=== PATIENT | female | born 1980 | race Caucasian/White ===

== ENCOUNTER 2017-12-30 13:22 | Inpatient (IN) ==
--- NOTE | 2017-12-30 13:44 | Emergency Department Note ---
Wound/Laceration HPI - General Source: patient Mode of arrival: ambulatory Limitations: no limitations <Reece De Anda - Last Filed: 12/30/17 13:41> <Pineda Lamas - Last Filed: 12/30/17 14:27> - General Chief Complaint: Wound/Laceration Stated Complaint: left foot wound, needs debridement, Time Seen by Provider: 12/30/17 13:33 - History of Present Illness HPI Narrative: this is a 37 year old recently diagnosed diabetic female coming into the ER today for surgical consult of possible debridement for the cellulitis on left foot and non-healing ulcer on the plantar aspect of left 1st metatarsal. She came into the ER yesterday and was treated with IV Antibiotics as well as 11 units of insulin when her A1C was measured at 13.4 and her blood glucose was measured at 500. She was discharged with prescription of Levaquin 1 tablet po Qd and metformin 500 mg po BID with a recommended follow up to see wound care. She came in and saw wound care today at 12:45pm who recommended her to go get a surgical consult for wound debridement. (Reece De Anda) - Related Data Previous Rx's Medication Instructions Recorded Levofloxacin [Levaquin] 500 mg PO DAILY #10 tab 12/29/17 metFORMIN [Glucophage] 500 mg PO BIDCC #30 tab 12/29/17 Allergies Allergy/AdvReac Type Severity Reaction Status Date / Time Amoxicillin Allergy Mild Hives Verified 12/29/17 16:54 Review of Systems All systems ED: reviewed and negative except as stated. Integumentary: Reports: lesions (cellulitis of left foot, non healing ulcer 1st metatarsal left side. ) <Reece De Anda - Last Filed: 12/30/17 13:41> Integumentary: Reports: as per HPI <Pineda Lamas - Last Filed: 12/30/17 14:27> Past Medical History - Past Medical History Medical history: Reports: no medical history Surgical history ED: Reports: no surgical history - Social History smoking status: Never smoker Alcohol use: Reports: None Drug use: Reports: none <Reece De Anda - Last Filed: 12/30/17 13:41> - Past Medical History Medical history: Reports: DM <Pineda Lamas - Last Filed: 12/30/17 14:27> Physical Exam Limitations: no limitations General appearance: alert Head: atraumatic, normocephalic Eye: Present: PERRL, EOMI Chest: Present: normal inspection, symmetric chest wall rise Respiratory: Present: normal lung sounds bilaterally Cardiovascular: Present: tachycardia Abdominal: Present: soft. Absent: tenderness, guarding, rebound, rigidity Foot/toe: Present: tenderness, swelling, erythema (erythematous left foot. nonhealing ulcer 1 cm b 1 cm plantar aspect on left metatarsal) Neurological: Present: alert, oriented X3, CN II-XII intact Psychiatric: Present: normal affect <Reece De Anda - Last Filed: 12/30/17 13:41> ENT: normal exam Neck: Present: normal inspection Hip/Pelvis: Present: normal inspection, full ROM Upper leg: Present: normal inspection, full ROM Knee: Present: normal inspection, full ROM Foot/toe: Present: erythema <Pineda Lamas - Last Filed: 12/30/17 14:27> Vital Signs Temperature 98.6 F 12/30/17 13:23 Pulse Rate 106 H 12/30/17 13:23 Respiratory Rate 18 12/30/17 13:23 Blood Pressure 128/86 12/30/17 13:23 Pulse Oximetry (%) 97 12/30/17 13:23 Temperature 98.6 F 12/30/17 13:23 Pulse Rate 106 H 12/30/17 13:23 Respiratory Rate 18 12/30/17 13:23 Blood Pressure 128/86 12/30/17 13:23 Pulse Oximetry (%) 97 12/30/17 13:23 Wound/Laceration <Reece De Anda - Last Filed: 12/30/17 13:41> - Lab Data Result diagrams: 12/30/17 13:50 12/30/17 13:50 <Pineda Lamas - Last Filed: 12/30/17 14:27> - MDM Narrative Medical decision making narrative: patiebnt seen by Dr Moy and recommended debridement. Dr Badillo consulted and felt podiATRY CONSULT BY DR Coelho . HE IS HERE TO EVALUATE AND WILL TAKE TO SURGERY TODAY. MEDICAL CONSULT TO DR SIMS. (Pineda Lamas) - Lab Data Lab Results 12/30/17 Range/Units 13:50 Band Neutrophils % Not Reportable Disposition <Reece De Anda - Last Filed: 12/30/17 13:41> Pt seen by [facility] only: No Time of Disposition: 14:24 <Pineda Lamas - Last Filed: 12/30/17 14:27> Clinical Impression: Cellulitis and abscess of foot Summary: 1.) cellulitis of left 1st metatarsal A.) Surgical consult B.) continue antibiotics as prescribed 2.) Diabetes A.) Continue taking metformin 500 mg po BID B.) schedule f/u with PCP for [facility] (Reece De Anda) Disposition: Xfer As Inpt ([facility]) Condition: Fair Referrals: Naida Baker ARNP [Primary Care Provider] -
[2017-12-30 14:27] LABS: Mean Cell Volume 86.4 fL (80.0-100.0); Mean Corpuscular HGB Conc 33.6 g/dL (31.0-36.0); Platelet Count 256 K/mcL (140-440); RBC 4.52 M/mcL (4.00-5.20); Red Cell Distribution Width 12.6 % (11.5-14.5)
[2017-12-30 14:44] LABS: ALT/SGPT 14 U/l (0-40); Albumin 3.3 gm/dL (3.2-5.2); Albumin/Globulin Ratio 0.9 (1.0-2.3); Alkaline Phosphatase 145 U/L (39-117); Blood Urea Nitrogen 7 mg/dl (6-20)
[2017-12-30 15:30] LABS: Band Neutrophils % 4 % (0-10); Eosinophils % (Manual) 2 % (0-7); Lymphocytes % 19 % (15-49); Monocytes % (Manual) 11 % (1-12); Platelet Estimate NORMAL (NORMAL); RBC Morphology NORMAL (NORMAL); Segmented Neutrophils % 64 % (38-78)
--- NOTE | 2017-12-30 15:42 | Orthopedic Consult Note ---
History of Present Illness - HPI Patient information: Note initiated : 12/30/17 at 3:40 pm Service Date, if different from initiated Date: [] Patient: Angela Sultana 37 y/o F admitted on for left foot wound, needs debridement,. Chief Complaint: [foot pain] Consult date: 12/30/17 Requesting physician: Garry Sultana Consult reason: other (Foot infection) History of present illness: For the past several weeks she has been experiencing some redness and pain to the left foot and it has not been getting any better. She has not recorded a high temperature but says that she has had some chills and perhaps fever. She is a newly diagnosed diabetic. Past History Past medical history: diabetes mellitus, uncontrolled Medications and Allergies Home Medications Medication Instructions Recorded Confirmed Type Levofloxacin [Levaquin] 500 mg PO DAILY #10 tab 12/29/17 12/30/17 Rx metFORMIN [Glucophage] 500 mg PO BIDCC #30 tab 12/29/17 12/30/17 Rx Allergies Allergy/AdvReac Type Severity Reaction Status Date / Time Amoxicillin Allergy Mild Hives Verified 12/29/17 16:54 Physical Examination - Ankle & Foot left Ankle appearance: swelling, erythema Foot appearance: swelling, erythema, laceration, effusion Foot swelling: dorsal, plantar, medial, heel, toes Tenderness with palpation: none Ankle alignment: normal Foot alignment: normal Hammer toe location: none Claw toe location: none Full ROM: yes ROM: dorsiflexion: [id number]_46_OR0_45_40 6 ROM: plantarflexion: [id number]_46_[id number]_40 6 ROM: eversion: [id number]_40 6 ROM: first MTP joint flexion: [id number]_OR45_[id number]_0 1 ROM: first MTP joint extension: [id number]_OR45_[id number] 1 Strength: dorsiflexion: 5/5 Strength: plantarflexion: 5/5 Strength: inversion: 5/5 Strength: eversion: 5/5 Strength: toe extension: 5/5 Strength: toe flexion: 5/5 - Cervical Spine Neck pain: none Tenderness with palpation: none Full ROM: yes ROM: flexion: [id number]_46_[id number]_90 11 ROM: extension: [id number]_[id number]_90 11 ROM: rotation right: [id number]_[id number]_90 11 ROM: rotation left: [id number]_[id number]_90 11 ROM: lateral flexion right: [id number]_[id number]_60 8 ROM: lateral flexion left: [id number]_46_OR0_45_60 8 - Lumbar Spine Back pain: none Tenderness with palpation: none Appearance: normal Full ROM: yes ROM: flexion: [id number]_140 12 ROM: extension: [id number]_46_OR45_45_0 1 ROM: rotation right: [id number]_46_OR45_45_0 1 ROM: rotation left: [id number]_46_OR45_45_0 1 ROM: lateral flexion right: [id number]_46_OR45_45_0 1 ROM: lateral flexion left: [id number]_46_OR45_45_0 1 Assessment and Plan (1) Cellulitis and abscess of foot Status: Acute Priority: High Comment: Patient needs incision and drainage of her foot. She will also need IV antibiotics. The incision and drainage is planned for 12/30/17. Assessment and Plan (1) Cellulitis and abscess of foot Status: Acute Priority: High Comment: Patient needs incision and drainage of her foot. She will also need IV antibiotics. The incision and drainage is planned for 12/30/17. Medical - H&P: Exam - Constitutional Vitals: Temp Pulse Resp BP Pulse Ox 98.6 F 109 H 18 125/89 98 12/30/17 13:23 12/30/17 15:05 12/30/17 15:05 12/30/17 15:05 12/30/17 15:05 - Respiratory Respiratory exam: Present: normal respiratory exam - Cardiovascular Cardiovascular exam: Present: normal rate and rhythm
[2017-12-30] MEDS ORDERED: GLYCOPYRROLATE 0.2 MG/ML VIAL IV ONE (16:05)
[2017-12-30] MEDS ORDERED: KETAMINE 100 MG/ML ML IV ONE (16:05)
[2017-12-30] MEDS ORDERED: LIDOCAINE HCL/PF 100 MG/5 ML SYRINGE IV ONE (16:05)
[2017-12-30] MEDS ORDERED: MIDAZOLAM 5 MG/5 ML VIAL IV ONE (16:05)
[2017-12-30] MEDS ORDERED: ONDANSETRON 4 MG/2 ML VIAL IV ONE (16:05)
[2017-12-30] MEDS ORDERED: PROPOFOL 200 MG/20 ML VIAL IV ONE (16:05)
[2017-12-30] MEDS ORDERED: fentaNYL 250 MCG/5 ML VIAL IV ONE (16:05)
[2017-12-30] MEDS ORDERED: SUCCINYLCHOLINE 20 MG/ML ML IV ONE (16:05)
[2017-12-30] MEDS ORDERED: ONDANSETRON 4 MG/2 ML VIAL IV PRN ×3 (16:54→18:02)
[2017-12-30] MEDS ORDERED: IPRATROPIUM/ALBUTEROL 3 ML AMPUL.NEB NEB PRN ×2 (16:54→16:56)
[2017-12-30] MEDS ORDERED: MEPERIDINE 25 MG/ML SYRINGE IV PRN (16:54)
[2017-12-30] MEDS ORDERED: fentaNYL 100 MCG/2 ML VIAL IV PRN (16:54)
[2017-12-30] MEDS ORDERED: LACTATED RINGERS 1,000 ML IV SCH (17:00)
[2017-12-30] MEDS ORDERED: 0.9 % SODIUM CHLORIDE 1,000 ML IV SCH (17:41)
[2017-12-30] MEDS ORDERED: DEXTROSE 31 GM ORAL.SUSP PO PRN ×2 (17:41→18:02)
[2017-12-30] MEDS ORDERED: INSULIN LISPRO 1 UNIT/0.01 ML UNIT SQ SCH (17:41)
[2017-12-30] MEDS ORDERED: DEXTROSE 50% 50 ML VIAL IV PRN ×2 (17:41→18:02)
--- NOTE | 2017-12-30 17:55 | Internal Med History&Physical ---
Medical - H&P: [facility] Patient information: Note initiated : 12/30/17 at 5:55 pm Service Date, if different from initiated Date: [] Patient: Angela Sultana 37 y/o F admitted on 12/30/17 for left foot wound, needs debridement,. Chief complaint: Foot infection History of present illness: Patient is 37-year-old female who was diagnosed with type 2 diabetes yesterday, who re-presents to the ED with worsening of a left toe wound. The onset of the wound was under a callus of the lateral aspect of the left great toe. She developed a blister, subsequently drained. This is about 2 weeks ago. She removed the callus to clean the area. Since that time, she's had increasing swelling of the left toe, some purulent drainage. Over the last 24-48 hours she 's noted receding edema and purulent material tracking across the top of her left great toe to the lateral aspect between the first and second toe. She's also developed associated erythema across the top of her distal left foot extending to about the fourth toe. Patient experiences occasional pain, especially with standing. She tries to offload forefoot by standing on the heel. Sensation appears to be intact or lower extremities. She's had no fevers or chills. Has no history of peripheral arterial disease. She has no claudication symptoms. Patient's been evaluated by Dr. Donaldson, do is taking the patient to the operating room for debridement directly from the emergency department. Patient's glucoses were in the 400 range when she was in the ED yesterday. She had been started on metformin for new diagnosis of type 2 diabetes, took her first dose today. She took her first dose of oral levofloxacin today as well. All systems: reviewed and no additional remarkable complaints except as stated Medical - H&P: PMH Medical history: Type 2 diabetes mellitus, new diagnosis Surgical history: No prior surgeries Pertinent family history: Significant for several members with diabetes Social history: Works at a care facility. Does not smoke. Does not drink alcohol. Medical - H&P: Meds Home Medications Medication Instructions Recorded Confirmed Type Levofloxacin [Levaquin] 500 mg PO DAILY #10 tab 12/29/17 12/30/17 Rx metFORMIN [Glucophage] 500 mg PO BIDCC #30 tab 12/29/17 12/30/17 Rx Allergies Allergy/AdvReac Type Severity Reaction Status Date / Time Amoxicillin Allergy Mild Hives Verified 12/29/17 16:54 Medical - H&P: Exam - Constitutional Vitals: Temp Pulse Resp BP Pulse Ox 98.8 F 99 H 15 121/70 97 12/30/17 17:20 12/30/17 17:20 12/30/17 17:20 12/30/17 17:20 12/30/17 17:20 GENERAL: Alert, oriented, in no acute distress. Cooperative, appears stated age. HEENT: Atraumatic. PERRL, conjunctiva clear, no scleral icterus. Hearing grossly intact. Oropharynx with moist mucous membranes, tongue midline. NECK: Supple without meningismus, no thyromegaly RESPIRATORY: Breath sounds clear bilaterally without wheezes or rhonchi. Respiratory effort is unlabored. CARDIOVASCULAR: Regular rate and rhythm, no murmur gallop or rub. No peripheral edema. Carotid pulses 2+ without bruit. Pedal pulses 2+ at DP. GI: Abdomen soft, nontender, no guarding or rebound. Bowel sounds are present. No hepatosplenomegaly. LYMPHATIC: No cervical or supraclavicular lymphadenopathy MUSCULOSKELETAL: Left foot with swollen great toe, about 2mm ulcer overlying approximately the DIP joint with purulent drainage. Purulence tracking over the dorsum of the left great toe to the renal aspect. Erythema extending from the great toe to the midfoot medially, over the dorsum of the foot to about the fourth great toe. Otherwise, no joint erythema or swelling, normal range of motion in extremities. Muscle mass normal. Strength 5/5 in the upper and lower extremities. SKIN: Except as noted above, otherwise intact, warm, dry. Skin turgor normal. NEUROLOGIC: Cranial nerves II through XII grossly intact. Sensation intact to light touch bilaterally. PSYCHIATRIC: Alert, oriented x3, normal affect, normal insight. Medical - H&P: Reslt - Labs CBC & Chem 7: 12/30/17 13:50 12/30/17 13:50 Labs: Short CBC 12/30/17 Range/Units 13:50 WBC 8.9 (4.5-11.0) K/mcL Hgb 13.1 (12.0-15.0) g/dL Hct 39.1 (36.0-48.0) % Plt Count 256 (140-440) K/mcL BMP 12/30/17 13:50 Sodium 134 Potassium 4.3 Chloride 96 Carbon Dioxide 21 L BUN 7 Creatinine 0.5 L Glucose 276 H Calcium 8.9 Liver Function 12/30/17 Range/Units 13:50 Total Bilirubin 0.4 (0.0-1.0) mg/dL AST 16 (0-37) U/l ALT 14 (0-40) U/l Alkaline Phosphatase 145 H (39-117) U/L Albumin 3.3 (3.2-5.2) gm/dL - Impressions Left foot films, reviewed. IMPRESSION: Moderate diffuse forefoot soft tissue swelling compatible the clinical diagnosis of cellulitis. Medical - H&P: A/P (1) Type 2 diabetes mellitus with foot ulcer Current visit: Yes Status: Acute (2) Cellulitis of toe of left foot Current visit: Yes Status: Acute (3) Diabetes type 2, uncontrolled Current visit: Yes Status: Acute - Narrative A/P Narrative: 37-year-old female, recently diagnosed with diabetes as of yesterday, presents with worsening of erythema and purulent drainage from left great toe wound, now involving the forefoot. Diabetic left toe wound with cellulitis. Patient has purulent material, will need incision and drainage. Dr. Donaldson has been consulted, plans to take to the OR from the emergency department. Plan: Inpatient admission, surgical drainage, IV antibiotics with clindamycin and levofloxacin for good streptococcal and staphylococcal as well as gram- negative coverage. Follow-up operative cultures. Type 2 diabetes mellitus. New diagnosis. Was started on metformin, took her first dose earlier today. Several family members with diabetes. Plan: Controlled carbohydrate diet, sliding scale insulin for now, check hemoglobin A1c if has not been done already, diabetic education. CODE STATUS: Full code. Prophylaxis: Lovenox.
[2017-12-30] MEDS: LEVOFLOXACIN 750 MG/150 ML BAG IV SCH (18:42)
[2017-12-30] MEDS: HYDROcodone/APAP 5/325MG TABLET PO PRN (19:26)
[2017-12-30] MEDS ORDERED: CLINDAMYCIN 600 MG/4 ML VIAL ONE (20:45)
[2017-12-30] MEDS: CLINDAMYCIN 600 MG in DEXTROSE 5% IN WATER 50 ML IV SCH (20:52)
[2017-12-30] MEDS ORDERED: FAMOTIDINE/PF 20 MG/2 ML VIAL IV SCH ×2 (21:00)
[2017-12-30] MEDS: INSULIN LISPRO 1 UNIT/0.01 ML UNIT SQ SCH (21:59)
[2017-12-30] MEDS: 0.9 % SODIUM CHLORIDE 10 ML SYRINGE IV SCH (22:00)
[2017-12-30] MEDS ORDERED: 0.9 % SODIUM CHLORIDE 10 ML SYRINGE IV SCH (22:00)
[2017-12-31] MEDS ORDERED: CLINDAMYCIN 600 MG/4 ML VIAL ONE ×2 (01:05→05:13)
[2017-12-31] MEDS: CLINDAMYCIN 600 MG in DEXTROSE 5% IN WATER 50 ML IV SCH ×4 (01:12→21:46)
[2017-12-31] MEDS: HYDROcodone/APAP 5/325MG TABLET PO PRN (05:15)
[2017-12-31 06:33] LABS: Mean Cell Volume 86.8 fL (80.0-100.0); Mean Corpuscular HGB Conc 33.4 g/dL (31.0-36.0); Platelet Count 241 K/mcL (140-440); RBC 3.89 M/mcL (4.00-5.20); Red Cell Distribution Width 12.9 % (11.5-14.5)
[2017-12-31 06:39] LABS: Blood Urea Nitrogen 6 mg/dl (6-20)
[2017-12-31] MEDS: 0.9 % SODIUM CHLORIDE 10 ML SYRINGE IV SCH ×3 (07:40→21:47)
[2017-12-31] MEDS: INSULIN LISPRO 1 UNIT/0.01 ML UNIT SQ SCH ×4 (07:46→20:24)
[2017-12-31 08:25] LABS: Band Neutrophils % 2 % (0-10); Lymphocytes % 16 % (15-49); Monocytes % (Manual) 16 % (1-12); Platelet Estimate NORMAL (NORMAL); RBC Morphology NORMAL (NORMAL); Segmented Neutrophils % 66 % (38-78)
[2017-12-31] MEDS: ENOXAPARIN 40 MG/0.4 ML SYRINGE SQ SCH (08:57)
--- NOTE | 2017-12-31 10:43 | Orthopedic Progress Note ---
Subjective Patient information: Note initiated : 12/31/17 at 10:41 am Service Date, if different from initiated Date: [] Patient: Angela Sultana 37 y/o F admitted on 12/30/17 for left foot wound, needs debridement,. Chief Complaint: [great toe infection] Principal diagnosis: cellulitus left great toe Interval history: pain has improved slightly since surgery Pertinent ROS: no few chills nausea vomiting Objective Vital signs: Vital Signs Temp Pulse Pulse Resp BP BP BP 12/31/17 07:27 99.9 F H 108 H 18 113/71 12/31/17 04:00 99.5 F H 111 H 18 128/78 12/30/17 23:50 99.2 F H 116 H 18 106/65 12/30/17 20:17 98.5 F 95 H 18 117/79 12/30/17 19:17 111 H 118/81 12/30/17 18:47 110 H 119/82 12/30/17 18:17 101 H 111/77 12/30/17 18:02 99 H 114/79 12/30/17 17:47 99 H 113/77 12/30/17 17:32 97 H 109/77 12/30/17 17:23 98.7 F 99 H 18 113/77 12/30/17 17:20 98.8 F 99 H 15 121/70 12/30/17 17:05 101 H 14 115/72 12/30/17 17:00 95 H 16 101/60 12/30/17 16:55 95 H 17 95/54 12/30/17 16:48 98.1 F 95 H 19 97/55 12/30/17 15:05 109 H 18 128/86 125/89 12/30/17 14:34 102 H 20 129/82 12/30/17 13:23 98.6 F 106 H 18 128/86 Pulse Ox 12/31/17 07:27 96 12/31/17 04:00 96 12/30/17 23:50 96 12/30/17 20:17 95 12/30/17 19:17 98 12/30/17 18:47 99 12/30/17 18:17 100 12/30/17 18:02 100 12/30/17 17:47 100 12/30/17 17:32 100 12/30/17 17:23 99 12/30/17 17:20 97 12/30/17 17:05 94 12/30/17 17:00 94 12/30/17 16:55 94 12/30/17 16:48 94 12/30/17 15:05 98 12/30/17 14:34 99 12/30/17 13:23 97 Intake and Output 12/30/17 12/31/17 12/31/17 21:59 05:59 13:59 Intake Total 1949 650 / 650 Output Total 1200 / 1200 Balance 1939 -550 / -550 Intake: IV 150 / 150 Oral 650 / 650 IV - Manual Only 1800 / 1800 Output: Void Amount 1200 / 1200 Estimated Blood Loss Other: # Voids 1 Weight 240 lb 3.2 oz Intake & Output: Intake & Output 12/30/17 12/31/17 12/31/17 21:59 05:59 13:59 Intake Total 1949 650 / 650 Output Total 1200 / 1200 Balance 1939 -550 / -550 Weight 240 lb 3.2 oz Intake: IV 150 / 150 Oral 650 / 650 IV - Manual Only 1800 / 1800 Output: Void Amount 1200 / 1200 Estimated Blood Loss Other: # Voids 1 Incision: Yes draining, Yes swollen, Yes inflamed Incision clean and dry: No (serosanguineous drainage) Dressing: Yes intact Weight bearing status: partial (heel touch only) - [place] Pulses Peripheral pulses: 1+: posterior tibialis (L), 2+: dorsalis pedis (L), dorsalis pedis (R), posterior tibialis (R) - Labs CBC & BMP: 12/31/17 05:00 12/31/17 05:00 Labs: 12/31/17 12/30/17 05:00 13:50 Hgb 11.3 L 13.1 Hct 33.8 L 39.1 Assessment and Plan (1) Cellulitis and abscess of foot Status: Acute Priority: High Comment: IV antibiotics, estimated 50% chance of healing to toe given status during surgery. Daily dressing changes and as needed given drainage
[2017-12-31] MEDS: LEVOFLOXACIN 750 MG/150 ML BAG IV SCH (12:05)
[2017-12-31] MEDS: ACETAMINOPHEN 325 MG TABLET PO PRN (15:46)
--- NOTE | 2017-12-31 21:42 | Internal Med Progress Note ---
Medical - PN: Subj Patient information: Note initiated : 12/31/17 at 9:39 pm Service Date, if different from initiated Date: [] Patient: Angela Sultana 37 y/o F admitted on 12/30/17 for Cellulitis and Abscess of Foot. Chief Complaint: follow up foot cellulitis in diabetic patient Interval history: 12/30 Patient is 37-year-old female who was diagnosed with type 2 diabetes yesterday, who re-presents to the ED with worsening of a left toe wound. The onset of the wound was under a callus of the lateral aspect of the left great toe. She developed a blister, subsequently drained. This is about 2 weeks ago. She removed the callus to clean the area. Since that time, she's had increasing swelling of the left toe, some purulent drainage. Over the last 24-48 hours she 's noted receding edema and purulent material tracking across the top of her left great toe to the lateral aspect between the first and second toe. She's also developed associated erythema across the top of her distal left foot extending to about the fourth toe. Patient experiences occasional pain, especially with standing. She tries to offload forefoot by standing on the heel. Sensation appears to be intact or lower extremities. She's had no fevers or chills. Has no history of peripheral arterial disease. She has no claudication symptoms. 12/31 No new complaints today. Tolerating antibiotics. Not much pain, is controlled. - Constitutional Vitals: Vital Signs Temp Pulse Resp BP Pulse Ox 98.9 F 97 H 18 117/79 96 12/31/17 19:28 12/31/17 19:28 12/31/17 19:28 12/31/17 19:28 12/31/17 19:28 Period Temp Pulse Resp BP Sys/Escalante Pulse Ox Last 24 Hr 98.9 F-102.6 F 97-116 18-20 106-128/65-79 90-96 Intake and Output 12/31/17 12/31/17 12/31/17 05:59 13:59 21:59 Intake Total 650 / 650 570 / 570 324 / 324 Output Total 1200 / 1200 800 / 800 Balance -550 / -550 -230 / -230 324 / 324 Weight 240 lb 3.2 oz 235 lb Patient Weight 01/01/18 05:59 Weight 235 lb General: No acute distress Chest: Clear, unlabored Cardiac: Regular, no murmur Abdomen: Soft, nontender Neuro: Alert, oriented 3 Extremity: Left great toe with surgical I&D wound, packing in place. Improved bright erythema across the dorsum of the foot. No further purulent drainage from the toe medially. Decreased edema throughout the foot. Intake & Output: Intake & Output 12/31/17 12/31/17 12/31/17 05:59 13:59 21:59 Intake Total 650 / 650 570 / 570 324 / 324 Output Total 1200 / 1200 800 / 800 Balance -550 / -550 -230 / -230 324 / 324 Weight 240 lb 3.2 oz 235 lb Intake: IV 150 / 150 54 / 54 Cleocin 600 mg In Dextrose 5% 54 / 54 in Water 50 ml @ 100 mls/hr IV Q8H [facility] Rx#:[id number] Oral 650 / 650 420 / 420 270 / 270 Output: Void Amount 1200 / 1200 800 / 800 Other: Meal Lunch Dinner Percent of Meal Consumed 100% 100% Feeding Ability Independent Independent Stool Size Moderate Stool Color Brown Stool Consistency Soft # Voids 1 1 Medical - PN: Obj Da - Labs CBC & Chem 7: 12/31/17 05:00 12/31/17 05:00 Labs: Abnormal Lab Results 12/31/17 12/31/17 12/30/17 05:00 05:00 13:51 RBC 3.89 L Hgb 11.3 L Hct 33.8 L Monocytes % (Manual) 16 H Carbon Dioxide 21 L Anion Gap Creatinine 0.5 L Glucose 228 H Alkaline Phosphatase Globulin Albumin/Globulin Ratio Beta-Hydroxybutyrate 3.19 H 12/30/17 13:50 RBC Hgb Hct Monocytes % (Manual) Carbon Dioxide 21 L Anion Gap 17.0 H Creatinine 0.5 L Glucose 276 H Alkaline Phosphatase 145 H Globulin 3.8 H Albumin/Globulin Ratio 0.9 L Beta-Hydroxybutyrate HB A1c 13.4% Meds: Medications Acetaminophen (Tylenol) 650 mg PO Q4HP PRN PRN Reason: PAIN/FEVER > 101 Last Admin: 12/31/17 15:46 Dose: 650 mg Hydrocodone Bitart/Acetaminophen ([place] 5/325mg) 1 tab PO Q4HP PRN PRN Reason: PAIN LEVEL 3-6 Last Admin: 12/31/17 05:15 Dose: 1 tab Dextrose (Dextrose 50%) 0 ml IV UD PRN PRN Reason: Hypoglycemia Diagnostic Test (Pha) (Accu-Chek) 1 each FS ACHS [facility] Last Admin: 12/31/17 20:23 Dose: 1 each Enoxaparin Sodium (Lovenox) 40 mg SQ DAILY [facility] Last Admin: 12/31/17 08:57 Dose: 40 mg Glucose (Insta-Glucose) 15 gm PO PRN PRN PRN Reason: Hypoglycemia Clindamycin Phosphate 600 mg/ (Dextrose) 54 mls @ 100 mls/hr IV Q8H [facility] Last Infusion: 12/31/17 14:30 Dose: Infused Levofloxacin (Levaquin) 750 mg in 150 mls @ 100 mls/hr IV Q24H [facility] Last Infusion: 12/31/17 13:50 Dose: Infused Insulin Human Lispro (Humalog) 0 unit SQ ACHS [facility] PRN Reason: Protocol Last Admin: 12/31/17 20:24 Dose: 8 unit Morphine Sulfate (Morphine) 4 mg IV Q4HP PRN PRN Reason: PAIN LEVEL > 6 Last Admin: 12/30/17 18:41 Dose: 4 mg Ondansetron HCl (Zofran) 4 mg IV Q6HP PRN PRN Reason: Nausea And Vomiting Sodium Chloride (Saline Flush) 10 ml IV Q8 [facility] Last Admin: 12/31/17 14:00 Dose: 10 ml Medical - PN: A/P - Time Spent With Patient Total time spent is greater than 50% in coordination of care (as documented) at patient's floor/unit and/or counseling patient: (1) Type 2 diabetes mellitus with foot ulcer Status: Acute Current Visit: Yes (2) Cellulitis of toe of left foot Status: Acute Current Visit: Yes (3) Diabetes type 2, uncontrolled Status: Acute Current Visit: Yes - Narrative A/P Narrative: 37-year-old female, recently diagnosed with diabetes as of day prior to admission, presented with worsening of erythema and purulent drainage from left great toe wound, now involving the forefoot. Diabetic left toe wound with cellulitis. POD#1, s/p I and D. Wound management per surgery. Plan: Continue IV clindamycin and levofloxacin. Follow-up cultures. Type 2 diabetes mellitus. New diagnosis. Hemoglobin A1c is 13.4%. Was started on metformin on day prior to admission, took her first dose earlier on day of admission. Plan: Controlled carbohydrate diet, sliding scale insulin for now, hold metformin, as may need contrast studies; DM education CODE STATUS: Full code. Prophylaxis: Lovenox. Medical - PN: Qual - VTE Deep Vein Thrombosis/Pulmonary Embolism Present on Admission: No
[2018-01-01] MEDS: ACETAMINOPHEN 325 MG TABLET PO PRN (00:53)
[2018-01-01] MEDS: CLINDAMYCIN 600 MG in DEXTROSE 5% IN WATER 50 ML IV SCH ×3 (06:00→22:00)
[2018-01-01] MEDS: 0.9 % SODIUM CHLORIDE 10 ML SYRINGE IV SCH ×3 (06:01→22:01)
[2018-01-01 06:12] LABS: Mean Cell Volume 86.7 fL (80.0-100.0); Mean Corpuscular HGB Conc 33.6 g/dL (31.0-36.0); Mean Corpuscular Hemoglobin 29.1 pg (26.0-34.0); Platelet Count 261 K/mcL (140-440); RBC 3.83 M/mcL (4.00-5.20); Red Cell Distribution Width 12.4 % (11.5-14.5)
[2018-01-01 07:03] LABS: Blood Urea Nitrogen 10 mg/dl (6-20)
[2018-01-01] MEDS: INSULIN LISPRO 1 UNIT/0.01 ML UNIT SQ SCH ×4 (07:36→20:50)
[2018-01-01 08:07] LABS: Band Neutrophils % 4 % (0-10); Basophils % (Manual) 1 % (0-2); Eosinophils % (Manual) 1 % (0-7); Lymphocytes % 30 % (15-49); Monocytes % (Manual) 4 % (1-12); Platelet Estimate NORMAL (NORMAL); RBC Morphology NORMAL (NORMAL); Segmented Neutrophils % 60 % (38-78)
[2018-01-01] MEDS: ENOXAPARIN 40 MG/0.4 ML SYRINGE SQ SCH (09:08)
[2018-01-01] MEDS: LEVOFLOXACIN 750 MG/150 ML BAG IV SCH (09:09)
--- NOTE | 2018-01-01 23:25 | Internal Med Progress Note ---
Medical - PN: Subj Patient information: Note initiated : 01/01/18 at 11:23 pm Service Date, if different from initiated Date: [] Patient: Angela Sultana 37 y/o F admitted on 12/30/17 for Cellulitis and Abscess of Foot. Chief Complaint: f/u cellulitis, DM foot wound Interval history: 12/30 Patient is 37-year-old female who was diagnosed with type 2 diabetes yesterday, who re-presents to the ED with worsening of a left toe wound. The onset of the wound was under a callus of the lateral aspect of the left great toe. She developed a blister, subsequently drained. This is about 2 weeks ago. She removed the callus to clean the area. Since that time, she's had increasing swelling of the left toe, some purulent drainage. Over the last 24-48 hours she 's noted receding edema and purulent material tracking across the top of her left great toe to the lateral aspect between the first and second toe. She's also developed associated erythema across the top of her distal left foot extending to about the fourth toe. Patient experiences occasional pain, especially with standing. She tries to offload forefoot by standing on the heel. Sensation appears to be intact or lower extremities. She's had no fevers or chills. Has no history of peripheral arterial disease. She has no claudication symptoms. 12/31 No new complaints today. Tolerating antibiotics. Not much pain, is controlled. 01/01 Fever yesterday afternoon and last night. Otherwise no complaints. D/W Dr. Donaldson, she will likely need 2 weeks of IV abx for her infection. At risk of amputation. - Constitutional Vitals: Vital Signs Temp Pulse Resp BP Pulse Ox 98.8 F 100 H 18 120/77 96 01/01/18 19:48 01/01/18 19:48 01/01/18 19:48 01/01/18 19:48 01/01/18 19:48 Period Temp Pulse Resp BP Sys/Escalante Pulse Ox Last 24 Hr 97.9 F-101.2 F 100-110 16-20 119-132/70-86 93-96 Intake and Output 01/01/18 01/01/18 01/02/18 13:59 21:59 05:59 Intake Total 1134 / 1134 564 / 564 54 / 54 Output Total 900 / 900 Balance 1134 / 1134 -336 / -336 Weight 234 lb Patient Weight 01/02/18 05:59 Weight 234 lb General: Laying in bed in no distress Chest: Clear, unlabored Cardiovascular: Regular, no edema Abdomen: Soft Extremities: Foot is wrapped, dressings dry, neurovascularly intact Neuro: Alert, oriented 3. Intake & Output: Intake & Output 01/01/18 01/01/18 01/02/18 13:59 21:59 05:59 Intake Total 1134 / 1134 564 / 564 Output Total 900 / 900 Balance 1134 / 1134 -336 / -336 Weight 234 lb Intake: IV 204 / 204 Cleocin 600 mg In Dextrose 5% in Water 50 ml @ 100 mls/hr IV Q8H [facility] Rx#:[id number] Oral 1080 / 1080 360 / 360 Output: Void Amount 900 / 900 Other: Meal Lunch Dinner Percent of Meal Consumed 100% 100% Feeding Ability Independent Independent Stool Size Large Stool Color Brown Stool Consistency Formed # Voids 1 # Bowel Movements 1 Medical - PN: Obj Da - Labs CBC & Chem 7: 01/01/18 04:46 01/01/18 04:46 Labs: Abnormal Lab Results 01/01/18 01/01/18 12/31/17 04:46 04:46 05:00 RBC 3.83 L Hgb 11.1 L Hct 33.2 L Monocytes % (Manual) Carbon Dioxide 21 L Anion Gap Creatinine 0.5 L Glucose 226 H 228 H Alkaline Phosphatase Globulin Albumin/Globulin Ratio Beta-Hydroxybutyrate 12/31/17 12/30/17 12/30/17 05:00 13:51 13:50 RBC 3.89 L Hgb 11.3 L Hct 33.8 L Monocytes % (Manual) 16 H Carbon Dioxide 21 L Anion Gap 17.0 H Creatinine 0.5 L Glucose 276 H Alkaline Phosphatase 145 H Globulin 3.8 H Albumin/Globulin Ratio 0.9 L Beta-Hydroxybutyrate 3.19 H Microbiology 12/31/17 15:53 Blood Culture - Preliminary Blood 12/31/17 15:57 Blood Culture - Preliminary Blood 12/30/17 16:53 Gram Stain - Final Toe - First Gram Stain - Final Anaerobic Culture - Preliminary Gram Stain - Final Tissue Culture - Preliminary Strep agalactiae - (group b) Corynebacterium species 12/30/17 14:17 Blood Culture - Preliminary Blood 12/30/17 14:20 Blood Culture - Preliminary Blood 12/30/17 16:52 Gram Stain - Final Toe - First Gram Stain - Final Anaerobic Culture - Preliminary Gram Stain - Final Tissue Culture - Preliminary Strep agalactiae - (group b) Meds: Medications Acetaminophen (Tylenol) 650 mg PO Q4HP PRN PRN Reason: PAIN/FEVER > 101 Last Admin: 01/01/18 00:53 Dose: 650 mg Hydrocodone Bitart/Acetaminophen ([place] 5/325mg) 1 tab PO Q4HP PRN PRN Reason: PAIN LEVEL 3-6 Last Admin: 12/31/17 05:15 Dose: 1 tab Dextrose (Dextrose 50%) 0 ml IV UD PRN PRN Reason: Hypoglycemia Diagnostic Test (Pha) (Accu-Chek) [address] [facility] Last Admin: 01/01/18 20:47 Dose: 1 each Enoxaparin Sodium (Lovenox) 40 mg SQ DAILY [facility] Last Admin: 01/01/18 09:08 Dose: 40 mg Glucose (Insta-Glucose) 15 gm PO PRN PRN PRN Reason: Hypoglycemia Clindamycin Phosphate 600 mg/ (Dextrose) 54 mls @ 100 mls/hr IV Q8H [facility] Last Infusion: 01/01/18 22:32 Dose: Infused Levofloxacin (Levaquin) 750 mg in 150 mls @ 100 mls/hr IV Q24H [facility] Last Infusion: 01/01/18 18:42 Dose: Infused Insulin Human Lispro (Humalog) [address] [facility] PRN Reason: Protocol Last Admin: 01/01/18 20:50 Dose: 10 unit Morphine Sulfate (Morphine) 4 mg IV Q4HP PRN PRN Reason: PAIN LEVEL > 6 Last Admin: 12/30/17 18:41 Dose: 4 mg Ondansetron HCl (Zofran) 4 mg IV Q6HP PRN PRN Reason: Nausea And Vomiting Sodium Chloride (Saline Flush) 10 ml IV Q8 [facility] Last Admin: 01/01/18 22:01 Dose: 10 ml Medical - PN: A/P (1) Type 2 diabetes mellitus with foot ulcer Status: Acute Current Visit: Yes (2) Cellulitis of toe of left foot Status: Acute Current Visit: Yes (3) Diabetes type 2, uncontrolled Status: Acute Current Visit: Yes - Narrative A/P Narrative: 37-year-old female, recently diagnosed with diabetes as of day prior to admission, presented with worsening of erythema and purulent drainage from left great toe wound, now involving the forefoot. Diabetic left toe wound with cellulitis. POD#2, s/p I and D. Wound management per surgery. Concerned she did have fever yesterday, though that appears to be dissipating. Cultures show Streptococcus, now with corynebacterium. Corynebacterium appears to be multiple colonies, unclear effect is contaminant or pathogen. For now will continue with clindamycin and levofloxacin. Plan: Continue IV clindamycin and levofloxacin. Follow-up cultures as they approach finalization. If worsens, consider adding vancomycin. Type 2 diabetes mellitus. New diagnosis. Hemoglobin A1c is 13.4%. Was started on metformin on day prior to admission, took her first dose earlier on day of admission. Plan: Controlled carbohydrate diet, sliding scale insulin for now, hold metformin, as may need contrast studies; DM education CODE STATUS: Full code. Prophylaxis: Lovenox. Medical - PN: Qual - VTE Deep Vein Thrombosis/Pulmonary Embolism Present on Admission: No
[2018-01-02 04:59] LABS: Mean Cell Volume 86.2 fL (80.0-100.0); Mean Corpuscular HGB Conc 33.8 g/dL (31.0-36.0); Mean Corpuscular Hemoglobin 29.1 pg (26.0-34.0); Platelet Count 243 K/mcL (140-440); RBC 3.95 M/mcL (4.00-5.20); Red Cell Distribution Width 12.7 % (11.5-14.5)
[2018-01-02 05:34] LABS: Blood Urea Nitrogen 9 mg/dl (6-20)
[2018-01-02] MEDS: CLINDAMYCIN 600 MG in DEXTROSE 5% IN WATER 50 ML IV SCH ×3 (05:57→21:17)
[2018-01-02] MEDS: 0.9 % SODIUM CHLORIDE 10 ML SYRINGE IV SCH ×3 (05:57→21:18)
[2018-01-02 06:12] LABS: Band Neutrophils % 5 % (0-10); Basophils % (Manual) 1 % (0-2); Eosinophils % (Manual) 1 % (0-7); Lymphocytes % 33 % (15-49); Monocytes % (Manual) 3 % (1-12); Platelet Estimate NORMAL (NORMAL); RBC Morphology NORMAL (NORMAL); Segmented Neutrophils % 55 % (38-78)
[2018-01-02] MEDS: HYDROcodone/APAP 5/325MG TABLET PO PRN (08:07)
[2018-01-02] MEDS: INSULIN LISPRO 1 UNIT/0.01 ML UNIT SQ SCH ×4 (08:10→21:17)
[2018-01-02] MEDS: LEVOFLOXACIN 750 MG/150 ML BAG IV SCH (09:39)
[2018-01-02] MEDS: ENOXAPARIN 40 MG/0.4 ML SYRINGE SQ SCH (09:45)
--- NOTE | 2018-01-02 16:36 | Internal Med Progress Note ---
Medical - PN: Subj Patient information: Note initiated : 01/02/18 at 4:29 pm Service Date, if different from initiated Date: [] Patient: Angela Sultana 37 y/o F admitted on 12/30/17 for Cellulitis and Abscess of Foot. Chief Complaint: f/u diabetic foot infection Interval history: 12/30 Patient is 37-year-old female who was diagnosed with type 2 diabetes yesterday, who re-presents to the ED with worsening of a left toe wound. The onset of the wound was under a callus of the lateral aspect of the left great toe. She developed a blister, subsequently drained. This is about 2 weeks ago. She removed the callus to clean the area. Since that time, she's had increasing swelling of the left toe, some purulent drainage. Over the last 24-48 hours she 's noted receding edema and purulent material tracking across the top of her left great toe to the lateral aspect between the first and second toe. She's also developed associated erythema across the top of her distal left foot extending to about the fourth toe. Patient experiences occasional pain, especially with standing. She tries to offload forefoot by standing on the heel. Sensation appears to be intact or lower extremities. She's had no fevers or chills. Has no history of peripheral arterial disease. She has no claudication symptoms. 12/31 No new complaints today. Tolerating antibiotics. Not much pain, is controlled. 01/01 Fever yesterday afternoon and last night. Otherwise no complaints. D/W Dr. Donaldson, she will likely need 2 weeks of IV abx for her infection. At risk of amputation. 01/02 Seen on rounds, during dressing change. No particular complaints. No further fevers. Tolerating antibiotics. - Constitutional Vitals: Vital Signs Temp Pulse Resp BP Pulse Ox 97.4 F 92 H 16 115/76 94 01/02/18 11:44 01/02/18 04:00 01/02/18 11:44 01/02/18 11:44 01/02/18 11:44 Period Temp Pulse Resp BP Sys/Escalante Pulse Ox Last 24 Hr 97.3 F-98.8 F 92-100 16-18 115-133/76-81 93-96 Intake and Output 01/02/18 01/02/18 01/02/18 05:59 13:59 21:59 Intake Total 854 / 854 204 / 204 Output Total 900 / 900 400 / 400 Balance -46 / -46 -196 / -196 Intake & Output: Intake & Output 01/02/18 01/02/18 01/02/18 05:59 13:59 21:59 Intake Total 854 / 854 204 / 204 Output Total 900 / 900 400 / 400 Balance -46 / -46 -196 / -196 Intake: IV Cleocin 600 mg In Dextrose 5% in Water 50 ml @ 100 mls/hr IV Q8H [facility] Rx#:[id number] Oral 800 / 800 Output: Void Amount 900 / 900 400 / 400 Other: Stool Size Large Stool Color Brown Stool Consistency Formed # Voids 1 # Bowel Movements 1 General appearance: no acute distress - Respiratory Respiratory exam: Present: normal respiratory exam. Absent: accessory muscle use - Cardiovascular Cardiovascular exam: Present: normal rate and rhythm. Absent: diastolic murmur , rubs, systolic murmur - GI/Abdominal GI/Abdominal exam: Present: normal bowel sounds, soft. Absent: tenderness - Extremities Exam Additional comments: Foot w/dark erythema on the dorsum of forefoot. Great toe with decreased edema , fading erythema. Surgical wound medially w/o drainage, decreased erythema tracking accross top of great toe to the lateral aspect/space between great and 2nd toes. Still some puffiness on dorsum of forefoot, improved. - Neurological Exam Neurological exam: Present: alert, oriented X3 Medical - PN: Obj Da - Labs CBC & Chem 7: 01/02/18 04:17 01/02/18 04:17 Labs: Abnormal Lab Results 01/02/18 01/02/18 01/01/18 04:17 04:17 04:46 RBC 3.95 L Hgb 11.5 L Hct 34.1 L Monocytes % (Manual) Carbon Dioxide Creatinine 0.4 L Glucose 260 H 226 H 01/01/18 12/31/17 12/31/17 04:46 05:00 05:00 RBC 3.83 L 3.89 L Hgb 11.1 L 11.3 L Hct 33.2 L 33.8 L Monocytes % (Manual) 16 H Carbon Dioxide 21 L Creatinine 0.5 L Glucose 228 H Microbiology 12/31/17 15:53 Blood Culture - Preliminary Blood 12/31/17 15:57 Blood Culture - Preliminary Blood 12/30/17 14:17 Blood Culture - Preliminary Blood 12/30/17 14:20 Blood Culture - Preliminary Blood 12/30/17 16:53 Gram Stain - Final Toe - First Gram Stain - Final Anaerobic Culture - Preliminary Gram Stain - Final Tissue Culture - Preliminary Strep agalactiae - (group b) Corynebacterium species 12/30/17 16:52 Gram Stain - Final Toe - First Gram Stain - Final Anaerobic Culture - Preliminary Gram Stain - Final Tissue Culture - Preliminary Strep agalactiae - (group b) Meds: Medications Acetaminophen (Tylenol) 650 mg PO Q4HP PRN PRN Reason: PAIN/FEVER > 101 Last Admin: 01/01/18 00:53 Dose: 650 mg Hydrocodone Bitart/Acetaminophen ([place] 5/325mg) 1 tab PO Q4HP PRN PRN Reason: PAIN LEVEL 3-6 Last Admin: 01/02/18 08:07 Dose: 1 tab Dextrose (Dextrose 50%) 0 ml IV UD PRN PRN Reason: Hypoglycemia Diagnostic Test (Pha) (Accu-Chek) 1 each FS [facility] Last Admin: 01/02/18 11:53 Dose: 1 each Enoxaparin Sodium (Lovenox) 40 mg SQ DAILY [facility] Last Admin: 01/02/18 09:45 Dose: 40 mg Glucose (Insta-Glucose) 15 gm PO PRN PRN PRN Reason: Hypoglycemia Clindamycin Phosphate 600 mg/ (Dextrose) 54 mls @ 100 mls/hr IV Q8H [facility] Last Admin: 01/02/18 14:08 Dose: 100 mls/hr Levofloxacin (Levaquin) 750 mg in 150 mls @ 100 mls/hr IV Q24H [facility] Last Infusion: 01/02/18 11:13 Dose: Infused Insulin Glargine (Lantus) 10 unit SQ HS DEX Insulin Human Lispro (Humalog) 0 unit SQ [facility] PRN Reason: Protocol Last Admin: 01/02/18 11:37 Dose: 10 unit Morphine Sulfate (Morphine) 4 mg IV Q4HP PRN PRN Reason: PAIN LEVEL > 6 Last Admin: 12/30/17 18:41 Dose: 4 mg Ondansetron HCl (Zofran) 4 mg IV Q6HP PRN PRN Reason: Nausea And Vomiting Sodium Chloride (Saline Flush) 10 ml IV Q8 [facility] Last Admin: 01/02/18 14:49 Dose: 10 ml Medical - PN: A/P - Time Spent With Patient Total time spent is greater than 50% in coordination of care (as documented) at patient's floor/unit and/or counseling patient: (1) Type 2 diabetes mellitus with foot ulcer Status: Acute Current Visit: Yes (2) Cellulitis of toe of left foot Status: Acute Current Visit: Yes (3) Diabetes type 2, uncontrolled Status: Acute Current Visit: Yes - Narrative A/P Narrative: 37-year-old female, recently diagnosed with diabetes (as of day prior to admission), presented with worsening of erythema and purulent drainage from left great toe wound, now involving the forefoot. Diabetic left toe wound with cellulitis. POD#3, s/p I and D. Wound management per surgery. Fever on POD #1, but none further. Cultures show Streptococcus, now with corynebacterium. Corynebacterium appears to be multiple colonies, unclear effect is contaminant or pathogen. However, foot is slowly improving on current antibiotic regimen, as compared to POD #1. For now will continue with clindamycin and levofloxacin. Plan: Continue IV clindamycin and levofloxacin. Follow-up cultures for final ID. If worsens, consider adding vancomycin. Type 2 diabetes mellitus. New diagnosis. Hemoglobin A1c is 13.4%. Was started on metformin on day prior to admission, took her first dose earlier on day of admission. Variable glucoses, but needing SSI most checks. Plan: Add lantus 10 units at HS, continue controlled carbohydrate diet, sliding scale insulin. Holding metformin, as may need contrast studies; DM education CODE STATUS: Full code. Prophylaxis: Lovenox. Medical - PN: Qual - VTE Deep Vein Thrombosis/Pulmonary Embolism Present on Admission: No
[2018-01-02] MEDS ORDERED: INSULIN GLARGINE, HUMAN 1 UNIT/0.01 ML SQ SCH (21:00)
[2018-01-03] MEDS: 0.9 % SODIUM CHLORIDE 10 ML SYRINGE IV SCH ×3 (05:32→21:28)
[2018-01-03] MEDS: CLINDAMYCIN 600 MG in DEXTROSE 5% IN WATER 50 ML IV SCH ×3 (05:32→21:28)
[2018-01-03] MEDS: INSULIN LISPRO 1 UNIT/0.01 ML UNIT SQ SCH ×4 (08:06→21:26)
[2018-01-03] MEDS: LEVOFLOXACIN 750 MG/150 ML BAG IV SCH (09:41)
[2018-01-03] MEDS: ENOXAPARIN 40 MG/0.4 ML SYRINGE SQ SCH (09:42)
[2018-01-03] MEDS ORDERED: INSULIN GLARGINE, HUMAN 1 UNIT/0.01 ML SQ SCH (17:39)
--- NOTE | 2018-01-03 17:39 | Internal Med Progress Note ---
Medical - PN: Subj Patient information: Note initiated : 01/03/18 at 5:36 pm Service Date, if different from initiated Date: [] Patient: Angela Sultana 37 y/o F admitted on 12/30/17 for Cellulitis and Abscess of Foot. Chief Complaint: f/u foot wound Interval history: 12/30 Patient is 37-year-old female who was diagnosed with type 2 diabetes yesterday, who re-presents to the ED with worsening of a left toe wound. The onset of the wound was under a callus of the lateral aspect of the left great toe. She developed a blister, subsequently drained. This is about 2 weeks ago. She removed the callus to clean the area. Since that time, she's had increasing swelling of the left toe, some purulent drainage. Over the last 24-48 hours she 's noted receding edema and purulent material tracking across the top of her left great toe to the lateral aspect between the first and second toe. She's also developed associated erythema across the top of her distal left foot extending to about the fourth toe. Patient experiences occasional pain, especially with standing. She tries to offload forefoot by standing on the heel. Sensation appears to be intact or lower extremities. She's had no fevers or chills. Has no history of peripheral arterial disease. She has no claudication symptoms. 12/31 No new complaints today. Tolerating antibiotics. Not much pain, is controlled. 01/01 Fever yesterday afternoon and last night. Otherwise no complaints. D/W Dr. Donaldson, she will likely need 2 weeks of IV abx for her infection. At risk of amputation. 01/02 Seen on rounds, during dressing change. No particular complaints. No further fevers. Tolerating antibiotics. 01/03 Remain stable. Dressings were changed today. Distal great toe without any erythema or discoloration. No nausea or vomiting, tolerating antibiotics. Cultures are now finalized, strep agalactiae. Also corynebacterium and one of 2 , multiple colonies of corynebacterium suggest getting charly and not pathogen. - Constitutional Vitals: Vital Signs Temp Pulse Resp BP Pulse Ox 97.8 F 88 16 124/84 96 01/03/18 16:00 01/03/18 04:00 01/03/18 16:00 01/03/18 16:00 01/03/18 16:00 Period Temp Pulse Resp BP Sys/Escalante Pulse Ox Last 24 Hr 96.4 F-98.1 F 88-92 12-16 113-134/71-89 93-97 Intake and Output 01/03/18 01/03/18 01/03/18 05:59 13:59 21:59 Intake Total 404 / 404 324 / 324 1280 / 1280 Output Total 1200 / 1200 Balance 404 / 404 324 / 324 80 / 80 General: In no acute distress Chest: Clear to microvascular: Regular, no murmur Abdomen: Soft, nontender Skin skilled: Foot remains neurovascularly intact. Neuro: Alert, oriented Intake & Output: Intake & Output 01/03/18 01/03/18 01/03/18 05:59 13:59 21:59 Intake Total 404 / 404 324 / 324 1280 / 1280 Output Total 1200 / 1200 Balance 404 / 404 324 / 324 80 / 80 Intake: IV 54 / 54 204 / 204 Cleocin 600 mg In Dextrose 5% 54 / 54 54 / 54 in Water 50 ml @ 100 mls/hr IV Q8H [facility] Rx#:[id number] Oral 350 / 350 120 / 120 480 / 480 GI Tube Flush 800 / 800 Output: Void Amount 1200 / 1200 Other: Meal Breakfast Dinner Percent of Meal Consumed 100% 25% Feeding Ability Independent Independent Stool Size Large Small Stool Color Brown Brown Stool Consistency Formed Formed # Voids 2 Medical - PN: Obj Da - Labs CBC & Chem 7: 01/02/18 04:17 01/02/18 04:17 Labs: Abnormal Lab Results 01/02/18 01/02/18 01/01/18 04:17 04:17 04:46 RBC 3.95 L Hgb 11.5 L Hct 34.1 L Creatinine 0.4 L Glucose 260 H 226 H 01/01/18 04:46 RBC 3.83 L Hgb 11.1 L Hct 33.2 L Creatinine Glucose Microbiology 12/31/17 15:53 Blood Culture - Preliminary Blood 12/31/17 15:57 Blood Culture - Preliminary Blood 12/30/17 14:17 Blood Culture - Preliminary Blood 12/30/17 14:20 Blood Culture - Preliminary Blood 12/30/17 16:53 Gram Stain - Final Toe - First Gram Stain - Final Anaerobic Culture - Preliminary Gram Stain - Final Tissue Culture - Preliminary Strep agalactiae - (group b) Corynebacterium species 12/30/17 16:52 Gram Stain - Final Toe - First Gram Stain - Final Anaerobic Culture - Preliminary Gram Stain - Final Tissue Culture - Preliminary Strep agalactiae - (group b) Meds: Medications Acetaminophen (Tylenol) 650 mg PO Q4HP PRN PRN Reason: PAIN/FEVER > 101 Last Admin: 01/01/18 00:53 Dose: 650 mg Hydrocodone Bitart/Acetaminophen ([place] 5/325mg) 1 tab PO Q4HP PRN PRN Reason: PAIN LEVEL 3-6 Last Admin: 01/02/18 08:07 Dose: 1 tab Dextrose (Dextrose 50%) 0 ml IV UD PRN PRN Reason: Hypoglycemia Diagnostic Test (Pha) (Accu-Chek) 1 each FS [facility] Last Admin: 01/03/18 16:59 Dose: 1 each Enoxaparin Sodium (Lovenox) 40 mg SQ DAILY [facility] Last Admin: 01/03/18 09:42 Dose: 40 mg Glucose (Insta-Glucose) 15 gm PO PRN PRN PRN Reason: Hypoglycemia Clindamycin Phosphate 600 mg/ (Dextrose) 54 mls @ 100 mls/hr IV Q8H [facility] Last Admin: 01/03/18 14:43 Dose: 50 mls/hr Levofloxacin (Levaquin) 750 mg in 150 mls @ 100 mls/hr IV Q24H [facility] Last Infusion: 01/03/18 11:15 Dose: Infused Insulin Glargine (Lantus) 10 unit SQ HS [facility] Last Admin: 01/02/18 21:17 Dose: 10 unit Insulin Human Lispro (Humalog) 0 unit SQ [facility] PRN Reason: Protocol Last Admin: 01/03/18 17:00 Dose: 8 unit Morphine Sulfate (Morphine) 4 mg IV Q4HP PRN PRN Reason: PAIN LEVEL > 6 Last Admin: 12/30/17 18:41 Dose: 4 mg Ondansetron HCl (Zofran) 4 mg IV Q6HP PRN PRN Reason: Nausea And Vomiting Sodium Chloride (Saline Flush) 10 ml IV Q8 [facility] Last Admin: 01/03/18 14:44 Dose: 10 ml Medical - PN: A/P - Time Spent With Patient Total time spent is greater than 50% in coordination of care (as documented) at patient's floor/unit and/or counseling patient: 25 - 35 minutes (1) Type 2 diabetes mellitus with foot ulcer Status: Acute Current Visit: Yes (2) Cellulitis of toe of left foot Status: Acute Current Visit: Yes (3) Diabetes type 2, uncontrolled Status: Acute Current Visit: Yes - Narrative A/P Narrative: 37-year-old female, recently diagnosed with diabetes (as of day prior to admission), presented with worsening of erythema and purulent drainage from left great toe wound, now involving the forefoot. Diabetic left toe wound with cellulitis. POD#4, s/p I and D. Wound management per surgery. Fever on POD #1, but none further. Cultures show Streptococcus agalactiae, one of 2 wound cultures with multiple corynebacterium colonies, suggesting this may be charly from the skin and not pathogenic (would expect a single species if it was pathogenic). Foot is slowly improving on current antibiotic regimen, as compared to POD #1. For now will continue with clindamycin and levofloxacin. Plan: Continue IV clindamycin and levofloxacin. Place PICC line. Likely can change to ceftriaxone for single daily dosing for total of 2 weeks of IV antibiotics for diabetic foot infection. Type 2 diabetes mellitus. New diagnosis. Hemoglobin A1c is 13.4%. Was started on metformin on day prior to admission, took her first dose earlier on day of admission. Variable glucoses, but needing SSI most checks. Plan: Increase lantus to 15 units at HS, continue controlled carbohydrate diet, sliding scale insulin. Holding metformin, as may need contrast studies; DM education CODE STATUS: Full code. Prophylaxis: Lovenox. Medical - PN: Qual - VTE Deep Vein Thrombosis/Pulmonary Embolism Present on Admission: No
[2018-01-03] MEDS ORDERED: 0.9 % SODIUM CHLORIDE 10 ML SYRINGE IV PRN (20:33)
--- NOTE | 2018-01-04 06:41 | XRay Report ---
CLINICAL INFORMATION: PICC PLACEMENT COMPARISON: None. FINDINGS: Heart size is accentuated by portable technique, slight rightward rotation and lordotic positioning. It is within normal limits. Mediastinum and pulmonary vessels are unremarkable. Left PICC line tip overlies the SVC/right atrial junction. Lungs are clear. No effusions. Bones soft tissues normal IMPRESSION: Normal Interpreted and Authenticated by: Martin Lopez 01/04/18
[2018-01-04] MEDS: CLINDAMYCIN 600 MG in DEXTROSE 5% IN WATER 50 ML IV SCH ×2 (06:42→13:34)
[2018-01-04] MEDS: 0.9 % SODIUM CHLORIDE 10 ML SYRINGE IV SCH ×4 (06:42→14:18)
[2018-01-04] MEDS: ENOXAPARIN 40 MG/0.4 ML SYRINGE SQ SCH (08:27)
[2018-01-04] MEDS: LEVOFLOXACIN 750 MG/150 ML BAG IV SCH (08:27)
[2018-01-04] MEDS: INSULIN LISPRO 1 UNIT/0.01 ML UNIT SQ SCH ×3 (08:27→17:10)
--- NOTE | 2018-01-04 13:36 | Internal Med Progress Note ---
Medical - PN: Subj Patient information: Note initiated : 01/04/18 at 1:35 pm Service Date, if different from initiated Date: [] Patient: Angela Sultana 37 y/o F admitted on 12/30/17 for Cellulitis and Abscess of Foot. Chief Complaint: [] Interval history: 12/30 Patient is 37-year-old female who was diagnosed with type 2 diabetes yesterday, who re-presents to the ED with worsening of a left toe wound. The onset of the wound was under a callus of the lateral aspect of the left great toe. She developed a blister, subsequently drained. This is about 2 weeks ago. She removed the callus to clean the area. Since that time, she's had increasing swelling of the left toe, some purulent drainage. Over the last 24-48 hours she 's noted receding edema and purulent material tracking across the top of her left great toe to the lateral aspect between the first and second toe. She's also developed associated erythema across the top of her distal left foot extending to about the fourth toe. Patient experiences occasional pain, especially with standing. She tries to offload forefoot by standing on the heel. Sensation appears to be intact or lower extremities. She's had no fevers or chills. Has no history of peripheral arterial disease. She has no claudication symptoms. 12/31 No new complaints today. Tolerating antibiotics. Not much pain, is controlled. 01/01 Fever yesterday afternoon and last night. Otherwise no complaints. D/W Dr. Donaldson, she will likely need 2 weeks of IV abx for her infection. At risk of amputation. 01/02 Seen on rounds, during dressing change. No particular complaints. No further fevers. Tolerating antibiotics. 01/03 Remain stable. Dressings were changed today. Distal great toe without any erythema or discoloration. No nausea or vomiting, tolerating antibiotics. Cultures are now finalized, strep agalactiae. Also corynebacterium and one of 2 , multiple colonies of corynebacterium suggest getting charly and not pathogen. - Constitutional Vitals: Vital Signs Temp Pulse Resp BP Pulse Ox 97.9 F 96 H 12 121/78 96 01/04/18 12:00 01/04/18 12:00 01/04/18 12:00 01/04/18 12:00 01/04/18 12:00 Period Temp Pulse Resp BP Sys/Escalante Pulse Ox Last 24 Hr 97.3 F-98.3 F 84-96 12-24 114-124/78-84 95-97 Intake and Output 01/03/18 01/04/18 01/04/18 21:59 05:59 13:59 Intake Total 1334 / 1334 704 / 704 534 / 534 Output Total 1200 / 1200 100 / 100 600 / 600 Balance 134 / 134 604 / 604 -66 / -66 Weight 234 lb 4.8 oz Intake & Output: Intake & Output 01/03/18 01/04/18 01/04/18 21:59 05:59 13:59 Intake Total 1334 / 1334 704 / 704 534 / 534 Output Total 1200 / 1200 100 / 100 600 / 600 Balance 134 / 134 604 / 604 -66 / -66 Weight 234 lb 4.8 oz Intake: IV 54 / 54 54 / 54 54 / 54 Cleocin 600 mg In Dextrose 5% 54 / 54 54 / 54 54 / 54 in Water 50 ml @ 100 mls/hr IV Q8H [facility] Rx#:[id number] Oral 480 / 480 650 / 650 480 / 480 GI Tube Flush 800 / 800 Output: Void Amount 1200 / 1200 100 / 100 600 / 600 Other: Meal Dinner Lunch Percent of Meal Consumed 25% 100% Feeding Ability Independent Independent Stool Size Small Large Stool Color Brown Brown Stool Consistency Formed Formed # Voids 2 1 1 # Bowel Movements 1 Medical - PN: Obj Da - Labs CBC & Chem 7: 01/02/18 04:17 01/02/18 04:17 Labs: Abnormal Lab Results 01/02/18 01/02/18 04:17 04:17 RBC 3.95 L Hgb 11.5 L Hct 34.1 L Creatinine 0.4 L Glucose 260 H Meds: Medications Acetaminophen (Tylenol) 650 mg PO Q4HP PRN PRN Reason: PAIN/FEVER > 101 Last Admin: 01/01/18 00:53 Dose: 650 mg Hydrocodone Bitart/Acetaminophen (Only 5/325mg) 1 tab PO Q4HP PRN PRN Reason: PAIN LEVEL 3-6 Last Admin: 01/02/18 08:07 Dose: 1 tab Dextrose (Dextrose 50%) 0 ml IV UD PRN PRN Reason: Hypoglycemia Diagnostic Test (Pha) (Accu-Chek) 1 each FS ACHS [facility] Last Admin: 01/04/18 11:32 Dose: 1 each Enoxaparin Sodium (Lovenox) 40 mg SQ DAILY [facility] Last Admin: 01/04/18 08:27 Dose: 40 mg Glucose (Insta-Glucose) 15 gm PO PRN PRN PRN Reason: Hypoglycemia Heparin Sodium (Porcine) (Heparin Flush) 2 ml IV Q12 [facility] Last Admin: 01/04/18 07:28 Dose: 2 ml Clindamycin Phosphate 600 mg/ (Dextrose) 54 mls @ 100 mls/hr IV Q8H [facility] Last Admin: 01/04/18 13:34 Dose: 100 mls/hr Levofloxacin (Levaquin) 750 mg in 150 mls @ 100 mls/hr IV Q24H [facility] Last Admin: 01/04/18 08:27 Dose: 100 mls/hr Insulin Glargine (Lantus) 15 unit SQ HS [facility] Last Admin: 01/03/18 21:28 Dose: 15 unit Insulin Human Lispro (Humalog) 0 unit SQ [facility] PRN Reason: Protocol Last Admin: 01/04/18 12:22 Dose: 6 unit Morphine Sulfate (Morphine) 4 mg IV Q4HP PRN PRN Reason: PAIN LEVEL > 6 Last Admin: 12/30/17 18:41 Dose: 4 mg Ondansetron HCl (Zofran) 4 mg IV Q6HP PRN PRN Reason: Nausea And Vomiting Sodium Chloride (Saline Flush) 10 ml IV Q8 [facility] Last Admin: 01/04/18 13:34 Dose: 10 ml Sodium Chloride (Saline Flush) 10 ml IV UD PRN PRN Reason: FLUSH Medical - PN: A/P - Time Spent With Patient Total time spent is greater than 50% in coordination of care (as documented) at patient's floor/unit and/or counseling patient: 15 - 24 minutes - Narrative A/P Narrative: 37-year-old female, recently diagnosed with diabetes (as of day prior to admission), presented with worsening of erythema and purulent drainage from left great toe wound, now involving the forefoot. Diabetic left toe wound with cellulitis. POD#4, s/p I and D. Wound management per surgery. Fever on POD #1, but none further. Cultures show Streptococcus agalactiae, one of 2 wound cultures with multiple corynebacterium colonies, suggesting this may be charly from the skin and not pathogenic (would expect a single species if it was pathogenic). Foot is slowly improving on current antibiotic regimen, as compared to POD #1. For now will continue with clindamycin and levofloxacin. Plan: Continue IV clindamycin and levofloxacin. Place PICC line. Likely can change to ceftriaxone for single daily dosing for total of 2 weeks of IV antibiotics for diabetic foot infection. Type 2 diabetes mellitus. New diagnosis. Hemoglobin A1c is 13.4%. Was started on metformin on day prior to admission, took her first dose earlier on day of admission. Variable glucoses, but needing SSI most checks. Plan: Increase lantus to 15 units at HS, continue controlled carbohydrate diet, sliding scale insulin. Holding metformin, as may need contrast studies; DM education CODE STATUS: Full code. Prophylaxis: Lovenox. Medical - PN: Qual - VTE Deep Vein Thrombosis/Pulmonary Embolism Present on Admission: No
--- NOTE | 2018-01-04 13:56 | Discharge Summary ---
Medical - DS: Prov Patient information: Note initiated : 01/04/18 at 1:52 pm Service Date, if different from initiated Date: [] Patient: Angela Sultana 37 y/o F admitted on 12/30/17 for Cellulitis and Abscess of Foot. Chief Complaint: [] Date of admission: 12/30/17 17:23 Discharge date: 01/04/18 Primary care physician: Naida Baker Consults: 12/30/17 14:11 Consult to Physician [CONS] Stat Comment: Consulting Provider: Ramses Donaldson Reason For Exam: Physician to Consult 12/30/17 15:18 Consult to Physician [CONS] Routine Comment: Consulting Provider: Kailee Pike Reason For Exam: Physician to Consult Medical - DS: Meds - Discharge Medications Prescriptions: cefTRIAXone [Rocephin] 2 gm IM Q24H #10 vial Insulin Glargine, Human [Lantus] 15 unit SQ HS #30 unit Active and Home Medications: Home Medications metFORMIN [Glucophage] 500 mg PO BIDCC #30 tab 12/29/17 [Rx Confirmed 12/30/17 Last Taken Unknown] Insulin Glargine, Human [Lantus] 15 unit SQ HS #30 unit 01/04/18 [Rx Last Taken Unknown] cefTRIAXone [Rocephin] 2 gm IM Q24H #10 vial 01/04/18 [Rx Last Taken Unknown] Medical - DS: Hosp Hospital course: DISCHARGE DIAGNOSES 37-year-old female, recently diagnosed with diabetes (as of day prior to admission), presented with worsening of erythema and purulent drainage from left great toe wound, now involving the forefoot. * Diabetic left toe wound with cellulitis. POD#5, s/p I and D. Wound management per podiatry. Cultures show Streptococcus agalactiae/viridans. continue additional 10 days IV Rocephin. * new-onset Type 2 diabetes mellitus. New diagnosis. Hemoglobin A1c is 13.4%. continue metformin/basal insulin. PCP to optimize DM management as outpatient. BRIEF HOSPITAL COURSE Patient is 37-year-old female who was diagnosed with type 2 diabetes yesterday, who re-presents to the ED with worsening of a left toe wound. The onset of the wound was under a callus of the lateral aspect of the left great toe. She developed a blister, subsequently drained. This is about 2 weeks ago. She removed the callus to clean the area. Since that time, she's had increasing swelling of the left toe, some purulent drainage. Over the last 24-48 hours she 's noted receding edema and purulent material tracking across the top of her left great toe to the lateral aspect between the first and second toe. She's also developed associated erythema across the top of her distal left foot extending to about the fourth toe. Patient experiences occasional pain, especially with standing. She tries to offload forefoot by standing on the heel. Sensation appears to be intact or lower extremities. She's had no fevers or chills. Has no history of peripheral arterial disease. She has no claudication symptoms. 12/31 No new complaints today. Tolerating antibiotics. Not much pain, is controlled. 01/01 Fever yesterday afternoon and last night. Otherwise no complaints. D/W Dr. Donaldson, she will likely need 2 weeks of IV abx for her infection. At risk of amputation. 01/02 Seen on rounds, during dressing change. No particular complaints. No further fevers. Tolerating antibiotics. 01/03 Remain stable. Dressings were changed today. Distal great toe without any erythema or discoloration. No nausea or vomiting, tolerating antibiotics. Cultures are now finalized, strep agalactiae. Also corynebacterium and one of 2 , multiple colonies of corynebacterium suggest getting charly and not pathogen. January 04-patient doing well. No overnight events. Case discussed with podiatry. Recommend discharging on IV antibiotics. Continue PICC line care. Continue additional 10 days IV Rocephin. Continue daily dressings as advised by podiatry. Follow-up recommendations as below. Discharge diagnosis: . - Time Spent with Patient Total time spent providing and/or coordinating discharge services: Greater than 30 minutes Medical - DS: Exam - Constitutional Vitals: Vital Signs Temp Pulse Resp BP Pulse Ox 01/04/18 12:00 97.9 F 96 H 12 121/78 96 01/04/18 06:59 97.3 F 16 114/78 96 01/04/18 04:00 98.2 F 84 22 123/83 95 01/03/18 23:17 98.1 F 93 H 24 H 120/81 97 01/03/18 19:56 98.3 F 96 H 24 H 120/78 96 01/03/18 16:00 97.8 F 16 124/84 96 Intake and Output 01/03/18 01/04/18 01/04/18 21:59 05:59 13:59 Intake Total 1334 / 1334 704 / 704 534 / 534 Output Total 1200 / 1200 100 / 100 600 / 600 Balance 134 / 134 604 / 604 -66 / -66 Intake: IV 54 / 54 54 / 54 54 / 54 Cleocin 600 mg In Dextrose 5% 54 / 54 54 / 54 54 / 54 in Water 50 ml @ 100 mls/hr IV Q8H [facility] Rx#:[id number] Oral 480 / 480 650 / 650 480 / 480 GI Tube Flush 800 / 800 Output: Void Amount 1200 / 1200 100 / 100 600 / 600 Other: Meal Dinner Lunch Percent of Meal Consumed 25% 100% Feeding Ability Independent Independent Stool Size Small Large Stool Color Brown Brown Stool Consistency Formed Formed # Voids 2 1 1 # Bowel Movements 1 Weight 234 lb 4.8 oz Medical - DS: Data Labs on day of discharge: Preliminary micro results at discharge 12/30/17 16:53 Anaerobic Culture - Preliminary Toe - First 12/30/17 16:52 Anaerobic Culture - Preliminary Toe - First Tissue Culture - Preliminary Strep agalactiae - (group b) Corynebacterium species Streptococcus viridans 12/31/17 15:53 Blood Culture - Preliminary Blood 12/31/17 15:57 Blood Culture - Preliminary Blood 12/30/17 14:17 Blood Culture - Preliminary Blood 12/30/17 14:20 Blood Culture - Preliminary Blood Medical - DS: A/P - Patient/Caregiver Discharge Instructions Activity: increase activity as tolerated Diet: Consistent Carbohydrate Additional Instructions: Follow-up PCP in 5 days follow-up with podiatry as scheduled Continue antibiotics for 10 days IV Rocephin Continue daily wound dressings per podiatry continue consistent carbohydrate diet Continue metformin/basal insulin is advised. Primary care physician to titrate insulin dose based on response patient was counseled on titration of basal insulin with a.m. sugars. She was also advised to watch for signs of hypoglycemia. Continue fall precautions Return to ER if worsening fever chills lower extremity pain and swelling Review risk and side effect profile of medications including antibiotics. Side effect may include mild to severe reaction including rash, diarrhea, cdiff and even which can be prevented by close follow-up with PCP and monitoring for side effects Refrain from smoking and alcohol Continue consistent carbohydrate diet and activity as advised Discussed importance of medication adherence Please review medication list with patient prior to discharge Please schedule follow-up with PCP/Providers prior to discharge and provide printouts Portions of this chart may have been created with [employer] voice recognition software. Occasional wrong-word or ?sound-like? substitutions may have occurred due to the inherent limitations of voice recognition software. Please read the chart carefully and recognize, using context, where the substitutions have occurred. CC- PCP Prescriptions: cefTRIAXone [Rocephin] 2 gm IM Q24H #10 vial Insulin Glargine, Human [Lantus] 15 unit SQ HS #30 unit - Follow up Plan Follow up with: Naida Baker ARNP [Primary Care Provider] - Disposition: Home, Self-Care Prognosis: Fair Rehab Potential: Fair I certify that the patient requires SNF services: No Overall status at discharge: patient is progressing back to baseline Medical - DS: Qual - VTE Deep Vein Thrombosis/Pulmonary Embolism Present on Admission: No
--- NOTE | 2018-01-07 15:05 | Operative Note ---
DATE OF OPERATION: 12/31/2017 PREOPERATIVE DIAGNOSIS: Cellulitis, right foot. POSTOPERATIVE DIAGNOSIS: Cellulitis, right foot. PROCEDURE: Incision and drainage, right foot. SURGEON: Ramses Donaldson DPM. IMPLANTS: None. ANESTHESIA: General. COMPLICATIONS: None. SPECIMENS: Culture, right foot great toe. ESTIMATED BLOOD LOSS: 80 mL. CONDITION: Stable. DISPOSITION: Floor. DESCRIPTION OF PROCEDURE: The patient was brought to the operating room and placed on the operating table in supine position. The right lower extremity was scrubbed, prepped and draped in the usual aseptic manner. After general anesthesia was initiated, an incision was made at the medial and lateral aspect of the right great toe. There was seen to be abundant purulent drainage after incision. This purulence was cultured and sent for culture and sensitivity. Additional debridement was performed. There was a 3000 mL bag of normal saline with bacitracin added which was irrigated to the area and under pulse lavage on both surgical sites. Any remaining necrotic tissue was removed. Significant probing was done to this area. Dressing was applied consisting of Xeroform, 4 x 4 gauze, Kerlix, and Ted wrap with Betadine-soaked packing into the wounds. The patient tolerated the procedure and anesthesia well and was transferred from the operative suite to the postoperative care unit to continue IV antibiotic therapy on the floor. [email or web address] Job ID: [id number] Doc ID: [id number] Ramses Donaldson DPM
== END 2018-01-04 18:30 | disposition home or self-care (01) | DRG 638 ==
LOC: ED 13:22 → SUR 15:11 → MEDSUR 17:23
PROVIDERS: ADMIT Internal Medicine; ATTEND Internal Medicine

== ENCOUNTER 2022-11-29 15:36 | Inpatient (IN) ==
[2022-11-29 16:00] LABS: POC Calcium, Ionized 1.01 (1.16-1.32); POC Creatinine 1.5 (0.6-1.2); POC Potassium 3.1 (3.3-5.1)
[2022-11-29] MEDS ORDERED: POTASSIUM CHLORIDE 20 MEQ in DEXTROSE 5% IN WATER 250 ML IV ONE (16:04)
[2022-11-29] MEDS ORDERED: INSULIN REGULAR, HUMAN 1 UNIT/0.01 ML UNIT IV ONE ×3 (16:06→21:10)
--- NOTE | 2022-11-29 16:12 | Emergency Department Note ---
HPI General Chief complaint: Blood Sugar Problem Stated complaint: HI BG Time Seen by Provider: 11/29/22 15:40 Source: EMS Mode of arrival: EMS Limitations: altered mental status History of Present Illness HPI Narrative: 42-year-old female with history of type 2 diabetes and DKA presents to the ER via EMS obtunded with blood sugars over 464. She was seen and treated for cellulitis of the groin on 11/26/2022 and has been on cephalexin per chart review. The patient is obtunded not able to give me history. Related Data Previous Rx's Medication Instructions Recorded insulin lispro 100 unit/mL 8 unit (0.08 mL) subcut TID #15 mL 01/06/22 subcutaneous pen (Humalog KwikPen (U-100) Insulin) insulin glargine 100 unit/mL 30 unit (0.3 mL) subcut HS #100 04/07/22 subcutaneous solution units levothyroxine 25 mcg tablet 25 mcg PO QDAY #90 tabs 08/18/22 hydrochlorothiazide 12.5 mg tablet 12.5 mg PO QAM #90 tabs 08/25/22 fenofibrate 54 mg tablet 108 mg PO QDAY #180 tabs 09/16/22 norgestimate-ethinyl estradiol 1 tab PO QDAY #84 tabs 10/20/22 0.18 mg/0.215mg/0.25mg-35 mcg(28)tablet (Tri-Sprintec (28)) metformin 1,000 mg tablet See Rx Instructions .Route 11/03/22 .COMPLEX #180 tabs cephalexin 500 mg capsule 500 mg PO TID 10 days #30 caps 11/26/22 nystatin 100,000 unit/gram topical 1 applic topical TID #60 grams 11/26/22 powder Allergies Allergy/AdvReac Type Severity Reaction Status Date / Time Amoxicillin Allergy Mild Hives Verified 10/20/22 07:30 Review of Systems ROS ROS Narrative: Narrative: Limitations: ROS unobtainable due to patients medical condition [facility] Narrative Patient History Narrative: Narrative: Medical/Surgical/Family History All Active Problems (Updated 11/29/22 @ 21:52 by Violet Jacques PA-C) DKA, type 2 (Acute) Cellulitis (Acute) Skin yeast infection (Acute) DKA (diabetic ketoacidosis) (Acute) Hypothyroidism (Acute) Cellulitis of left foot (Acute) Immunization, tetanus-diphtheria (Acute) Cellulitis of left leg (Acute) Abscess of skin or subcutaneous tissue (Acute) Diabetic peripheral neuropathy (Acute) Morbid obesity (Acute) HTN (hypertension), benign (Acute) High triglycerides (Chronic) Elevated BP without diagnosis of hypertension (Acute) DM2 (diabetes mellitus, type 2) (Chronic) Cellulitis of external ear (Acute) Medical History Amputated great toe of left foot 12/2017 Cellulitis and abscess of foot IV antibiotics, estimated 50% chance of healing to toe given status during surgery. Daily dressing changes and as needed given drainage Cellulitis of external ear Cellulitis of right foot Cellulitis of toe of left foot Cellulitis of toe of right foot Diabetes mellitus (~12/29/17) Diabetes type 2, uncontrolled Diabetic peripheral neuropathy mostly left toes 07/10/2020. DM2 (diabetes mellitus, type 2) metformin + insulin using onset before 07/10/2020 Elevated BP without diagnosis of hypertension High triglycerides HTN (hypertension), benign Hypothyroidism Morbid obesity Type 2 diabetes mellitus with foot ulcer Surgical History History of amputation of great toe Family History Brother Diabetes Hypertension, essential Thyroid disorder Mother Diabetes Arthritis Seizure Thyroid disorder Father , of IHD, complications of diabetes Diabetes Hypertension, essential Heart attack Stroke Sister Migraine Social History Smoking Status: Never smoker Alcohol Intake Frequency: does not drink Substance Use: does not use Exam Narrative Narrative: General: Obtunded, arousable to voice and painful stimuli, but not interactive. HEENT: PERRL, EOMI, normocephalic. Dry mucous membranes. Normal facies and multiple missing teeth Respiratory: Lungs clear to auscultation bilaterally. No respiratory distress. Unlabored breathing. Heart: Regular rate and rhythm, no murmurs/clicks/rubs. Abdomen: Obese : There is an indurated, firm area to the external right labia with a small, open lesion that is not draining. There is no erythema and no cellulitic changes. Findings are c/w resolving sebaceous cyst. The right pannus has findings c/w yeast and no cellulitic findings. Extremities: Cold to the touch. No edema. DP 2+ bilaterally. No venous stasis. Neuro: No focal deficits. Cranial nerves II-XII grossly normal. Moving all fours Skin: Warm dry, no rashes or lesions, no cyanosis. Psych: Obtunded Heme/Lymph: No abnormal bruising General Limitations: altered mental status Course Course Course Narrative: 42-year-old poorly controlled type II diabetic presents obtunded with concern for DKA Reevaluation(s) Reevaluation #1: Obtain basic labs, beta hydroxybutyrate, urinalysis EKG Establish additional IV access, patient has a IO in the left proximal humerus Give IV fluids Reevaluation #2: VBG with pH of 7.18, bicarb 10.1, CO2 11, base excess 18, lactic acid 2 Chemistry panel with potassium of 3.1 corrected sodium 134, creatinine 1.5, BUN 37 Urinalysis with ketones and greater than 500 glucose. No other concerning findings for infection. Beta hydroxybutyrate 5.75 We will treat for hyperkalemia and DKA. Give peripheral potassium replacement 20 mEq and then initiate insulin bolus and drip. Continue with IV fluid hydration. Start [place] for close monitoring of urine output. Time: 17:22 Reevaluation #3: Patient is hypotensive with systolics now in the 70s. Patient was then placed in Trendelenburg and we are giving her a pressure bag of another liter of IV's normal saline. Blood pressures have improved slightly with systolics in the 90s. Plan will be to start Levophed if she is still hypotensive after IV fluid bolus. Vital Signs Vital signs: Vital Signs Pulse Rate 101 H 11/29/22 15:37 Respiratory Rate 25 H 11/29/22 15:37 Blood Pressure 159/147 11/29/22 15:37 Pulse Oximetry (%) 100 11/29/22 15:37 Oxygen Delivery Method Room Air 11/29/22 15:37 Temperature 97.7 F 11/29/22 19:30 Pulse Rate 103 H 11/29/22 19:30 Respiratory Rate 31 H 11/29/22 20:01 Blood Pressure 65/43 11/29/22 20:01 Pulse Oximetry (%) 100 11/29/22 19:46 Oxygen Delivery Method Room Air 11/29/22 19:46 MDM MDM Narrative Medical decision making narrative: DKA Patient will need admission for stabilization. She has been accepted by the hospitalist, Dr. Stover. Lab Data 11/29/22 15:59 11/29/22 15:59 Labs: Lab Results 11/29/22 11/29/22 11/29/22 Range/Units 15:52 15:53 15:59 WBC (4.5-11.0) K/mcL RBC (3.59-5.38) M/mcL Hgb (11.2-15.7) g/dL Hct (34.1-44.9) % POC Hct 46.0 (36-48) MCV (80.0-100.0) fL MCH (26.0-34.0) pg MCHC (31.0-36.0) g/dL RDW (11.5-14.5) % Plt Count (140-440) K/mcL MPV (8.8-12.5) fL Immature Gran % (Auto) (0.0-0.5) % Neut % (Auto) (38.0-78.0) % Lymph % (Auto) (15.5-49.0) % [place] % (Auto) (1.0-12.0) % Eos % (Auto) (0.0-7.0) % Baso % (Auto) (0.0-2.0) % Lymph # (Auto) (1.50-4.80) K/mcL [place] # (Auto) (0.10-0.90) K/mcL Eos # (Auto) (0.00-0.70) K/mcL Baso # (Auto) (0.00-0.30) K/mcL Seg Neutrophils % (38-78) % Band Neutrophils % (0-10) % Lymphocytes % (15-49) % Monocytes % (Manual) (1-12) % Immature Gran # (0.00-0.05) K/mcl Absolute Neutrophils (1.80-8.00) K/mcL Platelet Estimate (Normal) RBC Morphology (Normal) POC VBG pH 7.18 L* (7.32-7.42) POC VBG pCO2 at Temp 27.0 L (41-51) POC VBG pO2 30 (25-40) POC VBG HCO3 10.1 L* (24-28) POC VBG Total CO2 11.0 L (25-29) POC Venous O2 Sat 43.0 (40-70) POC VBG Base Excess -18.0 L (-2-2) VBG Lactic Acid 2.0 (0.5-2) POC Sodium 128 L (133-145) Sodium TNP POC Potassium 3.1 L (3.3-5.1) Potassium TNP POC Chloride 105 (96-108) Chloride TNP Carbon Dioxide TNP POC Total CO2 12.0 L (22-30) Anion Gap TNP POC BUN 37 H (6-20) BUN TNP Creatinine TNP POC Creatinine 1.5 H (0.6-1.2) GFR Calculation TNP Glucose TNP POC Glucose 464 H* (70-105) Osmolality (280-300) mOSM/kg Calcium TNP POC WB Ioniz Calcium 1.01 L (1.16-1.32) Phosphorus (2.5-4.5) mg/dL Magnesium (1.6-2.5) mg/dL Total Bilirubin TNP AST TNP ALT TNP Alkaline Phosphatase TNP Total Protein TNP Albumin TNP Globulin TNP Albumin/Globulin Ratio TNP Beta-Hydroxybutyrate (<0.27) mmol/L Procalcitonin (<0.10) ng/mL Urine Color Urine Appearance (Clear) Urine pH (5.0-9.0) Ur Specific [place] (1.000-1.035) Urine Protein (Negative) mg/dL Urine Glucose (UA) (Negative) mg/dL Urine Ketones (Negative) mg/dL Urine Occult Blood (Negative) mg/dL Urine Nitrate (Negative) Urine Bilirubin (Negative) mg/dL Urine Urobilinogen mg/dL Ur Leukocyte Esterase (Negative) /uL Urine RBC (0-3) /hpf Urine WBC (0-4) /hpf Ur Squamous Epith Cells (0-4) /hpf Urine Bacteria (0) /hpf Hyaline Casts (0-2) /lph Granular Casts (0-0) /lph Urine Mucus (None) /hpf Ur Culture Indicated? Urine Opiates Screen Ur Opiates Confirm Ur Oxycodone Screen U Oxycod/Oxymor Confirm Urine Methadone Screen Ur Methadone Confirm Ur Barbiturates Screen Ur Barbiturate Confirm Ur Phencyclidine Scrn Urine PCP Confirm Ur Amphetamines Screen U Amphetamines Confirm U Benzodiazepines Scrn Ur Benzodiazepine, Qnt Urine Cocaine Screen Urine Cocaine Confirm U Cannabinoids Confirm U Marijuana (THC) Screen 11/29/22 11/29/22 11/29/22 Range/Units 15:59 15:59 16:35 WBC 7.6 (4.5-11.0) K/mcL RBC 5.08 (3.59-5.38) M/mcL Hgb 14.4 (11.2-15.7) g/dL Hct 43.1 (34.1-44.9) % POC Hct (36-48) MCV 84.8 (80.0-100.0) fL MCH 28.3 (26.0-34.0) pg MCHC 33.4 (31.0-36.0) g/dL RDW 14.9 H (11.5-14.5) % Plt Count 262 (140-440) K/mcL MPV 9.6 (8.8-12.5) fL Immature Gran % (Auto) 0.8 H (0.0-0.5) % Neut % (Auto) 72.6 (38.0-78.0) % Lymph % (Auto) 20.9 (15.5-49.0) % [place] % (Auto) 5.6 (1.0-12.0) % Eos % (Auto) 0 (0.0-7.0) % Baso % (Auto) 0.1 (0.0-2.0) % Lymph # (Auto) 1.60 (1.50-4.80) K/mcL [place] # (Auto) 0.43 (0.10-0.90) K/mcL Eos # (Auto) 0 (0.00-0.70) K/mcL Baso # (Auto) 0.01 (0.00-0.30) K/mcL Seg Neutrophils % (38-78) % Band Neutrophils % (0-10) % Lymphocytes % (15-49) % Monocytes % (Manual) (1-12) % Immature Gran # 0.06 H (0.00-0.05) K/mcl Absolute Neutrophils 5.54 (1.80-8.00) K/mcL Platelet Estimate (Normal) RBC Morphology (Normal) POC VBG pH (7.32-7.42) POC VBG pCO2 at Temp (41-51) POC VBG pO2 (25-40) POC VBG HCO3 (24-28) POC VBG Total CO2 (25-29) POC Venous O2 Sat (40-70) POC VBG Base Excess (-2-2) VBG Lactic Acid (0.5-2) POC Sodium (133-145) Sodium POC Potassium (3.3-5.1) Potassium POC Chloride (96-108) Chloride Carbon Dioxide POC Total CO2 (22-30) Anion Gap POC BUN (6-20) BUN Creatinine POC Creatinine (0.6-1.2) GFR Calculation Glucose POC Glucose (70-105) Osmolality (280-300) mOSM/kg Calcium POC WB Ioniz Calcium (1.16-1.32) Phosphorus 0.9 L (2.5-4.5) mg/dL Magnesium 1.9 (1.6-2.5) mg/dL Total Bilirubin AST ALT Alkaline Phosphatase Total Protein Albumin Globulin Albumin/Globulin Ratio Beta-Hydroxybutyrate (<0.27) mmol/L Procalcitonin (<0.10) ng/mL Urine Color Yellow Urine Appearance Hazy A (Clear) Urine pH 6.0 (5.0-9.0) Ur Specific [place] 1.024 (1.000-1.035) Urine Protein 100 A (Negative) mg/dL Urine Glucose (UA) >=500 A (Negative) mg/dL Urine Ketones 80 A (Negative) mg/dL Urine Occult Blood 0.20 (Negative) mg/dL Urine Nitrate Negative (Negative) Urine Bilirubin Negative (Negative) mg/dL Urine Urobilinogen Negative mg/dL Ur Leukocyte Esterase Negative (Negative) /uL Urine RBC 1 (0-3) /hpf Urine WBC 1 (0-4) /hpf Ur Squamous Epith Cells < 1 (0-4) /hpf Urine Bacteria None (0) /hpf Hyaline Casts 4 H (0-2) /lph Granular Casts 11 H (0-0) /lph Urine Mucus Few A (None) /hpf Ur Culture Indicated? No Urine Opiates Screen Ur Opiates Confirm Ur Oxycodone Screen U Oxycod/Oxymor Confirm Urine Methadone Screen Ur Methadone Confirm Ur Barbiturates Screen Ur Barbiturate Confirm Ur Phencyclidine Scrn Urine PCP Confirm Ur Amphetamines Screen U Amphetamines Confirm U Benzodiazepines Scrn Ur Benzodiazepine, Qnt Urine Cocaine Screen Urine Cocaine Confirm U Cannabinoids Confirm U Marijuana (THC) Screen 11/29/22 11/29/22 11/29/22 Range/Units 16:35 16:35 17:03 WBC (4.5-11.0) K/mcL RBC (3.59-5.38) M/mcL Hgb (11.2-15.7) g/dL Hct (34.1-44.9) % POC Hct (36-48) MCV (80.0-100.0) fL MCH (26.0-34.0) pg MCHC (31.0-36.0) g/dL RDW (11.5-14.5) % Plt Count (140-440) K/mcL MPV (8.8-12.5) fL Immature Gran % (Auto) (0.0-0.5) % Neut % (Auto) (38.0-78.0) % Lymph % (Auto) (15.5-49.0) % [place] % (Auto) (1.0-12.0) % Eos % (Auto) (0.0-7.0) % Baso % (Auto) (0.0-2.0) % Lymph # (Auto) (1.50-4.80) K/mcL [place] # (Auto) (0.10-0.90) K/mcL Eos # (Auto) (0.00-0.70) K/mcL Baso # (Auto) (0.00-0.30) K/mcL Seg Neutrophils % (38-78) % Band Neutrophils % (0-10) % Lymphocytes % (15-49) % Monocytes % (Manual) (1-12) % Immature Gran # (0.00-0.05) K/mcl Absolute Neutrophils (1.80-8.00) K/mcL Platelet Estimate (Normal) RBC Morphology (Normal) POC VBG pH (7.32-7.42) POC VBG pCO2 at Temp (41-51) POC VBG pO2 (25-40) POC VBG HCO3 (24-28) POC VBG Total CO2 (25-29) POC Venous O2 Sat (40-70) POC VBG Base Excess (-2-2) VBG Lactic Acid (0.5-2) POC Sodium (133-145) Sodium 125 L POC Potassium (3.3-5.1) Potassium 2.6 L* POC Chloride (96-108) Chloride 93 L Carbon Dioxide 10 L* POC Total CO2 (22-30) Anion Gap 22.0 H POC BUN (6-20) BUN 26 H Creatinine 1.7 H POC Creatinine (0.6-1.2) GFR Calculation 37 Glucose 428 H POC Glucose (70-105) Osmolality 327 H (280-300) mOSM/kg Calcium 6.2 L POC WB Ioniz Calcium (1.16-1.32) Phosphorus (2.5-4.5) mg/dL Magnesium (1.6-2.5) mg/dL Total Bilirubin 0.2 AST < 5 ALT < 5 Alkaline Phosphatase 79 Total Protein 4.8 L Albumin 2.4 L Globulin 2.4 Albumin/Globulin Ratio 1.0 Beta-Hydroxybutyrate 5.75 H (<0.27) mmol/L Procalcitonin (<0.10) ng/mL Urine Color Urine Appearance (Clear) Urine pH (5.0-9.0) Ur Specific [place] (1.000-1.035) Urine Protein (Negative) mg/dL Urine Glucose (UA) (Negative) mg/dL Urine Ketones (Negative) mg/dL Urine Occult Blood (Negative) mg/dL Urine Nitrate (Negative) Urine Bilirubin (Negative) mg/dL Urine Urobilinogen mg/dL Ur Leukocyte Esterase (Negative) /uL Urine RBC (0-3) /hpf Urine WBC (0-4) /hpf Ur Squamous Epith Cells (0-4) /hpf Urine Bacteria (0) /hpf Hyaline Casts (0-2) /lph Granular Casts (0-0) /lph Urine Mucus (None) /hpf Ur Culture Indicated? Urine Opiates Screen None detected Ur Opiates Confirm TNP Ur Oxycodone Screen None detected U Oxycod/Oxymor Confirm TNP Urine Methadone Screen None detected Ur Methadone Confirm TNP Ur Barbiturates Screen None detected Ur Barbiturate Confirm TNP Ur Phencyclidine Scrn None detected Urine PCP Confirm TNP Ur Amphetamines Screen None detected U Amphetamines Confirm TNP U Benzodiazepines Scrn None detected Ur Benzodiazepine, Qnt TNP Urine Cocaine Screen None detected Urine Cocaine Confirm TNP U Cannabinoids Confirm TNP U Marijuana (THC) Screen None detected 11/29/22 11/29/22 Range/Units 17:03 17:03 WBC (4.5-11.0) K/mcL RBC (3.59-5.38) M/mcL Hgb (11.2-15.7) g/dL Hct (34.1-44.9) % POC Hct (36-48) MCV (80.0-100.0) fL MCH (26.0-34.0) pg MCHC (31.0-36.0) g/dL RDW (11.5-14.5) % Plt Count (140-440) K/mcL MPV (8.8-12.5) fL Immature Gran % (Auto) (0.0-0.5) % Neut % (Auto) (38.0-78.0) % Lymph % (Auto) (15.5-49.0) % [place] % (Auto) (1.0-12.0) % Eos % (Auto) (0.0-7.0) % Baso % (Auto) (0.0-2.0) % Lymph # (Auto) (1.50-4.80) K/mcL [place] # (Auto) (0.10-0.90) K/mcL Eos # (Auto) (0.00-0.70) K/mcL Baso # (Auto) (0.00-0.30) K/mcL Seg Neutrophils % 45 (38-78) % Band Neutrophils % 19 H (0-10) % Lymphocytes % 28 (15-49) % Monocytes % (Manual) 8 (1-12) % Immature Gran # (0.00-0.05) K/mcl Absolute Neutrophils (1.80-8.00) K/mcL Platelet Estimate Normal (Normal) RBC Morphology Normal (Normal) POC VBG pH (7.32-7.42) POC VBG pCO2 at Temp (41-51) POC VBG pO2 (25-40) POC VBG HCO3 (24-28) POC VBG Total CO2 (25-29) POC Venous O2 Sat (40-70) POC VBG Base Excess (-2-2) VBG Lactic Acid (0.5-2) POC Sodium (133-145) Sodium POC Potassium (3.3-5.1) Potassium POC Chloride (96-108) Chloride Carbon Dioxide POC Total CO2 (22-30) Anion Gap POC BUN (6-20) BUN Creatinine POC Creatinine (0.6-1.2) GFR Calculation Glucose POC Glucose (70-105) Osmolality (280-300) mOSM/kg Calcium POC WB Ioniz Calcium (1.16-1.32) Phosphorus (2.5-4.5) mg/dL Magnesium (1.6-2.5) mg/dL Total Bilirubin AST ALT Alkaline Phosphatase Total Protein Albumin Globulin Albumin/Globulin Ratio Beta-Hydroxybutyrate (<0.27) mmol/L Procalcitonin 8.98 H (<0.10) ng/mL Urine Color Urine Appearance (Clear) Urine pH (5.0-9.0) Ur Specific [place] (1.000-1.035) Urine Protein (Negative) mg/dL Urine Glucose (UA) (Negative) mg/dL Urine Ketones (Negative) mg/dL Urine Occult Blood (Negative) mg/dL Urine Nitrate (Negative) Urine Bilirubin (Negative) mg/dL Urine Urobilinogen mg/dL Ur Leukocyte Esterase (Negative) /uL Urine RBC (0-3) /hpf Urine WBC (0-4) /hpf Ur Squamous Epith Cells (0-4) /hpf Urine Bacteria (0) /hpf Hyaline Casts (0-2) /lph Granular Casts (0-0) /lph Urine Mucus (None) /hpf Ur Culture Indicated? Urine Opiates Screen Ur Opiates Confirm Ur Oxycodone Screen U Oxycod/Oxymor Confirm Urine Methadone Screen Ur Methadone Confirm Ur Barbiturates Screen Ur Barbiturate Confirm Ur Phencyclidine Scrn Urine PCP Confirm Ur Amphetamines Screen U Amphetamines Confirm U Benzodiazepines Scrn Ur Benzodiazepine, Qnt Urine Cocaine Screen Urine Cocaine Confirm U Cannabinoids Confirm U Marijuana (THC) Screen Discharge Plan Patient/Caregiver Discharge Instructions Pt seen by FREEZER PERSON/PA only: Yes Clinical Impression: DKA (diabetic ketoacidosis) Patient Disposition: Xfer As Inpt ([facility]) Discharge Date/Time: 11/29/22 19:02
[2022-11-29] MEDS ORDERED: INSULIN REGULAR, HUMAN 50 UNIT in 0.9 % SODIUM CHLORIDE 99.5 ML IV SCH (16:15)
[2022-11-29 16:38] LABS: Basophils # (Auto) 0.01 K/mcL (0.00-0.30); Basophils % (Auto) 0.1 % (0.0-2.0); Eosinophils # (Auto) 0 K/mcL (0.00-0.70); Eosinophils % (Auto) 0 % (0.0-7.0); Hematocrit 43.1 % (34.1-44.9); Hemoglobin 14.4 g/dL (11.2-15.7); Lymphocytes % (Auto) 20.9 % (15.5-49.0); Mean Cell Volume 84.8 fL (80.0-100.0); Mean Corpuscular HGB Conc 33.4 g/dL (31.0-36.0); Mean Platelet Volume 9.6 fL (8.8-12.5); Monocytes # (Auto) 0.43 K/mcL (0.10-0.90); Monocytes % (Auto) 5.6 % (1.0-12.0); Neutrophils % (Auto) 72.6 % (38.0-78.0); Platelet Count 262 K/mcL (140-440); RBC 5.08 M/mcL (3.59-5.38); Red Cell Distribution Width 14.9 % (11.5-14.5); WBC 7.6 K/mcL (4.5-11.0)
[2022-11-29] MEDS ORDERED: 0.9 % SODIUM CHLORIDE 1,000 ML IV ONE ×3 (16:40→18:45)
[2022-11-29] MEDS ORDERED: POTASSIUM CHLORIDE 20 MEQ/10 ML VIAL IV ONE ×2 (16:47→18:55)
[2022-11-29] MEDS ORDERED: INSULIN REGULAR, HUMAN 1 UNIT/0.01 ML UNIT ONE ×3 (17:20→21:12)
--- NOTE | 2022-11-29 17:23 | Internal Med History&Physical ---
HPI History of Present Illness Patient information: Note initiated : 11/29/22 at 5:14 pm Service Date, if different from initiated Date: [] Patient: Angela Sultana a 42 y/o F admitted on for HI BG. Chief Complaint: [] History of present illness: Ms. Sultana is a 42 year old F History is obtained from the chart as patient came in obtunded and is more responsive but still not able to give much of a history. Sound like she has been ill for the past couple days. She is given antibiotics for possible cellulitis in the right groin region which area does look pretty good today. No respiratory issues. Urinalysis pending. Per the nurse who discussed with family members that she has not been feeling very well past couple days. In the ED she was found to be in severe DKA with a pH of 7.18. And acute kidney injury with creatinine 1.5. Bicarb at 12. Lactate 2.0. she has been hypotensive in the ED. third liter bolus started right now and may need to start Levophed. Patient started on insulin drip in Ed. Mildly hypokalemic at 3.1. Pseudohyponatremia. unknown if she has been taking her insulin lately. Review of system: Unable to obtain given patient's poor mentation PHYSICAL EXAM General: Poorly responsive, No acute Distress, obese Eyes/N/T: EOMI, no scleral icterus, PERRL, dry MM Head/Neck: neck supple, full ROM, normocephalic atraumatic CV: Mildly tachycardic and regular , No murmurs, normal s1/s2 Pulm: Clear b/l, no wheezing/rhonchi/rales, no respiratory distress Abd: soft, nontender, +BS x4 Ext: no clubbing/cyanosis, trace b/l LE edema, nontender Neuro:, Quite lethargic, answers some simple questions but Poorly responsive. Does awaken to voice and makes eye contact does not answer most quesitons. moves all extremities, CN 2-12 grossly intact, sensations intact b/l upper/lower Psychiatric: Skin: warm/dry, normal color PFSH PFSH All Active Problems DKA, type 2 (Acute) Cellulitis (Acute) Skin yeast infection (Acute) Hypothyroidism (Acute) Cellulitis of left foot (Acute) Immunization, tetanus-diphtheria (Acute) Cellulitis of left leg (Acute) Abscess of skin or subcutaneous tissue (Acute) Diabetic peripheral neuropathy (Acute) Morbid obesity (Acute) HTN (hypertension), benign (Acute) High triglycerides (Chronic) Elevated BP without diagnosis of hypertension (Acute) DM2 (diabetes mellitus, type 2) (Chronic) Cellulitis of external ear (Acute) Medical History Amputated great toe of left foot 12/2017 Cellulitis and abscess of foot IV antibiotics, estimated 50% chance of healing to toe given status during surgery. Daily dressing changes and as needed given drainage Cellulitis of external ear Cellulitis of right foot Cellulitis of toe of left foot Cellulitis of toe of right foot Diabetes mellitus (~12/29/17) Diabetes type 2, uncontrolled Diabetic peripheral neuropathy mostly left toes 07/10/2020. DM2 (diabetes mellitus, type 2) metformin + insulin using onset before 07/10/2020 Elevated BP without diagnosis of hypertension High triglycerides HTN (hypertension), benign Hypothyroidism Morbid obesity Type 2 diabetes mellitus with foot ulcer Surgical History History of amputation of great toe Family History Brother Diabetes Hypertension, essential Thyroid disorder Mother Diabetes Arthritis Seizure Thyroid disorder Father , of IHD, complications of diabetes Diabetes Hypertension, essential Heart attack Stroke Sister Migraine Social History marital status: single smoking status: Never smoker alcohol intake frequency: does not drink substance use type: does not use MEDS/ALLERGIES Home Medications and Allergies Home Medications Medication Instructions Recorded Confirmed Type insulin lispro 100 unit/mL 8 unit (0.08 mL) subcut TID #15 mL 01/06/22 11/26/22 Rx subcutaneous pen (Humalog KwikPen (U-100) Insulin) insulin glargine 100 unit/mL 30 unit (0.3 mL) subcut HS #100 04/07/22 11/26/22 Rx subcutaneous solution units levothyroxine 25 mcg tablet 25 mcg PO QDAY #90 tabs 08/18/22 11/26/22 Rx hydrochlorothiazide 12.5 mg tablet 12.5 mg PO QAM #90 tabs 08/25/22 11/26/22 Rx fenofibrate 54 mg tablet 108 mg PO QDAY #180 tabs 09/16/22 11/26/22 Rx norgestimate-ethinyl estradiol 1 tab PO QDAY #84 tabs 10/20/22 11/26/22 Rx 0.18 mg/0.215mg/0.25mg-35 mcg(28)tablet (Tri-Sprintec (28)) metformin 1,000 mg tablet See Rx Instructions .Route 11/03/22 11/26/22 Rx .COMPLEX #180 tabs cephalexin 500 mg capsule 500 mg PO TID 10 days #30 caps 11/26/22 Rx nystatin 100,000 unit/gram topical 1 applic topical TID #60 grams 11/26/22 Rx powder Allergies Allergy/AdvReac Type Severity Reaction Status Date / Time Amoxicillin Allergy Mild Hives Verified 10/20/22 07:30 EXAM Constitutional Vitals: Pulse Resp BP Pulse Ox O2 Del Method 90 26 H 82/56 100 Room Air 11/29/22 17:04 11/29/22 17:04 11/29/22 17:01 11/29/22 17:04 11/29/22 15:37 DATA Data Completed and Pending Labs: Labs from last 24 hours 11/29/22 11/29/22 11/29/22 17:03 17:03 17:03 WBC RBC Hgb Hct POC Hct MCV MCH MCHC RDW Plt Count MPV Immature Gran % (Auto) Neut % (Auto) Lymph % (Auto) [place] % (Auto) Eos % (Auto) Baso % (Auto) Lymph # (Auto) [place] # (Auto) Eos # (Auto) Baso # (Auto) Immature Gran # Absolute Neutrophils Platelet Estimate Pending RBC Morphology Pending POC VBG pH POC VBG pCO2 at Temp POC VBG pO2 POC VBG HCO3 POC VBG Total CO2 POC Venous O2 Sat POC VBG Base Excess VBG Lactic Acid POC Sodium Sodium Pending POC Potassium Potassium Pending POC Chloride Chloride Pending Carbon Dioxide Pending POC Total CO2 Anion Gap Pending POC BUN BUN Pending Creatinine Pending POC Creatinine GFR Calculation Pending Glucose Pending POC Glucose Calcium Pending POC WB Ioniz Calcium Total Bilirubin Pending AST Pending ALT Pending Alkaline Phosphatase Pending Total Protein Pending Albumin Pending Globulin Pending Albumin/Globulin Ratio Pending Beta-Hydroxybutyrate Pending Procalcitonin Pending Urine Color Urine Appearance Urine pH Ur Specific [place] Urine Protein Urine Glucose (UA) Urine Ketones Urine Occult Blood Urine Nitrate Urine Bilirubin Urine Urobilinogen Ur Leukocyte Esterase 11/29/22 11/29/22 11/29/22 16:35 16:00 15:59 WBC 7.6 RBC 5.08 Hgb 14.4 Hct 43.1 POC Hct MCV 84.8 MCH 28.3 MCHC 33.4 RDW 14.9 H Plt Count 262 MPV 9.6 Immature Gran % (Auto) 0.8 H Neut % (Auto) 72.6 Lymph % (Auto) 20.9 [place] % (Auto) 5.6 Eos % (Auto) 0 Baso % (Auto) 0.1 Lymph # (Auto) 1.60 [place] # (Auto) 0.43 Eos # (Auto) 0 Baso # (Auto) 0.01 Immature Gran # 0.06 H Absolute Neutrophils 5.54 Platelet Estimate RBC Morphology POC VBG pH POC VBG pCO2 at Temp POC VBG pO2 POC VBG HCO3 POC VBG Total CO2 POC Venous O2 Sat POC VBG Base Excess VBG Lactic Acid POC Sodium Sodium POC Potassium Potassium POC Chloride Chloride Carbon Dioxide POC Total CO2 Anion Gap POC BUN BUN Creatinine POC Creatinine GFR Calculation Glucose POC Glucose Calcium POC WB Ioniz Calcium Total Bilirubin AST ALT Alkaline Phosphatase Total Protein Albumin Globulin Albumin/Globulin Ratio Beta-Hydroxybutyrate Pending Procalcitonin Urine Color Pending Urine Appearance Pending Urine pH Pending Ur Specific [place] Pending Urine Protein Pending Urine Glucose (UA) Pending Urine Ketones Pending Urine Occult Blood Pending Urine Nitrate Pending Urine Bilirubin Pending Urine Urobilinogen Pending Ur Leukocyte Esterase Pending 11/29/22 11/29/22 11/29/22 15:59 15:53 15:52 WBC RBC Hgb Hct POC Hct 46.0 MCV MCH MCHC RDW Plt Count MPV Immature Gran % (Auto) Neut % (Auto) Lymph % (Auto) [place] % (Auto) Eos % (Auto) Baso % (Auto) Lymph # (Auto) [place] # (Auto) Eos # (Auto) Baso # (Auto) Immature Gran # Absolute Neutrophils Platelet Estimate RBC Morphology POC VBG pH 7.18 L* POC VBG pCO2 at Temp 27.0 L POC VBG pO2 30 POC VBG HCO3 10.1 L* POC VBG Total CO2 11.0 L POC Venous O2 Sat 43.0 POC VBG Base Excess -18.0 L VBG Lactic Acid 2.0 POC Sodium 128 L Sodium TNP POC Potassium 3.1 L Potassium TNP POC Chloride 105 Chloride TNP Carbon Dioxide TNP POC Total CO2 12.0 L Anion Gap TNP POC BUN 37 H BUN TNP Creatinine TNP POC Creatinine 1.5 H GFR Calculation TNP Glucose TNP POC Glucose 464 H* Calcium TNP POC WB Ioniz Calcium 1.01 L Total Bilirubin TNP AST TNP ALT TNP Alkaline Phosphatase TNP Total Protein TNP Albumin TNP Globulin TNP Albumin/Globulin Ratio TNP Beta-Hydroxybutyrate Procalcitonin Urine Color Urine Appearance Urine pH Ur Specific [place] Urine Protein Urine Glucose (UA) Urine Ketones Urine Occult Blood Urine Nitrate Urine Bilirubin Urine Urobilinogen Ur Leukocyte Esterase A/P Narrative A/P Narrative: A: *DKA (DM2): -A1c *Encephalopathy: 2/2 above *Hypovolemic shock: *KERI possible ATN: 2/2 above *Morbid obesity: BMI 43, lifestyle modification *HLD: *Hypothyroidism: * P: -Insulin gtt -levophed -Monitor UOP/renal function/i&o -Monitor replace electrolytes -Eval for any sources of infection, man diff, BC -uds -Check TSH -Check A1c - -Hold home HCTZ -Home medication reconciliation -PT/OT -ppx: Lovenox bid for obesity Time Spent With Patient Time: Total time spent is greater than 50% in coordination of care (as documented) at patient's floor/unit and/or counseling patient: Critical Care Time: Yes Total Critical Care Time: 70
[2022-11-29 17:28] LABS: Appearance,Urine HAZY (Clear); Bilirubin,Urine Negative (Negative); Color,Urine YELLOW; Culture Indicated,Urine No; Glucose,Urine (UA) >=500 mg/dL (Negative); Ketones,Urine 80 mg/dL (Negative); Leukocyte Esterase,Urine Negative /uL (Negative); Mucus,Urine FEW /hpf; Nitrate,Urine Negative (Negative); Protein,Urine 100 mg/dL (Negative); Specific Gravity,Urine 1.024 (1.000-1.035); Urine Granular Cast 11 /lph (0-0); Urine Hyaline Cast 4 /lph (0-2); Urine RBC 1 /hpf (0-3); Urine Squamous Epithelial Cell < 1 /hpf (0-4); Urine WBC 1 /hpf (0-4); Urobilinogen,Urine Negative
[2022-11-29] MEDS: INSULIN REGULAR, HUMAN 50 UNIT in 0.9 % SODIUM CHLORIDE 99.5 ML IV SCH ×2 (17:40→21:50)
[2022-11-29] MEDS: NOREPINEPHRINE BITARTRATE 8 MG in 0.9 % SODIUM CHLORIDE 242 ML IV SCH (17:57)
[2022-11-29] MEDS: 0.9 % SODIUM CHLORIDE 250 ML IV SCH (17:57)
[2022-11-29 18:00] LABS: Band Neutrophils % 19 % (0-10); Lymphocytes % 28 % (15-49); Monocytes % (Manual) 8 % (1-12); Platelet Estimate NORMAL (Normal); RBC Morphology NORMAL (Normal); Segmented Neutrophils % 45 % (38-78)
[2022-11-29 18:02] LABS: Amphetamine Screen,Urine None detected; Barbiturate Screen,Urine None detected; Benzodiazepines Screen,Urine None detected; Cannabinoid Screen,Urine None detected; Cocaine Screen,Urine None detected; Opiate Screen,Urine None detected; Oxycodone, Urine Screen None detected; Phencyclidine Screen,Urine None detected
[2022-11-29 18:08] LABS: Phosphorous 0.9 mg/dL (2.5-4.5)
[2022-11-29 18:25] LABS: Beta Hydroxybutyrate 5.75 mmol/L (<0.27)
[2022-11-29 18:27] LABS: ALT/SGPT < 5 U/L (<40); AST/SGOT < 5 U/L (<32); Albumin 2.4 gm/dL (3.2-5.2); Alkaline Phosphatase 79 U/L (39-117); Bilirubin,Total 0.2 mg/dL (0.1-1.0); Blood Urea Nitrogen 26 mg/dL (6-20); Calcium 6.2 mg/dL (8.6-10.4); Carbon Dioxide 10 mmol/L (22-30); Chloride 93 mmol/L (96-108); Globulin 2.4 gm/dL (2.2-3.7); Glomerular Filtration Rate 37; Glucose 428 mg/dL (70-105)
[2022-11-29] MEDS ORDERED: POTASSIUM CHLORIDE 40 MEQ in DEXTROSE 5% IN WATER 500 ML IV ONE (18:28)
[2022-11-29] MEDS ORDERED: MAGNESIUM SULFATE 2 GM/50 ML BAG IV PRN (19:05)
[2022-11-29] MEDS ORDERED: IPRATROPIUM/ALBUTEROL 3 ML AMPUL.NEB NEB PRN (19:05)
[2022-11-29] MEDS ORDERED: SENNOSIDES 1 TABLET PO PRN (19:05)
[2022-11-29] MEDS ORDERED: POTASSIUM CHLORIDE 20 MEQ TABLET PO PRN (19:05)
[2022-11-29] MEDS ORDERED: POLYETHYLENE GLYCOL 3350 17 GM PACKET PO PRN (19:05)
[2022-11-29] MEDS ORDERED: POTASSIUM PHOSPHATE 40 MEQ in DEXTROSE 5% IN WATER 500 ML IV ONE (19:08)
[2022-11-29] MEDS ORDERED: VANCOMYCIN 1,500 MG in 0.9 % SODIUM CHLORIDE 500 ML IV ONE (19:10)
[2022-11-29] MEDS: ONDANSETRON 4 MG/2 ML VIAL IV PRN (20:20)
[2022-11-29] MEDS: 0.9 % SODIUM CHLORIDE 10 ML SYRINGE IV SCH (20:20)
[2022-11-29] MEDS ORDERED: ENOXAPARIN 40 MG/0.4 ML SYRINGE SQ SCH (21:00)
[2022-11-29] MEDS ORDERED: NEUTRA PHOS 1 PACKET PO SCH (21:00)
[2022-11-29] MEDS ORDERED: PHOSPHORUS 250 MG TABLET PO SCH (21:00)
[2022-11-29] MEDS ORDERED: PANTOPRAZOLE 40 MG VIAL IV ONE ×2 (21:09→23:25)
[2022-11-29] MEDS ORDERED: LACTATED RINGERS 1,000 ML IV ONE (21:13)
[2022-11-29] MEDS ORDERED: CALCIUM GLUCONATE 4.65 MEQ/10 ML VIAL IV ONE (21:14)
[2022-11-29] MEDS ORDERED: 0.9 % SODIUM CHLORIDE 10 ML SYRINGE IV PRN (21:31)
[2022-11-29] MEDS ORDERED: HALOPERIDOL LACTATE 5 MG/ML VIAL IV ONE (21:36)
[2022-11-29] MEDS ORDERED: HALOPERIDOL LACTATE 5 MG/ML VIAL ONE (21:37)
[2022-11-29] MEDS ORDERED: CALCIUM GLUCONATE 9.3 MEQ in DEXTROSE 5% IN WATER 50 ML IV ONE (22:00)
--- NOTE | 2022-11-29 22:08 | Procedure Note ---
PROC Central Line Placement Right IJ: Consent obtained: verbal consent Date of Procedure: 11/29/22 Time out performed: Yes Patient placed on monitor/pulse ox: Yes MD prep: mask, sterile gown and sterile gloves Central line prep: 2% Chlorhexidine scrub, large sterile drapes applied and proper hand hygiene Local anesthesia used: lidocaine 1% Amount of anesthesia used (mls): 3 Ultrasound used for placement: Yes Central line lumen inserted: quad and 16 cm Post procedure: sutured in place, good blood return, all ports aspirated, flushed, capped and sterile dressing applied Additional comments: chest xray ordered to confirm placement,
[2022-11-29 22:56] LABS: Hematocrit 36.8 % (34.1-44.9); Hemoglobin 12.4 g/dL (11.2-15.7)
[2022-11-29] MEDS ORDERED: CALCIUM GLUCONATE 4.65 MEQ/10 ML VIAL ONE (23:25)
[2022-11-29 23:26] LABS: Hemoglobin A1C 12.9 % Hgb (4.0-6.0); Thyroid Stimulating Hormone 0.64 uIU/mL (0.27-5.01)
[2022-11-29 23:35] LABS: Phosphorous < 0.3 mg/dL (2.5-4.5)
[2022-11-29 23:38] LABS: Blood Urea Nitrogen 29 mg/dL (6-20); Carbon Dioxide 11 mmol/L (22-30); Chloride 98 mmol/L (96-108); Glomerular Filtration Rate 40; Glucose 359 mg/dL (70-105)
[2022-11-29 23:39] LABS: Calcium 5.8 mg/dL (8.6-10.4)
[2022-11-29] MEDS ORDERED: POTASSIUM PHOSPHATE 66 MEQ/15 ML VIAL IV ONE (23:42)
[2022-11-30] MEDS: CEFEPIME 1 GM VIAL IV SCH ×2 (00:06→09:46)
[2022-11-30] MEDS: PANTOPRAZOLE 80 MG in 0.9 % SODIUM CHLORIDE 100 ML IV SCH ×3 (00:17→18:19)
[2022-11-30] MEDS: 0.9 % SODIUM CHLORIDE 1,000 ML IV SCH ×3 (00:21→14:54)
[2022-11-30] MEDS: DOCUSATE SODIUM 100 MG CAPSULE PO SCH ×3 (00:49→20:14)
[2022-11-30] MEDS: INSULIN REGULAR, HUMAN 50 UNIT in 0.9 % SODIUM CHLORIDE 99.5 ML IV SCH ×4 (01:10→10:33)
[2022-11-30] MEDS ORDERED: INSULIN REGULAR, HUMAN 1 UNIT/0.01 ML UNIT IV ONE ×2 (01:13→02:34)
[2022-11-30] MEDS ORDERED: INSULIN REGULAR, HUMAN 1 UNIT/0.01 ML UNIT ONE ×5 (01:15→07:12)
[2022-11-30] MEDS ORDERED: VASOPRESSIN 20 UNIT/ML VIAL ONE (02:02)
[2022-11-30] MEDS ORDERED: NOREPINEPHRINE BITARTRATE 4 MG/4 ML VIAL IV ONE (02:06)
[2022-11-30] MEDS: VASOPRESSIN 20 UNIT in DEXTROSE 5% IN WATER 99 ML IV SCH ×3 (02:09→16:41)
[2022-11-30] MEDS: 0.9 % SODIUM CHLORIDE 250 ML IV SCH ×4 (02:12→20:39)
[2022-11-30] MEDS: ONDANSETRON 4 MG/2 ML VIAL IV PRN ×4 (02:50→22:53)
[2022-11-30] MEDS: 0.9 % SODIUM CHLORIDE 10 ML SYRINGE IV SCH ×6 (02:50→20:50)
[2022-11-30] MEDS: NOREPINEPHRINE BITARTRATE 8 MG in 0.9 % SODIUM CHLORIDE 242 ML IV SCH ×3 (04:00→18:33)
[2022-11-30] MEDS ORDERED: PROMETHAZINE 25 MG/ML VIAL ONE (05:02)
[2022-11-30] MEDS: METOCLOPRAMIDE 10 MG/2 ML VIAL IV PRN ×2 (05:07→10:35)
[2022-11-30 06:49] LABS: Beta Hydroxybutyrate 0.14 mmol/L (<0.27)
[2022-11-30] MEDS: DEXTROSE 5%-NS 1,000 ML IV SCH ×2 (07:05→17:01)
[2022-11-30 07:14] LABS: ABG Methemoglobin 0.3 % (0.4-1.5); VBG Base Excess -16 (-2-3); VBG Oxygen Saturation 85.9 % (40.0-70.0); VBG PH 7.18 U (7.32-7.42); VBG PO2 58.7 mmHg (25.0-40.0)
[2022-11-30 07:14] LABS: ALT/SGPT 10 U/L (<40); AST/SGOT 16 U/L (<32); Albumin 2.1 gm/dL (3.2-5.2); Albumin/Globulin Ratio 0.8 (1.0-2.3); Alkaline Phosphatase 66 U/L (39-117); Bilirubin,Direct < 0.2 mg/dL (0-0.3); Bilirubin,Total < 0.2 mg/dL (0.1-1.0); Blood Urea Nitrogen 35 mg/dL (6-20); Calcium 5.9 mg/dL (8.6-10.4); Carbon Dioxide 11 mmol/L (22-30); Chloride 102 mmol/L (96-108); Globulin 2.5 gm/dL (2.2-3.7); Glomerular Filtration Rate 47; Glucose 248 mg/dL (70-105); Lactate Dehydrogenase 373 U/L (135-225); Phosphorous 0.6 mg/dL (2.5-4.5); Triglycerides 2817 mg/dL (<150); Uric Acid 7.8 mg/dL (2.5-8.0)
[2022-11-30] MEDS ORDERED: PANTOPRAZOLE 40 MG VIAL IV SCH (07:30)
[2022-11-30 07:56] LABS: Basophils # (Auto) 0.05 K/mcL (0.00-0.30); Basophils % (Auto) 0.4 % (0.0-2.0); Eosinophils # (Auto) 0.04 K/mcL (0.00-0.70); Eosinophils % (Auto) 0.3 % (0.0-7.0); Hematocrit 37.3 % (34.1-44.9); Hemoglobin 12.8 g/dL (11.2-15.7); Lymphocytes # (Auto) 2.23 K/mcL (1.50-4.80); Lymphocytes % (Auto) 17.7 % (15.5-49.0); Mean Cell Volume 82.7 fL (80.0-100.0); Mean Corpuscular HGB Conc 34.3 g/dL (31.0-36.0); Mean Platelet Volume 9.8 fL (8.8-12.5); Monocytes # (Auto) 0.53 K/mcL (0.10-0.90); Monocytes % (Auto) 4.2 % (1.0-12.0); Neutrophils % (Auto) 76.4 % (38.0-78.0); Platelet Count 215 K/mcL (140-440); RBC 4.51 M/mcL (3.59-5.38); Red Cell Distribution Width 14.7 % (11.5-14.5); WBC 12.6 K/mcL (4.5-11.0)
[2022-11-30] MEDS ORDERED: SODIUM BICARBONATE 50 MEQ/50 ML VIAL IV ONE ×5 (08:12→22:27)
[2022-11-30] MEDS ORDERED: CALCIUM GLUCONATE 4.65 MEQ/10 ML VIAL IV ONE ×3 (08:14→21:01)
[2022-11-30] MEDS ORDERED: MAGNESIUM SULFATE 2 GM/50 ML BAG IV ONE (08:15)
[2022-11-30] MEDS ORDERED: POTASSIUM PHOSPHATE 40 MEQ in DEXTROSE 5% IN WATER 500 ML IV ONE ×2 (08:16→13:49)
[2022-11-30] MEDS ORDERED: PHOSPHORUS 250 MG TABLET PO ONE (08:17)
[2022-11-30] MEDS ORDERED: NEUTRA PHOS 1 PACKET PO ONE (08:17)
--- NOTE | 2022-11-30 08:18 | Internal Med Progress Note ---
SUBJECTIVE Subjective Patient information: Note initiated : 11/30/22 at 8:03 am Service Date, if different from initiated Date: [] Patient: Angela Sultana a 42 y/o F admitted on 11/29/22 for HI BG. Chief Complaint: [] Interval history: History of present illness: Ms. Sultana is a 42 year old F History is obtained from the chart as patient came in obtunded and is more responsive but still not able to give much of a history. Sound like she has been ill for the past couple days. She is given antibiotics for possible cellulitis in the right groin region which area does look pretty good today. No respiratory issues. Urinalysis pending. Per the nurse who discussed with family members that she has not been feeling very well past couple days. In the ED she was found to be in severe DKA with a pH of 7.18. And acute kidney injury with creatinine 1.5. Bicarb at 12. Lactate 2.0. she has been hypotensive in the ED. third liter bolus started right now and may need to start Levophed. Patient started on insulin drip in Ed. Mildly hypokalemic at 3.1. Pseudohyponatremia. unknown if she has been taking her insulin lately. Patient had episode of emesis with coffee-ground. will check serial H&H, protonix bolus and gtt. consult gen surgery, t&s. 11/30 Patient required 2 vasopressors last night. Still acidotic > Several amps of bicarb and albumin given with improvement in her blood pressure and decreasing need for Levophed. Melanotic stools. Severe electrolyte disturbance. A wound on her right groin / lower quadrant opened up and is draining purulent fluid. Concern for septic process. Will check CT pelvis to rule out deeper abscess. Leukocytosis and bandemia noted. Empiric antibiotics started last night. Lactic acidosis. Review of system: Unable to obtain given patient's poor mentation, she answers some questions but does not respond to most. acidosis still this morning and bicarb x2 given to improved effectiveness of vasopressors. LR bolus also given for low CVP of 2 with good result in bp/uop/vasopressor decrease. By early in the afternoon she was off vasopressin and levophed was down to 6. bicarb up to 16 and vbg pH at 7.35. Insulin gtt transitioned to SQ long-acting insulin. Electrolytes were still low (k/mag/phos) and replacement was ordered. mentation was starting to improved. renal fxn improved. ct a/p w/o contrast d/t keri done to eval for groin wound or other infection > showed possible colitis and suspected pancreatitis > lipase 572. did get dose of vanco last night and was started cefepime last night. bandemia worsened today and now febrile this afternoon. cefepime to merrem and restrted vanco while awaiting BC on continued w/u. In the afternoon the pt started to gradually and progressively worsening again. requiring increased vasopressor support again and mentation reverted to level she was at this morning, tachypnea and tachycardia increased. stat ABG showing pH 7.07, co2 <15, lactate 0.5. bicarb gtt started. repeat chemistry pending. >>>bicarb lower as expected, k /phos better, mag good, ca still low, cr mildly worse but good uop, respirations decreasing from 40's to about 30. f/u VBG with pH 7.15 up from ABG of 7.07, cont bicarb gtt, PHYSICAL EXAM General: Responsive but need to redirect, No acute Distress, obese Eyes/N/T: EOMI, no scleral icterus, Head/Neck: neck supple, full ROM, CV: Mildly tachycardic and regular , No murmurs, Pulm: Clear b/l, no wheezing/rhonchi/rales, no respiratory distress Abd: soft, nontender, +BS x4 Ext: no clubbing/cyanosis, trace b/l LE edema, nontender Neuro: Lethargic but does follow commands although slowly. She does answer some simple questions but does not answer most my questions, moves all extremities, sensations intact b/l upper/lower Psychiatric: Skin: warm/dry, normal color Constitutional Vitals: Vital Signs Temp Pulse Resp BP Pulse Ox O2 Del Method 99.8 F H 115 H 12 95/65 93 Room Air 11/30/22 07:01 11/30/22 07:30 11/30/22 07:30 11/30/22 07:30 11/30/22 07:30 11/30/22 06:01 Period Temp Pulse Resp BP Sys/Escalante Pulse Ox O2 Del Method O2 Flow Rate Last 24 Hr 97.7 F-99.8 F 87-119 12-43 65-159/34-147 92-100 Room Air-Room Air Intake and Output 11/29/22 11/30/22 11/30/22 19:59 03:59 11:59 Intake Total 3296 1943 1927.0909 Output Total 950 150 130 Balance 2346 1793 1797.0909 Weight 107.91 kg Intake & Output: Intake & Output 11/29/22 11/30/22 11/30/22 19:59 03:59 11:59 Intake Total 3296 1943 1927.0909 Output Total 950 150 130 Balance 2346 1793 1797.0909 Weight 107.91 kg Intake: IV 3296 3 1927.0909 Sodium Chloride 0.9% 1,000 ml @ 3000 1000 150 mls/hr IV .[id number] [facility] Rx#: [id number] Calcium Gluconate 9.3 Meq In 70 Dextrose 5% in Water 50 ml @ 70 mls/hr IV ONCE ONE Rx#: [id number] HumuLIN R 50 UNIT In Sodium 36 229 128 Chloride 0.9% 99.5 ml @ 0.1 UNIT/KG/HR 22.045 mls/hr IV DUR [facility] Rx#:[id number] Lactated Ringers 1,000 ml @ 1000 Wide Open IV BOLUS ONE Rx#: [id number] Levophed 8 mg In Sodium 142 290 Chloride 0.9% 242 ml @ 10 MCG/ MIN 18.75 mls/hr IV Q14H [facility] Rx #:[id number] Potassium Chloride 20 Meq In 260 Dextrose 5% in Water 250 ml @ 130 mls/hr IV ONCE ONE Rx#: [id number] Potassium Phosphate 40 Meq In 509.0909 Dextrose 5% in Water 500 ml @ 127.273 mls/hr IV ONCE ONE Rx#: [id number] Vancomycin 1,500 mg In Sodium 500 Chloride 0.9% 500 ml @ 333.3 mls/hr IV ONCE ONE Rx#: [id number] Vasostrict 20 Unit In Dextrose 2 5% in Water 99 ml @ 0.04 UNIT/ MIN 12 mls/hr IV Q8H [facility] Rx#: [id number] Output: Urine Catheter Amount 950 150 130 Other: Urine Appearance Cloudy Clear Clear Uretheral (Leavitt) Clear Urine Color Yellow Bright Yellow Yellow Uretheral (Leavitt) Yellow OBJ DATA Labs 11/30/22 05:21 11/30/22 05:20 Labs: Abnormal Lab Results 11/30/22 11/30/22 11/30/22 05:21 05:21 05:21 WBC 12.6 H RDW 14.7 H Immature Gran % (Auto) 1.0 H Band Neutrophils % Immature Gran # 0.12 H Absolute Neutrophils 9.60 H ABG Methemoglobin 0.3 L VBG pH 7.18 L* POC VBG pH VBG pCO2 30.0 L POC VBG pCO2 at Temp VBG pO2 58.7 H VBG HCO3 11.0 L POC VBG HCO3 VBG Total CO2 12.0 L POC VBG Total CO2 VBG O2 Saturation 85.9 H VBG Base Excess -16 L POC VBG Base Excess VBG Lactic Acid Carboxyhemoglobin 6.0 H POC Sodium Sodium POC Potassium Potassium Chloride Carbon Dioxide POC Total CO2 Anion Gap POC BUN BUN Creatinine POC Creatinine Glucose POC Glucose Hemoglobin A1c Osmolality Calcium POC WB Ioniz Calcium Phosphorus Magnesium Lactate Dehydrogenase Total Protein Albumin Albumin/Globulin Ratio Triglycerides Beta-Hydroxybutyrate Procalcitonin 11.39 H Urine Appearance Urine Protein Urine Glucose (UA) Urine Ketones Hyaline Casts Granular Casts Urine Mucus 11/30/22 11/29/22 11/29/22 05:20 22:25 22:25 WBC RDW Immature Gran % (Auto) Band Neutrophils % Immature Gran # Absolute Neutrophils ABG Methemoglobin VBG pH POC VBG pH VBG pCO2 POC VBG pCO2 at Temp VBG pO2 VBG HCO3 POC VBG HCO3 VBG Total CO2 POC VBG Total CO2 VBG O2 Saturation VBG Base Excess POC VBG Base Excess VBG Lactic Acid Carboxyhemoglobin POC Sodium Sodium 126 L 124 L POC Potassium Potassium 3.1 L 2.3 L* Chloride Carbon Dioxide 11 L 11 L POC Total CO2 Anion Gap POC BUN BUN 35 H 29 H Creatinine 1.4 H 1.6 H POC Creatinine Glucose 248 H 359 H POC Glucose Hemoglobin A1c 12.9 H Osmolality Calcium 5.9 L* 5.8 L* POC WB Ioniz Calcium Phosphorus 0.6 L < 0.3 L Magnesium 1.5 L Lactate Dehydrogenase 373 H Total Protein 4.6 L Albumin 2.1 L Albumin/Globulin Ratio 0.8 L Triglycerides 2817 H Beta-Hydroxybutyrate Procalcitonin Urine Appearance Urine Protein Urine Glucose (UA) Urine Ketones Hyaline Casts Granular Casts Urine Mucus 11/29/22 11/29/22 11/29/22 22:25 17:03 17:03 WBC RDW Immature Gran % (Auto) Band Neutrophils % 19 H Immature Gran # Absolute Neutrophils ABG Methemoglobin VBG pH POC VBG pH VBG pCO2 POC VBG pCO2 at Temp VBG pO2 VBG HCO3 POC VBG HCO3 VBG Total CO2 POC VBG Total CO2 VBG O2 Saturation VBG Base Excess POC VBG Base Excess VBG Lactic Acid 2.7 H Carboxyhemoglobin POC Sodium Sodium POC Potassium Potassium Chloride Carbon Dioxide POC Total CO2 Anion Gap POC BUN BUN Creatinine POC Creatinine Glucose POC Glucose Hemoglobin A1c Osmolality Calcium POC WB Ioniz Calcium Phosphorus Magnesium Lactate Dehydrogenase Total Protein Albumin Albumin/Globulin Ratio Triglycerides Beta-Hydroxybutyrate Procalcitonin 8.98 H Urine Appearance Urine Protein Urine Glucose (UA) Urine Ketones Hyaline Casts Granular Casts Urine Mucus 11/29/22 11/29/22 11/29/22 17:03 16:35 16:35 WBC RDW Immature Gran % (Auto) Band Neutrophils % Immature Gran # Absolute Neutrophils ABG Methemoglobin VBG pH POC VBG pH VBG pCO2 POC VBG pCO2 at Temp VBG pO2 VBG HCO3 POC VBG HCO3 VBG Total CO2 POC VBG Total CO2 VBG O2 Saturation VBG Base Excess POC VBG Base Excess VBG Lactic Acid Carboxyhemoglobin POC Sodium Sodium 125 L POC Potassium Potassium 2.6 L* Chloride 93 L Carbon Dioxide 10 L* POC Total CO2 Anion Gap 22.0 H POC BUN BUN 26 H Creatinine 1.7 H POC Creatinine Glucose 428 H POC Glucose Hemoglobin A1c Osmolality 327 H Calcium 6.2 L POC WB Ioniz Calcium Phosphorus Magnesium Lactate Dehydrogenase Total Protein 4.8 L Albumin 2.4 L Albumin/Globulin Ratio Triglycerides Beta-Hydroxybutyrate 5.75 H Procalcitonin Urine Appearance Hazy A Urine Protein 100 A Urine Glucose (UA) >=500 A Urine Ketones 80 A Hyaline Casts 4 H Granular Casts 11 H Urine Mucus Few A 11/29/22 11/29/22 11/29/22 15:59 15:59 15:53 WBC RDW 14.9 H Immature Gran % (Auto) 0.8 H Band Neutrophils % Immature Gran # 0.06 H Absolute Neutrophils ABG Methemoglobin VBG pH POC VBG pH VBG pCO2 POC VBG pCO2 at Temp VBG pO2 VBG HCO3 POC VBG HCO3 VBG Total CO2 POC VBG Total CO2 VBG O2 Saturation VBG Base Excess POC VBG Base Excess VBG Lactic Acid Carboxyhemoglobin POC Sodium 128 L Sodium POC Potassium 3.1 L Potassium Chloride Carbon Dioxide POC Total CO2 12.0 L Anion Gap POC BUN 37 H BUN Creatinine POC Creatinine 1.5 H Glucose POC Glucose 464 H* Hemoglobin A1c Osmolality Calcium POC WB Ioniz Calcium 1.01 L Phosphorus 0.9 L Magnesium Lactate Dehydrogenase Total Protein Albumin Albumin/Globulin Ratio Triglycerides Beta-Hydroxybutyrate Procalcitonin Urine Appearance Urine Protein Urine Glucose (UA) Urine Ketones Hyaline Casts Granular Casts Urine Mucus 11/29/22 15:52 WBC RDW Immature Gran % (Auto) Band Neutrophils % Immature Gran # Absolute Neutrophils ABG Methemoglobin VBG pH POC VBG pH 7.18 L* VBG pCO2 POC VBG pCO2 at Temp 27.0 L VBG pO2 VBG HCO3 POC VBG HCO3 10.1 L* VBG Total CO2 POC VBG Total CO2 11.0 L VBG O2 Saturation VBG Base Excess POC VBG Base Excess -18.0 L VBG Lactic Acid Carboxyhemoglobin POC Sodium Sodium POC Potassium Potassium Chloride Carbon Dioxide POC Total CO2 Anion Gap POC BUN BUN Creatinine POC Creatinine Glucose POC Glucose Hemoglobin A1c Osmolality Calcium POC WB Ioniz Calcium Phosphorus Magnesium Lactate Dehydrogenase Total Protein Albumin Albumin/Globulin Ratio Triglycerides Beta-Hydroxybutyrate Procalcitonin Urine Appearance Urine Protein Urine Glucose (UA) Urine Ketones Hyaline Casts Granular Casts Urine Mucus Meds: Medications Acetaminophen (Acetaminophen 325 Mg Tablet) 650 mg PO Q6HP PRN; Protocol PRN Reason: Per Pain Protocol/Fever > 101 Albuterol/Ipratropium (Ipratropium/Albuterol 3 Ml Ampul.Neb) 3 ml NEB Q4HP PRN PRN Reason: Shortness Of Breath Cefepime HCl (Cefepime 1 Gm Vial) 1 gm IV Q12H DEX; Protocol Last Admin: 11/30/22 00:06 Dose: 1 gm Diagnostic Test (Pha) (Accu-Chek 1 Each Strip) 1 each FS Q1 DEX Last Admin: 11/30/22 07:00 Dose: 1 each Docusate Sodium (Docusate Sodium 100 Mg Capsule) 100 mg PO BID [facility] Last Admin: 11/30/22 00:49 Dose: Not Given Norepinephrine Bitartrate 8 mg (/ Sodium Chloride) 250 mls @ 18.75 mls/hr IV Q14H [facility]; Protocol Last Admin: 11/30/22 07:47 Dose: 25 mcg/min, 46.875 mls/hr Sodium Chloride (Sodium Chloride 0.9%) 250 mls @ 20 mls/hr IV .[id number] [facility] Last Admin: 11/30/22 07:59 Dose: Not Given Insulin Human Regular 50 unit/ (Sodium Chloride) 100 mls @ 22.045 mls/hr IV DUR [facility]; Protocol Last Admin: 11/30/22 07:41 Dose: 0.16 unit/kg/hr, 36 mls/hr Potassium Chloride 40 meq/ (Dextrose) 520 mls @ 130 mls/hr IV UD PRN PRN Reason: Potassium < 3 Magnesium Sulfate (Magnesium Sulfate) 2 gm in 50 mls @ 50 mls/hr IV UD PRN PRN Reason: Magnesium </= 1.6 Sodium Chloride (Sodium Chloride 0.9%) 1,000 mls @ 150 mls/hr IV .Q6H40M [facility] Last Admin: 11/30/22 07:58 Dose: Not Given Pantoprazole Sodium 80 mg/ (Sodium Chloride) 100 mls @ 10 mls/hr IV Q10H [facility] Last Admin: 11/30/22 00:17 Dose: 8 mg/hr, 10 mls/hr Vasopressin 20 unit/ Dextrose 100 mls @ 12 mls/hr IV Q8H [facility]; Protocol Last Titration: 11/30/22 02:30 Dose: 0.04 unit/min, 12 mls/hr Sodium Chloride (Sodium Chloride 0.9%) 250 mls @ 20 mls/hr IV .[id number] [facility] Last Admin: 11/30/22 02:12 Dose: Not Given Dextrose/Sodium Chloride (Dextrose 5%-Ns Iv Solution) 1,000 mls @ 150 mls/hr IV .Q6H40M [facility] Last Admin: 11/30/22 07:05 Dose: 150 mls/hr Metoclopramide HCl (Metoclopramide 10 Mg/2 Ml Vial) 10 mg IV Q6HP PRN PRN Reason: Nausea And Vomiting Last Admin: 11/30/22 05:07 Dose: 10 mg Ondansetron HCl (Ondansetron 4 Mg/2 Ml Vial) 4 mg IV Q4HP PRN PRN Reason: Nausea And Vomiting Last Admin: 11/30/22 06:57 Dose: 4 mg Polyethylene Glycol (Polyethylene Glycol 3350 17 Gm Packet) 17 gm PO DAILYP PRN PRN Reason: Constipation Potassium Chloride (Potassium Chloride 20 Meq Tablet) 40 meq PO UD PRN PRN Reason: Potssium is 3-3.5 Potassium Chloride (Potassium Chloride 20 Meq Tablet) 40 meq PO UD PRN PRN Reason: Potassium < 3 Senna (Sennosides 1 Tablet) 2 tab PO DAILYP PRN PRN Reason: Constipation Sodium Chloride (0.9 % Sodium Chloride 10 Ml Syringe) 10 ml IV Q8 DEX Last Admin: 11/30/22 06:17 Dose: Not Given Sodium Chloride (0.9 % Sodium Chloride 10 Ml Syringe) 10 ml IV UD PRN PRN Reason: between meds Last Admin: 11/30/22 00:07 Dose: 10 ml Sodium Chloride (0.9 % Sodium Chloride 10 Ml Syringe) 10 ml IV Q12 DEX ABG Interpretation ABG results: 11/30/22 05:21 ABG Methemoglobin 0.3 L VBG pH 7.18 L* VBG pCO2 30.0 L VBG pO2 58.7 H VBG HCO3 11.0 L VBG Total CO2 12.0 L VBG O2 Saturation 85.9 H VBG Base Excess -16 L A/P Narrative A/P Narrative: A: *severe DKA (DM2, poorly controlled): -A1c 12.9 *Encephalopathy: 2/2 above -uds neg *Hypovolemic/Septic shock: on pressors *R groin cellulitis/draining abscess: seen by surgeon, no need for I&D *Pancreatitis: *Metabolic/Lactic acidosis: *KERI possible ATN: 2/2 above *UGIB: *Severe electrolyte d/o (hypocalcemia/hypokalemia/Hypomagnesemia/Hypophos): *Morbid obesity: BMI 43, lifestyle modification *HLD: *Hypothyroidism: tsh wnl *HLD/Hypertriglyceridemia: P: -Insulin gtt to sq basal (titrate up)and ssi -levophed/vasopressin wean as able -s/p bicarb, able to wean down vasopressors -cvp monitoring -Monitor UOP/renal function/i&o -Monitor replace electrolytes, recheck today -f/u vbg/lactate/bhb -cefepime/vanco x1, WC/BC pending, mrsa screen neg -Dr. Han consulted for eventual EGD -ct pelvis for abscess, -monitor H&H -protonix gtt -lipid panel start statin -Hold home HCTZ -PT/OT -ppx: SCD(no chemical for UGIB) / ppi Time Spent With Patient Time: Total time spent is greater than 50% in coordination of care (as documented) at patient's floor/unit and/or counseling patient: Critical Care Time: Yes Total Critical Care Time: 120 QUALITY Stroke Symptom Onset Unknown: No VTE Deep Vein Thrombosis/Pulmonary Embolism Present on Admission: No
[2022-11-30] MEDS ORDERED: ALBUMIN HUMAN 12.5 GM/50 ML VIAL IV ONE ×2 (08:23→16:08)
[2022-11-30] MEDS ORDERED: CALCIUM GLUCONATE 9.3 MEQ in DEXTROSE 5% IN WATER 50 ML IV ONE ×3 (08:30→21:45)
[2022-11-30 08:48] LABS: Creatine Kinase 129 U/L (24-170)
[2022-11-30 08:57] LABS: HDL Cholesterol 9 mg/dL (>40); Non-HDL Cholesterol 491 mg/dL (<130); Triglycerides 931 mg/dL (<150)
[2022-11-30] MEDS ORDERED: INSULIN GLARGINE, HUMAN 1 UNIT/0.01 ML SQ SCH (09:00)
--- NOTE | 2022-11-30 09:11 | XRay Report ---
HISTORY: Right internal jugular catheter insertion FINDINGS: The right internal jugular catheter has been inserted. The tip is in the region of the superior vena cava. There is no pneumothorax, widening of the mediastinum or pleural effusion. The lung volumes are small. There are patchy infiltrates throughout both lungs with the greatest involvement around the stefani and lower lobes. No pleural effusion is present. The heart is magnified by poor inspiration and portable technique and may be borderline enlarged. IMPRESSION: No complication following central line placement. Poor inspiration with bilateral pulmonary infiltrates. This could be due to pneumonia or edema Interpreted and Authenticated by: Best Newell 11/30/22
[2022-11-30] MEDS ORDERED: LACTATED RINGERS 500 ML IV ONE (10:15)
[2022-11-30] MEDS ORDERED: DEXTROSE 31 GM ORAL.SUSP PO PRN (10:43)
[2022-11-30] MEDS ORDERED: DEXTROSE 50% 50 ML VIAL IV PRN (10:43)
--- NOTE | 2022-11-30 10:50 | EKG ---
[facility] Test Date: 2022-11-29 Pat Name: Angela Sultana Department: ED Room: Gender: Female Joint Filler: LR : 1980 Requested By: Brannon Saravia Order Number: [id number] Reading MD: Juan Manuel Persaud Measurements Intervals Emmett Rate: 97 P: 7 DE: 158 QRS: -8 QRSD: 110 T: 40 QT: 409 QTc: 520 Interpretive Statements Sinus rhythm Prolonged QT interval Electronically Signed On 11-30-2022 10:49:50 PDT by Juan Manuel Persaud /store/M0/[id number]/[id number]
[2022-11-30 10:54] LABS: Band Neutrophils % 42 % (0-10); Lymphocytes % 18 % (15-49); Monocytes % (Manual) 7 % (1-12); Platelet Estimate NORMAL (Normal); RBC Morphology NORMAL (Normal); Reactive Lymphocytes 3 % (0-2); Segmented Neutrophils % 30 % (38-78)
[2022-11-30] MEDS ORDERED: CEFEPIME 1 GM VIAL IV ONE (11:02)
[2022-11-30] MEDS ORDERED: LACTATED RINGERS 500 ML IV SCH (11:20)
[2022-11-30] MEDS: INSULIN LISPRO 1 UNIT/0.01 ML UNIT SQ SCH ×6 (12:28→23:53)
[2022-11-30 13:20] LABS: Blood Urea Nitrogen 35 mg/dL (6-20); Calcium 5.9 mg/dL (8.6-10.4); Carbon Dioxide 16 mmol/L (22-30); Chloride 108 mmol/L (96-108); Glomerular Filtration Rate 63; Glucose 138 mg/dL (70-105)
[2022-11-30] MEDS ORDERED: POTASSIUM CHLORIDE 40 MEQ in DEXTROSE 5% IN WATER 250 ML IV ONE (13:49)
[2022-11-30] MEDS ORDERED: LACTATED RINGERS 1,000 ML IV SCH (14:00)
[2022-11-30] MEDS: ACETAMINOPHEN 325 MG TABLET PO PRN ×2 (14:22→17:48)
[2022-11-30] MEDS ORDERED: LORazepam 2 MG/ML VIAL IV ONE (15:05)
[2022-11-30] MEDS ORDERED: LORazepam 2 MG/ML VIAL ONE (15:08)
--- NOTE | 2022-11-30 15:51 | Cat Scan Report ---
History: Altered mental status TECHNIQUE: The brain was imaged without contrast in axial plane at 2.5 mm intervals. Sagittal and coronal reformats were created. The radiation exposure was limited using dose reduction technology. FINDINGS: The pituitary sella is relatively large and largely filled with CSF. The pituitary gland is relatively small and flattened along the floor of the sella. There is no inferior displacement of the optic chiasm. No suprasellar mass is present. The remainder of the brain is normally developed. There is no evidence of infarct, hemorrhage, edema, mass effect or inflammatory change. The ventricles and cisterns are normal. Bone windows show no skull lesion. There is mild mucosal thickening along the chung of many of the ethmoid air cells. IMPRESSION: "empty pituitary sella" Normal brain Mild ethmoid sinusitis Interpreted and Authenticated by: Best Newell 11/30/22
--- NOTE | 2022-11-30 16:03 | Cat Scan Report ---
History: Right lower quadrant pain, possible groin abscess TECHNIQUE: Patient was imaged without contrast in axial plane at 2.5 mm intervals. Sagittal and coronal reformats were created. The radiation exposure was limited using dose reduction technology. FINDINGS: There are mild streaky opacities in the left lung base and inferior segment lingula which may be atelectasis or low level inflammation. Evaluation of the abdominal organs without contrast is somewhat limited. The liver is normal in size and there is mild generalized fatty infiltration. The gallbladder is somewhat distended and no calcified stones within the lumen and the wall does not appear to be abnormally thickened. The bile ducts are nondilated. Spleen is normal in size and homogeneous. There is moderate stranding of the fat surrounding the pancreas. The pancreas does not appear to be enlarged. There is no dilatation of the pancreatic duct and no pseudocyst calcification in the pancreas. The wall of the second portion the duodenum is mildly thickened and there is low-level inflammation adjacent to it. No ulceration or mass are seen. The adrenals and kidneys are normal. There is no kidney stone or hydronephrosis. There is a collapsed and thickened mucosal folds in the transverse colon and to a lesser extent the ascending colon. There is a great deal of inflammation of the mesenteric fat extending up to the wall of these segments. Less severe inflammation of fat is seen around the descending colon. There are no diverticula. Appendix is not clearly identified. There are several fluid-filled loops of nondilated small intestine which contain a couple small air-fluid levels. The wall of the jejunum and ileum do not appear to be inflamed. Small amount of ascites is present in the upper pelvis. There is significant inflammation in the mesenteric fat anterior to the Gerota's fascia surrounding both kidneys. No intra-abdominal abscess is present. Urinary bladder is decompressed by Leavitt catheter. Small reactive lymph nodes are seen in both left and right groin. There is no evidence of hernia or abscess in the groin. No abnormality is detected in the uterus or ovaries. IMPRESSION: Nonspecific inflammatory changes in the large intestine which may be due to colitis. Inflammation around the pancreas which may be secondary to pancreatitis. Dr. Stover was called with the report Interpreted and Authenticated by: Best Newell 11/30/22
[2022-11-30] MEDS ORDERED: ALBUMIN HUMAN 50 ML IV ONE (16:49)
[2022-11-30] MEDS ORDERED: VANCOMYCIN PER PHARMACY IV SCH (18:30)
[2022-11-30] MEDS: ACETAMINOPHEN 650 MG/65 ML BAG IV PRN (18:33)
--- NOTE | 2022-11-30 18:54 | General Surgery Consult Note ---
HPI Date of Consult Consult Date: 11/30/22 Requesting physician: Keanu Stover Primary Care Provider: Farhana Lamar DO Consult Narrative Chief complaint: Diabetic ketoacidosis; cellulitis of the groin; GI bleed Reason for consult: Upper GI bleed and cellulitis of the groin History of present illness: Patient was admitted earlier by medicine for obtunded mental state with stable vital signs with associated severe ketosis and hyperglycemia. She was seen in the emergency room on 26 November 2022 with complaint of cellulitis of her groin and her pannus. She was noted to have hyperglycemia with a blood sugar of 606 ketoacidosis. White count was normal. She was treated with Rocephin and was given insulin and hydration with improvement in her ketosis. She was minimally stable at that. She was discharged on cephalexin. Patient presents in an unstable condition with hypotension, severe ketoacidosis and severe electrolyte imbalance. She has required institution of pressors to maintain her blood pressures and she has required insulin drip. During her work-up she developed nausea and had hematemesis consisting of large volume coffee-ground material. She has been started on PPI therapy and I seen her with consideration for upper endoscopy after her clinical state is stable. The patient is very obtunded and history is primarily taken from the record. cc:: CC: Keanu Stover Review of Systems ROS unobtainable: due to mental status PFSH PFSH All Active Problems (Updated 11/30/22 @ 18:51 by Martha Han MD) Candidiasis, intertrigo (Acute) GI bleeding (Acute) DKA, type 2 (Acute) Cellulitis (Acute) Skin yeast infection (Acute) DKA (diabetic ketoacidosis) (Acute) Hypothyroidism (Acute) Cellulitis of left foot (Acute) Immunization, tetanus-diphtheria (Acute) Cellulitis of left leg (Acute) Abscess of skin or subcutaneous tissue (Acute) Diabetic peripheral neuropathy (Acute) Morbid obesity (Acute) HTN (hypertension), benign (Acute) High triglycerides (Chronic) Elevated BP without diagnosis of hypertension (Acute) DM2 (diabetes mellitus, type 2) (Chronic) Cellulitis of external ear (Acute) Medical History Amputated great toe of left foot 12/2017 Cellulitis and abscess of foot IV antibiotics, estimated 50% chance of healing to toe given status during surgery. Daily dressing changes and as needed given drainage Cellulitis of external ear Cellulitis of right foot Cellulitis of toe of left foot Cellulitis of toe of right foot Diabetes mellitus (~12/29/17) Diabetes type 2, uncontrolled Diabetic peripheral neuropathy mostly left toes 07/10/2020. DM2 (diabetes mellitus, type 2) metformin + insulin using onset before 07/10/2020 Elevated BP without diagnosis of hypertension High triglycerides HTN (hypertension), benign Hypothyroidism Morbid obesity Type 2 diabetes mellitus with foot ulcer Surgical History History of amputation of great toe Family History Brother Diabetes Hypertension, essential Thyroid disorder Mother Diabetes Arthritis Seizure Thyroid disorder Father , of IHD, complications of diabetes Diabetes Hypertension, essential Heart attack Stroke Sister Migraine Social History marital status: single smoking status: Never smoker alcohol intake frequency: does not drink substance use type: does not use MEDS/ALLERGIES Home Medications and Allergies Home Medications Medication Instructions Recorded Confirmed Type insulin lispro 100 unit/mL 8 unit (0.08 mL) subcut TID #15 mL 01/06/22 12/01/22 Rx subcutaneous pen (Humalog KwikPen (U-100) Insulin) insulin glargine 100 unit/mL 30 unit (0.3 mL) subcut HS #100 04/07/22 11/30/22 Rx subcutaneous solution units levothyroxine 25 mcg tablet 25 mcg PO QDAY #90 tabs 08/18/22 11/30/22 Rx hydrochlorothiazide 12.5 mg tablet 12.5 mg PO QAM #90 tabs 08/25/22 11/30/22 Rx fenofibrate 54 mg tablet 108 mg PO QDAY #180 tabs 09/16/22 11/30/22 Rx norgestimate-ethinyl estradiol 1 tab PO QDAY #84 tabs 10/20/22 12/01/22 Rx 0.18 mg/0.215mg/0.25mg-35 mcg(28)tablet (Tri-Sprintec (28)) metformin 1,000 mg tablet See Rx Instructions .Route 11/03/22 11/30/22 Rx .COMPLEX #180 tabs cephalexin 500 mg capsule 500 mg PO TID 10 days #30 caps 11/26/22 11/30/22 Rx nystatin 100,000 unit/gram topical 1 applic topical TID #60 grams 11/26/22 11/30/22 Rx powder Allergies Allergy/AdvReac Type Severity Reaction Status Date / Time Amoxicillin Allergy Mild Hives Verified 10/20/22 07:30 Physical Examination Vital Signs Vital signs: Temp Pulse Resp BP Pulse Ox O2 Del Method 101.1 F H 127 H 45 H 84/60 96 Room Air 11/30/22 18:33 11/30/22 17:47 11/30/22 17:47 11/30/22 17:45 11/30/22 17:47 11/30/22 06:01 General physical appearance General physical exam: severe distress, no pain (Level of pain is determine due to obtunded state) and obese (Morbid obesity) Eyes Eye exam: PERRL ENT ENT exam: other (Not examined) Head Head exam IM: Present atraumatic, normal inspection and normocephalic Neck Neck exam: no masses, no bruits, trachea midline, no lymphadenopathy and no venous distension Cardiovascular Cardiovascular exam IM: Present tachycardia (Sinus tachycardia heart rate 130); Absent JVD Respiratory Respiratory exam: other (Labored respirations with coarse rhonchi in right lung field) Abdomen Abdomen: Present distended; Absent organomegaly Integumentary Integumentary: Present no growths (Superficial ulceration right lateral vulva) and other (Severe lower abdominal intertrigo extending into right groin) Neurologic Neurologic: Present disoriented, combative and confused Musculoskeletal Musculoskeletal: Present other (Gait and stance not able to be tested) Psychiatric Psychiatric: Absent oriented to time, oriented to person, oriented to place or memory intact Results Labs 11/30/22 05:21 11/30/22 12:11 Labs: Abnormal lab results 11/29/22 11/29/22 11/29/22 Range/Units 22:25 22:25 22:25 WBC (4.5-11.0) K/mcL RDW (11.5-14.5) % Immature Gran % (Auto) (0.0-0.5) % Seg Neutrophils % (38-78) % Band Neutrophils % (0-10) % Immature Gran # (0.00-0.05) K/mcl Absolute Neutrophils (1.80-8.00) K/mcL Reactive Lymphocytes (0-2) % ABG Methemoglobin (0.4-1.5) % VBG pH (7.32-7.42) U VBG pCO2 (41.0-51.0) mmHg POC VBG pCO2 at Temp (41-51) VBG pO2 (25.0-40.0) mmHg POC VBG pO2 (25-40) VBG HCO3 (24.0-28.0) mmol/L POC VBG HCO3 (24-28) VBG Total CO2 (25.0-29.0) mmol/L POC VBG Total CO2 (25-29) VBG O2 Saturation (40.0-70.0) % POC Venous O2 Sat (40-70) VBG Base Excess (-2-3) POC VBG Base Excess (-2-2) VBG Lactic Acid 2.7 H (0.5-2.0) mmol/L Carboxyhemoglobin (0.0-1.5) % THgb Sodium 124 L (133-145) mmol/L Potassium 2.3 L* (3.3-5.1) mmol/L Carbon Dioxide 11 L (22-30) mmol/L BUN 29 H (6-20) mg/dL Creatinine 1.6 H (0.6-1.1) mg/dL Glucose 359 H (70-105) mg/dL Hemoglobin A1c 12.9 H (4.0-6.0) % Hgb Osmolality (280-300) mOSM/kg Calcium 5.8 L* (8.6-10.4) mg/dL Ionized Calcium Silver (1.16-1.32) mmol/L Phosphorus < 0.3 L (2.5-4.5) mg/dL Magnesium (1.6-2.5) mg/dL Lactate Dehydrogenase (135-225) U/L Total Protein (5.9-8.4) gm/dL Albumin (3.2-5.2) gm/dL Albumin/Globulin Ratio (1.0-2.3) Triglycerides (<150) mg/dL Cholesterol (<200) mg/dL LDL Cholesterol, Calc (<100) mg/dL Non-HDL Cholesterol (<130) mg/dL HDL Cholesterol (>40) mg/dL Amylase (28-100) U/L Lipase (7-60) U/L Procalcitonin (<0.10) ng/mL 11/30/22 11/30/22 11/30/22 Range/Units 05:20 05:20 05:20 WBC (4.5-11.0) K/mcL RDW (11.5-14.5) % Immature Gran % (Auto) (0.0-0.5) % Seg Neutrophils % 30 L (38-78) % Band Neutrophils % 42 H (0-10) % Immature Gran # (0.00-0.05) K/mcl Absolute Neutrophils (1.80-8.00) K/mcL Reactive Lymphocytes 3 H (0-2) % ABG Methemoglobin (0.4-1.5) % VBG pH (7.32-7.42) U VBG pCO2 (41.0-51.0) mmHg POC VBG pCO2 at Temp (41-51) VBG pO2 (25.0-40.0) mmHg POC VBG pO2 (25-40) VBG HCO3 (24.0-28.0) mmol/L POC VBG HCO3 (24-28) VBG Total CO2 (25.0-29.0) mmol/L POC VBG Total CO2 (25-29) VBG O2 Saturation (40.0-70.0) % POC Venous O2 Sat (40-70) VBG Base Excess (-2-3) POC VBG Base Excess (-2-2) VBG Lactic Acid (0.5-2.0) mmol/L Carboxyhemoglobin (0.0-1.5) % THgb Sodium 126 L (133-145) mmol/L Potassium 3.1 L (3.3-5.1) mmol/L Carbon Dioxide 11 L (22-30) mmol/L BUN 35 H (6-20) mg/dL Creatinine 1.4 H (0.6-1.1) mg/dL Glucose 248 H (70-105) mg/dL Hemoglobin A1c (4.0-6.0) % Hgb Osmolality (280-300) mOSM/kg Calcium 5.9 L* (8.6-10.4) mg/dL Ionized Calcium Silver (1.16-1.32) mmol/L Phosphorus 0.6 L (2.5-4.5) mg/dL Magnesium 1.5 L (1.6-2.5) mg/dL Lactate Dehydrogenase 373 H (135-225) U/L Total Protein 4.6 L (5.9-8.4) gm/dL Albumin 2.1 L (3.2-5.2) gm/dL Albumin/Globulin Ratio 0.8 L (1.0-2.3) Triglycerides 2817 H 931 H (<150) mg/dL Cholesterol 500 H (<200) mg/dL LDL Cholesterol, Calc H (<100) mg/dL Non-HDL Cholesterol 491 H (<130) mg/dL HDL Cholesterol 9 L (>40) mg/dL Amylase (28-100) U/L Lipase (7-60) U/L Procalcitonin (<0.10) ng/mL 11/30/22 11/30/22 11/30/22 Range/Units 05:20 05:21 05:21 WBC 12.6 H (4.5-11.0) K/mcL RDW 14.7 H (11.5-14.5) % Immature Gran % (Auto) 1.0 H (0.0-0.5) % Seg Neutrophils % (38-78) % Band Neutrophils % (0-10) % Immature Gran # 0.12 H (0.00-0.05) K/mcl Absolute Neutrophils 9.60 H (1.80-8.00) K/mcL Reactive Lymphocytes (0-2) % ABG Methemoglobin 0.3 L (0.4-1.5) % VBG pH 7.18 L* (7.32-7.42) U VBG pCO2 30.0 L (41.0-51.0) mmHg POC VBG pCO2 at Temp (41-51) VBG pO2 58.7 H (25.0-40.0) mmHg POC VBG pO2 (25-40) VBG HCO3 11.0 L (24.0-28.0) mmol/L POC VBG HCO3 (24-28) VBG Total CO2 12.0 L (25.0-29.0) mmol/L POC VBG Total CO2 (25-29) VBG O2 Saturation 85.9 H (40.0-70.0) % POC Venous O2 Sat (40-70) VBG Base Excess -16 L (-2-3) POC VBG Base Excess (-2-2) VBG Lactic Acid (0.5-2.0) mmol/L Carboxyhemoglobin 6.0 H (0.0-1.5) % THgb Sodium (133-145) mmol/L Potassium (3.3-5.1) mmol/L Carbon Dioxide (22-30) mmol/L BUN (6-20) mg/dL Creatinine (0.6-1.1) mg/dL Glucose (70-105) mg/dL Hemoglobin A1c (4.0-6.0) % Hgb Osmolality 303 H (280-300) mOSM/kg Calcium (8.6-10.4) mg/dL Ionized Calcium Silver (1.16-1.32) mmol/L Phosphorus (2.5-4.5) mg/dL Magnesium (1.6-2.5) mg/dL Lactate Dehydrogenase (135-225) U/L Total Protein (5.9-8.4) gm/dL Albumin (3.2-5.2) gm/dL Albumin/Globulin Ratio (1.0-2.3) Triglycerides (<150) mg/dL Cholesterol (<200) mg/dL LDL Cholesterol, Calc (<100) mg/dL Non-HDL Cholesterol (<130) mg/dL HDL Cholesterol (>40) mg/dL Amylase (28-100) U/L Lipase (7-60) U/L Procalcitonin (<0.10) ng/mL 11/30/22 11/30/22 11/30/22 Range/Units 05:21 10:54 12:11 WBC (4.5-11.0) K/mcL RDW (11.5-14.5) % Immature Gran % (Auto) (0.0-0.5) % Seg Neutrophils % (38-78) % Band Neutrophils % (0-10) % Immature Gran # (0.00-0.05) K/mcl Absolute Neutrophils (1.80-8.00) K/mcL Reactive Lymphocytes (0-2) % ABG Methemoglobin (0.4-1.5) % VBG pH (7.32-7.42) U VBG pCO2 (41.0-51.0) mmHg POC VBG pCO2 at Temp (41-51) VBG pO2 (25.0-40.0) mmHg POC VBG pO2 (25-40) VBG HCO3 (24.0-28.0) mmol/L POC VBG HCO3 (24-28) VBG Total CO2 (25.0-29.0) mmol/L POC VBG Total CO2 (25-29) VBG O2 Saturation (40.0-70.0) % POC Venous O2 Sat (40-70) VBG Base Excess (-2-3) POC VBG Base Excess (-2-2) VBG Lactic Acid (0.5-2.0) mmol/L Carboxyhemoglobin (0.0-1.5) % THgb Sodium (133-145) mmol/L Potassium 2.7 L* (3.3-5.1) mmol/L Carbon Dioxide 16 L (22-30) mmol/L BUN 35 H (6-20) mg/dL Creatinine (0.6-1.1) mg/dL Glucose 138 H (70-105) mg/dL Hemoglobin A1c (4.0-6.0) % Hgb Osmolality (280-300) mOSM/kg Calcium 5.9 L* (8.6-10.4) mg/dL Ionized Calcium Silver 0.84 L (1.16-1.32) mmol/L Phosphorus 1.0 L (2.5-4.5) mg/dL Magnesium (1.6-2.5) mg/dL Lactate Dehydrogenase (135-225) U/L Total Protein (5.9-8.4) gm/dL Albumin (3.2-5.2) gm/dL Albumin/Globulin Ratio (1.0-2.3) Triglycerides (<150) mg/dL Cholesterol (<200) mg/dL LDL Cholesterol, Calc (<100) mg/dL Non-HDL Cholesterol (<130) mg/dL HDL Cholesterol (>40) mg/dL Amylase (28-100) U/L Lipase (7-60) U/L Procalcitonin 11.39 H (<0.10) ng/mL 11/30/22 11/30/22 11/30/22 Range/Units 12:14 12:14 12:14 WBC (4.5-11.0) K/mcL RDW (11.5-14.5) % Immature Gran % (Auto) (0.0-0.5) % Seg Neutrophils % (38-78) % Band Neutrophils % (0-10) % Immature Gran # (0.00-0.05) K/mcl Absolute Neutrophils (1.80-8.00) K/mcL Reactive Lymphocytes (0-2) % ABG Methemoglobin (0.4-1.5) % VBG pH (7.32-7.42) U VBG pCO2 (41.0-51.0) mmHg POC VBG pCO2 at Temp 23.9 L (41-51) VBG pO2 (25.0-40.0) mmHg POC VBG pO2 48 H (25-40) VBG HCO3 (24.0-28.0) mmol/L POC VBG HCO3 13.2 L (24-28) VBG Total CO2 (25.0-29.0) mmol/L POC VBG Total CO2 14.0 L (25-29) VBG O2 Saturation (40.0-70.0) % POC Venous O2 Sat 83.0 H (40-70) VBG Base Excess (-2-3) POC VBG Base Excess -12.0 L (-2-2) VBG Lactic Acid (0.5-2.0) mmol/L Carboxyhemoglobin (0.0-1.5) % THgb Sodium (133-145) mmol/L Potassium (3.3-5.1) mmol/L Carbon Dioxide (22-30) mmol/L BUN (6-20) mg/dL Creatinine (0.6-1.1) mg/dL Glucose (70-105) mg/dL Hemoglobin A1c (4.0-6.0) % Hgb Osmolality (280-300) mOSM/kg Calcium (8.6-10.4) mg/dL Ionized Calcium Silver (1.16-1.32) mmol/L Phosphorus (2.5-4.5) mg/dL Magnesium (1.6-2.5) mg/dL Lactate Dehydrogenase (135-225) U/L Total Protein (5.9-8.4) gm/dL Albumin (3.2-5.2) gm/dL Albumin/Globulin Ratio (1.0-2.3) Triglycerides (<150) mg/dL Cholesterol (<200) mg/dL LDL Cholesterol, Calc (<100) mg/dL Non-HDL Cholesterol (<130) mg/dL HDL Cholesterol (>40) mg/dL Amylase 449 H (28-100) U/L Lipase 572 H (7-60) U/L Procalcitonin (<0.10) ng/mL Diabetes panel 11/29/22 11/29/22 11/30/22 Range/Units 22:25 22:25 05:20 Sodium 124 L 126 L (133-145) mmol/L Potassium 2.3 L* 3.1 L (3.3-5.1) mmol/L Chloride 98 102 (96-108) mmol/L Carbon Dioxide 11 L 11 L (22-30) mmol/L BUN 29 H 35 H (6-20) mg/dL Creatinine 1.6 H 1.4 H (0.6-1.1) mg/dL Glucose 359 H 248 H (70-105) mg/dL Hemoglobin A1c 12.9 H (4.0-6.0) % Hgb Calcium 5.8 L* 5.9 L* (8.6-10.4) mg/dL AST 16 (<32) U/L ALT 10 (<40) U/L Alkaline Phosphatase 66 (39-117) U/L Total Protein 4.6 L (5.9-8.4) gm/dL Albumin 2.1 L (3.2-5.2) gm/dL Triglycerides 2817 H (<150) mg/dL HDL Cholesterol (>40) mg/dL 11/30/22 11/30/22 Range/Units 05:20 12:11 Sodium 135 (133-145) mmol/L Potassium 2.7 L* (3.3-5.1) mmol/L Chloride 108 (96-108) mmol/L Carbon Dioxide 16 L (22-30) mmol/L BUN 35 H (6-20) mg/dL Creatinine 1.1 (0.6-1.1) mg/dL Glucose 138 H (70-105) mg/dL Hemoglobin A1c (4.0-6.0) % Hgb Calcium 5.9 L* (8.6-10.4) mg/dL AST (<32) U/L ALT (<40) U/L Alkaline Phosphatase (39-117) U/L Total Protein (5.9-8.4) gm/dL Albumin (3.2-5.2) gm/dL Triglycerides 931 H (<150) mg/dL HDL Cholesterol 9 L (>40) mg/dL Thyroid panel 11/29/22 Range/Units 22:25 TSH 0.64 (0.27-5.01) uIU/mL Calcium panel 11/29/22 11/30/22 11/30/22 Range/Units 22:25 05:20 10:54 Calcium 5.8 L* 5.9 L* (8.6-10.4) mg/dL Ionized Calcium Silver 0.84 L (1.16-1.32) mmol/L Phosphorus < 0.3 L 0.6 L (2.5-4.5) mg/dL Albumin 2.1 L (3.2-5.2) gm/dL 11/30/22 Range/Units 12:11 Calcium 5.9 L* (8.6-10.4) mg/dL Ionized Calcium Silver (1.16-1.32) mmol/L Phosphorus 1.0 L (2.5-4.5) mg/dL Albumin (3.2-5.2) gm/dL Pituitary panel 11/29/22 11/29/22 11/30/22 Range/Units 22:25 22:25 05:20 Sodium 124 L 126 L (133-145) mmol/L Potassium 2.3 L* 3.1 L (3.3-5.1) mmol/L Chloride 98 102 (96-108) mmol/L Carbon Dioxide 11 L 11 L (22-30) mmol/L BUN 29 H 35 H (6-20) mg/dL Creatinine 1.6 H 1.4 H (0.6-1.1) mg/dL Glucose 359 H 248 H (70-105) mg/dL Calcium 5.8 L* 5.9 L* (8.6-10.4) mg/dL TSH 0.64 (0.27-5.01) uIU/mL 11/30/22 Range/Units 12:11 Sodium 135 (133-145) mmol/L Potassium 2.7 L* (3.3-5.1) mmol/L Chloride 108 (96-108) mmol/L Carbon Dioxide 16 L (22-30) mmol/L BUN 35 H (6-20) mg/dL Creatinine 1.1 (0.6-1.1) mg/dL Glucose 138 H (70-105) mg/dL Calcium 5.9 L* (8.6-10.4) mg/dL TSH (0.27-5.01) uIU/mL Adrenal panel 11/29/22 11/30/22 11/30/22 Range/Units 22:25 05:20 12:11 Sodium 124 L 126 L 135 (133-145) mmol/L Potassium 2.3 L* 3.1 L 2.7 L* (3.3-5.1) mmol/L Chloride 98 102 108 (96-108) mmol/L Carbon Dioxide 11 L 11 L 16 L (22-30) mmol/L BUN 29 H 35 H 35 H (6-20) mg/dL Creatinine 1.6 H 1.4 H 1.1 (0.6-1.1) mg/dL Glucose 359 H 248 H 138 H (70-105) mg/dL Calcium 5.8 L* 5.9 L* 5.9 L* (8.6-10.4) mg/dL Total Bilirubin < 0.2 (0.1-1.0) mg/dL AST 16 (<32) U/L ALT 10 (<40) U/L Alkaline Phosphatase 66 (39-117) U/L Total Protein 4.6 L (5.9-8.4) gm/dL Albumin 2.1 L (3.2-5.2) gm/dL All other labs normal. A/P Assessment and plan (1) GI bleeding: Status: Acute (2) DKA (diabetic ketoacidosis): Status: Acute (3) Cellulitis: Status: Acute Qualifiers: Site of cellulitis: trunk Site of cellulitis of trunk: abdominal wall Qualified Code(s): L03.311 - Cellulitis of abdominal wall (4) Skin yeast infection: Status: Acute (5) Morbid obesity: Status: Acute (6) Abscess of skin or subcutaneous tissue: Status: Acute (7) Candidiasis, intertrigo: Status: Acute Plan Continue meropenem & vancomycin Fluconazole IV patient does not need to have incision and drainage of the labial wound. The wound is superficial and is adequately drained Her hemoglobin seems to be stable but will monitor closely and transfuse as needed for hemoglobin less than 9 Patient should have EGD during this admission but not emergently Sepsis Sepsis Identified: Yes Time Zero: X0 not known Time Spent With Patient Time: Total time spent is greater than 50% in coordination of care (as documented) at patient's floor/unit and/or counseling patient:
[2022-11-30] MEDS ORDERED: DEXMEDETOMIDINE 400 MCG in PREMIX 1 BAG IV SCH (19:00)
[2022-11-30] MEDS ORDERED: SODIUM BICARBONATE 50 MEQ/50 ML VIAL ONE ×3 (19:43→22:54)
[2022-11-30] MEDS ORDERED: DEXMEDETOMIDINE 100 ML IV ONE (19:51)
[2022-11-30] MEDS: SODIUM BICARBONATE VIAL 150 MEQ in WATER FOR INJECTION,STERILE 850 ML IV SCH (20:13)
[2022-11-30] MEDS: ATORVASTATIN 40 MG TABLET PO SCH (20:14)
[2022-11-30 20:43] LABS: Phosphorous 4.6 mg/dL (2.5-4.5)
[2022-11-30 20:47] LABS: Blood Urea Nitrogen 36 mg/dL (6-20); Carbon Dioxide 8 mmol/L (22-30); Chloride 100 mmol/L (96-108); Glomerular Filtration Rate 47; Glucose 365 mg/dL (70-105)
[2022-11-30] MEDS: VANCOMYCIN 1,500 MG in 0.9 % SODIUM CHLORIDE 500 ML IV SCH (20:49)
[2022-11-30] MEDS: MEROPENEM 1 GM in 0.9 % SODIUM CHLORIDE 50 ML IV SCH (20:49)
[2022-11-30] MEDS ORDERED: CALCIUM GLUCONATE 4.65 MEQ/10 ML VIAL ONE (21:26)
[2022-11-30] MEDS: NYSTATIN POWDER BOTTLE 15GM TOPICAL SCH (22:09)
[2022-11-30 22:39] LABS: Beta Hydroxybutyrate 6.75 mmol/L (<0.27)
[2022-12-01] MEDS: VASOPRESSIN 20 UNIT in DEXTROSE 5% IN WATER 99 ML IV SCH (00:03)
[2022-12-01] MEDS: INSULIN LISPRO 1 UNIT/0.01 ML UNIT SQ SCH ×14 (00:10→21:51)
[2022-12-01] MEDS: NOREPINEPHRINE BITARTRATE 8 MG in 0.9 % SODIUM CHLORIDE 242 ML IV SCH (01:37)
[2022-12-01] MEDS: SODIUM BICARBONATE VIAL 150 MEQ in WATER FOR INJECTION,STERILE 850 ML IV SCH ×2 (05:01→12:54)
[2022-12-01] MEDS: 0.9 % SODIUM CHLORIDE 250 ML IV SCH ×2 (05:01→14:57)
[2022-12-01] MEDS: 0.9 % SODIUM CHLORIDE 10 ML SYRINGE IV SCH ×6 (05:54→20:03)
[2022-12-01] MEDS: MEROPENEM 1 GM in 0.9 % SODIUM CHLORIDE 50 ML IV SCH ×3 (05:55→20:55)
[2022-12-01] MEDS: PANTOPRAZOLE 40 MG VIAL IV SCH ×2 (07:08→17:12)
[2022-12-01] MEDS ORDERED: VASOPRESSIN 20 UNIT in DEXTROSE 5% IN WATER 99 ML IV PRN (07:15)
[2022-12-01] MEDS: ACETAMINOPHEN 650 MG/65 ML BAG IV PRN ×2 (07:26→23:15)
--- NOTE | 2022-12-01 07:28 | Internal Med Progress Note ---
SUBJECTIVE Subjective Patient information: Note initiated : 12/01/22 at 7:23 am Service Date, if different from initiated Date: [] Patient: Angela Sultana a 42 y/o F admitted on 11/29/22 for HI BG. Chief Complaint: [] Interval history: History of present illness: Ms. Sultana is a 42 year old F History is obtained from the chart as patient came in obtunded and is more responsive but still not able to give much of a history. Sound like she has been ill for the past couple days. She is given antibiotics for possible cellulitis in the right groin region which area does look pretty good today. No respiratory issues. Urinalysis pending. Per the nurse who discussed with family members that she has not been feeling very well past couple days. In the ED she was found to be in severe DKA with a pH of 7.18. And acute kidney injury with creatinine 1.5. Bicarb at 12. Lactate 2.0. she has been hypotensive in the ED. third liter bolus started right now and may need to start Levophed. Patient started on insulin drip in Ed. Mildly hypokalemic at 3.1. Pseudohyponatremia. unknown if she has been taking her insulin lately. Patient had episode of emesis with coffee-ground. will check serial H&H, protonix bolus and gtt. consult gen surgery, t&s. 11/30 Patient required 2 vasopressors last night. Still acidotic > Several amps of bicarb and albumin given with improvement in her blood pressure and decreasing need for Levophed. Melanotic stools. Severe electrolyte disturbance. A wound on her right groin / lower quadrant opened up and is draining purulent fluid. Concern for septic process. Will check CT pelvis to rule out deeper abscess. Leukocytosis and bandemia noted. Empiric antibiotics started last night. Lactic acidosis. Review of system: Unable to obtain given patient's poor mentation, she answers some questions but does not respond to most. acidosis still this morning and bicarb x2 given to improved effectiveness of vasopressors. LR bolus also given for low CVP of 2 with good result in bp/uop/vasopressor decrease. By early in the afternoon she was off vasopressin and levophed was down to 6. bicarb up to 16 and vbg pH at 7.35. Insulin gtt transitioned to SQ long-acting insulin. Electrolytes were still low (k/mag/phos) and replacement was ordered. mentation was starting to improved. renal fxn improved. ct a/p w/o contrast d/t keri done to eval for groin wound or other infection > showed possible colitis and suspected pancreatitis > lipase 572. did get dose of vanco last night and was started cefepime last night. bandemia worsened today and now febrile this afternoon. cefepime to merrem and restrted vanco while awaiting BC on continued w/u. In the afternoon the pt started to gradually and progressively worsening again. requiring increased vasopressor support again and mentation reverted to level she was at this morning, tachypnea and tachycardia increased. stat ABG showing pH 7.07, co2 <15, lactate 0.5. bicarb gtt started. repeat chemistry pending. >>>bicarb lower as expected, k /phos better, mag good, ca still low, cr mildly worse but good uop, respirations decreasing from 40's to about 30. f/u VBG with pH 7.15 up from ABG of 7.07, cont bicarb gtt, /20 Metabolic acidosis improving again. Mentation started to improve again, mildly. Patient now off vasopressors, although blood pressure still soft but adequate. Continuing bicarb drip. VBG pH 7.34. Pending CBC. Hypokalemia. Bicarb 14. Creatinine of 1.4 similar to yesterday. Hypocalcemia again noted. Procalcitonin improving. Electrolyte replacement follow-up. Monitor mentation. Follow-up acid-base status. Leukocytosis resolved and bandemia present but significantly improved. Hemoglobin now 8.8. Platelets 68. PHYSICAL EXAM General: Responsive mildly, No acute Distress, obese Eyes/N/T: EOMI, no scleral icterus, PEERL Head/Neck: neck supple, full ROM, CV: Mildly tachycardic and regular , No murmurs, Pulm: Clear b/l, no wheezing/rhonchi/rales, no respiratory distress Abd: soft, nontender, +BS x4 Ext: no clubbing/cyanosis, trace b/l LE edema, nontender Neuro: Lethargic but does follow commands. She does open eyes to voice partially. Spontaneously moves all extremities, sensations intact b/l upper/lower Psychiatric: Skin: warm/dry, normal color Constitutional Vitals: Vital Signs Temp Pulse Resp BP Pulse Ox O2 Del Method 98.8 F 115 H 29 H 108/64 96 Room Air 12/01/22 04:00 12/01/22 07:00 12/01/22 07:00 12/01/22 07:00 12/01/22 07:00 12/01/22 07:00 Period Temp Pulse Resp BP Sys/Escalante Pulse Ox O2 Del Method O2 Flow Rate Last 24 Hr 98.3 F-101.1 F 43-132 12-54 77-135/48-87 55-100 Room Air-Room Air Intake and Output 11/30/22 12/01/22 12/01/22 19:59 03:59 11:59 Intake Total 2760.0909 2893.0909 1050 Output Total 1100 2190 675 Balance 1660.0909 703.0909 375 Weight 116.483 kg Intake & Output: Intake & Output 11/30/22 12/01/22 12/01/22 19:59 03:59 11:59 Intake Total 2760.0909 2893.0909 1050 Output Total 1100 2190 675 Balance 1660.0909 703.0909 375 Weight 116.483 kg Intake: IV 2280.0909 2893.0909 1050 Sodium Chloride 0.9% 250 ml @ 259 20 mls/hr IV .[id number] [facility] Rx#: [id number] Calcium Gluconate 9.3 Meq In 140 Dextrose 5% in Water 50 ml @ 70 mls/hr IV ONCE ONE Rx#: [id number] Precedex 400 Mcg/100 ml 1 Dextrose 400 Mcg In Premix 1 Bag @ 0.2 MCG/KG/HR 5.396 mls/ hr IV .[id number] [facility] Rx#: [id number] Dextrose 5%-Ns IV Solution 1, 965 000 ml @ 150 mls/hr IV .[id number] [facility] Rx#:[id number] HumuLIN R 50 UNIT In Sodium 94 0 Chloride 0.9% 99.5 ml @ 0.1 UNIT/KG/HR 22.045 mls/hr IV DUR DEX Rx#:[id number] Lactated Ringers 1,000 ml @ 125 500 779 mls/hr IV .Q8H [facility] Rx#: [id number] Merrem 1 gm In Sodium Chloride 50 50 0.9% 50 ml @ 100 mls/hr IV Q8H [facility] Rx#:[id number] Levophed 8 mg In Sodium 147 228 Chloride 0.9% 242 ml @ 10 MCG/ MIN 18.75 mls/hr IV Q14H [facility] Rx #:[id number] Protonix 80 mg In Sodium 100 Chloride 0.9% 100 ml @ 8 MG/HR 10 mls/hr IV Q10H [facility] Rx#: [id number] Potassium Chloride 40 Meq In 8 262 Dextrose 5% in Water 250 ml @ 67.5 mls/hr IV ONCE ONE Rx#: [id number] Potassium Phosphate 40 Meq In 509.0909 509.0909 Dextrose 5% in Water 500 ml @ 127.273 mls/hr IV ONCE ONE Rx#: [id number] Sodium Bicarbonate Vial 150 Meq 1000 In Water 850 ml @ 125 mls/hr IV Q8H [facility] Rx#:[id number] Vancomycin 1,500 mg In Sodium 500 Chloride 0.9% 500 ml @ 333.3 mls/hr IV Q12H [facility] Rx#: [id number] Vasostrict 20 Unit In Dextrose 7 5% in Water 99 ml @ 0.04 UNIT/ MIN 12 mls/hr IV Q8H [facility] Rx#: [id number] Oral 480 0 0 Output: Urine Catheter Amount 1050 2190 675 Stool 50 0 Other: Urine Appearance Clear Clear Clear Uretheral ([place]) Clear Sediment Urine Color Bright Yellow Pale Bright Yellow Uretheral ([place]) Yellow Pale Stool Size Small Stool Color Black Black Stool Consistency Liquid Liquid Watery Loose OBJ DATA Labs 11/30/22 05:21 11/30/22 19:55 Labs: Abnormal Lab Results 11/30/22 11/30/22 11/30/22 22:12 19:55 19:55 WBC RDW Immature Gran % (Auto) Seg Neutrophils % Band Neutrophils % Immature Gran # Absolute Neutrophils Reactive Lymphocytes ABG Methemoglobin VBG pH POC VBG pH 7.15 L* VBG pCO2 POC VBG pCO2 at Temp 16.0 L* VBG pO2 POC VBG pO2 56 H VBG HCO3 POC VBG HCO3 5.6 L* VBG Total CO2 POC VBG Total CO2 6.0 L VBG O2 Saturation POC Venous O2 Sat 81.0 H VBG Base Excess POC VBG Base Excess -23.0 L VBG Lactic Acid Carboxyhemoglobin POC Sodium Sodium 130 L POC Potassium Potassium Chloride Carbon Dioxide 8 L* POC Total CO2 Anion Gap 22.0 H POC BUN BUN 36 H Creatinine 1.4 H POC Creatinine Glucose 365 H POC Glucose Hemoglobin A1c Osmolality Calcium 6.0 L POC WB Ioniz Calcium Ionized Calcium Silver Phosphorus 4.6 H Magnesium Lactate Dehydrogenase Total Protein Albumin Albumin/Globulin Ratio Triglycerides Cholesterol LDL Cholesterol, Calc Non-HDL Cholesterol HDL Cholesterol Amylase Lipase Beta-Hydroxybutyrate 6.75 H Procalcitonin Free T4 Urine Appearance Urine Protein Urine Glucose (UA) Urine Ketones Hyaline Casts Granular Casts Urine Mucus 11/30/22 11/30/22 11/30/22 19:55 12:14 12:14 WBC RDW Immature Gran % (Auto) Seg Neutrophils % Band Neutrophils % Immature Gran # Absolute Neutrophils Reactive Lymphocytes ABG Methemoglobin VBG pH POC VBG pH VBG pCO2 POC VBG pCO2 at Temp VBG pO2 POC VBG pO2 VBG HCO3 POC VBG HCO3 VBG Total CO2 POC VBG Total CO2 VBG O2 Saturation POC Venous O2 Sat VBG Base Excess POC VBG Base Excess VBG Lactic Acid Carboxyhemoglobin POC Sodium Sodium POC Potassium Potassium Chloride Carbon Dioxide POC Total CO2 Anion Gap POC BUN BUN Creatinine POC Creatinine Glucose POC Glucose Hemoglobin A1c Osmolality Calcium POC WB Ioniz Calcium Ionized Calcium Silver Phosphorus Magnesium Lactate Dehydrogenase Total Protein Albumin Albumin/Globulin Ratio Triglycerides Cholesterol LDL Cholesterol, Calc Non-HDL Cholesterol HDL Cholesterol Amylase 449 H Lipase 572 H Beta-Hydroxybutyrate Procalcitonin Free T4 0.52 L Urine Appearance Urine Protein Urine Glucose (UA) Urine Ketones Hyaline Casts Granular Casts Urine Mucus 11/30/22 11/30/22 11/30/22 12:14 12:11 10:54 WBC RDW Immature Gran % (Auto) Seg Neutrophils % Band Neutrophils % Immature Gran # Absolute Neutrophils Reactive Lymphocytes ABG Methemoglobin VBG pH POC VBG pH VBG pCO2 POC VBG pCO2 at Temp 23.9 L VBG pO2 POC VBG pO2 48 H VBG HCO3 POC VBG HCO3 13.2 L VBG Total CO2 POC VBG Total CO2 14.0 L VBG O2 Saturation POC Venous O2 Sat 83.0 H VBG Base Excess POC VBG Base Excess -12.0 L VBG Lactic Acid Carboxyhemoglobin POC Sodium Sodium POC Potassium Potassium 2.7 L* Chloride Carbon Dioxide 16 L POC Total CO2 Anion Gap POC BUN BUN 35 H Creatinine POC Creatinine Glucose 138 H POC Glucose Hemoglobin A1c Osmolality Calcium 5.9 L* POC WB Ioniz Calcium Ionized Calcium Silver 0.84 L Phosphorus 1.0 L Magnesium Lactate Dehydrogenase Total Protein Albumin Albumin/Globulin Ratio Triglycerides Cholesterol LDL Cholesterol, Calc Non-HDL Cholesterol HDL Cholesterol Amylase Lipase Beta-Hydroxybutyrate Procalcitonin Free T4 Urine Appearance Urine Protein Urine Glucose (UA) Urine Ketones Hyaline Casts Granular Casts Urine Mucus 11/30/22 11/30/22 11/30/22 05:21 05:21 05:21 WBC 12.6 H RDW 14.7 H Immature Gran % (Auto) 1.0 H Seg Neutrophils % Band Neutrophils % Immature Gran # 0.12 H Absolute Neutrophils 9.60 H Reactive Lymphocytes ABG Methemoglobin 0.3 L VBG pH 7.18 L* POC VBG pH VBG pCO2 30.0 L POC VBG pCO2 at Temp VBG pO2 58.7 H POC VBG pO2 VBG HCO3 11.0 L POC VBG HCO3 VBG Total CO2 12.0 L POC VBG Total CO2 VBG O2 Saturation 85.9 H POC Venous O2 Sat VBG Base Excess -16 L POC VBG Base Excess VBG Lactic Acid Carboxyhemoglobin 6.0 H POC Sodium Sodium POC Potassium Potassium Chloride Carbon Dioxide POC Total CO2 Anion Gap POC BUN BUN Creatinine POC Creatinine Glucose POC Glucose Hemoglobin A1c Osmolality Calcium POC WB Ioniz Calcium Ionized Calcium Silver Phosphorus Magnesium Lactate Dehydrogenase Total Protein Albumin Albumin/Globulin Ratio Triglycerides Cholesterol LDL Cholesterol, Calc Non-HDL Cholesterol HDL Cholesterol Amylase Lipase Beta-Hydroxybutyrate Procalcitonin 11.39 H Free T4 Urine Appearance Urine Protein Urine Glucose (UA) Urine Ketones Hyaline Casts Granular Casts Urine Mucus 11/30/22 11/30/22 11/30/22 05:20 05:20 05:20 WBC RDW Immature Gran % (Auto) Seg Neutrophils % 30 L Band Neutrophils % 42 H Immature Gran # Absolute Neutrophils Reactive Lymphocytes 3 H ABG Methemoglobin VBG pH POC VBG pH VBG pCO2 POC VBG pCO2 at Temp VBG pO2 POC VBG pO2 VBG HCO3 POC VBG HCO3 VBG Total CO2 POC VBG Total CO2 VBG O2 Saturation POC Venous O2 Sat VBG Base Excess POC VBG Base Excess VBG Lactic Acid Carboxyhemoglobin POC Sodium Sodium POC Potassium Potassium Chloride Carbon Dioxide POC Total CO2 Anion Gap POC BUN BUN Creatinine POC Creatinine Glucose POC Glucose Hemoglobin A1c Osmolality 303 H Calcium POC WB Ioniz Calcium Ionized Calcium Silver Phosphorus Magnesium Lactate Dehydrogenase Total Protein Albumin Albumin/Globulin Ratio Triglycerides 931 H Cholesterol 500 H LDL Cholesterol, Calc H Non-HDL Cholesterol 491 H HDL Cholesterol 9 L Amylase Lipase Beta-Hydroxybutyrate Procalcitonin Free T4 Urine Appearance Urine Protein Urine Glucose (UA) Urine Ketones Hyaline Casts Granular Casts Urine Mucus 11/30/22 11/29/22 11/29/22 05:20 22:25 22:25 WBC RDW Immature Gran % (Auto) Seg Neutrophils % Band Neutrophils % Immature Gran # Absolute Neutrophils Reactive Lymphocytes ABG Methemoglobin VBG pH POC VBG pH VBG pCO2 POC VBG pCO2 at Temp VBG pO2 POC VBG pO2 VBG HCO3 POC VBG HCO3 VBG Total CO2 POC VBG Total CO2 VBG O2 Saturation POC Venous O2 Sat VBG Base Excess POC VBG Base Excess VBG Lactic Acid Carboxyhemoglobin POC Sodium Sodium 126 L 124 L POC Potassium Potassium 3.1 L 2.3 L* Chloride Carbon Dioxide 11 L 11 L POC Total CO2 Anion Gap POC BUN BUN 35 H 29 H Creatinine 1.4 H 1.6 H POC Creatinine Glucose 248 H 359 H POC Glucose Hemoglobin A1c 12.9 H Osmolality Calcium 5.9 L* 5.8 L* POC WB Ioniz Calcium Ionized Calcium Silver Phosphorus 0.6 L < 0.3 L Magnesium 1.5 L Lactate Dehydrogenase 373 H Total Protein 4.6 L Albumin 2.1 L Albumin/Globulin Ratio 0.8 L Triglycerides 2817 H Cholesterol LDL Cholesterol, Calc Non-HDL Cholesterol HDL Cholesterol Amylase Lipase Beta-Hydroxybutyrate Procalcitonin Free T4 Urine Appearance Urine Protein Urine Glucose (UA) Urine Ketones Hyaline Casts Granular Casts Urine Mucus 11/29/22 11/29/22 11/29/22 22:25 17:03 17:03 WBC RDW Immature Gran % (Auto) Seg Neutrophils % Band Neutrophils % 19 H Immature Gran # Absolute Neutrophils Reactive Lymphocytes ABG Methemoglobin VBG pH POC VBG pH VBG pCO2 POC VBG pCO2 at Temp VBG pO2 POC VBG pO2 VBG HCO3 POC VBG HCO3 VBG Total CO2 POC VBG Total CO2 VBG O2 Saturation POC Venous O2 Sat VBG Base Excess POC VBG Base Excess VBG Lactic Acid 2.7 H Carboxyhemoglobin POC Sodium Sodium POC Potassium Potassium Chloride Carbon Dioxide POC Total CO2 Anion Gap POC BUN BUN Creatinine POC Creatinine Glucose POC Glucose Hemoglobin A1c Osmolality Calcium POC WB Ioniz Calcium Ionized Calcium Silver Phosphorus Magnesium Lactate Dehydrogenase Total Protein Albumin Albumin/Globulin Ratio Triglycerides Cholesterol LDL Cholesterol, Calc Non-HDL Cholesterol HDL Cholesterol Amylase Lipase Beta-Hydroxybutyrate Procalcitonin 8.98 H Free T4 Urine Appearance Urine Protein Urine Glucose (UA) Urine Ketones Hyaline Casts Granular Casts Urine Mucus 11/29/22 11/29/22 11/29/22 17:03 16:35 16:35 WBC RDW Immature Gran % (Auto) Seg Neutrophils % Band Neutrophils % Immature Gran # Absolute Neutrophils Reactive Lymphocytes ABG Methemoglobin VBG pH POC VBG pH VBG pCO2 POC VBG pCO2 at Temp VBG pO2 POC VBG pO2 VBG HCO3 POC VBG HCO3 VBG Total CO2 POC VBG Total CO2 VBG O2 Saturation POC Venous O2 Sat VBG Base Excess POC VBG Base Excess VBG Lactic Acid Carboxyhemoglobin POC Sodium Sodium 125 L POC Potassium Potassium 2.6 L* Chloride 93 L Carbon Dioxide 10 L* POC Total CO2 Anion Gap 22.0 H POC BUN BUN 26 H Creatinine 1.7 H POC Creatinine Glucose 428 H POC Glucose Hemoglobin A1c Osmolality 327 H Calcium 6.2 L POC WB Ioniz Calcium Ionized Calcium Silver Phosphorus Magnesium Lactate Dehydrogenase Total Protein 4.8 L Albumin 2.4 L Albumin/Globulin Ratio Triglycerides Cholesterol LDL Cholesterol, Calc Non-HDL Cholesterol HDL Cholesterol Amylase Lipase Beta-Hydroxybutyrate 5.75 H Procalcitonin Free T4 Urine Appearance Hazy A Urine Protein 100 A Urine Glucose (UA) >=500 A Urine Ketones 80 A Hyaline Casts 4 H Granular Casts 11 H Urine Mucus Few A 11/29/22 11/29/22 11/29/22 15:59 15:59 15:53 WBC RDW 14.9 H Immature Gran % (Auto) 0.8 H Seg Neutrophils % Band Neutrophils % Immature Gran # 0.06 H Absolute Neutrophils Reactive Lymphocytes ABG Methemoglobin VBG pH POC VBG pH VBG pCO2 POC VBG pCO2 at Temp VBG pO2 POC VBG pO2 VBG HCO3 POC VBG HCO3 VBG Total CO2 POC VBG Total CO2 VBG O2 Saturation POC Venous O2 Sat VBG Base Excess POC VBG Base Excess VBG Lactic Acid Carboxyhemoglobin POC Sodium 128 L Sodium POC Potassium 3.1 L Potassium Chloride Carbon Dioxide POC Total CO2 12.0 L Anion Gap POC BUN 37 H BUN Creatinine POC Creatinine 1.5 H Glucose POC Glucose 464 H* Hemoglobin A1c Osmolality Calcium POC WB Ioniz Calcium 1.01 L Ionized Calcium Silver Phosphorus 0.9 L Magnesium Lactate Dehydrogenase Total Protein Albumin Albumin/Globulin Ratio Triglycerides Cholesterol LDL Cholesterol, Calc Non-HDL Cholesterol HDL Cholesterol Amylase Lipase Beta-Hydroxybutyrate Procalcitonin Free T4 Urine Appearance Urine Protein Urine Glucose (UA) Urine Ketones Hyaline Casts Granular Casts Urine Mucus 11/29/22 15:52 WBC RDW Immature Gran % (Auto) Seg Neutrophils % Band Neutrophils % Immature Gran # Absolute Neutrophils Reactive Lymphocytes ABG Methemoglobin VBG pH POC VBG pH 7.18 L* VBG pCO2 POC VBG pCO2 at Temp 27.0 L VBG pO2 POC VBG pO2 VBG HCO3 POC VBG HCO3 10.1 L* VBG Total CO2 POC VBG Total CO2 11.0 L VBG O2 Saturation POC Venous O2 Sat VBG Base Excess POC VBG Base Excess -18.0 L VBG Lactic Acid Carboxyhemoglobin POC Sodium Sodium POC Potassium Potassium Chloride Carbon Dioxide POC Total CO2 Anion Gap POC BUN BUN Creatinine POC Creatinine Glucose POC Glucose Hemoglobin A1c Osmolality Calcium POC WB Ioniz Calcium Ionized Calcium Silver Phosphorus Magnesium Lactate Dehydrogenase Total Protein Albumin Albumin/Globulin Ratio Triglycerides Cholesterol LDL Cholesterol, Calc Non-HDL Cholesterol HDL Cholesterol Amylase Lipase Beta-Hydroxybutyrate Procalcitonin Free T4 Urine Appearance Urine Protein Urine Glucose (UA) Urine Ketones Hyaline Casts Granular Casts Urine Mucus Meds: Medications Acetaminophen (Acetaminophen 325 Mg Tablet) 650 mg PO Q6HP PRN; Protocol PRN Reason: Per Pain Protocol/Fever > 101 Last Admin: 11/30/22 14:22 Dose: 650 mg Albuterol/Ipratropium (Ipratropium/Albuterol 3 Ml Ampul.Neb) 3 ml NEB Q4HP PRN PRN Reason: Shortness Of Breath Atorvastatin Calcium (Atorvastatin 40 Mg Tablet) 40 mg PO HS DEX Last Admin: 11/30/22 20:14 Dose: Not Given Dextrose (Dextrose 50% 50 Ml Vial) 0 ml IV UD PRN PRN Reason: Per Sliding Scale Diagnostic Test (Pha) (Accu-Chek 1 Each Strip) 1 each FS Q2 DEX Docusate Sodium (Docusate Sodium 100 Mg Capsule) 100 mg PO BID DEX Last Admin: 11/30/22 20:14 Dose: Not Given Glucose (Dextrose 31 Gm Oral.Susp) 15 gm PO PRN PRN PRN Reason: Hypoglycemia Norepinephrine Bitartrate 8 mg (/ Sodium Chloride) 250 mls @ 18.75 mls/hr IV Q14H [facility]; Protocol Last Titration: 12/01/22 02:09 Dose: 0 mcg/min, 0 mls/hr Potassium Chloride 40 meq/ (Dextrose) 520 mls @ 130 mls/hr IV UD PRN PRN Reason: Potassium < 3 Magnesium Sulfate (Magnesium Sulfate) 2 gm in 50 mls @ 50 mls/hr IV UD PRN PRN Reason: Magnesium </= 1.6 Sodium Chloride (Sodium Chloride 0.9%) 250 mls @ 20 mls/hr IV .[id number] [facility] Last Admin: 12/01/22 05:01 Dose: Not Given Acetaminophen (Ofirmev) 650 mg in 65 mls @ 130 mls/hr IV Q6HP PRN; Protocol PRN Reason: PAIN/FEVER > 101 Last Infusion: 11/30/22 20:34 Dose: Infused Vancomycin HCl 1,500 mg/ (Sodium Chloride) 500 mls @ 333.3 mls/hr IV Q12H [facility] Last Infusion: 11/30/22 22:48 Dose: Infused Meropenem 1 gm/ Sodium (Chloride) 50 mls @ 100 mls/hr IV Q8H [facility] Last Infusion: 12/01/22 06:39 Dose: Infused Dexmedetomidine HCl 400 mcg/ (Premix) 100 mls @ 5.396 mls/hr IV .[id number] [facility]; Protocol Last Titration: 11/30/22 20:00 Dose: 0 mcg/kg/hr, 0 mls/hr Sodium Bicarbonate 150 meq/ (Sterile Water) 1,000 mls @ 125 mls/hr IV Q8H [facility] Last Admin: 12/01/22 05:01 Dose: 125 mls/hr Vasopressin 20 unit/ Dextrose 100 mls @ 12 mls/hr IV Q8HP PRN; Protocol PRN Reason: Hypotension Insulin Glargine (Insulin Glargine, Human 1 Unit/0.01 Ml) 30 unit SQ DAILY [facility] Last Admin: 11/30/22 12:23 Dose: 30 units Insulin Human Lispro (Insulin Lispro 1 Unit/0.01 Ml Unit) 0 unit SQ Q2H [facility]; Protocol Last Admin: 12/01/22 06:04 Dose: Not Given Levothyroxine Sodium (Levothyroxine 25 Mcg Tablet) 25 mcg PO QAMAC [facility] Metoclopramide HCl (Metoclopramide 10 Mg/2 Ml Vial) 10 mg IV Q6HP PRN PRN Reason: Nausea And Vomiting Last Admin: 11/30/22 10:35 Dose: 10 mg Nystatin (Nystatin Powder Bottle 15gm) 1 dose TOPICAL TID [facility] Last Admin: 11/30/22 22:09 Dose: Not Given Ondansetron HCl (Ondansetron 4 Mg/2 Ml Vial) 4 mg IV Q4HP PRN PRN Reason: Nausea And Vomiting Last Admin: 11/30/22 22:53 Dose: 4 mg Pantoprazole Sodium (Pantoprazole 40 Mg Vial) 40 mg IV BIDAC [facility] Last Admin: 12/01/22 07:08 Dose: 40 mg Polyethylene Glycol (Polyethylene Glycol 3350 17 Gm Packet) 17 gm PO DAILYP PRN PRN Reason: Constipation Potassium Chloride (Potassium Chloride 20 Meq Tablet) 40 meq PO UD PRN PRN Reason: Potssium is 3-3.5 Potassium Chloride (Potassium Chloride 20 Meq Tablet) 40 meq PO UD PRN PRN Reason: Potassium < 3 Senna (Sennosides 1 Tablet) 2 tab PO DAILYP PRN PRN Reason: Constipation Sodium Chloride (0.9 % Sodium Chloride 10 Ml Syringe) 10 ml IV Q8 [facility] Last Admin: 12/01/22 05:54 Dose: 10 ml Sodium Chloride (0.9 % Sodium Chloride 10 Ml Syringe) 10 ml IV UD PRN PRN Reason: between meds Last Admin: 11/30/22 00:07 Dose: 10 ml Sodium Chloride (0.9 % Sodium Chloride 10 Ml Syringe) 10 ml IV Q12 [facility] Last Admin: 12/01/22 05:54 Dose: 10 ml Vancomycin HCl (Vancomycin Per Pharmacy) 1 order IV UD [facility] ABG Interpretation ABG results: 11/30/22 05:21 ABG Methemoglobin 0.3 L VBG pH 7.18 L* VBG pCO2 30.0 L VBG pO2 58.7 H VBG HCO3 11.0 L VBG Total CO2 12.0 L VBG O2 Saturation 85.9 H VBG Base Excess -16 L A/P Narrative A/P Narrative: A: *severe DKA (DM2, poorly controlled): -A1c 12.9 *severe Metabolic/Lactic acidosis: lactic acidosis resolved, metabolic acidosis improving *Encephalopathy: 2/2 above -uds neg *Hypovolemic/Septic shock: off pressors this morning -febrile o/n, leukocytosis w/bandemia *R groin cellulitis/draining abscess: seen by surgeon, no need for I&D *acute Pancreatitis: *KERI possible ATN: 2/2 above initially improved then worsened, cr same as yesterday *UGIB: *Acute blood loss anemia: 2/2 above, + dilutional *Severe electrolyte d/o (hypocalcemia/hypokalemia/Hypomagnesemia/Hypophos): *Thrombocytopenia: Multifactorial *Morbid obesity: BMI 43, lifestyle modification *HLD: *Hypothyroidism: tsh wnl *HLD/Hypertriglyceridemia: P: -cont SQ basal (titrate up) and ssi -levophed/vasopressin on standby -bicarb gtt monitoring k/ca and acid-base status -cvp monitoring -Monitor UOP/renal function/i&o -Monitor replace electrolytes, recheck today -f/u vbg/bhb -merrem/vanco, WC/BC pending, -Dr. Han consulted for eventual EGD -monitor H&H -protonix gtt to bid as need line access -start statin -Hold home HCTZ -PT/OT -ppx: SCD(no chemical for UGIB) / ppi Time Spent With Patient Time: Total time spent is greater than 50% in coordination of care (as documented) at patient's floor/unit and/or counseling patient: Critical Care Time: Yes Total Critical Care Time: 70 QUALITY Stroke Symptom Onset Unknown: No VTE Deep Vein Thrombosis/Pulmonary Embolism Present on Admission: No Restraints Restraint In Place: Yes Reason for restraints: to prevent lines from being accidentally pulled out.
[2022-12-01 08:11] LABS: ALT/SGPT 8 U/L (<40); AST/SGOT 12 U/L (<32); Albumin 1.9 gm/dL (3.2-5.2); Albumin/Globulin Ratio 0.7 (1.0-2.3); Alkaline Phosphatase 61 U/L (39-117); Bilirubin,Direct < 0.2 mg/dL (0-0.3); Bilirubin,Total 0.2 mg/dL (0.1-1.0); Blood Urea Nitrogen 33 mg/dL (6-20); Calcium 5.6 mg/dL (8.6-10.4); Carbon Dioxide 14 mmol/L (22-30); Chloride 109 mmol/L (96-108); Globulin 2.6 gm/dL (2.2-3.7); Glomerular Filtration Rate 47; Glucose 259 mg/dL (70-105); Lactate Dehydrogenase 337 U/L (135-225); Phosphorous 3.2 mg/dL (2.5-4.5); Triglycerides 1788 mg/dL (<150); Uric Acid 6.8 mg/dL (2.5-8.0)
[2022-12-01] MEDS: ONDANSETRON 4 MG/2 ML VIAL IV PRN ×2 (08:15→13:40)
[2022-12-01] MEDS ORDERED: CALCIUM GLUCONATE 4.65 MEQ/10 ML VIAL IV ONE ×4 (08:27→20:08)
[2022-12-01] MEDS ORDERED: NOREPINEPHRINE BITARTRATE 8 MG in 0.9 % SODIUM CHLORIDE 242 ML IV PRN (08:45)
[2022-12-01] MEDS: VANCOMYCIN 1,500 MG in 0.9 % SODIUM CHLORIDE 500 ML IV SCH ×2 (08:46→20:03)
[2022-12-01] MEDS: DOCUSATE SODIUM 100 MG CAPSULE PO SCH ×2 (08:52→20:12)
[2022-12-01] MEDS: INSULIN GLARGINE, HUMAN 1 UNIT/0.01 ML SQ SCH ×2 (08:54→20:03)
[2022-12-01 08:59] LABS: Beta Hydroxybutyrate 3.01 mmol/L (<0.27)
[2022-12-01] MEDS ORDERED: CALCIUM GLUCONATE 9.3 MEQ in DEXTROSE 5% IN WATER 50 ML IV ONE ×4 (09:00→21:00)
[2022-12-01] MEDS: NYSTATIN POWDER BOTTLE 15GM TOPICAL SCH ×3 (09:03→20:03)
[2022-12-01] MEDS: POTASSIUM CHLORIDE 40 MEQ in DEXTROSE 5% IN WATER 500 ML IV PRN ×2 (09:18→11:26)
[2022-12-01 09:39] LABS: Band Neutrophils % 12 % (0-10); Hematocrit 25.6 % (34.1-44.9); Hemoglobin 8.8 g/dL (11.2-15.7); Lymphocytes % 12 % (15-49); Mean Cell Volume 81.5 fL (80.0-100.0); Mean Corpuscular HGB Conc 34.4 g/dL (31.0-36.0); Mean Platelet Volume 10.2 fL (8.8-12.5); Monocytes % (Manual) 5 % (1-12); Platelet Count 68 K/mcL (140-440); Platelet Estimate DECREASED (Normal); RBC 3.14 M/mcL (3.59-5.38); RBC Morphology NORMAL (Normal); Red Cell Distribution Width 15.3 % (11.5-14.5); Segmented Neutrophils % 71 % (38-78); WBC 6.8 K/mcL (4.5-11.0)
[2022-12-01] MEDS: LEVOTHYROXINE 25 MCG TABLET PO SCH (09:47)
[2022-12-01] MEDS ORDERED: DEXMEDETOMIDINE 400 MCG in PREMIX 1 BAG IV PRN (10:30)
[2022-12-01] MEDS ORDERED: INSULIN REGULAR, HUMAN 50 UNIT in 0.9 % SODIUM CHLORIDE 99.5 ML IV SCH ×2 (14:30)
[2022-12-01 15:21] LABS: Blood Urea Nitrogen 29 mg/dL (6-20); Calcium 5.4 mg/dL (8.6-10.4); Carbon Dioxide 20 mmol/L (22-30); Chloride 107 mmol/L (96-108); Glomerular Filtration Rate 47; Glucose 299 mg/dL (70-105)
[2022-12-01] MEDS ORDERED: POTASSIUM CHLORIDE 80 MEQ in DEXTROSE 5% IN WATER 500 ML IV ONE (15:27)
--- NOTE | 2022-12-01 17:19 | General Surgery Progress Note ---
SUBJECTIVE Subjective Patient information: Note initiated : 12/01/22 at 5:17 pm Service Date, if different from initiated Date: [] Patient: Angela Sultana 42 y/o F admitted on 11/29/22 for HI BG. Chief Complaint: [] Principal diagnosis: Diabetic ketoacidosis; acute septicemia; upper GI bleeding Interval history: Patient is clinically improved since yesterday. The ketoacidosis is improved and her septicemia pattern with hypotension is stabilizing. Her hemoglobin has dropped from 12-8.8. This is a combination of blood loss and hemodilution. I will need her transfused prior to subjection to anesthesia. Present plan is to perform EGD on Thursday if she remains improved. Her mental status has improved and I will wait until tomorrow to get informed consent. Constitutional Vitals: Vital Signs Temp Pulse Resp BP Pulse Ox O2 Del Method 97.7 F 115 H 25 H 114/73 96 Room Air 12/01/22 16:00 12/01/22 16:00 12/01/22 16:00 12/01/22 16:00 12/01/22 16:00 12/01/22 16:00 Period Temp Pulse Resp BP Sys/Escal[place] Pulse Ox O2 Del Method O2 Flow Rate Last 24 Hr 97.4 F-101.1 F 43-132 13-54 77-135/48-87 91-100 Room Air-Room Air Intake and Output 12/01/22 12/01/22 12/01/22 03:59 11:59 19:59 Intake Total 2893.0909 1961 1743 Output Total 2190 1355 1485 Balance 703.0909 607 258 Weight 256 lb 12.8 oz 256 lb 12.8 oz Patient Weight 12/02/22 03:59 Weight 256 lb 12.8 oz Intake & Output: Intake & Output 12/01/22 12/01/22 12/01/22 03:59 11:59 19:59 Intake Total 2893.0909 1961 1743 Output Total 2190 1355 1485 Balance 703.0909 607 258 Weight 256 lb 12.8 oz 256 lb 12.8 oz Intake: IV 2893.0909 1961 174 Sodium Chloride 0.9% 250 ml @ 259 89 20 mls/hr IV .[id number] [facility] Rx#: [id number] Calcium Gluconate 9.3 Meq In 140 70 70 Dextrose 5% in Water 50 ml @ 70 mls/hr IV ONCE ONE Rx#: [id number] Precedex 400 Mcg/100 ml 1 0 Dextrose 400 Mcg In Premix 1 Bag @ 0.2 MCG/KG/HR 5.396 mls/ hr IV .[id number] [facility] Rx#: [id number] HumuLIN R 50 UNIT In Sodium 0 29 Chloride 0.9% 99.5 ml @ 10 UNIT /HR 20 mls/hr IV DUR [facility] Rx#: [id number] Lactated Ringers 1,000 ml @ 125 779 mls/hr IV .Q8H [facility] Rx#: [id number] Merrem 1 gm In Sodium Chloride 50 50 50 0.9% 50 ml @ 100 mls/hr IV Q8H [facility] Rx#:[id number] Levophed 8 mg In Sodium 228 0 Chloride 0.9% 242 ml @ 10 MCG/ MIN 18.75 mls/hr IV Q14H [facility] Rx #:[id number] Protonix 80 mg In Sodium 100 Chloride 0.9% 100 ml @ 8 MG/HR 10 mls/hr IV Q10H [facility] Rx#: [id number] Potassium Chloride 40 Meq In 262 Dextrose 5% in Water 250 ml @ 67.5 mls/hr IV ONCE ONE Rx#: [id number] Potassium Chloride 40 Meq In 277 520 Dextrose 5% in Water 500 ml @ 130 mls/hr IV UD PRN Rx#: [id number] Potassium Phosphate 40 Meq In 509.0909 Dextrose 5% in Water 500 ml @ 127.273 mls/hr IV ONCE ONE Rx#: [id number] Sodium Bicarbonate Vial 150 Meq 1000 985 In Water 850 ml @ 125 mls/hr IV Q8H [facility] Rx#:[id number] Vancomycin 1,500 mg In Sodium 500 500 Chloride 0.9% 500 ml @ 333.3 mls/hr IV Q12H [facility] Rx#: [id number] Vasostrict 20 Unit In Dextrose 0 5% in Water 99 ml @ 0.04 UNIT/ MIN 12 mls/hr IV Q8H [facility] Rx#: [id number] Oral 0 0 Output: Urine Catheter Amount 2190 1355 1485 Stool 0 Other: Urine Appearance Clear Clear Cloudy Uretheral ([place]) Sediment Urine Color Pale Bright Yellow Bright Yellow Uretheral ([place]) Pale Urine Odor Ammonia Stool Size Small Stool Color Black Stool Consistency Liquid Loose Head Head exam: Present atraumatic, normal inspection and normocephalic Eye Eye exam: Present EOMI and PERRL ENT ENT exam: Present mucous membranes moist and normal oropharynx Neck Neck exam: Present full ROM and normal inspection; Absent tenderness Respiratory Additional comments: Labored respirations persist but improved from last evening. She has coarse tubular breath sounds in the right lung and Dependently right lateral and posteriorly. Cardiovascular Cardiovascular exam: Present normal rate and rhythm, RRR, +S1, +S2 and tachycardia ( heart rate 110 to 120/min) GI/Abdominal GI/Abdominal exam: Present normal bowel sounds, distended and tenderness (No localized tenderness noted) Extremities Exam Extremities exam: Present full ROM, normal inspection and neurovascular intact; Absent calf tenderness Neurological Exam Additional comments: More alert than yesterday but still not fully coherent Skin Additional comments: Cellulitis of the labia and inflammatory lesion right vulva is stable A/P Assessment and plan (1) DKA, type 2: Status: Acute Qualifiers: Diabetes mellitus complication detail: without coma Qualified Code(s): E11.10 - Type 2 diabetes mellitus with ketoacidosis without coma (2) GI bleeding: Status: Acute (3) Cellulitis: Status: Acute Qualifiers: Site of cellulitis: trunk Site of cellulitis of trunk: abdominal wall Qualified Code(s): L03.311 - Cellulitis of abdominal wall (4) Morbid obesity: Status: Acute Plan Continue to monitor We will plan for EGD on Thursday. Will probably transfuse later tonight or in the morning Time Spent With Patient Time: Total time spent is greater than 50% in coordination of care (as documented) at patient's floor/unit and/or counseling patient:
[2022-12-01 17:25] LABS: POC Calcium, Ionized 0.85 (1.16-1.32); POC Creatinine 1.3 (0.6-1.2); POC Potassium 2.9 (3.3-5.1)
--- NOTE | 2022-12-01 18:26 | XRay Report ---
CLINICAL INFORMATION: Dyspnea COMPARISON: 11/29/2022 TECHNIQUE: Portable FINDINGS: The heart size, mediastinum and pulmonary vessels are unremarkable. Right IJ central line is stable satisfactory position. Mild airspace disease in both medial bases likely represents atelectasis.. There are no effusions. The bones and soft tissues are within normal limits. IMPRESSION: Mild airspace disease in both medial bases that most likely atelectasis. Interpreted and Authenticated by: Martin Lopez 12/01/22
[2022-12-01] MEDS ORDERED: INSULIN LISPRO 1 UNIT/0.01 ML UNIT SQ ONE (20:03)
[2022-12-01 20:06] LABS: POC Calcium, Ionized 0.87 (1.16-1.32); POC Creatinine 1.3 (0.6-1.2); POC Potassium 3.2 (3.3-5.1)
[2022-12-01] MEDS: ATORVASTATIN 40 MG TABLET PO SCH (20:12)
[2022-12-01] MEDS ORDERED: POTASSIUM CHLORIDE 20 MEQ in 0.45 % SODIUM CHLORIDE 1,000 ML IV SCH (20:15)
[2022-12-01 20:37] LABS: Hematocrit 24.9 % (34.1-44.9); Hemoglobin 8.6 g/dL (11.2-15.7)
[2022-12-01] MEDS ORDERED: CALCIUM GLUCONATE 4.65 MEQ/10 ML VIAL ONE (20:50)
[2022-12-01] MEDS ORDERED: POTASSIUM CHLORIDE 20 MEQ/10 ML VIAL IV ONE (20:51)
[2022-12-02] MEDS: INSULIN LISPRO 1 UNIT/0.01 ML UNIT SQ SCH ×10 (00:09→23:57)
[2022-12-02] MEDS: MEROPENEM 1 GM in 0.9 % SODIUM CHLORIDE 50 ML IV SCH ×3 (05:52→21:49)
[2022-12-02] MEDS: 0.9 % SODIUM CHLORIDE 10 ML SYRINGE IV SCH ×6 (05:53→20:08)
[2022-12-02 07:16] LABS: Hematocrit 25.2 % (34.1-44.9); Hemoglobin 8.6 g/dL (11.2-15.7); Mean Cell Volume 82.6 fL (80.0-100.0); Mean Corpuscular HGB Conc 34.1 g/dL (31.0-36.0); Mean Platelet Volume 11.3 fL (8.8-12.5); Platelet Count 76 K/mcL (140-440); RBC 3.05 M/mcL (3.59-5.38); Red Cell Distribution Width 15.8 % (11.5-14.5); WBC 8.8 K/mcL (4.5-11.0)
[2022-12-02] MEDS: PANTOPRAZOLE 40 MG VIAL IV SCH ×2 (07:41→17:41)
[2022-12-02] MEDS: LEVOTHYROXINE 25 MCG TABLET PO SCH ×2 (07:41→08:32)
--- NOTE | 2022-12-02 07:59 | Internal Med Progress Note ---
SUBJECTIVE Subjective Patient information: Note initiated : 12/02/22 at 7:52 am Service Date, if different from initiated Date: [] Patient: Angela Sultana 42 y/o F admitted on 11/29/22 for HI BG. Chief Complaint: [] Principal diagnosis: Diabetic ketoacidosis; acute septicemia; upper GI bleeding Interval history: History of present illness: Ms. Sultana is a 42 year old F History is obtained from the chart as patient came in obtunded and is more responsive but still not able to give much of a history. Sound like she has been ill for the past couple days. She is given antibiotics for possible cellulitis in the right groin region which area does look pretty good today. No respiratory issues. Urinalysis pending. Per the nurse who discussed with family members that she has not been feeling very well past couple days. In the ED she was found to be in severe DKA with a pH of 7.18. And acute kidney injury with creatinine 1.5. Bicarb at 12. Lactate 2.0. she has been hypotensive in the ED. third liter bolus started right now and may need to start Levophed. Patient started on insulin drip in Ed. Mildly hypokalemic at 3.1. Pseudohyponatremia. unknown if she has been taking her insulin lately. Patient had episode of emesis with coffee-ground. will check serial H&H, protonix bolus and gtt. consult gen surgery, t&s. 11/30 Patient required 2 vasopressors last night. Still acidotic > Several amps of bi carb and albumin given with improvement in her blood pressure and decreasing need for Levophed. Melanotic stools. Severe electrolyte disturbance. A wound on her right groin / lower quadrant opened up and is draining purulent fluid. Concern for septic process. Will check CT pelvis to rule out deeper abscess. Leukocytosis and bandemia noted. Empiric antibiotics started last night. Lactic acidosis. Review of system: Unable to obtain given patient's poor mentation, she answers some questions but does not respond to most. acidosis still this morning and bicarb x2 given to improved effectiveness of vasopressors. LR bolus also given for low CVP of 2 with good result in bp/uop/vasopressor decrease. By early in the afternoon she was off vasopressin and levophed was down to 6. bicarb up to 16 and vbg pH at 7.35. Insulin gtt transitioned to SQ long-acting insulin. Electrolytes were still low (k/mag/phos) and replacement was ordered. mentation was starting to improved. renal fxn improved. ct a/p w/o contrast d/t keri done to eval for groin wound or other infection > showed possible colitis and suspected pancreatitis > lipase 572. did get dose of vanco last night and was started cefepime last night. bandemia worsened today and now febrile this afternoon. cefepime to merrem and restrted vanco while awaiting BC on continued w/u. In the afternoon the pt started to gradually and progressively worsening again. requiring increased vasopressor support again and mentation reverted to level she was at this morning, tachypnea and tachycardia increased. stat ABG showing pH 7.07, co2 <15, lactate 0.5. bicarb gtt started. repeat chemistry pending. >>>bicarb lower as expected, k/phos better, mag good, ca still low, cr mildly worse but good uop, respirations decreasing from 40's to about 30. f/u VBG with pH 7.15 up from ABG of 7.07, cont bicarb gtt, 12/01 Metabolic acidosis improving again. Mentation started to improve again, mildly. Patient now off vasopressors, although blood pressure still soft but adequate. Continuing bicarb drip. VBG pH 7.34. Pending CBC. Hypokalemia. Bicarb 14. Creatinine of 1.4 similar to yesterday. Hypocalcemia again noted. Procalcitonin improving. Electrolyte replacement follow-up. Monitor mentation. Follow-up acid-base status. Leukocytosis resolved and bandemia present but significantly improved. Hemoglobin now 8.8. Platelets 68. 3/21 Patient mentation significantly improved today. Some of her electrolytes are still deficient but gradually improving. Hemoglobin stable from yesterday and GI bleed seems to have stopped. Bedside swallow eval poor and speech therapy eval ordered. Bandemia resolved. [place] Gatherer ry significant for hypernatremia. Hypokalemia hyperchloremia. Creatinine 1.2. Calcium low at 6. Phos mildly low. PHYSICAL EXAM General: Awake, No acute Distress, obese Eyes/N/T: EOMI, no scleral icterus, PEERL Head/Neck: neck supple, full ROM, CV: Mildly tachycardic and regular , No murmurs, Pulm: Clear b/l, no wheezing/rhonchi/rales, no respiratory distress Abd: soft, nontender, +BS x4 Ext: no clubbing/cyanosis, trace b/l LE edema, nontender Neuro: Answers questions appropriately , Mentation much improved patient alert and awake. Follows commands. The moves all extremities, sensations intact b/l upper/lower Psychiatric: Skin: warm/dry, normal color Constitutional Vitals: Vital Signs Temp Pulse Resp BP Pulse Ox O2 Del Method O2 Flow Rate 97.8 F 110 H 26 H 121/68 96 Room Air 2 12/02/22 06:55 12/02/22 07:00 12/02/22 07:00 12/02/22 07:00 12/02/22 07:00 12/02/22 07:00 12/02/22 06:00 Period Temp Pulse Resp BP Sys/Escalante Pulse Ox O2 Del Method O2 Flow Rate Last 24 Hr 97.4 F-100.8 F 110-120 13-36 83-128/58-77 91-99 Nasal Cannula- Room Air 2-2 Intake and Output 12/01/22 12/02/22 12/02/22 19:59 03:59 11:59 Intake Total 2428 1282 50 Output Total 1855 1470 735 Balance 573 -188 -685 Weight 117.072 kg Intake & Output: Intake & Output 12/01/22 12/02/22 12/02/22 19:59 03:59 11:59 Intake Total 2428 1282 50 Output Total 1855 1470 735 Balance 573 -188 -685 Weight 117.072 kg Intake: IV 2428 1282 50 Sodium Chloride 0.9% 250 ml @ 89 33 20 mls/hr IV .[id number] [facility] Rx#: [id number] Calcium Gluconate 9.3 Meq In 140 70 Dextrose 5% in Water 50 ml @ 70 mls/hr IV ONCE ONE Rx#: [id number] Precedex 400 Mcg/100 ml 0 Dextrose 400 Mcg In Premix 1 Bag @ 0.2 MCG/KG/HR 5.396 mls/ hr IV .[id number] [facility] Rx#: [id number] HumuLIN R 50 UNIT In Sodium 69 31 Chloride 0.9% 99.5 ml @ 10 UNIT /HR 20 mls/hr IV DUR [facility] Rx#: [id number] Merrem 1 gm In Sodium Chloride 50 50 50 0.9% 50 ml @ 100 mls/hr IV Q8H [facility] Rx#:[id number] Levophed 8 mg In Sodium 0 Chloride 0.9% 242 ml @ 10 MCG/ MIN 18.75 mls/hr IV Q14H [facility] Rx #:[id number] Potassium Chloride 80 Meq In 520 533 Dextrose 5% in Water 500 ml @ 67.5 mls/hr IV ONCE ONE Rx#: [id number] Sodium Bicarbonate Vial 150 Meq 1560 In Water 850 ml @ 125 mls/hr IV Q8H [facility] Rx#:[id number] Vancomycin 1,500 mg In Sodium 500 Chloride 0.9% 500 ml @ 333.3 mls/hr IV Q12H [facility] Rx#: [id number] Vasostrict 20 Unit In Dextrose 0 5% in Water 99 ml @ 0.04 UNIT/ MIN 12 mls/hr IV Q8H [facility] Rx#: [id number] Oral 0 0 Output: Urine Catheter Amount 2630 [id number] Other: Urine Appearance Clear Clear Clear Uretheral ([place]) Clear Clear Urine Color Bright Yellow Bright Yellow Bright Yellow Uretheral ([place]) Bright Yellow Bright Yellow Urine Odor Ammonia Stool Size Smear Smear Small Stool Color Brown Brown Brown Black Black Stool Consistency Loose Loose Liquid # of times incontinent of 1 Bowels OBJ DATA Labs 12/02/22 05:23 12/01/22 14:24 Labs: Abnormal Lab Results 12/02/22 12/01/22 12/01/22 05:23 20:03 19:57 WBC RBC 3.05 L Hgb 8.6 L 8.6 L Hct 25.2 L 24.9 L POC Hct 23.0 L RDW 15.8 H Plt Count 76 L Immature Gran % (Auto) Seg Neutrophils % Band Neutrophils % Lymphocytes % Immature Gran # Absolute Neutrophils Reactive Lymphocytes Platelet Estimate ABG Methemoglobin VBG pH POC VBG pH VBG pCO2 POC VBG pCO2 at Temp VBG pO2 POC VBG pO2 VBG HCO3 POC VBG HCO3 VBG Total CO2 POC VBG Total CO2 VBG O2 Saturation POC Venous O2 Sat VBG Base Excess POC VBG Base Excess VBG Lactic Acid Carboxyhemoglobin POC Sodium Sodium POC Potassium 3.2 L Potassium POC Chloride 115 H Chloride Carbon Dioxide POC Total CO2 Anion Gap POC BUN 23 H BUN Creatinine POC Creatinine 1.3 H Glucose POC Glucose 163 H Hemoglobin A1c Osmolality Calcium POC WB Ioniz Calcium 0.87 L Ionized Calcium Silver Phosphorus Magnesium Lactate Dehydrogenase Total Protein Albumin Albumin/Globulin Ratio Triglycerides Cholesterol LDL Cholesterol, Calc Non-HDL Cholesterol HDL Cholesterol Amylase Lipase Beta-Hydroxybutyrate Procalcitonin Free T4 Urine Appearance Urine Protein Urine Glucose (UA) Urine Ketones Hyaline Casts Granular Casts Urine Mucus 12/01/22 12/01/22 12/01/22 17:23 14:24 07:49 WBC RBC Hgb Hct POC Hct 25.0 L RDW Plt Count Immature Gran % (Auto) Seg Neutrophils % Band Neutrophils % Lymphocytes % Immature Gran # Absolute Neutrophils Reactive Lymphocytes Platelet Estimate ABG Methemoglobin VBG pH POC VBG pH VBG pCO2 POC VBG pCO2 at Temp 28.6 L VBG pO2 POC VBG pO2 46 H VBG HCO3 POC VBG HCO3 15.5 L VBG Total CO2 POC VBG Total CO2 16.0 L VBG O2 Saturation POC Venous O2 Sat 81.0 H VBG Base Excess POC VBG Base Excess -10.0 L VBG Lactic Acid Carboxyhemoglobin POC Sodium Sodium POC Potassium 2.9 L* Potassium 2.8 L* POC Chloride 113 H Chloride Carbon Dioxide 20 L POC Total CO2 Anion Gap POC BUN 24 H BUN 29 H Creatinine 1.4 H POC Creatinine 1.3 H Glucose 299 H POC Glucose 196 H Hemoglobin A1c Osmolality Calcium 5.4 L* POC WB Ioniz Calcium 0.85 L Ionized Calcium Silver Phosphorus Magnesium Lactate Dehydrogenase Total Protein Albumin Albumin/Globulin Ratio Triglycerides Cholesterol LDL Cholesterol, Calc Non-HDL Cholesterol HDL Cholesterol Amylase Lipase Beta-Hydroxybutyrate Procalcitonin Free T4 Urine Appearance Urine Protein Urine Glucose (UA) Urine Ketones Hyaline Casts Granular Casts Urine Mucus 12/01/22 12/01/22 12/01/22 07:47 07:37 05:31 WBC RBC 3.14 L Hgb 8.8 L Hct 25.6 L POC Hct RDW 15.3 H Plt Count 68 L Immature Gran % (Auto) Seg Neutrophils % Band Neutrophils % 12 H Lymphocytes % 12 L Immature Gran # Absolute Neutrophils Reactive Lymphocytes Platelet Estimate Decreased A ABG Methemoglobin VBG pH POC VBG pH VBG pCO2 POC VBG pCO2 at Temp VBG pO2 POC VBG pO2 VBG HCO3 POC VBG HCO3 VBG Total CO2 POC VBG Total CO2 VBG O2 Saturation POC Venous O2 Sat VBG Base Excess POC VBG Base Excess VBG Lactic Acid Carboxyhemoglobin POC Sodium Sodium POC Potassium Potassium POC Chloride Chloride Carbon Dioxide POC Total CO2 Anion Gap POC BUN BUN Creatinine POC Creatinine Glucose POC Glucose Hemoglobin A1c Osmolality Calcium POC WB Ioniz Calcium Ionized Calcium Silver Phosphorus Magnesium Lactate Dehydrogenase Total Protein Albumin Albumin/Globulin Ratio Triglycerides Cholesterol LDL Cholesterol, Calc Non-HDL Cholesterol HDL Cholesterol Amylase Lipase Beta-Hydroxybutyrate 3.01 H Procalcitonin 2.65 H Free T4 Urine Appearance Urine Protein Urine Glucose (UA) Urine Ketones Hyaline Casts Granular Casts Urine Mucus 12/01/22 11/30/22 11/30/22 05:30 22:12 19:55 WBC RBC Hgb Hct POC Hct RDW Plt Count Immature Gran % (Auto) Seg Neutrophils % Band Neutrophils % Lymphocytes % Immature Gran # Absolute Neutrophils Reactive Lymphocytes Platelet Estimate ABG Methemoglobin VBG pH POC VBG pH 7.15 L* VBG pCO2 POC VBG pCO2 at Temp 16.0 L* VBG pO2 POC VBG pO2 56 H VBG HCO3 POC VBG HCO3 5.6 L* VBG Total CO2 POC VBG Total CO2 6.0 L VBG O2 Saturation POC Venous O2 Sat 81.0 H VBG Base Excess POC VBG Base Excess -23.0 L VBG Lactic Acid Carboxyhemoglobin POC Sodium Sodium POC Potassium Potassium 2.7 L* POC Chloride Chloride 109 H Carbon Dioxide 14 L POC Total CO2 Anion Gap 19.0 H POC BUN BUN 33 H Creatinine 1.4 H POC Creatinine Glucose 259 H POC Glucose Hemoglobin A1c Osmolality Calcium 5.6 L* POC WB Ioniz Calcium Ionized Calcium Silvre Phosphorus Magnesium Lactate Dehydrogenase 337 H Total Protein 4.5 L Albumin 1.9 L Albumin/Globulin Ratio 0.7 L Triglycerides 1788 H Cholesterol LDL Cholesterol, Calc Non-HDL Cholesterol HDL Cholesterol Amylase Lipase 342 H Beta-Hydroxybutyrate 6.75 H Procalcitonin Free T4 Urine Appearance Urine Protein Urine Glucose (UA) Urine Ketones Hyaline Casts Granular Casts Urine Mucus 11/30/22 11/30/22 11/30/22 19:55 19:55 12:14 WBC RBC Hgb Hct POC Hct RDW Plt Count Immature Gran % (Auto) Seg Neutrophils % Band Neutrophils % Lymphocytes % Immature Gran # Absolute Neutrophils Reactive Lymphocytes Platelet Estimate ABG Methemoglobin VBG pH POC VBG pH VBG pCO2 POC VBG pCO2 at Temp VBG pO2 POC VBG pO2 VBG HCO3 POC VBG HCO3 VBG Total CO2 POC VBG Total CO2 VBG O2 Saturation POC Venous O2 Sat VBG Base Excess POC VBG Base Excess VBG Lactic Acid Carboxyhemoglobin POC Sodium Sodium 130 L POC Potassium Potassium POC Chloride Chloride Carbon Dioxide 8 L* POC Total CO2 Anion Gap 22.0 H POC BUN BUN 36 H Creatinine 1.4 H POC Creatinine Glucose 365 H POC Glucose Hemoglobin A1c Osmolality Calcium 6.0 L POC WB Ioniz Calcium Ionized Calcium Silver Phosphorus 4.6 H Magnesium Lactate Dehydrogenase Total Protein Albumin Albumin/Globulin Ratio Triglycerides Cholesterol LDL Cholesterol, Calc Non-HDL Cholesterol HDL Cholesterol Amylase 449 H Lipase Beta-Hydroxybutyrate Procalcitonin Free T4 0.52 L Urine Appearance Urine Protein Urine Glucose (UA) Urine Ketones Hyaline Casts Granular Casts Urine Mucus 11/30/22 11/30/22 11/30/22 12:14 12:14 12:11 WBC RBC Hgb Hct POC Hct RDW Plt Count Immature Gran % (Auto) Seg Neutrophils % Band Neutrophils % Lymphocytes % Immature Gran # Absolute Neutrophils Reactive Lymphocytes Platelet Estimate ABG Methemoglobin VBG pH POC VBG pH VBG pCO2 POC VBG pCO2 at Temp 23.9 L VBG pO2 POC VBG pO2 48 H VBG HCO3 POC VBG HCO3 13.2 L VBG Total CO2 POC VBG Total CO2 14.0 L VBG O2 Saturation POC Venous O2 Sat 83.0 H VBG Base Excess POC VBG Base Excess -12.0 L VBG Lactic Acid Carboxyhemoglobin POC Sodium Sodium POC Potassium Potassium 2.7 L* POC Chloride Chloride Carbon Dioxide 16 L POC Total CO2 Anion Gap POC BUN BUN 35 H Creatinine POC Creatinine Glucose 138 H POC Glucose Hemoglobin A1c Osmolality Calcium 5.9 L* POC WB Ioniz Calcium Ionized Calcium Silver Phosphorus 1.0 L Magnesium Lactate Dehydrogenase Total Protein Albumin Albumin/Globulin Ratio Triglycerides Cholesterol LDL Cholesterol, Calc Non-HDL Cholesterol HDL Cholesterol Amylase Lipase 572 H Beta-Hydroxybutyrate Procalcitonin Free T4 Urine Appearance Urine Protein Urine Glucose (UA) Urine Ketones Hyaline Casts Granular Casts Urine Mucus 11/30/22 11/30/22 11/30/22 10:54 05:21 05:21 WBC 12.6 H RBC Hgb Hct POC Hct RDW 14.7 H Plt Count Immature Gran % (Auto) 1.0 H Seg Neutrophils % Band Neutrophils % Lymphocytes % Immature Gran # 0.12 H Absolute Neutrophils 9.60 H Reactive Lymphocytes Platelet Estimate ABG Methemoglobin VBG pH POC VBG pH VBG pCO2 POC VBG pCO2 at Temp VBG pO2 POC VBG pO2 VBG HCO3 POC VBG HCO3 VBG Total CO2 POC VBG Total CO2 VBG O2 Saturation POC Venous O2 Sat VBG Base Excess POC VBG Base Excess VBG Lactic Acid Carboxyhemoglobin POC Sodium Sodium POC Potassium Potassium POC Chloride Chloride Carbon Dioxide POC Total CO2 Anion Gap POC BUN BUN Creatinine POC Creatinine Glucose POC Glucose Hemoglobin A1c Osmolality Calcium POC WB Ioniz Calcium Ionized Calcium Silver 0.84 L Phosphorus Magnesium Lactate Dehydrogenase Total Protein Albumin Albumin/Globulin Ratio Triglycerides Cholesterol LDL Cholesterol, Calc Non-HDL Cholesterol HDL Cholesterol Amylase Lipase Beta-Hydroxybutyrate Procalcitonin 11.39 H Free T4 Urine Appearance Urine Protein Urine Glucose (UA) Urine Ketones Hyaline Casts Granular Casts Urine Mucus 11/30/22 11/30/22 11/30/22 05:21 05:20 05:20 WBC RBC Hgb Hct POC Hct RDW Plt Count Immature Gran % (Auto) Seg Neutrophils % Band Neutrophils % Lymphocytes % Immature Gran # Absolute Neutrophils Reactive Lymphocytes Platelet Estimate ABG Methemoglobin 0.3 L VBG pH 7.18 L* POC VBG pH VBG pCO2 30.0 L POC VBG pCO2 at Temp VBG pO2 58.7 H POC VBG pO2 VBG HCO3 11.0 L POC VBG HCO3 VBG Total CO2 12.0 L POC VBG Total CO2 VBG O2 Saturation 85.9 H POC Venous O2 Sat VBG Base Excess -16 L POC VBG Base Excess VBG Lactic Acid Carboxyhemoglobin 6.0 H POC Sodium Sodium POC Potassium Potassium POC Chloride Chloride Carbon Dioxide POC Total CO2 Anion Gap POC BUN BUN Creatinine POC Creatinine Glucose POC Glucose Hemoglobin A1c Osmolality 303 H Calcium POC WB Ioniz Calcium Ionized Calcium Silver Phosphorus Magnesium Lactate Dehydrogenase Total Protein Albumin Albumin/Globulin Ratio Triglycerides 931 H Cholesterol 500 H LDL Cholesterol, Calc H Non-HDL Cholesterol 491 H HDL Cholesterol 9 L Amylase Lipase Beta-Hydroxybutyrate Procalcitonin Free T4 Urine Appearance Urine Protein Urine Glucose (UA) Urine Ketones Hyaline Casts Granular Casts Urine Mucus 11/30/22 11/30/22 11/29/22 05:20 05:20 22:25 WBC RBC Hgb Hct POC Hct RDW Plt Count Immature Gran % (Auto) Seg Neutrophils % 30 L Band Neutrophils % 42 H Lymphocytes % Immature Gran # Absolute Neutrophils Reactive Lymphocytes 3 H Platelet Estimate ABG Methemoglobin VBG pH POC VBG pH VBG pCO2 POC VBG pCO2 at Temp VBG pO2 POC VBG pO2 VBG HCO3 POC VBG HCO3 VBG Total CO2 POC VBG Total CO2 VBG O2 Saturation POC Venous O2 Sat VBG Base Excess POC VBG Base Excess VBG Lactic Acid Carboxyhemoglobin POC Sodium Sodium 126 L 124 L POC Potassium Potassium 3.1 L 2.3 L* POC Chloride Chloride Carbon Dioxide 11 L 11 L POC Total CO2 Anion Gap POC BUN BUN 35 H 29 H Creatinine 1.4 H 1.6 H POC Creatinine Glucose 248 H 359 H POC Glucose Hemoglobin A1c Osmolality Calcium 5.9 L* 5.8 L* POC WB Ioniz Calcium Ionized Calcium Silver Phosphorus 0.6 L < 0.3 L Magnesium 1.5 L Lactate Dehydrogenase 373 H Total Protein 4.6 L Albumin 2.1 L Albumin/Globulin Ratio 0.8 L Triglycerides 2817 H Cholesterol LDL Cholesterol, Calc Non-HDL Cholesterol HDL Cholesterol Amylase Lipase Beta-Hydroxybutyrate Procalcitonin Free T4 Urine Appearance Urine Protein Urine Glucose (UA) Urine Ketones Hyaline Casts Granular Casts Urine Mucus 11/29/22 11/29/22 11/29/22 22:25 22:25 17:03 WBC RBC Hgb Hct POC Hct RDW Plt Count Immature Gran % (Auto) Seg Neutrophils % Band Neutrophils % Lymphocytes % Immature Gran # Absolute Neutrophils Reactive Lymphocytes Platelet Estimate ABG Methemoglobin VBG pH POC VBG pH VBG pCO2 POC VBG pCO2 at Temp VBG pO2 POC VBG pO2 VBG HCO3 POC VBG HCO3 VBG Total CO2 POC VBG Total CO2 VBG O2 Saturation POC Venous O2 Sat VBG Base Excess POC VBG Base Excess VBG Lactic Acid 2.7 H Carboxyhemoglobin POC Sodium Sodium POC Potassium Potassium POC Chloride Chloride Carbon Dioxide POC Total CO2 Anion Gap POC BUN BUN Creatinine POC Creatinine Glucose POC Glucose Hemoglobin A1c 12.9 H Osmolality Calcium POC WB Ioniz Calcium Ionized Calcium Silver Phosphorus Magnesium Lactate Dehydrogenase Total Protein Albumin Albumin/Globulin Ratio Triglycerides Cholesterol LDL Cholesterol, Calc Non-HDL Cholesterol HDL Cholesterol Amylase Lipase Beta-Hydroxybutyrate Procalcitonin 8.98 H Free T4 Urine Appearance Urine Protein Urine Glucose (UA) Urine Ketones Hyaline Casts Granular Casts Urine Mucus 11/29/22 11/29/22 11/29/22 17:03 17:03 16:35 WBC RBC Hgb Hct POC Hct RDW Plt Count Immature Gran % (Auto) Seg Neutrophils % Band Neutrophils % 19 H Lymphocytes % Immature Gran # Absolute Neutrophils Reactive Lymphocytes Platelet Estimate ABG Methemoglobin VBG pH POC VBG pH VBG pCO2 POC VBG pCO2 at Temp VBG pO2 POC VBG pO2 VBG HCO3 POC VBG HCO3 VBG Total CO2 POC VBG Total CO2 VBG O2 Saturation POC Venous O2 Sat VBG Base Excess POC VBG Base Excess VBG Lactic Acid Carboxyhemoglobin POC Sodium Sodium 125 L POC Potassium Potassium 2.6 L* POC Chloride Chloride 93 L Carbon Dioxide 10 L* POC Total CO2 Anion Gap 22.0 H POC BUN BUN 26 H Creatinine 1.7 H POC Creatinine Glucose 428 H POC Glucose Hemoglobin A1c Osmolality 327 H Calcium 6.2 L POC WB Ioniz Calcium Ionized Calcium Silver Phosphorus Magnesium Lactate Dehydrogenase Total Protein 4.8 L Albumin 2.4 L Albumin/Globulin Ratio Triglycerides Cholesterol LDL Cholesterol, Calc Non-HDL Cholesterol HDL Cholesterol Amylase Lipase Beta-Hydroxybutyrate 5.75 H Procalcitonin Free T4 Urine Appearance Urine Protein Urine Glucose (UA) Urine Ketones Hyaline Casts Granular Casts Urine Mucus 11/29/22 11/29/22 11/29/22 16:35 15:59 15:59 WBC RBC Hgb Hct POC Hct RDW 14.9 H Plt Count Immature Gran % (Auto) 0.8 H Seg Neutrophils % Band Neutrophils % Lymphocytes % Immature Gran # 0.06 H Absolute Neutrophils Reactive Lymphocytes Platelet Estimate ABG Methemoglobin VBG pH POC VBG pH VBG pCO2 POC VBG pCO2 at Temp VBG pO2 POC VBG pO2 VBG HCO3 POC VBG HCO3 VBG Total CO2 POC VBG Total CO2 VBG O2 Saturation POC Venous O2 Sat VBG Base Excess POC VBG Base Excess VBG Lactic Acid Carboxyhemoglobin POC Sodium Sodium POC Potassium Potassium POC Chloride Chloride Carbon Dioxide POC Total CO2 Anion Gap POC BUN BUN Creatinine POC Creatinine Glucose POC Glucose Hemoglobin A1c Osmolality Calcium POC WB Ioniz Calcium Ionized Calcium Silver Phosphorus 0.9 L Magnesium Lactate Dehydrogenase Total Protein Albumin Albumin/Globulin Ratio Triglycerides Cholesterol LDL Cholesterol, Calc Non-HDL Cholesterol HDL Cholesterol Amylase Lipase Beta-Hydroxybutyrate Procalcitonin Free T4 Urine Appearance Hazy A Urine Protein 100 A Urine Glucose (UA) >=500 A Urine Ketones 80 A Hyaline Casts 4 H Granular Casts 11 H Urine Mucus Few A 11/29/22 11/29/22 15:53 15:52 WBC RBC Hgb Hct POC Hct RDW Plt Count Immature Gran % (Auto) Seg Neutrophils % Band Neutrophils % Lymphocytes % Immature Gran # Absolute Neutrophils Reactive Lymphocytes Platelet Estimate ABG Methemoglobin VBG pH POC VBG pH 7.18 L* VBG pCO2 POC VBG pCO2 at Temp 27.0 L VBG pO2 POC VBG pO2 VBG HCO3 POC VBG HCO3 10.1 L* VBG Total CO2 POC VBG Total CO2 11.0 L VBG O2 Saturation POC Venous O2 Sat VBG Base Excess POC VBG Base Excess -18.0 L VBG Lactic Acid Carboxyhemoglobin POC Sodium 128 L Sodium POC Potassium 3.1 L Potassium POC Chloride Chloride Carbon Dioxide POC Total CO2 12.0 L Anion Gap POC BUN 37 H BUN Creatinine POC Creatinine 1.5 H Glucose POC Glucose 464 H* Hemoglobin A1c Osmolality Calcium POC WB Ioniz Calcium 1.01 L Ionized Calcium Silver Phosphorus Magnesium Lactate Dehydrogenase Total Protein Albumin Albumin/Globulin Ratio Triglycerides Cholesterol LDL Cholesterol, Calc Non-HDL Cholesterol HDL Cholesterol Amylase Lipase Beta-Hydroxybutyrate Procalcitonin Free T4 Urine Appearance Urine Protein Urine Glucose (UA) Urine Ketones Hyaline Casts Granular Casts Urine Mucus Meds: Medications Acetaminophen (Acetaminophen 325 Mg Tablet) 650 mg PO Q6HP PRN; Protocol PRN Reason: Per Pain Protocol/Fever > 101 Last Admin: 11/30/22 14:22 Dose: 650 mg Albuterol/Ipratropium (Ipratropium/Albuterol 3 Ml Ampul.Neb) 3 ml NEB Q4HP PRN PRN Reason: Shortness Of Breath Atorvastatin Calcium (Atorvastatin 40 Mg Tablet) 40 mg PO HS DEX Last Admin: 12/01/22 20:12 Dose: Not Given Dextrose (Dextrose 50% 50 Ml Vial) 0 ml IV UD PRN PRN Reason: Per Sliding Scale Diagnostic Test (Pha) (Accu-Chek 1 Each Strip) 1 each FS Q2 DEX Last Admin: 12/02/22 05:52 Dose: 1 each Docusate Sodium (Docusate Sodium 100 Mg Capsule) 100 mg PO BID DEX Last Admin: 12/01/22 20:12 Dose: Not Given Glucose (Dextrose 31 Gm Oral.Susp) 15 gm PO PRN PRN PRN Reason: Hypoglycemia Potassium Chloride 40 meq/ (Dextrose) 520 mls @ 130 mls/hr IV UD PRN PRN Reason: Potassium < 3 Last Infusion: 12/01/22 15:39 Dose: Infused Magnesium Sulfate (Magnesium Sulfate) 2 gm in 50 mls @ 50 mls/hr IV UD PRN PRN Reason: Magnesium </= 1.6 Acetaminophen (Ofirmev) 650 mg in 65 mls @ 130 mls/hr IV Q6HP PRN; Protocol PRN Reason: PAIN/FEVER > 101 Last Infusion: 12/02/22 00:10 Dose: Infused Vancomycin HCl 1,500 mg/ (Sodium Chloride) 500 mls @ 333.3 mls/hr IV Q12H [facility] Last Infusion: 12/01/22 22:08 Dose: Infused Meropenem 1 gm/ Sodium (Chloride) 50 mls @ 100 mls/hr IV Q8H DEX Last Infusion: 12/02/22 06:49 Dose: Infused Vasopressin 20 unit/ Dextrose 100 mls @ 12 mls/hr IV Q8HP PRN; Protocol PRN Reason: Hypotension Norepinephrine Bitartrate 8 mg (/ Sodium Chloride) 250 mls @ 18.75 mls/hr IV Q12HP PRN; Protocol PRN Reason: Hypotension Dexmedetomidine HCl 400 mcg/ (Premix) 100 mls @ 5.396 mls/hr IV .[id number] PRN; Protocol PRN Reason: Sedation Insulin Human Regular 50 unit/ (Sodium Chloride) 100 mls @ 20 mls/hr IV DUR [facility]; Protocol Last Titration: 12/01/22 21:34 Dose: Infused Potassium Chloride 20 meq/ (Sodium Chloride) 1,010 mls @ 75 mls/hr IV .[id number] [facility] Last Admin: 12/01/22 20:56 Dose: 75 mls/hr Insulin Glargine (Insulin Glargine, Human 1 Unit/0.01 Ml) 50 unit SQ BID [facility] Last Admin: 12/01/22 20:03 Dose: 50 units Insulin Human Lispro (Insulin Lispro 1 Unit/0.01 Ml Unit) 0 unit SQ Q2H [facility]; Protocol Last Admin: 12/02/22 05:52 Dose: 3 unit Levothyroxine Sodium (Levothyroxine 25 Mcg Tablet) 25 mcg PO QAMAC [facility] Last Admin: 12/02/22 07:41 Dose: Not Given Metoclopramide HCl (Metoclopramide 10 Mg/2 Ml Vial) 10 mg IV Q6HP PRN PRN Reason: Nausea And Vomiting Last Admin: 11/30/22 10:35 Dose: 10 mg Nystatin (Nystatin Powder Bottle 15gm) 1 dose TOPICAL TID [facility] Last Admin: 12/01/22 20:03 Dose: 1 dose Ondansetron HCl (Ondansetron 4 Mg/2 Ml Vial) 4 mg IV Q4HP PRN PRN Reason: Nausea And Vomiting Last Admin: 12/01/22 13:40 Dose: 4 mg Pantoprazole Sodium (Pantoprazole 40 Mg Vial) 40 mg IV BIDAC [facility] Last Admin: 12/02/22 07:41 Dose: 40 mg Polyethylene Glycol (Polyethylene Glycol 3350 17 Gm Packet) 17 gm PO DAILYP PRN PRN Reason: Constipation Potassium Chloride (Potassium Chloride 20 Meq Tablet) 40 meq PO UD PRN PRN Reason: Potssium is 3-3.5 Potassium Chloride (Potassium Chloride 20 Meq Tablet) 40 meq PO UD PRN PRN Reason: Potassium < 3 Senna (Sennosides 1 Tablet) 2 tab PO DAILYP PRN PRN Reason: Constipation Sodium Chloride (0.9 % Sodium Chloride 10 Ml Syringe) 10 ml IV Q8 [facility] Last Admin: 12/02/22 05:53 Dose: 10 ml Sodium Chloride (0.9 % Sodium Chloride 10 Ml Syringe) 10 ml IV UD PRN PRN Reason: between meds Last Admin: 11/30/22 00:07 Dose: 10 ml Sodium Chloride (0.9 % Sodium Chloride 10 Ml Syringe) 10 ml IV Q12 [facility] Last Admin: 12/02/22 05:53 Dose: 10 ml Vancomycin HCl (Vancomycin Per Pharmacy) 1 order IV UD [facility] ABG Interpretation ABG results: 11/30/22 05:21 ABG Methemoglobin 0.3 L VBG pH 7.18 L* VBG pCO2 30.0 L VBG pO2 58.7 H VBG HCO3 11.0 L VBG Total CO2 12.0 L VBG O2 Saturation 85.9 H VBG Base Excess -16 L A/P Narrative A/P Narrative: A: *severe DKA (DM2, poorly controlled): -A1c 12.9 *severe Metabolic/Lactic acidosis: lactic acidosis resolved, metabolic acidosis improving *Hypovolemic/Septic shock: resolved -febrile again o/n, leukocytosis w/bandemia improving *Encephalopathy: multifactorial 2/2 above,much improvement today -uds neg *R groin cellulitis/draining abscess: seen by surgeon, no need for I&D *acute Pancreatitis: improving *KERI possible ATN: 2/2 above initially improved then worsened, cr same as yesterday *UGIB: slow bleed and seems to have stopped *Acute blood loss anemia: 2/2 above, + dilutional *Severe electrolyte d/o (hypocalcemia/hypokalemia/Hypomagnesemia/Hypophos): *Thrombocytopenia: Multifactorial *Atelectasis *Morbid obesity: BMI 43, lifestyle modification *HLD: *Hypothyroidism: tsh wnl *HLD/Hypertriglyceridemia: P: -cont SQ basal (titrate up) and ssi -hypotonic IVF, f/u sodium -cvp -Monitor UOP/renal function/i&o -Monitor replace electrolytes, recheck today -f/u bhb/vbg -merrem/vanco, WC/BC pending, -Dr. Han consulted for eventual EGD -monitor H&H, transfuse for 8 or less -protonix bid -ST eval -IS -statin -Hold home HCTZ and hyperlipidema -PT/OT -ppx: SCD(no chemical for UGIB) / ppi Time Spent With Patient Time: Total time spent is greater than 50% in coordination of care (as documented) at patient's floor/unit and/or counseling patient: Subsequent: Total time with patient: 50 - 65 Minutes QUALITY Stroke Symptom Onset Unknown: No VTE Deep Vein Thrombosis/Pulmonary Embolism Present on Admission: No Restraints Restraint In Place: No
[2022-12-02 08:15] LABS: ALT/SGPT 9 U/L (<40); AST/SGOT 15 U/L (<32); Albumin 1.9 gm/dL (3.2-5.2); Albumin/Globulin Ratio 0.7 (1.0-2.3); Alkaline Phosphatase 72 U/L (39-117); Bilirubin,Direct < 0.2 mg/dL (0-0.3); Bilirubin,Total 0.2 mg/dL (0.1-1.0); Blood Urea Nitrogen 21 mg/dL (6-20); Carbon Dioxide 21 mmol/L (22-30); Chloride 115 mmol/L (96-108); Globulin 2.8 gm/dL (2.2-3.7); Glomerular Filtration Rate 56; Glucose 176 mg/dL (70-105); Lactate Dehydrogenase 390 U/L (135-225); Phosphorous 2.2 mg/dL (2.5-4.5); Triglycerides 756 mg/dL (<150); Uric Acid 5.9 mg/dL (2.5-8.0)
[2022-12-02] MEDS ORDERED: CALCIUM GLUCONATE 4.65 MEQ/10 ML VIAL IV ONE ×2 (08:26→12:34)
[2022-12-02] MEDS: DEXTROSE 5% IN WATER 1,000 ML IV SCH ×2 (08:29→16:16)
[2022-12-02] MEDS: INSULIN GLARGINE, HUMAN 1 UNIT/0.01 ML SQ SCH ×2 (08:38→20:07)
[2022-12-02 08:44] LABS: Anisocytosis 1+ (None Seen); Band Neutrophils % 5 % (0-10); Basophils % (Manual) 1 % (0-2); Hypochromasia 1+ (None Seen); Lymphocytes % 10 % (15-49); Monocytes % (Manual) 1 % (1-12); Platelet Estimate DECREASED (Normal); RBC Morphology ABNORMAL (Normal); Segmented Neutrophils % 83 % (38-78)
[2022-12-02] MEDS ORDERED: CALCIUM GLUCONATE 9.3 MEQ in DEXTROSE 5% IN WATER 50 ML IV ONE ×2 (09:00→13:30)
[2022-12-02] MEDS ORDERED: POTASSIUM PHOSPHATE 40 MEQ in DEXTROSE 5% IN WATER 500 ML IV ONE (09:00)
[2022-12-02] MEDS: DOCUSATE SODIUM 100 MG CAPSULE PO SCH ×2 (10:55→19:34)
[2022-12-02] MEDS: NYSTATIN POWDER BOTTLE 15GM TOPICAL SCH ×3 (10:55→20:08)
[2022-12-02 12:07] LABS: POC Calcium, Ionized 0.87 (1.16-1.32); POC Creatinine 1.1 (0.6-1.2); POC Potassium 2.9 (3.3-5.1)
[2022-12-02] MEDS ORDERED: VANCOMYCIN 1,000 MG in 0.9 % SODIUM CHLORIDE 250 ML IV SCH (13:15)
[2022-12-02] MEDS ORDERED: VANCOMYCIN 1,500 MG in 0.9 % SODIUM CHLORIDE 500 ML IV SCH (13:30)
[2022-12-02] MEDS ORDERED: POTASSIUM CHLORIDE 40 MEQ in DEXTROSE 5% IN WATER 250 ML IV ONE (13:30)
[2022-12-02] MEDS: VANCOMYCIN 1,500 MG in 0.9 % SODIUM CHLORIDE 500 ML IV SCH (13:35)
[2022-12-02 16:24] LABS: POC Calcium, Ionized 0.91 (1.16-1.32); POC Potassium 3.2 (3.3-5.1)
--- NOTE | 2022-12-02 16:43 | General Surgery Progress Note ---
SUBJECTIVE Subjective Patient information: Note initiated : 12/02/22 at 4:37 pm Service Date, if different from initiated Date: [] Patient: Angela Sultana 42 y/o F admitted on 11/29/22 for HI BG. Chief Complaint: [] Principal diagnosis: Diabetic ketoacidosis; acute septicemia; upper GI bleeding Interval history: Patient is much more alert today. She answers all questions appropriately. She remains off pressors and her blood pressure is stable. Her melena has decreased and rectal catheter has been removed. She has not passed any blood today. She denies abdominal pain. She denies nausea. . White blood count 8.8, hemoglobin 8.6, hematocrit 25.2, platelets 76, potassium 3.2, BUN 17, creatinine 1 Constitutional Vitals: Vital Signs Temp Pulse Resp BP Pulse Ox O2 Del Method O2 Flow Rate 99.0 F 107 H 24 H 116/81 96 Room Air 2 12/02/22 12:09 12/02/22 15:00 12/02/22 15:00 12/02/22 15:00 12/02/22 15:00 12/02/22 15:00 12/02/22 06:00 Period Temp Pulse Resp BP Sys/Escalante Pulse Ox O2 Del Method O2 Flow Rate Last 24 Hr 97.1 F-100.8 F 107-119 20-33 83-148/60-89 91-99 Nasal Cannula- Room Air 2-2 Intake and Output 12/02/22 12/02/22 12/02/22 03:59 11:59 19:59 Intake Total 9128 303 6226.0909 Output Total 1470 1425 320 Balance -188 -431 1239.0909 Intake & Output: Intake & Output 12/02/22 12/02/22 12/02/22 03:59 11:59 19:59 Intake Total 0341 729 2743.0909 Output Total 1470 1425 320 Balance -188 -431 1239.0909 Intake: IV 7146 507 4620.0909 Sodium Chloride 0.9% 250 ml @ 33 20 mls/hr IV .[id number] [facility] Rx#: [id number] Calcium Gluconate 9.3 Meq In 70 70 Dextrose 5% in Water 50 ml @ 70 mls/hr IV ONCE ONE Rx#: [id number] Dextrose 5% in Water 1,000 ml @ 1000 150 mls/hr IV .[id number] [facility] Rx#: [id number] HumuLIN R 50 UNIT In Sodium 31 Chloride 0.9% 99.5 ml @ 10 UNIT /HR 20 mls/hr IV DUR [facility] Rx#: [id number] Merrem 1 gm In Sodium Chloride 50 50 50 0.9% 50 ml @ 100 mls/hr IV Q8H [facility] Rx#:[id number] Potassium Chloride 20 Meq In 874 Sodium Chloride 0.45% 1,000 ml @ 75 mls/hr IV .[id number] [facility] Rx# :[id number] Potassium Chloride 80 Meq In 533 Dextrose 5% in Water 500 ml @ 67.5 mls/hr IV ONCE ONE Rx#: [id number] Potassium Phosphate 40 Meq In 509.0909 Dextrose 5% in Water 500 ml @ 127.273 mls/hr IV ONCE ONE Rx#: [id number] Vancomycin 1,500 mg In Sodium 500 Chloride 0.9% 500 ml @ 333.3 mls/hr IV Q12H [facility] Rx#: [id number] Oral 0 0 Output: Urine Catheter Amount 1470 1425 320 Other: Meal Breakfast Percent of Meal Consumed jello x2 Urine Appearance Clear Clear Uretheral ([place]) Clear Urine Color Bright Yellow Bright Yellow Uretheral ([place]) Bright Yellow Stool Size Smear Small Small Stool Color Brown Brown Brown Black Green Stool Consistency Loose Liquid Loose # of times incontinent of 1 1 Bowels Head Head exam: Present atraumatic, normal inspection and normocephalic Eye Eye exam: Present EOMI and PERRL ENT ENT exam: Present mucous membranes moist and normal oropharynx Neck Neck exam: Present full ROM and normal inspection; Absent tenderness Respiratory Additional comments: No labored respirations; coarse tubular breath sounds on the right clear on yesterday. Oxygen saturations are trending towards normal Cardiovascular Cardiovascular exam: Present normal rate and rhythm, RRR, +S1, +S2 and tachycardia ( heart rate 110 to 120/min) GI/Abdominal GI/Abdominal exam: Present normal bowel sounds, distended and tenderness (No localized tenderness noted) Extremities Exam Extremities exam: Present full ROM, normal inspection and neurovascular intact; Absent calf tenderness Additional comments: I have just told should be Psychiatric Psychiatric exam: Present agitated, anxious, depressed and flat affect Skin Additional comments: Cellulitis of the labia and inflammatory lesion right vulva is stable; both areas shows evidence of significant healing A/P Assessment and plan (1) DKA, type 2: Status: Acute Qualifiers: Diabetes mellitus complication detail: without coma Qualified Code(s): E11.10 - Type 2 diabetes mellitus with ketoacidosis without coma (2) GI bleeding: Status: Acute (3) Cellulitis: Status: Acute Qualifiers: Site of cellulitis: trunk Site of cellulitis of trunk: abdominal wall Qualified Code(s): L03.311 - Cellulitis of abdominal wall (4) Candidiasis, intertrigo: Status: Acute (5) Morbid obesity: Status: Acute Plan Patient is clinically improved. She is alert and is eating full liquids with assistance. Discussed EGD with her and she is agreeable to proceed Sepsis Sepsis Identified: No Time Spent With Patient Time: Total time spent is greater than 50% in coordination of care (as documented) at patient's floor/unit and/or counseling patient:
[2022-12-02] MEDS: ACETAMINOPHEN 325 MG TABLET PO PRN (16:50)
[2022-12-02] MEDS ORDERED: POTASSIUM CHLORIDE 20 MEQ in 0.45 % SODIUM CHLORIDE 1,000 ML IV SCH (18:00)
[2022-12-02] MEDS ORDERED: CALCIUM CARBONATE 1,250 MG/5 ML ORAL.SUSP PO ONE (18:00)
[2022-12-02] MEDS: ATORVASTATIN 40 MG TABLET PO SCH (20:07)
[2022-12-02] MEDS ORDERED: INSULIN LISPRO 1 UNIT/0.01 ML UNIT SQ ONE (20:07)
[2022-12-02 20:10] LABS: POC Calcium, Ionized 0.92 (1.16-1.32); POC Potassium 3.1 (3.3-5.1)
[2022-12-02] MEDS ORDERED: DEXTROSE 5% IN WATER 500 ML IV ONE (21:07)
[2022-12-03] MEDS: ACETAMINOPHEN 650 MG/65 ML BAG IV PRN (00:07)
[2022-12-03] MEDS: INSULIN LISPRO 1 UNIT/0.01 ML UNIT SQ SCH ×5 (04:38→20:54)
[2022-12-03] MEDS ORDERED: 0.9 % SODIUM CHLORIDE 250 ML IV SCH (05:45)
[2022-12-03] MEDS: MEROPENEM 1 GM in 0.9 % SODIUM CHLORIDE 50 ML IV SCH ×3 (05:49→20:58)
[2022-12-03] MEDS: 0.9 % SODIUM CHLORIDE 10 ML SYRINGE IV SCH ×3 (05:49→21:07)
[2022-12-03] MEDS: PANTOPRAZOLE 40 MG VIAL IV SCH ×2 (06:32→17:19)
[2022-12-03] MEDS: ONDANSETRON 4 MG/2 ML VIAL IV PRN (06:40)
[2022-12-03] MEDS: LEVOTHYROXINE 25 MCG TABLET PO SCH ×2 (06:42→09:18)
[2022-12-03 07:13] LABS: Hematocrit 25.5 % (34.1-44.9); Hemoglobin 8.5 g/dL (11.2-15.7)
[2022-12-03] MEDS ORDERED: KETAMINE 50 MG/ML ML IV PRN (07:24)
[2022-12-03] MEDS ORDERED: PROPOFOL 200 MG/20 ML VIAL IV SCH (07:30)
[2022-12-03] MEDS ORDERED: MIDAZOLAM 2 MG/2 ML VIAL IV SCH (07:30)
[2022-12-03] MEDS: DOCUSATE SODIUM 100 MG CAPSULE PO SCH ×2 (07:31→20:35)
[2022-12-03] MEDS: NYSTATIN POWDER BOTTLE 15GM TOPICAL SCH ×3 (07:31→20:58)
--- NOTE | 2022-12-03 07:58 | Internal Med Progress Note ---
SUBJECTIVE Subjective Patient information: Note initiated : 12/03/22 at 7:53 am Service Date, if different from initiated Date: [] Patient: Angela Sultana 42 y/o F admitted on 11/29/22 for HI BG. Chief Complaint: [] Principal diagnosis: Diabetic ketoacidosis; acute septicemia; upper GI bleeding Interval history: History of present illness: Ms. Sultana is a 42 year old F History is obtained from the chart as patient came in obtunded and is more responsive but still not able to give much of a history. Sound like she has been ill for the past couple days. She is given antibiotics for possible cellulitis in the right groin region which area does look pretty good today. No respiratory issues. Urinalysis pending. Per the nurse who discussed with family members that she has not been feeling very well past couple days. In the ED she was found to be in severe DKA with a pH of 7.18. And acute kidney injury with creatinine 1.5. Bicarb at 12. Lactate 2.0. she has been hypotensive in the ED. third liter bolus started right now and may need to start Levophed. Patient started on insulin drip in Ed. Mildly hypokalemic at 3.1. Pseudohyponatremia. unknown if she has been taking her insulin lately. Patient had episode of emesis with coffee-ground. will check serial H&H, protonix bolus and gtt. consult gen surgery, t&s. 11/30 Patient required 2 vasopressors last night. Still acidotic > Several amps of bi carb and albumin given with improvement in her blood pressure and decreasing need for Levophed. Melanotic stools. Severe electrolyte disturbance. A wound on her right groin / lower quadrant opened up and is draining purulent fluid. Concern for septic process. Will check CT pelvis to rule out deeper abscess. Leukocytosis and bandemia noted. Empiric antibiotics started last night. Lactic acidosis. Review of system: Unable to obtain given patient's poor mentation, she answers some questions but does not respond to most. acidosis still this morning and bicarb x2 given to improved effectiveness of vasopressors. LR bolus also given for low CVP of 2 with good result in bp/uop/vasopressor decrease. By early in the afternoon she was off vasopressin and levophed was down to 6. bicarb up to 16 and vbg pH at 7.35. Insulin gtt transitioned to SQ long-acting insulin. Electrolytes were still low (k/mag/phos) and replacement was ordered. mentation was starting to improved. renal fxn improved. ct a/p w/o contrast d/t keri done to eval for groin wound or other infection > showed possible colitis and suspected pancreatitis > lipase 572. did get dose of vanco last night and was started cefepime last night. bandemia worsened today and now febrile this afternoon. cefepime to merrem and restrted vanco while awaiting BC on continued w/u. In the afternoon the pt started to gradually and progressively worsening again. requiring increased vasopressor support again and mentation reverted to level she was at this morning, tachypnea and tachycardia increased. stat ABG showing pH 7.07, co2 <15, lactate 0.5. bicarb gtt started. repeat chemistry pending. >>>bicarb lower as expected, k/phos better, mag good, ca still low, cr mildly worse but good uop, respirations decreasing from 40's to about 30. f/u VBG with pH 7.15 up from ABG of 7.07, cont bicarb gtt, 12/01 Metabolic acidosis improving again. Mentation started to improve again, mildly. Patient now off vasopressors, although blood pressure still soft but adequate. Continuing bicarb drip. VBG pH 7.34. Pending CBC. Hypokalemia. Bicarb 14. Creatinine of 1.4 similar to yesterday. Hypocalcemia again noted. Procalcitonin improving. Electrolyte replacement follow-up. Monitor mentation. Follow-up acid-base status. Leukocytosis resolved and bandemia present but significantly improved. Hemoglobin now 8.8. Platelets 68. 12/02 Patient mentation significantly improved today. Some of her electrolytes are still deficient but gradually improving. Hemoglobin stable from yesterday and GI bleed seems to have stopped. Bedside swallow eval poor and speech therapy eval ordered. Bandemia resolved. Traffic Police Officer ry significant for hypernatremia. Hypokalemia hyperchloremia. Creatinine 1.2. Calcium low at 6. Phos mildly low. 12/03 PHYSICAL EXAM General: Awake, No acute Distress, obese Eyes/N/T: EOMI, no scleral icterus, PEERL Head/Neck: neck supple, full ROM, CV: Mildly tachycardic and regular , No murmurs, Pulm: Clear b/l, no wheezing/rhonchi/rales, no respiratory distress Abd: soft, nontender, +BS x4. groin/labia cellulitis much improved Ext: no clubbing/cyanosis, trace b/l LE edema, nontender Neuro: Answers questions appropriately , Mentation much improved patient alert and awake. Follows commands. The moves all extremities, sensations intact b/l upper/lower Psychiatric: Skin: warm/dry, normal color Constitutional Vitals: Vital Signs Temp Pulse Resp BP Pulse Ox O2 Del Method O2 Flow Rate 98.8 F 98 H 21 123/88 96 Room Air 2 12/03/22 04:11 12/03/22 07:00 12/03/22 07:00 12/03/22 07:00 12/03/22 07:00 12/03/22 07:00 12/02/22 06:00 Period Temp Pulse Resp BP Sys/Escalante Pulse Ox O2 Del Method O2 Flow Rate Last 24 Hr 97.1 F-101.0 F 98-114 17-29 106-149/65-104 91-97 Room Air-Room Air Intake and Output 12/02/22 12/03/22 12/03/22 19:59 03:59 11:59 Intake Total 2579.0909 599 615 Output Total 1400 650 225 Balance 1179.0909 -51 390 Weight 117.526 kg Intake & Output: Intake & Output 12/02/22 12/03/22 12/03/22 19:59 03:59 11:59 Intake Total 2579.0909 599 615 Output Total 1400 650 225 Balance 1179.0909 -51 390 Weight 117.526 kg Intake: IV 2099.0909 199 615 Calcium Gluconate 9.3 Meq In 70 Dextrose 5% in Water 50 ml @ 70 mls/hr IV ONCE ONE Rx#: [id number] Dextrose 5% in Water 500 ml @ 1200 500 100 mls/hr IV .Q5H ONE Rx#: [id number] Merrem 1 gm In Sodium Chloride 50 50 50 0.9% 50 ml @ 100 mls/hr IV Q8H [facility] Rx#:[id number] Potassium Chloride 20 Meq In 149 Sodium Chloride 0.45% 1,000 ml @ 75 mls/hr IV .[id number] [facility] Rx# :[id number] Potassium Chloride 40 Meq In 270 Dextrose 5% in Water 250 ml @ 67.5 mls/hr IV ONCE ONE Rx#: [id number] Potassium Phosphate 40 Meq In 509.0909 Dextrose 5% in Water 500 ml @ 127.273 mls/hr IV ONCE ONE Rx#: [id number] Oral 480 400 0 Output: Urine Catheter Amount 1400 650 225 Other: Urine Appearance Clear Clear Clear Uretheral ([place]) Clear Clear Urine Color Bright Yellow Dark Yellow Yellow Uretheral ([place]) Bright Yellow Yellow Stool Size Small Large Small Stool Color Brown Brown Brown Green Stool Consistency Liquid Liquid Liquid Loose # Bowel Movements 1 1 # of times incontinent of 1 1 Bowels OBJ DATA Labs 12/03/22 05:50 12/02/22 05:23 Labs: Abnormal Lab Results 12/03/22 12/02/22 12/02/22 05:50 20:06 16:21 WBC RBC Hgb 8.5 L Hct 25.5 L POC Hct 27.0 L 25.0 L RDW Plt Count Immature Gran % (Auto) Seg Neutrophils % Band Neutrophils % Lymphocytes % Immature Gran # Absolute Neutrophils Reactive Lymphocytes Platelet Estimate RBC Morphology Hypochromasia Anisocytosis POC VBG pH POC VBG pCO2 at Temp POC VBG pO2 POC VBG HCO3 POC VBG Total CO2 POC Venous O2 Sat POC VBG Base Excess POC Sodium 146 H Sodium POC Potassium 3.1 L 3.2 L Potassium POC Chloride 114 H 110 H Chloride Carbon Dioxide POC Total CO2 21.0 L Anion Gap POC BUN BUN Creatinine POC Creatinine Glucose POC Glucose 252 H 380 H Osmolality Calcium POC WB Ioniz Calcium 0.92 L 0.91 L Ionized Calcium Silver Phosphorus Lactate Dehydrogenase Total Protein Albumin Albumin/Globulin Ratio Triglycerides Cholesterol LDL Cholesterol, Calc Non-HDL Cholesterol HDL Cholesterol Amylase Lipase Beta-Hydroxybutyrate Procalcitonin Free T4 12/02/22 12/02/22 12/02/22 12:04 05:24 05:24 WBC RBC Hgb Hct POC Hct 25.0 L RDW Plt Count Immature Gran % (Auto) Seg Neutrophils % Band Neutrophils % Lymphocytes % Immature Gran # Absolute Neutrophils Reactive Lymphocytes Platelet Estimate RBC Morphology Hypochromasia Anisocytosis POC VBG pH POC VBG pCO2 at Temp POC VBG pO2 POC VBG HCO3 POC VBG Total CO2 POC Venous O2 Sat POC VBG Base Excess POC Sodium 146 H Sodium POC Potassium 2.9 L* Potassium POC Chloride 114 H Chloride Carbon Dioxide POC Total CO2 Anion Gap POC BUN BUN Creatinine POC Creatinine Glucose POC Glucose 281 H Osmolality Calcium POC WB Ioniz Calcium 0.87 L Ionized Calcium Silver Phosphorus Lactate Dehydrogenase Total Protein Albumin Albumin/Globulin Ratio Triglycerides Cholesterol LDL Cholesterol, Calc Non-HDL Cholesterol HDL Cholesterol Amylase Lipase Beta-Hydroxybutyrate 1.45 H Procalcitonin 1.03 H Free T4 12/02/22 12/02/22 12/01/22 05:23 05:23 20:03 WBC RBC 3.05 L Hgb 8.6 L Hct 25.2 L POC Hct 23.0 L RDW 15.8 H Plt Count 76 L Immature Gran % (Auto) Seg Neutrophils % 83 H Band Neutrophils % Lymphocytes % 10 L Immature Gran # Absolute Neutrophils Reactive Lymphocytes Platelet Estimate Decreased A RBC Morphology Abnormal A Hypochromasia 1+ A Anisocytosis 1+ A POC VBG pH POC VBG pCO2 at Temp POC VBG pO2 POC VBG HCO3 POC VBG Total CO2 POC Venous O2 Sat POC VBG Base Excess POC Sodium Sodium 148 H POC Potassium 3.2 L Potassium 2.9 L* POC Chloride 115 H Chloride 115 H Carbon Dioxide 21 L POC Total CO2 Anion Gap POC BUN 23 H BUN 21 H Creatinine 1.2 H POC Creatinine 1.3 H Glucose 176 H POC Glucose 163 H Osmolality Calcium 6.0 L POC WB Ioniz Calcium 0.87 L Ionized Calcium Silver Phosphorus 2.2 L Lactate Dehydrogenase 390 H Total Protein 4.7 L Albumin 1.9 L Albumin/Globulin Ratio 0.7 L Triglycerides 756 H Cholesterol LDL Cholesterol, Calc Non-HDL Cholesterol HDL Cholesterol Amylase Lipase 121 H Beta-Hydroxybutyrate Procalcitonin Free T4 12/01/22 12/01/22 12/01/22 19:57 17:23 14:24 WBC RBC Hgb 8.6 L Hct 24.9 L POC Hct 25.0 L RDW Plt Count Immature Gran % (Auto) Seg Neutrophils % Band Neutrophils % Lymphocytes % Immature Gran # Absolute Neutrophils Reactive Lymphocytes Platelet Estimate RBC Morphology Hypochromasia Anisocytosis POC VBG pH POC VBG pCO2 at Temp POC VBG pO2 POC VBG HCO3 POC VBG Total CO2 POC Venous O2 Sat POC VBG Base Excess POC Sodium Sodium POC Potassium 2.9 L* Potassium 2.8 L* POC Chloride 113 H Chloride Carbon Dioxide 20 L POC Total CO2 Anion Gap POC BUN 24 H BUN 29 H Creatinine 1.4 H POC Creatinine 1.3 H Glucose 299 H POC Glucose 196 H Osmolality Calcium 5.4 L* POC WB Ioniz Calcium 0.85 L Ionized Calcium Silver Phosphorus Lactate Dehydrogenase Total Protein Albumin Albumin/Globulin Ratio Triglycerides Cholesterol LDL Cholesterol, Calc Non-HDL Cholesterol HDL Cholesterol Amylase Lipase Beta-Hydroxybutyrate Procalcitonin Free T4 12/01/22 12/01/22 12/01/22 07:49 07:47 07:37 WBC RBC 3.14 L Hgb 8.8 L Hct 25.6 L POC Hct RDW 15.3 H Plt Count 68 L Immature Gran % (Auto) Seg Neutrophils % Band Neutrophils % 12 H Lymphocytes % 12 L Immature Gran # Absolute Neutrophils Reactive Lymphocytes Platelet Estimate Decreased A RBC Morphology Hypochromasia Anisocytosis POC VBG pH POC VBG pCO2 at Temp 28.6 L POC VBG pO2 46 H POC VBG HCO3 15.5 L POC VBG Total CO2 16.0 L POC Venous O2 Sat 81.0 H POC VBG Base Excess -10.0 L POC Sodium Sodium POC Potassium Potassium POC Chloride Chloride Carbon Dioxide POC Total CO2 Anion Gap POC BUN BUN Creatinine POC Creatinine Glucose POC Glucose Osmolality Calcium POC WB Ioniz Calcium Ionized Calcium Silver Phosphorus Lactate Dehydrogenase Total Protein Albumin Albumin/Globulin Ratio Triglycerides Cholesterol LDL Cholesterol, Calc Non-HDL Cholesterol HDL Cholesterol Amylase Lipase Beta-Hydroxybutyrate 3.01 H Procalcitonin Free T4 12/01/22 12/01/22 11/30/22 05:31 05:30 22:12 WBC RBC Hgb Hct POC Hct RDW Plt Count Immature Gran % (Auto) Seg Neutrophils % Band Neutrophils % Lymphocytes % Immature Gran # Absolute Neutrophils Reactive Lymphocytes Platelet Estimate RBC Morphology Hypochromasia Anisocytosis POC VBG pH 7.15 L* POC VBG pCO2 at Temp 16.0 L* POC VBG pO2 56 H POC VBG HCO3 5.6 L* POC VBG Total CO2 6.0 L POC Venous O2 Sat 81.0 H POC VBG Base Excess -23.0 L POC Sodium Sodium POC Potassium Potassium 2.7 L* POC Chloride Chloride 109 H Carbon Dioxide 14 L POC Total CO2 Anion Gap 19.0 H POC BUN BUN 33 H Creatinine 1.4 H POC Creatinine Glucose 259 H POC Glucose Osmolality Calcium 5.6 L* POC WB Ioniz Calcium Ionized Calcium Silver Phosphorus Lactate Dehydrogenase 337 H Total Protein 4.5 L Albumin 1.9 L Albumin/Globulin Ratio 0.7 L Triglycerides 1788 H Cholesterol LDL Cholesterol, Calc Non-HDL Cholesterol HDL Cholesterol Amylase Lipase 342 H Beta-Hydroxybutyrate Procalcitonin 2.65 H Free T4 11/30/22 11/30/22 11/30/22 19:55 19:55 19:55 WBC RBC Hgb Hct POC Hct RDW Plt Count Immature Gran % (Auto) Seg Neutrophils % Band Neutrophils % Lymphocytes % Immature Gran # Absolute Neutrophils Reactive Lymphocytes Platelet Estimate RBC Morphology Hypochromasia Anisocytosis POC VBG pH POC VBG pCO2 at Temp POC VBG pO2 POC VBG HCO3 POC VBG Total CO2 POC Venous O2 Sat POC VBG Base Excess POC Sodium Sodium 130 L POC Potassium Potassium POC Chloride Chloride Carbon Dioxide 8 L* POC Total CO2 Anion Gap 22.0 H POC BUN BUN 36 H Creatinine 1.4 H POC Creatinine Glucose 365 H POC Glucose Osmolality Calcium 6.0 L POC WB Ioniz Calcium Ionized Calcium Silver Phosphorus 4.6 H Lactate Dehydrogenase Total Protein Albumin Albumin/Globulin Ratio Triglycerides Cholesterol LDL Cholesterol, Calc Non-HDL Cholesterol HDL Cholesterol Amylase Lipase Beta-Hydroxybutyrate 6.75 H Procalcitonin Free T4 0.52 L 11/30/22 11/30/22 11/30/22 12:14 12:14 12:14 WBC RBC Hgb Hct POC Hct RDW Plt Count Immature Gran % (Auto) Seg Neutrophils % Band Neutrophils % Lymphocytes % Immature Gran # Absolute Neutrophils Reactive Lymphocytes Platelet Estimate RBC Morphology Hypochromasia Anisocytosis POC VBG pH POC VBG pCO2 at Temp 23.9 L POC VBG pO2 48 H POC VBG HCO3 13.2 L POC VBG Total CO2 14.0 L POC Venous O2 Sat 83.0 H POC VBG Base Excess -12.0 L POC Sodium Sodium POC Potassium Potassium POC Chloride Chloride Carbon Dioxide POC Total CO2 Anion Gap POC BUN BUN Creatinine POC Creatinine Glucose POC Glucose Osmolality Calcium POC WB Ioniz Calcium Ionized Calcium Silver Phosphorus Lactate Dehydrogenase Total Protein Albumin Albumin/Globulin Ratio Triglycerides Cholesterol LDL Cholesterol, Calc Non-HDL Cholesterol HDL Cholesterol Amylase 449 H Lipase 572 H Beta-Hydroxybutyrate Procalcitonin Free T4 11/30/22 11/30/22 11/30/22 12:11 10:54 05:21 WBC 12.6 H RBC Hgb Hct POC Hct RDW 14.7 H Plt Count Immature Gran % (Auto) 1.0 H Seg Neutrophils % Band Neutrophils % Lymphocytes % Immature Gran # 0.12 H Absolute Neutrophils 9.60 H Reactive Lymphocytes Platelet Estimate RBC Morphology Hypochromasia Anisocytosis POC VBG pH POC VBG pCO2 at Temp POC VBG pO2 POC VBG HCO3 POC VBG Total CO2 POC Venous O2 Sat POC VBG Base Excess POC Sodium Sodium POC Potassium Potassium 2.7 L* POC Chloride Chloride Carbon Dioxide 16 L POC Total CO2 Anion Gap POC BUN BUN 35 H Creatinine POC Creatinine Glucose 138 H POC Glucose Osmolality Calcium 5.9 L* POC WB Ioniz Calcium Ionized Calcium Silver 0.84 L Phosphorus 1.0 L Lactate Dehydrogenase Total Protein Albumin Albumin/Globulin Ratio Triglycerides Cholesterol LDL Cholesterol, Calc Non-HDL Cholesterol HDL Cholesterol Amylase Lipase Beta-Hydroxybutyrate Procalcitonin Free T4 11/30/22 11/30/22 11/30/22 05:20 05:20 05:20 WBC RBC Hgb Hct POC Hct RDW Plt Count Immature Gran % (Auto) Seg Neutrophils % 30 L Band Neutrophils % 42 H Lymphocytes % Immature Gran # Absolute Neutrophils Reactive Lymphocytes 3 H Platelet Estimate RBC Morphology Hypochromasia Anisocytosis POC VBG pH POC VBG pCO2 at Temp POC VBG pO2 POC VBG HCO3 POC VBG Total CO2 POC Venous O2 Sat POC VBG Base Excess POC Sodium Sodium POC Potassium Potassium POC Chloride Chloride Carbon Dioxide POC Total CO2 Anion Gap POC BUN BUN Creatinine POC Creatinine Glucose POC Glucose Osmolality 303 H Calcium POC WB Ioniz Calcium Ionized Calcium Silver Phosphorus Lactate Dehydrogenase Total Protein Albumin Albumin/Globulin Ratio Triglycerides 931 H Cholesterol 500 H LDL Cholesterol, Calc H Non-HDL Cholesterol 491 H HDL Cholesterol 9 L Amylase Lipase Beta-Hydroxybutyrate Procalcitonin Free T4 Meds: Medications Acetaminophen (Acetaminophen 325 Mg Tablet) 650 mg PO Q6HP PRN; Protocol PRN Reason: Per Pain Protocol/Fever > 101 Last Admin: 12/02/22 16:50 Dose: 650 mg Albuterol/Ipratropium (Ipratropium/Albuterol 3 Ml Ampul.Neb) 3 ml NEB Q4HP PRN PRN Reason: Shortness Of Breath Atorvastatin Calcium (Atorvastatin 40 Mg Tablet) 40 mg PO HS DEX Last Admin: 12/02/22 20:07 Dose: 40 mg Dextrose (Dextrose 50% 50 Ml Vial) 0 ml IV UD PRN PRN Reason: Per Sliding Scale Diagnostic Test (Pha) (Accu-Chek 1 Each Strip) 1 each FS Q4 DEX Last Admin: 12/03/22 07:21 Dose: 1 each Diagnostic Test (Pha) (Accu-Chek 1 Each Strip) 1 each FS UD PRN PRN Reason: DM Stop: 12/03/22 15:24 Docusate Sodium (Docusate Sodium 100 Mg Capsule) 100 mg PO BID [facility] Last Admin: 12/03/22 07:31 Dose: Not Given Glucose (Dextrose 31 Gm Oral.Susp) 15 gm PO PRN PRN PRN Reason: Hypoglycemia Potassium Chloride 40 meq/ (Dextrose) 520 mls @ 130 mls/hr IV UD PRN PRN Reason: Potassium < 3 Last Infusion: 12/01/22 15:39 Dose: Infused Magnesium Sulfate (Magnesium Sulfate) 2 gm in 50 mls @ 50 mls/hr IV UD PRN PRN Reason: Magnesium </= 1.6 Acetaminophen (Ofirmev) 650 mg in 65 mls @ 130 mls/hr IV Q6HP PRN; Protocol PRN Reason: PAIN/FEVER > 101 Last Infusion: 12/03/22 04:50 Dose: Infused Meropenem 1 gm/ Sodium (Chloride) 50 mls @ 100 mls/hr IV Q8H [facility] Last Infusion: 12/03/22 06:23 Dose: Infused Vasopressin 20 unit/ Dextrose 100 mls @ 12 mls/hr IV Q8HP PRN; Protocol PRN Reason: Hypotension Norepinephrine Bitartrate 8 mg (/ Sodium Chloride) 250 mls @ 18.75 mls/hr IV Q12HP PRN; Protocol PRN Reason: Hypotension Dexmedetomidine HCl 400 mcg/ (Premix) 100 mls @ 5.396 mls/hr IV .[id number] PRN; Protocol PRN Reason: Sedation Insulin Human Regular 50 unit/ (Sodium Chloride) 100 mls @ 20 mls/hr IV DUR [facility]; Protocol Last Titration: 12/01/22 21:34 Dose: Infused Sodium Chloride (Sodium Chloride 0.9%) 250 mls @ 20 mls/hr IV .[id number] [facility] Stop: 12/03/22 18:14 Last Admin: 12/03/22 05:49 Dose: Not Given Insulin Glargine (Insulin Glargine, Human 1 Unit/0.01 Ml) 50 unit SQ BID [facility] Last Admin: 12/02/22 20:07 Dose: 50 units Insulin Human Lispro (Insulin Lispro 1 Unit/0.01 Ml Unit) 0 unit SQ Q4H [facility]; Protocol Last Admin: 12/03/22 07:31 Dose: Not Given Ketamine HCl (Ketamine 50 Mg/Ml Ml) 50 mg IV ONCE PRN PRN Reason: Sedation Stop: 12/03/22 15:24 Levothyroxine Sodium (Levothyroxine 25 Mcg Tablet) 25 mcg PO QAMAC [facility] Last Admin: 12/03/22 06:42 Dose: Not Given Metoclopramide HCl (Metoclopramide 10 Mg/2 Ml Vial) 10 mg IV Q6HP PRN PRN Reason: Nausea And Vomiting Last Admin: 11/30/22 10:35 Dose: 10 mg Midazolam HCl (Midazolam 2 Mg/2 Ml Vial) 0 mg IV ONCE [facility] Stop: 12/03/22 15:24 Nystatin (Nystatin Powder Bottle 15gm) 1 dose TOPICAL TID [facility] Last Admin: 12/03/22 07:31 Dose: 1 dose Ondansetron HCl (Ondansetron 4 Mg/2 Ml Vial) 4 mg IV Q4HP PRN PRN Reason: Nausea And Vomiting Last Admin: 12/03/22 06:40 Dose: 4 mg Pantoprazole Sodium (Pantoprazole 40 Mg Vial) 40 mg IV BIDAC [facility] Last Admin: 12/03/22 06:32 Dose: 40 mg Polyethylene Glycol (Polyethylene Glycol 3350 17 Gm Packet) 17 gm PO DAILYP PRN PRN Reason: Constipation Potassium Chloride (Potassium Chloride 20 Meq Tablet) 40 meq PO UD PRN PRN Reason: Potssium is 3-3.5 Potassium Chloride (Potassium Chloride 20 Meq Tablet) 40 meq PO UD PRN PRN Reason: Potassium < 3 Propofol (Propofol 200 Mg/20 Ml Vial) 0 mg IV UD [facility] Stop: 12/03/22 15:24 Senna (Sennosides 1 Tablet) 2 tab PO DAILYP PRN PRN Reason: Constipation Sodium Chloride (0.9 % Sodium Chloride 10 Ml Syringe) 10 ml IV Q8 [facility] Last Admin: 12/03/22 05:49 Dose: 10 ml Sodium Chloride (0.9 % Sodium Chloride 10 Ml Syringe) 10 ml IV UD PRN PRN Reason: between meds Last Admin: 11/30/22 00:07 Dose: 10 ml Sodium Chloride (0.9 % Sodium Chloride 10 Ml Syringe) 10 ml IV Q12 DEX Last Admin: 12/02/22 20:08 Dose: 10 ml ABG Interpretation ABG results: 11/30/22 05:21 ABG Methemoglobin 0.3 L VBG pH 7.18 L* VBG pCO2 30.0 L VBG pO2 58.7 H VBG HCO3 11.0 L VBG Total CO2 12.0 L VBG O2 Saturation 85.9 H VBG Base Excess -16 L A/P Narrative A/P Narrative: A: *severe DKA (DM2, poorly controlled): improved -A1c 12.9 *severe Metabolic/Lactic acidosis: lactic acidosis resolved, metabolic acidosis improving *Hypovolemic/Septic shock: resolved -febrile again o/n, leukocytosis w/bandemia improving *R groin cellulitis/superficial draining abscess: seen by surgeon, no need for I&D. much improved *Encephalopathy: multifactorial 2/2 above,much improvement today -uds neg *Oropharyngeal dysphagia, mod-sev: *acute Pancreatitis: improved *KERI, concern initially for ATN: 2/2 above initially improved then worsened, improved again *UGIB: EGD (12/03) with Esophagitis/duodenitis and fungal infection *Esophageal candidiasis *Acute blood loss anemia: 2/2 above, + dilutional *Severe electrolyte d/o (hypocalcemia/hypokalemia/Hypomagnesemia/Hypophos/hypernatremia): *Thrombocytopenia: Multifactorial, monitor *Atelectasis: IS *Morbid obesity: BMI 43, lifestyle modification *HLD: *Hypothyroidism: tsh wnl *HLD/Hypertriglyceridemia: P: -cont SQ basal (titrate up) and ssi -prn IVF -Monitor UOP/renal function/i&o -Monitor replace electrolytes, recheck today -merrem, vanco d/c, WC/BC pending, redraw BC's for fevers -Dr. Han consulted for EGD -monitor H&H/plt, transfuse for 8 or less -protonix bid -Fluconazole 14-21 days -diet per ST -IS -statin -Hold home HCTZ and hyperlipidema -PT/OT -ppx: SCD(no chemical for UGIB) / ppi Time Spent With Patient Time: Total time spent is greater than 50% in coordination of care (as documented) at patient's floor/unit and/or counseling patient: Subsequent: Total time with patient: 50 - 65 Minutes QUALITY Stroke Symptom Onset Unknown: No VTE Deep Vein Thrombosis/Pulmonary Embolism Present on Admission: No Restraints Restraint In Place: No
[2022-12-03 08:19] LABS: ALT/SGPT 9 U/L (<40); AST/SGOT 14 U/L (<32); Albumin/Globulin Ratio 0.7 (1.0-2.3); Alkaline Phosphatase 79 U/L (39-117); Bilirubin,Direct < 0.2 mg/dL (0-0.3); Bilirubin,Total 0.2 mg/dL (0.1-1.0); Blood Urea Nitrogen 16 mg/dL (6-20); Calcium 6.2 mg/dL (8.6-10.4); Carbon Dioxide 23 mmol/L (22-30); Chloride 113 mmol/L (96-108); Globulin 2.8 gm/dL (2.2-3.7); Glomerular Filtration Rate 92; Glucose 153 mg/dL (70-105); Lactate Dehydrogenase 530 U/L (135-225); Phosphorous 1.6 mg/dL (2.5-4.5); Triglycerides 513 mg/dL (<150); Uric Acid 4.2 mg/dL (2.5-8.0)
[2022-12-03] MEDS ORDERED: CALCIUM GLUCONATE 4.65 MEQ in DEXTROSE 5% IN WATER 50 ML IV ONE (08:26)
[2022-12-03] MEDS ORDERED: CALCIUM CARBONATE 1,250 MG/5 ML ORAL.SUSP PO ONE (08:45)
[2022-12-03] MEDS: POTASSIUM CHLORIDE 40 MEQ in DEXTROSE 5% IN WATER 500 ML IV PRN (08:52)
[2022-12-03] MEDS: PHOSPHORUS 250 MG TABLET PO SCH ×2 (09:18→20:41)
[2022-12-03] MEDS: INSULIN GLARGINE, HUMAN 1 UNIT/0.01 ML SQ SCH ×2 (09:18→20:57)
[2022-12-03] MEDS: NEUTRA PHOS 1 PACKET PO SCH ×2 (09:18→20:38)
[2022-12-03] MEDS ORDERED: PROPOFOL 200 MG/20 ML VIAL IV ONE (13:46)
[2022-12-03] MEDS ORDERED: LIDOCAINE HCL/PF 100 MG/5 ML SYRINGE IV ONE (13:46)
--- NOTE | 2022-12-03 14:16 | Brief Operative Note ---
Brief Operative Note Date of procedure: 12/03/22 Pre-op diagnosis: Upper GI bleeding; acute blood loss anemia; ketoacidosis Post-op diagnosis: other (Severe mobile esophagitis healing erosions of distal esophagus and GE junction; gastroparesis; no active bleeding) Procedure: EGD Grafts/Implants: No Anesthesia: MAC Findings: Oral thrush with severe monilial esophagitis extending from cricopharyngeus to the GE junction; multiple areas of healing in the mid esophagus with old blood beneath fresh eschar acute erosion and inflammation at GE junction without active bleeding; large volume retained gastric and bilious juice stomach; minimal peristalsis of the stomach; pylorus normal; acute duodenitis without ulceration; no active bleeding Complications: none Surgeon: Martha Han Estimated blood loss (cc): 0 Specimens Removed/Pathology: none sent Condition: stable Disposition: ICU
[2022-12-03] MEDS: NYSTATIN 500,000 UNITS/5 ML ORAL.SUSP SSW SCH ×2 (17:43→20:38)
[2022-12-03] MEDS ORDERED: FLUCONAZOLE 400 MG/200 ML BAG IV ONE (18:00)
[2022-12-03] MEDS: ATORVASTATIN 40 MG TABLET PO SCH (20:38)
[2022-12-04] MEDS: INSULIN LISPRO 1 UNIT/0.01 ML UNIT SQ SCH ×6 (01:54→21:31)
[2022-12-04] MEDS: MEROPENEM 1 GM in 0.9 % SODIUM CHLORIDE 50 ML IV SCH (05:18)
[2022-12-04] MEDS: 0.9 % SODIUM CHLORIDE 10 ML SYRINGE IV SCH ×3 (05:19→22:35)
[2022-12-04 06:50] LABS: Basophils # (Auto) 0.01 K/mcL (0.00-0.30); Basophils % (Auto) 0.1 % (0.0-2.0); Eosinophils # (Auto) 0.06 K/mcL (0.00-0.70); Eosinophils % (Auto) 0.8 % (0.0-7.0); Hematocrit 26.8 % (34.1-44.9); Hemoglobin 8.7 g/dL (11.2-15.7); Lymphocytes # (Auto) 1.74 K/mcL (1.50-4.80); Lymphocytes % (Auto) 21.9 % (15.5-49.0); Mean Cell Volume 86.5 fL (80.0-100.0); Mean Corpuscular HGB Conc 32.5 g/dL (31.0-36.0); Mean Platelet Volume 10.6 fL (8.8-12.5); Monocytes # (Auto) 1.31 K/mcL (0.10-0.90); Monocytes % (Auto) 16.5 % (1.0-12.0); Neutrophils % (Auto) 59.4 % (38.0-78.0); Platelet Count 184 K/mcL (140-440); Red Cell Distribution Width 17.2 % (11.5-14.5)
[2022-12-04 07:20] LABS: ALT/SGPT 8 U/L (<40); AST/SGOT 10 U/L (<32); Albumin 2.1 gm/dL (3.2-5.2); Albumin/Globulin Ratio 0.8 (1.0-2.3); Alkaline Phosphatase 92 U/L (39-117); Bilirubin,Direct < 0.2 mg/dL (0-0.3); Bilirubin,Total 0.2 mg/dL (0.1-1.0); Blood Urea Nitrogen 14 mg/dL (6-20); Calcium 6.6 mg/dL (8.6-10.4); Carbon Dioxide 23 mmol/L (22-30); Chloride 113 mmol/L (96-108); Globulin 2.6 gm/dL (2.2-3.7); Glomerular Filtration Rate 108; Glucose 142 mg/dL (70-105); Lactate Dehydrogenase 432 U/L (135-225); Phosphorous 2.1 mg/dL (2.5-4.5); Triglycerides 489 mg/dL (<150); Uric Acid 3.5 mg/dL (2.5-8.0)
[2022-12-04] MEDS: PANTOPRAZOLE 40 MG VIAL IV SCH ×2 (07:32→17:36)
[2022-12-04] MEDS: LEVOTHYROXINE 25 MCG TABLET PO SCH (07:32)
[2022-12-04] MEDS ORDERED: POTASSIUM PHOSPHATE 40 MEQ in DEXTROSE 5% IN WATER 500 ML IV ONE (07:42)
[2022-12-04] MEDS ORDERED: SPIRONOLACTONE 25 MG TABLET PO ONE (07:43)
[2022-12-04] MEDS ORDERED: CALCIUM GLUCONATE 4.65 MEQ/10 ML VIAL IV ONE (07:43)
--- NOTE | 2022-12-04 07:47 | Internal Med Progress Note ---
SUBJECTIVE Subjective Patient information: Note initiated : 12/04/22 at 7:40 am Service Date, if different from initiated Date: [] Patient: Angela Sultana 42 y/o F admitted on 11/29/22 for HI BG. Chief Complaint: [] Principal diagnosis: Diabetic ketoacidosis; acute septicemia; upper GI bleeding Interval history: History of present illness: Ms. Sultana is a 42 year old F History is obtained from the chart as patient came in obtunded and is more responsive but still not able to give much of a history. Sound like she has been ill for the past couple days. She is given antibiotics for possible cellulitis in the right groin region which area does look pretty good today. No respiratory issues. Urinalysis pending. Per the nurse who discussed with family members that she has not been feeling very well past couple days. In the ED she was found to be in severe DKA with a pH of 7.18. And acute kidney injury with creatinine 1.5. Bicarb at 12. Lactate 2.0. she has been hypotensive in the ED. third liter bolus started right now and may need to start Levophed. Patient started on insulin drip in Ed. Mildly hypokalemic at 3.1. Pseudohyponatremia. unknown if she has been taking her insulin lately. Patient had episode of emesis with coffee-ground. will check serial H&H, protonix bolus and gtt. consult gen surgery, t&s. 11/30 Patient required 2 vasopressors last night. Still acidotic > Several amps of bi carb and albumin given with improvement in her blood pressure and decreasing need for Levophed. Melanotic stools. Severe electrolyte disturbance. A wound on her right groin / lower quadrant opened up and is draining purulent fluid. Concern for septic process. Will check CT pelvis to rule out deeper abscess. Leukocytosis and bandemia noted. Empiric antibiotics started last night. Lactic acidosis. Review of system: Unable to obtain given patient's poor mentation, she answers some questions but does not respond to most. acidosis still this morning and bicarb x2 given to improved effectiveness of vasopressors. LR bolus also given for low CVP of 2 with good result in bp/uop/vasopressor decrease. By early in the afternoon she was off vasopressin and levophed was down to 6. bicarb up to 16 and vbg pH at 7.35. Insulin gtt transitioned to SQ long-acting insulin. Electrolytes were still low (k/mag/phos) and replacement was ordered. mentation was starting to improved. renal fxn improved. ct a/p w/o contrast d/t keri done to eval for groin wound or other infection > showed possible colitis and suspected pancreatitis > lipase 572. did get dose of vanco last night and was started cefepime last night. bandemia worsened today and now febrile this afternoon. cefepime to merrem and restrted vanco while awaiting BC on continued w/u. In the afternoon the pt started to gradually and progressively worsening again. requiring increased vasopressor support again and mentation reverted to level she was at this morning, tachypnea and tachycardia increased. stat ABG showing pH 7.07, co2 <15, lactate 0.5. bicarb gtt started. repeat chemistry pending. >>>bicarb lower as expected, k/phos better, mag good, ca still low, cr mildly worse but good uop, respirations decreasing from 40's to about 30. f/u VBG with pH 7.15 up from ABG of 7.07, cont bicarb gtt, 12/01 Metabolic acidosis improving again. Mentation started to improve again, mildly. Patient now off vasopressors, although blood pressure still soft but adequate. Continuing bicarb drip. VBG pH 7.34. Pending CBC. Hypokalemia. Bicarb 14. Creatinine of 1.4 similar to yesterday. Hypocalcemia again noted. Procalcitonin improving. Electrolyte replacement follow-up. Monitor mentation. Follow-up acid-base status. Leukocytosis resolved and bandemia present but significantly improved. Hemoglobin now 8.8. Platelets 68. 12/02 Patient mentation significantly improved today. Some of her electrolytes are still deficient but gradually improving. Hemoglobin stable from yesterday and GI bleed seems to have stopped. Bedside swallow eval poor and speech therapy eval ordered. Bandemia resolved. Study Abroad Ad[employer] ry significant for hypernatremia. Hypokalemia hyperchloremia. Creatinine 1.2. Calcium low at 6. Phos mildly low. 12/03 Patient continues to feel better. Mentation much improved. Voice less raspy. No overnight event or new complaints. Hypocalcium Lauren hypokalemia hypophosphatemia to be replaced. Hypotonic IV for mild hyponatremia. Blood cultures and other cultures are negative thus far. Vancomycin was DC'd. De- escalate Merrem soon. Patient is now been afebrile for 30 hours. PHYSICAL EXAM General: Awake, No acute Distress, obese Eyes/N/T: EOMI, no scleral icterus Head/Neck: neck supple, full ROM, CV: Mildly tachycardic and regular , No murmurs, Pulm: Clear b/l, no wheezing/rhonchi/rales, no respiratory distress Abd: soft, nontender, +BS x4. groin/labia cellulitis much improved Ext: no clubbing/cyanosis, mild b/l LE edema, nontender Neuro: Alert. No focal deficits. Moves all extremities, sensations intact b/l upper/lower Psychiatric: Skin: warm/dry, normal color Constitutional Vitals: Vital Signs Temp Pulse Resp BP Pulse Ox O2 Del Method O2 Flow Rate 97.7 F 93 H 17 127/87 100 Room Air 1 12/04/22 04:00 12/04/22 06:00 12/04/22 06:00 12/04/22 06:00 12/04/22 06:00 12/04/22 06:00 12/04/22 02:00 Period Temp Pulse Resp BP Sys/Escalante Pulse Ox O2 Del Method O2 Flow Rate Last 24 Hr 97.0 F-97.8 F 87-133 15-28 90-127/39-90 88-100 Nasal Cannula- Room Air 1-5 Intake and Output 12/03/22 12/04/22 12/04/22 19:59 03:59 11:59 Intake Total 570 590 250 Output Total 610 915 245 Balance -40 -325 5 Weight 115.711 kg Intake & Output: Intake & Output 12/03/22 12/04/22 12/04/22 19:59 03:59 11:59 Intake Total 570 590 250 Output Total 610 915 245 Balance -40 -325 5 Weight 115.711 kg Intake: IV 570 50 250 Merrem 1 gm In Sodium Chloride 50 50 50 0.9% 50 ml @ 100 mls/hr IV Q8H [facility] Rx#:[id number] Potassium Chloride 40 Meq In 520 Dextrose 5% in Water 500 ml @ 130 mls/hr IV UD PRN Rx#: [id number] Oral 540 Output: Urine Catheter Amount 550 640 170 Void Amount 60 Urine/Stool Mix 125 Stool 150 75 Other: Urine Appearance Clear Clear Clear Urine Color Yellow Light Jessie Yellow Urine Odor Normal Normal Normal Stool Size Moderate Moderate Stool Color Brown Brown Yellow Yellow Yellow Green Green Stool Consistency Loose Loose Loose # Bowel Movements 1 2 # of times incontinent of 1 Bowels OBJ DATA Labs 12/04/22 05:39 12/04/22 05:39 Labs: Abnormal Lab Results 12/04/22 12/04/22 12/03/22 05:39 05:39 05:50 RBC 3.10 L Hgb 8.7 L Hct 26.8 L POC Hct RDW 17.2 H Plt Count 118 L Immature Gran % (Auto) 1.3 H Iron % (Auto) 16.5 H Iron # (Auto) 1.31 H Seg Neutrophils % Band Neutrophils % Lymphocytes % Immature Gran # 0.10 H Platelet Estimate RBC Morphology Hypochromasia Anisocytosis POC VBG pCO2 at Temp POC VBG pO2 POC VBG HCO3 POC VBG Total CO2 POC Venous O2 Sat POC VBG Base Excess POC Sodium Sodium 147 H POC Potassium Potassium 2.5 L* POC Chloride Chloride 113 H Carbon Dioxide POC Total CO2 Anion Gap POC BUN BUN Creatinine POC Creatinine Glucose 142 H POC Glucose Calcium 6.6 L POC WB Ioniz Calcium Phosphorus 2.1 L Lactate Dehydrogenase 432 H Total Protein 4.7 L Albumin 2.1 L Albumin/Globulin Ratio 0.8 L Triglycerides 489 H Lipase Beta-Hydroxybutyrate Procalcitonin 12/03/22 12/03/22 12/02/22 05:50 05:50 20:06 RBC Hgb 8.5 L Hct 25.5 L POC Hct 27.0 L RDW Plt Count Immature Gran % (Auto) Iron % (Auto) Iron # (Auto) Seg Neutrophils % Band Neutrophils % Lymphocytes % Immature Gran # Platelet Estimate RBC Morphology Hypochromasia Anisocytosis POC VBG pCO2 at Temp POC VBG pO2 POC VBG HCO3 POC VBG Total CO2 POC Venous O2 Sat POC VBG Base Excess POC Sodium 146 H Sodium POC Potassium 3.1 L Potassium 2.7 L* POC Chloride 114 H Chloride 113 H Carbon Dioxide POC Total CO2 21.0 L Anion Gap POC BUN BUN Creatinine POC Creatinine Glucose 153 H POC Glucose 252 H Calcium 6.2 L POC WB Ioniz Calcium 0.92 L Phosphorus 1.6 L Lactate Dehydrogenase 530 H Total Protein 4.8 L Albumin 2.0 L Albumin/Globulin Ratio 0.7 L Triglycerides 513 H Lipase Beta-Hydroxybutyrate Procalcitonin 12/02/22 12/02/22 12/02/22 16:21 12:04 05:24 RBC Hgb Hct POC Hct 25.0 L 25.0 L RDW Plt Count Immature Gran % (Auto) Iron % (Auto) Iron # (Auto) Seg Neutrophils % Band Neutrophils % Lymphocytes % Immature Gran # Platelet Estimate RBC Morphology Hypochromasia Anisocytosis POC VBG pCO2 at Temp POC VBG pO2 POC VBG HCO3 POC VBG Total CO2 POC Venous O2 Sat POC VBG Base Excess POC Sodium 146 H Sodium POC Potassium 3.2 L 2.9 L* Potassium POC Chloride 110 H 114 H Chloride Carbon Dioxide POC Total CO2 Anion Gap POC BUN BUN Creatinine POC Creatinine Glucose POC Glucose 380 H 281 H Calcium POC WB Ioniz Calcium 0.91 L 0.87 L Phosphorus Lactate Dehydrogenase Total Protein Albumin Albumin/Globulin Ratio Triglycerides Lipase Beta-Hydroxybutyrate 1.45 H Procalcitonin 12/02/22 12/02/22 12/02/22 05:24 05:23 05:23 RBC 3.05 L Hgb 8.6 L Hct 25.2 L POC Hct RDW 15.8 H Plt Count 76 L Immature Gran % (Auto) Iron % (Auto) Iron # (Auto) Seg Neutrophils % 83 H Band Neutrophils % Lymphocytes % 10 L Immature Gran # Platelet Estimate Decreased A RBC Morphology Abnormal A Hypochromasia 1+ A Anisocytosis 1+ A POC VBG pCO2 at Temp POC VBG pO2 POC VBG HCO3 POC VBG Total CO2 POC Venous O2 Sat POC VBG Base Excess POC Sodium Sodium 148 H POC Potassium Potassium 2.9 L* POC Chloride Chloride 115 H Carbon Dioxide 21 L POC Total CO2 Anion Gap POC BUN BUN 21 H Creatinine 1.2 H POC Creatinine Glucose 176 H POC Glucose Calcium 6.0 L POC WB Ioniz Calcium Phosphorus 2.2 L Lactate Dehydrogenase 390 H Total Protein 4.7 L Albumin 1.9 L Albumin/Globulin Ratio 0.7 L Triglycerides 756 H Lipase 121 H Beta-Hydroxybutyrate Procalcitonin 1.03 H 12/01/22 12/01/22 12/01/22 20:03 19:57 17:23 RBC Hgb 8.6 L Hct 24.9 L POC Hct 23.0 L 25.0 L RDW Plt Count Immature Gran % (Auto) Iron % (Auto) Iron # (Auto) Seg Neutrophils % Band Neutrophils % Lymphocytes % Immature Gran # Platelet Estimate RBC Morphology Hypochromasia Anisocytosis POC VBG pCO2 at Temp POC VBG pO2 POC VBG HCO3 POC VBG Total CO2 POC Venous O2 Sat POC VBG Base Excess POC Sodium Sodium POC Potassium 3.2 L 2.9 L* Potassium POC Chloride 115 H 113 H Chloride Carbon Dioxide POC Total CO2 Anion Gap POC BUN 23 H 24 H BUN Creatinine POC Creatinine 1.3 H 1.3 H Glucose POC Glucose 163 H 196 H Calcium POC WB Ioniz Calcium 0.87 L 0.85 L Phosphorus Lactate Dehydrogenase Total Protein Albumin Albumin/Globulin Ratio Triglycerides Lipase Beta-Hydroxybutyrate Procalcitonin 12/01/22 12/01/22 12/01/22 14:24 07:49 07:47 RBC Hgb Hct POC Hct RDW Plt Count Immature Gran % (Auto) Iron % (Auto) Iron # (Auto) Seg Neutrophils % Band Neutrophils % Lymphocytes % Immature Gran # Platelet Estimate RBC Morphology Hypochromasia Anisocytosis POC VBG pCO2 at Temp 28.6 L POC VBG pO2 46 H POC VBG HCO3 15.5 L POC VBG Total CO2 16.0 L POC Venous O2 Sat 81.0 H POC VBG Base Excess -10.0 L POC Sodium Sodium POC Potassium Potassium 2.8 L* POC Chloride Chloride Carbon Dioxide 20 L POC Total CO2 Anion Gap POC BUN BUN 29 H Creatinine 1.4 H POC Creatinine Glucose 299 H POC Glucose Calcium 5.4 L* POC WB Ioniz Calcium Phosphorus Lactate Dehydrogenase Total Protein Albumin Albumin/Globulin Ratio Triglycerides Lipase Beta-Hydroxybutyrate 3.01 H Procalcitonin 12/01/22 12/01/22 12/01/22 07:37 05:31 05:30 RBC 3.14 L Hgb 8.8 L Hct 25.6 L POC Hct RDW 15.3 H Plt Count 68 L Immature Gran % (Auto) Iron % (Auto) Iron # (Auto) Seg Neutrophils % Band Neutrophils % 12 H Lymphocytes % 12 L Immature Gran # Platelet Estimate Decreased A RBC Morphology Hypochromasia Anisocytosis POC VBG pCO2 at Temp POC VBG pO2 POC VBG HCO3 POC VBG Total CO2 POC Venous O2 Sat POC VBG Base Excess POC Sodium Sodium POC Potassium Potassium 2.7 L* POC Chloride Chloride 109 H Carbon Dioxide 14 L POC Total CO2 Anion Gap 19.0 H POC BUN BUN 33 H Creatinine 1.4 H POC Creatinine Glucose 259 H POC Glucose Calcium 5.6 L* POC WB Ioniz Calcium Phosphorus Lactate Dehydrogenase 337 H Total Protein 4.5 L Albumin 1.9 L Albumin/Globulin Ratio 0.7 L Triglycerides 1788 H Lipase 342 H Beta-Hydroxybutyrate Procalcitonin 2.65 H Meds: Medications Acetaminophen (Acetaminophen 325 Mg Tablet) 650 mg PO Q6HP PRN; Protocol PRN Reason: Per Pain Protocol/Fever > 101 Last Admin: 12/02/22 16:50 Dose: 650 mg Albuterol/Ipratropium (Ipratropium/Albuterol 3 Ml Ampul.Neb) 3 ml NEB Q4HP PRN PRN Reason: Shortness Of Breath Atorvastatin Calcium (Atorvastatin 40 Mg Tablet) 40 mg PO HS [facility] Last Admin: 12/03/22 20:38 Dose: 40 mg Dextrose (Dextrose 50% 50 Ml Vial) 0 ml IV UD PRN PRN Reason: Per Sliding Scale Diagnostic Test (Pha) (Accu-Chek 1 Each Strip) 1 each FS Q4 [facility] Last Admin: 12/04/22 04:05 Dose: 1 each Docusate Sodium (Docusate Sodium 100 Mg Capsule) 100 mg PO BID [facility] Last Admin: 12/03/22 20:35 Dose: Not Given Fluconazole (Fluconazole 100 Mg Tablet) 400 mg PO DAILY [facility]; Protocol Stop: 12/16/22 09:01 Glucose (Dextrose 31 Gm Oral.Susp) 15 gm PO PRN PRN PRN Reason: Hypoglycemia Potassium Chloride 40 meq/ (Dextrose) 520 mls @ 130 mls/hr IV UD PRN PRN Reason: Potassium < 3 Last Infusion: 12/03/22 13:58 Dose: Infused Magnesium Sulfate (Magnesium Sulfate) 2 gm in 50 mls @ 50 mls/hr IV UD PRN PRN Reason: Magnesium </= 1.6 Acetaminophen (Ofirmev) 650 mg in 65 mls @ 130 mls/hr IV Q6HP PRN; Protocol PRN Reason: PAIN/FEVER > 101 Last Infusion: 12/03/22 04:50 Dose: Infused Meropenem 1 gm/ Sodium (Chloride) 50 mls @ 100 mls/hr IV Q8H [facility] Last Infusion: 12/04/22 05:59 Dose: Infused Vasopressin 20 unit/ Dextrose 100 mls @ 12 mls/hr IV Q8HP PRN; Protocol PRN Reason: Hypotension Norepinephrine Bitartrate 8 mg (/ Sodium Chloride) 250 mls @ 18.75 mls/hr IV Q12HP PRN; Protocol PRN Reason: Hypotension Dexmedetomidine HCl 400 mcg/ (Premix) 100 mls @ 5.396 mls/hr IV .[id number] PRN; Protocol PRN Reason: Sedation Insulin Human Regular 50 unit/ (Sodium Chloride) 100 mls @ 20 mls/hr IV DUR [facility]; Protocol Last Titration: 12/01/22 21:34 Dose: Infused Insulin Glargine (Insulin Glargine, Human 1 Unit/0.01 Ml) 50 unit SQ BID [facility] Last Admin: 12/03/22 20:57 Dose: 50 units Insulin Human Lispro (Insulin Lispro 1 Unit/0.01 Ml Unit) 0 unit SQ Q4H [facility]; Protocol Last Admin: 12/04/22 04:06 Dose: Not Given Levothyroxine Sodium (Levothyroxine 25 Mcg Tablet) 25 mcg PO QAMAC [facility] Last Admin: 12/03/22 09:18 Dose: 25 mcg Metoclopramide HCl (Metoclopramide 10 Mg/2 Ml Vial) 10 mg IV Q6HP PRN PRN Reason: Nausea And Vomiting Last Admin: 11/30/22 10:35 Dose: 10 mg Nystatin (Nystatin Powder Bottle 15gm) 1 dose TOPICAL TID [facility] Last Admin: 12/03/22 20:58 Dose: 1 dose Nystatin (Nystatin 500,000 Units/5 Ml Oral.Susp) 500,000 units SSW QID [facility] Last Admin: 12/03/22 20:38 Dose: 500,000 units Ondansetron HCl (Ondansetron 4 Mg/2 Ml Vial) 4 mg IV Q4HP PRN PRN Reason: Nausea And Vomiting Last Admin: 12/03/22 06:40 Dose: 4 mg Pantoprazole Sodium (Pantoprazole 40 Mg Vial) 40 mg IV BIDAC [facility] Last Admin: 12/03/22 17:19 Dose: 40 mg Polyethylene Glycol (Polyethylene Glycol 3350 17 Gm Packet) 17 gm PO DAILYP PRN PRN Reason: Constipation Potassium Chloride (Potassium Chloride 20 Meq Tablet) 40 meq PO UD PRN PRN Reason: Potssium is 3-3.5 Potassium Chloride (Potassium Chloride 20 Meq Tablet) 40 meq PO UD PRN PRN Reason: Potassium < 3 Senna (Sennosides 1 Tablet) 2 tab PO DAILYP PRN PRN Reason: Constipation Sodium Chloride (0.9 % Sodium Chloride 10 Ml Syringe) 10 ml IV Q8 [facility] Last Admin: 12/04/22 05:19 Dose: 10 ml Sodium Chloride (0.9 % Sodium Chloride 10 Ml Syringe) 10 ml IV UD PRN PRN Reason: between meds Last Admin: 11/30/22 00:07 Dose: 10 ml ABG Interpretation ABG results: 11/30/22 05:21 ABG Methemoglobin 0.3 L VBG pH 7.18 L* VBG pCO2 30.0 L VBG pO2 58.7 H VBG HCO3 11.0 L VBG Total CO2 12.0 L VBG O2 Saturation 85.9 H VBG Base Excess -16 L A/P Narrative A/P Narrative: A: *severe DKA (DM2, poorly controlled): improved -A1c 12.9 *severe Metabolic/Lactic acidosis: lactic acidosis resolved, metabolic acidosis improved *Hypovolemic/Septic shock: resolved -febrile again o/n, leukocytosis w/bandemia improving *R groin cellulitis/superficial draining abscess: seen by surgeon, no need for I&D. much improved *Encephalopathy: multifactorial 2/2 above,much improvement today -uds neg *acute Pancreatitis: improved *KERI, concern initially for ATN: 2/2 above initially improved then worsened, i mproved again *UGIB: EGD (12/03) with Esophagitis with healing erosions/duodenitis and fungal infection *Esophageal candidiasis: *Oropharyngeal dysphagia, mod-sev: *Acute blood loss anemia: 2/2 above, + dilutional *Severe electrolyte d/o (hypocalcemia/hypokalemia/Hypomagnesemia/Hypophos/hypernatremia): *Thrombocytopenia: Multifactorial, monitor, improved *Atelectasis: IS *Morbid obesity: BMI 43, lifestyle modification *HLD: *Hypothyroidism: tsh wnl *HLD/Hypertriglyceridemia: P: -cont SQ basal (titrate up as needed) and ssi -hypotonic IVF today -Monitor UOP/renal function/i&o -Monitor replace electrolytes, recheck today -finished abx -Dr. Han performed EGD -monitor H&H/plt -Fluconazole 14-21 days -protonix bid -diet per ST -IS -statin -Hold home HCTZ for hyperlipidema -PT/OT -ppx: SCD(chemical held UGIB) / ppi Time Spent With Patient Time: Total time spent is greater than 50% in coordination of care (as documented) at patient's floor/unit and/or counseling patient: Subsequent: Total time with patient: 50 - 65 Minutes QUALITY Stroke Symptom Onset Unknown: No VTE Deep Vein Thrombosis/Pulmonary Embolism Present on Admission: No Restraints Restraint In Place: No
[2022-12-04] MEDS ORDERED: CALCIUM GLUCONATE 9.3 MEQ in DEXTROSE 5% IN WATER 50 ML IV ONE (08:00)
[2022-12-04] MEDS: DOCUSATE SODIUM 100 MG CAPSULE PO SCH ×2 (08:37→21:32)
[2022-12-04] MEDS: NYSTATIN 500,000 UNITS/5 ML ORAL.SUSP SSW SCH ×4 (08:48→21:30)
[2022-12-04] MEDS: FLUCONAZOLE 100 MG TABLET PO SCH (08:49)
[2022-12-04] MEDS: NYSTATIN POWDER BOTTLE 15GM TOPICAL SCH ×3 (08:49→22:36)
[2022-12-04] MEDS: INSULIN GLARGINE, HUMAN 1 UNIT/0.01 ML SQ SCH ×2 (08:49→21:30)
[2022-12-04] MEDS ORDERED: cefTRIAXone 2 GM in DEXTROSE 5% IN WATER 50 ML IV ONE (10:30)
--- NOTE | 2022-12-04 11:57 | General Surgery Progress Note ---
SUBJECTIVE Subjective Patient information: Note initiated : 12/04/22 at 11:51 am Service Date, if different from initiated Date: [] Patient: Angela Sultana 42 y/o F admitted on 11/29/22 for HI BG. Chief Complaint: [] Principal diagnosis: Diabetic ketoacidosis; acute septicemia; upper GI bleeding Interval history: Patient is doing well. She is back to normal mental status and communicates well. She denies nausea or vomiting. She tolerates diet without difficulty. Bowel movements are normal without any evidence of melena. White blood count 8.7, hemoglobin 26.8. Constitutional Vitals: Vital Signs Temp Pulse Resp BP Pulse Ox O2 Del Method O2 Flow Rate 97.4 F 89 23 H 112/69 98 Room Air 1 12/04/22 08:00 12/04/22 10:00 12/04/22 10:00 12/04/22 10:00 12/04/22 10:00 12/04/22 10:00 12/04/22 02:00 Period Temp Pulse Resp BP Sys/Escalante Pulse Ox O2 Del Method O2 Flow Rate Last 24 Hr 97.0 F-97.7 F 87-133 16-28 90-127/39-90 88-100 Nasal Cannula- Room Air 1-5 Intake and Output 12/03/22 12/04/22 12/04/22 19:59 03:59 11:59 Intake Total 570 590 730 Output Total 610 915 325 Balance -40 -325 405 Weight 255 lb 1.6 oz Intake & Output: Intake & Output 12/03/22 12/04/22 12/04/22 19:59 03:59 11:59 Intake Total 570 590 730 Output Total 610 915 325 Balance -40 -325 405 Weight 255 lb 1.6 oz Intake: IV 570 50 370 Calcium Gluconate 9.3 Meq In 70 Dextrose 5% in Water 50 ml @ 70 mls/hr IV ONCE ONE Rx#: [id number] Merrem 1 gm In Sodium Chloride 50 50 50 0.9% 50 ml @ 100 mls/hr IV Q8H [facility] Rx#:[id number] Potassium Chloride 40 Meq In 520 Dextrose 5% in Water 500 ml @ 130 mls/hr IV UD PRN Rx#: [id number] Rocephin 2 gm In Dextrose 5% in 50 Water 50 ml @ 100 mls/hr IV ONCE ONE Rx#:[id number] Oral 540 360 Output: Urine Catheter Amount 550 640 250 Void Amount 60 Urine/Stool Mix 125 Stool 150 75 Other: Meal Breakfast Percent of Meal Consumed 75% Feeding Ability Assist with Tray Set Up Urine Appearance Clear Clear Clear Uretheral ([place]) Clear Urine Color Yellow Light Jessie Yellow Uretheral ([place]) Yellow Urine Odor Normal Normal Normal Stool Size Moderate Moderate Moderate Stool Color Brown Brown Brown Yellow Yellow Green Green Stool Consistency Loose Loose Liquid Loose # Bowel Movements 1 2 1 # of times incontinent of 1 0 Bowels Head Head exam: Present atraumatic, normal inspection and normocephalic Eye Eye exam: Present EOMI and PERRL ENT ENT exam: Present mucous membranes moist and normal oropharynx Neck Neck exam: Present full ROM and normal inspection; Absent tenderness Respiratory Respiratory exam: Present normal respiratory exam and CTAB; Absent rales, rhonchi or wheezes Additional comments: Cardiovascular Cardiovascular exam: Present normal rate and rhythm, RRR, +S1, +S2 and tachycardia ( heart rate 110 to 120/min) GI/Abdominal GI/Abdominal exam: Present normal bowel sounds, distended and tenderness (No localized tenderness noted) Extremities Exam Extremities exam: Present full ROM, normal inspection and neurovascular intact; Absent calf tenderness Additional comments: I have just told should be Psychiatric Psychiatric exam: Present agitated, anxious, depressed and flat affect Skin Additional comments: Cellulitis of the labia and inflammatory lesion right vulva is stable; both areas shows evidence of significant healing A/P Assessment and plan (1) GI bleeding: Status: Acute (2) DKA, type 2: Status: Acute Qualifiers: Diabetes mellitus complication detail: without coma Qualified Code(s): E11.10 - Type 2 diabetes mellitus with ketoacidosis without coma (3) Monilial esophagitis: Status: Acute (4) Candidiasis, intertrigo: Plan: Continue present antifungal and antibiotic treatment There is no evidence of ongoing bleeding. I will sign off effective today. Please reconsult surgery service if needed Status: Acute Time Spent With Patient Time: Total time spent is greater than 50% in coordination of care (as documented) at patient's floor/unit and/or counseling patient:
[2022-12-04] MEDS: POTASSIUM CHLORIDE 40 MEQ in DEXTROSE 5% IN WATER 500 ML IV PRN (13:12)
[2022-12-04 18:31] LABS: Phosphorous 2.7 mg/dL (2.5-4.5)
[2022-12-04 18:35] LABS: Blood Urea Nitrogen 14 mg/dL (6-20); Calcium 7.1 mg/dL (8.6-10.4); Carbon Dioxide 21 mmol/L (22-30); Chloride 111 mmol/L (96-108); Glomerular Filtration Rate 92; Glucose 253 mg/dL (70-105)
--- NOTE | 2022-12-04 21:03 | Internal Med Progress Note ---
SUBJECTIVE Subjective Patient information: Note initiated : 12/04/22 at 8:56 pm Service Date, if different from initiated Date: [] Patient: Angela Sultana 42 y/o F admitted on 11/29/22 for HI BG. Chief Complaint: [] Principal diagnosis: Diabetic ketoacidosis; acute septicemia; upper GI bleeding Additional PMFSH (Level 3 Only): Patient is a 42 years old female with history of diabetes mellitus 2, hypertension presented with altered mental status, she was quite obtunded. Reportedly patient had been ill for the past couple days, she had been receiving antibiotic for cellulitis in the right groin area. In ED patient was found to be in severe DKA with pH of 7.18, acute kidney injury with creatinine 1.5, bicarbonate 12, lactate 2.0. Patient was also in sepsis with tachycardia. She has been hypotensive in the ED. patient was given aggressive IV fluid resuscitation and started on DKA protocol with insulin drip. Patient had pseudohyponatremia and mild hypokalemia which was addressed. Patient was noted to had episode of emesis with coffee-ground vomitus. She was started on Protonix gtt. and general surgery was consulted. Patient required vasopressors. She was quite acidotic and required several amps of bicarb and albumin with improvement in her blood pressure and decreasing need for Levophed. Patient was noted to have melanotic stools. Right groin/lower quadrant open wound was noted draining purulent material. CT pelvis was obtained and patient was started on empiric antibiotics. Patient started responding. Insulin gtt. was transitioned to subcutaneous long-acting insulin. Her blood pressure improved and she was weaned off vasopressors. Her mentation also started to improve. CT scan pelvis showed possible colitis and suspected pancreatitis. Lipase obtained was 572. Patient was started on vancomycin and cefepime. Patient bandemia worsened and cefepime was changed to meropenem. 12/05 Patient is doing well. She is back to normal mental status and communicates well. She denies nausea or vomiting. She tolerates diet without difficulty. Bowel movements are normal without any evidence of melena. Most recent hemoglobin 8.7. WBC 8.0. Renal function stable. Potassium 3.1. Leavitt catheter draining clear urine. She is on Lantus 50 units and tolerating it well. She is also on a statin swish. She remains on IV Protonix. Surgery is recommending to continue with antibiotics and with antifungal. Patient previously received vancomycin and meropenem. Patient has hoarseness of voice likely secondary to esophageal candidiasis. Review of Systems: Constitutional Constitutional: No fever, chills, feeling better EENT Eyes: Absent change in vision Nose, mouth and throat: Absent sore throat Cardiovascular Cardiovascular: Absent chest pain, dyspnea or palpatations Respiratory Respiratory: Reports some cough and clear sputum Gastrointestinal Gastrointestinal: Absent abdominal pain; Absent nausea Genitourinary Genitourinary: No flank pain Musculoskeletal Musculoskeletal: Denies any muscle or joint pain Integumentary Integumentary: Groin rash is improving Neurological Neurological: Absent headache, focal weakness Physical examination Head Head exam: Present atraumatic, normal inspection and normocephalic Eye Eye exam: Present EOMI and PERRL ENT ENT exam: Present mucous membranes moist and normal oropharynx Neck Neck exam: Present full ROM and normal inspection; Absent tenderness Respiratory Respiratory exam: Present normal respiratory exam and CTAB; Absent rales, rhonchi or wheezes Additional comments: Cardiovascular Cardiovascular exam: Present normal rate and rhythm, RRR, +S1, +S2 and tachycardia ( heart rate 110min) GI/Abdominal GI/Abdominal exam: Present normal bowel sounds, distended and tenderness (No localized tenderness noted), obese abdomen Extremities Exam Extremities exam: Present full ROM, normal inspection and neurovascular intact; Absent calf tenderness Psychiatric Psychiatric exam: Present mood is stable Skin Additional comments: Cellulitis in the groin area is stable and showing evidence of healing. No discharge Assessment and plan Upper GI bleeding. EGD on 12/03/[address] Han. Revealed oral thrush with severe monilial esophagitis extending from cricopharyngeus to the GE junction. Multiple areas of healing in the mid esophagus with blood beneath fresh eschar acute erosion and inflammation at GE junction without active bleeding. Acute duodenitis without ulceration was noted. No active bleeding in duodenum. Surgery signed off. Acute blood loss anemia, secondary to GI bleed, hemoglobin stable Esophageal candidiasis, continue oral fluconazole 2 to 3 weeks, and nystatin swish. Changed to oral PPI Oropharyngeal dysphagia, secondary to above Severe monilial esophagitis, on antifungal and PPI Candidiasis, intertrigo, continue antifungal and antibiotic treatment per surgery, appreciate surgery recommendations. Diabetic ketoacidosis. Poorly controlled diabetes mellitus A1c 12.9. DKA resolving. *severe Metabolic/Lactic acidosis: lactic acidosis resolved, metabolic acidosis improved *Hypovolemic/Septic shock: resolved *R groin cellulitis/superficial draining abscess: seen by surgeon, no need for I&D. much improved. Continue antibiotic and antifungal *Encephalopathy: multifactorial 2/2 above, continues to improve. UDS negative *acute Pancreatitis: improved *KERI, concern initially for ATN: 2/2 above initially improved then worsened, improved again. *Severe electrolyte d/o (hypocalcemia/hypokalemia/Hypomagne semia/Hypophos/hypernatremia), will replace with oral KCl aggressively *Thrombocytopenia: Multifactorial, monitor, improved *Atelectasis: IS *Morbid obesity: BMI 43, lifestyle modification, counseled on weight reduction *HLD: Hypertriglyceridemia. *Hypothyroidism: tsh wnl Generalized weakness, increase ambulation DVT prophylaxis, SCDs DC Leavitt catheter Subsequent: Total time with patient: 50 - 65 Minutes Portions of this chart may have been created with [employer] voice recognition software. Occasional wrong-word or sound-like substitutions may have occurred due to the inherent limitations of voice recognition software. Please read the chart carefully and recognize, using context, where the substitutions have occurred. Constitutional Vitals: Vital Signs Temp Pulse Resp BP Pulse Ox O2 Del Method O2 Flow Rate 97.8 F 102 H 26 H 116/85 98 Room Air 1 12/04/22 16:00 12/04/22 18:00 12/04/22 18:00 12/04/22 18:00 12/04/22 18:00 12/04/22 18:00 12/04/22 02:00 Period Temp Pulse Resp BP Sys/Escalante Pulse Ox O2 Del Method O2 Flow Rate Last 24 Hr 97.4 F-97.8 F 87-102 16-26 105-127/61-87 97-100 Nasal Cannula- Room Air 1 Intake and Output 12/04/22 12/04/22 12/05/22 11:59 19:59 03:59 Intake Total 730 1749.0909 Output Total 325 620 Balance 405 1129.0909 Weight 115.711 kg Patient Weight 12/05/22 03:59 Weight 115.711 kg Intake & Output: Intake & Output 12/04/22 12/04/22 12/05/22 11:59 19:59 03:59 Intake Total 730 1749.0909 Output Total 325 620 Balance 405 1129.0909 Weight 115.711 kg Intake: Nourishment/Supplement quantity 240 (ml) IV 370 1029.0909 Calcium Gluconate 9.3 Meq In 70 Dextrose 5% in Water 50 ml @ 70 mls/hr IV ONCE ONE Rx#: [id number] Merrem 1 gm In Sodium Chloride 50 0.9% 50 ml @ 100 mls/hr IV Q8H DEX Rx#:[id number] Potassium Chloride 40 Meq In 520 Dextrose 5% in Water 500 ml @ 130 mls/hr IV UD PRN Rx#: [id number] Potassium Phosphate 40 Meq In 509.0909 Dextrose 5% in Water 500 ml @ 127.273 mls/hr IV ONCE ONE Rx#: [id number] Rocephin 2 gm In Dextrose 5% in 50 Water 50 ml @ 100 mls/hr IV ONCE ONE Rx#:[id number] Oral 360 480 Output: Urine Catheter Amount 250 620 Stool 75 Other: Meal Breakfast Dinner Percent of Meal Consumed 75% 50% Feeding Ability Assist with Tray Set Up Independent Nourishment/Supplement name house carb steady Urine Appearance Clear Clear Uretheral (Leavitt) Clear Clear Urine Color Yellow Yellow Uretheral (Leavitt) Yellow Yellow Urine Odor Normal Stool Size Moderate Moderate Stool Color Brown Brown Stool Consistency Liquid Liquid Loose Loose # Bowel Movements 1 1 # of times incontinent of 0 0 Bowels OBJ DATA Labs 12/04/22 05:39 12/04/22 17:40 Labs: Abnormal Lab Results 12/04/22 12/04/22 12/04/22 17:40 05:39 05:39 RBC 3.10 L Hgb 8.7 L Hct 26.8 L POC Hct RDW 17.2 H Plt Count Immature Gran % (Auto) 1.3 H [place] % (Auto) 16.5 H [place] # (Auto) 1.31 H Seg Neutrophils % Lymphocytes % Immature Gran # 0.10 H Platelet Estimate RBC Morphology Hypochromasia Anisocytosis POC Sodium Sodium 147 H POC Potassium Potassium 3.1 L 2.5 L* POC Chloride Chloride 111 H 113 H Carbon Dioxide 21 L POC Total CO2 BUN Creatinine Glucose 253 H 142 H POC Glucose Calcium 7.1 L 6.6 L POC WB Ioniz Calcium Phosphorus 2.1 L Lactate Dehydrogenase 432 H Total Protein 4.7 L Albumin 2.1 L Albumin/Globulin Ratio 0.8 L Triglycerides 489 H Lipase Beta-Hydroxybutyrate Procalcitonin 12/03/22 12/03/22 12/03/22 05:50 05:50 05:50 RBC Hgb 8.5 L Hct 25.5 L POC Hct RDW Plt Count 118 L Immature Gran % (Auto) [place] % (Auto) [place] # (Auto) Seg Neutrophils % Lymphocytes % Immature Gran # Platelet Estimate RBC Morphology Hypochromasia Anisocytosis POC Sodium Sodium POC Potassium Potassium 2.7 L* POC Chloride Chloride 113 H Carbon Dioxide POC Total CO2 BUN Creatinine Glucose 153 H POC Glucose Calcium 6.2 L POC WB Ioniz Calcium Phosphorus 1.6 L Lactate Dehydrogenase 530 H Total Protein 4.8 L Albumin 2.0 L Albumin/Globulin Ratio 0.7 L Triglycerides 513 H Lipase Beta-Hydroxybutyrate Procalcitonin 12/02/22 12/02/22 12/02/22 20:06 16:21 12:04 RBC Hgb Hct POC Hct 27.0 L 25.0 L 25.0 L RDW Plt Count Immature Gran % (Auto) [place] % (Auto) [place] # (Auto) Seg Neutrophils % Lymphocytes % Immature Gran # Platelet Estimate RBC Morphology Hypochromasia Anisocytosis POC Sodium 146 H 146 H Sodium POC Potassium 3.1 L 3.2 L 2.9 L* Potassium POC Chloride 114 H 110 H 114 H Chloride Carbon Dioxide POC Total CO2 21.0 L BUN Creatinine Glucose POC Glucose 252 H 380 H 281 H Calcium POC WB Ioniz Calcium 0.92 L 0.91 L 0.87 L Phosphorus Lactate Dehydrogenase Total Protein Albumin Albumin/Globulin Ratio Triglycerides Lipase Beta-Hydroxybutyrate Procalcitonin 12/02/22 12/02/22 12/02/22 05:24 05:24 05:23 RBC Hgb Hct POC Hct RDW Plt Count Immature Gran % (Auto) [place] % (Auto) [place] # (Auto) Seg Neutrophils % Lymphocytes % Immature Gran # Platelet Estimate RBC Morphology Hypochromasia Anisocytosis POC Sodium Sodium 148 H POC Potassium Potassium 2.9 L* POC Chloride Chloride 115 H Carbon Dioxide 21 L POC Total CO2 BUN 21 H Creatinine 1.2 H Glucose 176 H POC Glucose Calcium 6.0 L POC WB Ioniz Calcium Phosphorus 2.2 L Lactate Dehydrogenase 390 H Total Protein 4.7 L Albumin 1.9 L Albumin/Globulin Ratio 0.7 L Triglycerides 756 H Lipase 121 H Beta-Hydroxybutyrate 1.45 H Procalcitonin 1.03 H 12/02/22 05:23 RBC 3.05 L Hgb 8.6 L Hct 25.2 L POC Hct RDW 15.8 H Plt Count 76 L Immature Gran % (Auto) [place] % (Auto) [place] # (Auto) Seg Neutrophils % 83 H Lymphocytes % 10 L Immature Gran # Platelet Estimate Decreased A RBC Morphology Abnormal A Hypochromasia 1+ A Anisocytosis 1+ A POC Sodium Sodium POC Potassium Potassium POC Chloride Chloride Carbon Dioxide POC Total CO2 BUN Creatinine Glucose POC Glucose Calcium POC WB Ioniz Calcium Phosphorus Lactate Dehydrogenase Total Protein Albumin Albumin/Globulin Ratio Triglycerides Lipase Beta-Hydroxybutyrate Procalcitonin Meds: Medications Acetaminophen (Acetaminophen 325 Mg Tablet) 650 mg PO Q6HP PRN; Protocol PRN Reason: Per Pain Protocol/Fever > 101 Last Admin: 12/02/22 16:50 Dose: 650 mg Albuterol/Ipratropium (Ipratropium/Albuterol 3 Ml Ampul.Neb) 3 ml NEB Q4HP PRN PRN Reason: Shortness Of Breath Atorvastatin Calcium (Atorvastatin 40 Mg Tablet) 40 mg PO HS [facility] Last Admin: 12/03/22 20:38 Dose: 40 mg Dextrose (Dextrose 50% 50 Ml Vial) 0 ml IV UD PRN PRN Reason: Per Sliding Scale Diagnostic Test (Pha) (Accu-Chek 1 Each Strip) 1 each FS ACHS [facility] Last Admin: 12/04/22 17:42 Dose: 1 each Docusate Sodium (Docusate Sodium 100 Mg Capsule) 100 mg PO BID [facility] Last Admin: 12/04/22 08:37 Dose: Not Given Fluconazole (Fluconazole 100 Mg Tablet) 400 mg PO DAILY [facility]; Protocol Stop: 12/16/22 09:01 Last Admin: 12/04/22 08:49 Dose: 400 mg Glucose (Dextrose 31 Gm Oral.Susp) 15 gm PO PRN PRN PRN Reason: Hypoglycemia Potassium Chloride 40 meq/ (Dextrose) 520 mls @ 130 mls/hr IV UD PRN PRN Reason: Potassium < 3 Last Infusion: 12/04/22 17:35 Dose: Infused Magnesium Sulfate (Magnesium Sulfate) 2 gm in 50 mls @ 50 mls/hr IV UD PRN PRN Reason: Magnesium </= 1.6 Acetaminophen (Ofirmev) 650 mg in 65 mls @ 130 mls/hr IV Q6HP PRN; Protocol PRN Reason: PAIN/FEVER > 101 Last Infusion: 12/03/22 04:50 Dose: Infused Vasopressin 20 unit/ Dextrose 100 mls @ 12 mls/hr IV Q8HP PRN; Protocol PRN Reason: Hypotension Norepinephrine Bitartrate 8 mg (/ Sodium Chloride) 250 mls @ 18.75 mls/hr IV Q12HP PRN; Protocol PRN Reason: Hypotension Dexmedetomidine HCl 400 mcg/ (Premix) 100 mls @ 5.396 mls/hr IV .[id number] PRN; Protocol PRN Reason: Sedation Insulin Human Regular 50 unit/ (Sodium Chloride) 100 mls @ 20 mls/hr IV DUR [facility]; Protocol Last Titration: 12/01/22 21:34 Dose: Infused Insulin Glargine (Insulin Glargine, Human 1 Unit/0.01 Ml) 50 unit SQ BID [facility] Last Admin: 12/04/22 08:49 Dose: 50 units Insulin Human Lispro (Insulin Lispro 1 Unit/0.01 Ml Unit) 0 unit SQ ACHS [facility]; Protocol Last Admin: 12/04/22 17:45 Dose: 12 units Levothyroxine Sodium (Levothyroxine 25 Mcg Tablet) 25 mcg PO QAMAC [facility] Last Admin: 12/04/22 07:32 Dose: 25 mcg Metoclopramide HCl (Metoclopramide 10 Mg/2 Ml Vial) 10 mg IV Q6HP PRN PRN Reason: Nausea And Vomiting Last Admin: 11/30/22 10:35 Dose: 10 mg Nystatin (Nystatin Powder Bottle 15gm) 1 dose TOPICAL TID [facility] Last Admin: 12/04/22 15:00 Dose: 1 dose Nystatin (Nystatin 500,000 Units/5 Ml Oral.Susp) 500,000 units SSW QID [facility] Last Admin: 12/04/22 17:36 Dose: 500,000 units Ondansetron HCl (Ondansetron 4 Mg/2 Ml Vial) 4 mg IV Q4HP PRN PRN Reason: Nausea And Vomiting Last Admin: 12/03/22 06:40 Dose: 4 mg Pantoprazole Sodium (Pantoprazole 40 Mg Vial) 40 mg IV BIDAC [facility] Last Admin: 12/04/22 17:36 Dose: 40 mg Polyethylene Glycol (Polyethylene Glycol 3350 17 Gm Packet) 17 gm PO DAILYP PRN PRN Reason: Constipation Potassium Chloride (Potassium Chloride 20 Meq Tablet) 40 meq PO UD PRN PRN Reason: Potssium is 3-3.5 Potassium Chloride (Potassium Chloride 20 Meq Tablet) 40 meq PO UD PRN PRN Reason: Potassium < 3 Last Admin: 12/04/22 08:48 Dose: 40 meq Senna (Sennosides 1 Tablet) 2 tab PO DAILYP PRN PRN Reason: Constipation Sodium Chloride (0.9 % Sodium Chloride 10 Ml Syringe) 10 ml IV Q8 DEX Last Admin: 12/04/22 12:43 Dose: 10 ml Sodium Chloride (0.9 % Sodium Chloride 10 Ml Syringe) 10 ml IV UD PRN PRN Reason: between meds Last Admin: 11/30/22 00:07 Dose: 10 ml ABG Interpretation ABG results: 11/30/22 05:21 ABG Methemoglobin 0.3 L VBG pH 7.18 L* VBG pCO2 30.0 L VBG pO2 58.7 H VBG HCO3 11.0 L VBG Total CO2 12.0 L VBG O2 Saturation 85.9 H VBG Base Excess -16 L A/P Narrative A/P Narrative: A: *severe DKA (DM2, poorly controlled): improved -A1c 12.9 *severe Metabolic/Lactic acidosis: lactic acidosis resolved, metabolic acidosis improved *Hypovolemic/Septic shock: resolved -febrile again o/n, leukocytosis w/bandemia improving *R groin cellulitis/superficial draining abscess: seen by surgeon, no need for I&D. much improved *Encephalopathy: multifactorial 2/2 above,much improvement today -uds neg *acute Pancreatitis: improved *KERI, concern initially for ATN: 2/2 above initially improved then worsened, improved again *UGIB: EGD (12/03) with Esophagitis with healing erosions/duodenitis and fungal infection *Esophageal candidiasis: *Oropharyngeal dysphagia, mod-sev: *Acute blood loss anemia: 2/2 above, + dilutional *Severe electrolyte d/o (hypocalcemia/hypokal emia/Hypomagnesemia/Hypophos/hypernatremia): *Thrombocytopenia: Multifactorial, monitor, improved *Atelectasis: IS *Morbid obesity: BMI 43, lifestyle modification *HLD: *Hypothyroidism: tsh wnl *HLD/Hypertriglyceridemia: P: -cont SQ basal (titrate up as needed) and ssi -hypotonic IVF today -Monitor UOP/renal function/i&o -Monitor replace electrolytes, recheck today -finished abx -Dr. Han performed EGD -monitor H&H/plt -Fluconazole 14-21 days -protonix bid -diet per ST -IS -statin -Hold home HCTZ for hyperlipidema -PT/OT -ppx: SCD(chemical held UGIB) / ppi Time Spent With Patient Time: Total time spent is greater than 50% in coordination of care (as documented) at patient's floor/unit and/or counseling patient: Subsequent: Total time with patient: 50 - 65 Minutes Portions of this chart may have been created with [employer] voice recognition software. Occasional wrong-word or sound-like substitutions may have occurred due to the inherent limitations of voice recognition software. Please read the chart carefully and recognize, using context, where the substitutions have occurred. Time Spent With Patient Time: Total time spent is greater than 50% in coordination of care (as documented) at patient's floor/unit and/or counseling patient: Initial: Total time with patient: 55 - 74 minutes QUALITY Stroke Symptom Onset Unknown: No VTE Deep Vein Thrombosis/Pulmonary Embolism Present on Admission: No Restraints Restraint In Place: No
[2022-12-04] MEDS: ATORVASTATIN 40 MG TABLET PO SCH (21:30)
[2022-12-05] MEDS: ONDANSETRON 4 MG/2 ML VIAL IV PRN (00:56)
[2022-12-05 07:54] LABS: ALT/SGPT 8 U/L (<40); AST/SGOT 12 U/L (<32); Albumin 2.2 gm/dL (3.2-5.2); Albumin/Globulin Ratio 0.7 (1.0-2.3); Alkaline Phosphatase 209 U/L (39-117); Bilirubin,Direct < 0.2 mg/dL (0-0.3); Bilirubin,Total 0.2 mg/dL (0.1-1.0); Blood Urea Nitrogen 12 mg/dL (6-20); Carbon Dioxide 22 mmol/L (22-30); Chloride 114 mmol/L (96-108); Glomerular Filtration Rate 108; Glucose 156 mg/dL (70-105); Lactate Dehydrogenase 560 U/L (135-225); Phosphorous 2.5 mg/dL (2.5-4.5); Triglycerides 380 mg/dL (<150); Uric Acid 3.3 mg/dL (2.5-8.0)
[2022-12-05] MEDS: INSULIN LISPRO 1 UNIT/0.01 ML UNIT SQ SCH ×4 (08:50→21:23)
[2022-12-05] MEDS: 0.9 % SODIUM CHLORIDE 10 ML SYRINGE IV SCH ×3 (08:50→22:00)
[2022-12-05] MEDS: NYSTATIN 500,000 UNITS/5 ML ORAL.SUSP SSW SCH ×4 (08:52→21:22)
[2022-12-05] MEDS: LEVOTHYROXINE 25 MCG TABLET PO SCH (08:52)
[2022-12-05] MEDS: PANTOPRAZOLE 40 MG VIAL IV SCH (08:52)
[2022-12-05] MEDS: DOCUSATE SODIUM 100 MG CAPSULE PO SCH ×2 (08:52→21:24)
[2022-12-05] MEDS: FLUCONAZOLE 100 MG TABLET PO SCH (08:52)
[2022-12-05] MEDS: INSULIN GLARGINE, HUMAN 1 UNIT/0.01 ML SQ SCH ×2 (08:52→21:22)
[2022-12-05] MEDS: NYSTATIN POWDER BOTTLE 15GM TOPICAL SCH ×3 (08:53→21:24)
[2022-12-05] MEDS: POTASSIUM CHLORIDE 20 MEQ TABLET PO PRN (09:52)
--- NOTE | 2022-12-05 12:49 | Ultrasound Report ---
CLINICAL INFORMATION: Leg pain and swelling COMPARISON: None. FINDINGS: The entire deep venous system including the common femoral, superficial femoral, popliteal and paired trifurcation calf veins are easily compressible and show normal venous blood flow on color and spectral Doppler. No evidence of thrombus IMPRESSION: Negative exam - no evidence of deep vein thrombosis. Interpreted and Authenticated by: Martin Lopez 12/05/22
[2022-12-05] MEDS ORDERED: POTASSIUM CHLORIDE 20 MEQ TABLET PO SCH (14:00)
[2022-12-05] MEDS: PANTOPRAZOLE 40 MG TABLET PO SCH (17:01)
[2022-12-05] MEDS: CEPHALEXIN 500 MG CAPSULE PO SCH ×2 (17:04→21:21)
[2022-12-05] MEDS: ATORVASTATIN 40 MG TABLET PO SCH (21:22)
[2022-12-06] MEDS: 0.9 % SODIUM CHLORIDE 10 ML SYRINGE IV SCH ×3 (05:54→21:16)
[2022-12-06] MEDS: INSULIN LISPRO 1 UNIT/0.01 ML UNIT SQ SCH ×4 (07:35→21:14)
[2022-12-06] MEDS: PANTOPRAZOLE 40 MG TABLET PO SCH ×2 (07:36→17:22)
[2022-12-06] MEDS: LEVOTHYROXINE 25 MCG TABLET PO SCH (07:36)
[2022-12-06 08:10] LABS: Basophils # (Auto) 0.02 K/mcL (0.00-0.30); Basophils % (Auto) 0.2 % (0.0-2.0); Eosinophils # (Auto) 0.08 K/mcL (0.00-0.70); Eosinophils % (Auto) 0.8 % (0.0-7.0); Hematocrit 26.7 % (34.1-44.9); Hemoglobin 8.2 g/dL (11.2-15.7); Lymphocytes # (Auto) 1.73 K/mcL (1.50-4.80); Lymphocytes % (Auto) 16.9 % (15.5-49.0); Mean Cell Volume 89.9 fL (80.0-100.0); Mean Corpuscular HGB Conc 30.7 g/dL (31.0-36.0); Mean Platelet Volume 10.4 fL (8.8-12.5); Monocytes # (Auto) 0.87 K/mcL (0.10-0.90); Monocytes % (Auto) 8.5 % (1.0-12.0); Neutrophils % (Auto) 72.8 % (38.0-78.0); Platelet Count 358 K/mcL (140-440); RBC 2.97 M/mcL (3.59-5.38); Red Cell Distribution Width 17.2 % (11.5-14.5)
[2022-12-06 08:29] LABS: ALT/SGPT 8 U/L (<40); AST/SGOT 20 U/L (<32); Albumin 2.2 gm/dL (3.2-5.2); Albumin/Globulin Ratio 0.7 (1.0-2.3); Alkaline Phosphatase 212 U/L (39-117); Bilirubin,Direct < 0.2 mg/dL (0-0.3); Bilirubin,Total 0.3 mg/dL (0.1-1.0); Blood Urea Nitrogen 10 mg/dL (6-20); Calcium 8.2 mg/dL (8.6-10.4); Carbon Dioxide 20 mmol/L (22-30); Chloride 115 mmol/L (96-108); Glomerular Filtration Rate 92; Glucose 204 mg/dL (70-105); Lactate Dehydrogenase 703 U/L (135-225); Triglycerides 238 mg/dL (<150); Uric Acid 3.7 mg/dL (2.5-8.0)
[2022-12-06] MEDS: POTASSIUM CHLORIDE 20 MEQ TABLET PO PRN (08:59)
[2022-12-06] MEDS: CEPHALEXIN 500 MG CAPSULE PO SCH ×4 (08:59→21:16)
[2022-12-06] MEDS: NYSTATIN 500,000 UNITS/5 ML ORAL.SUSP SSW SCH ×4 (08:59→21:16)
[2022-12-06] MEDS: FLUCONAZOLE 100 MG TABLET PO SCH (09:00)
[2022-12-06] MEDS: INSULIN GLARGINE, HUMAN 1 UNIT/0.01 ML SQ SCH ×2 (09:00→21:15)
[2022-12-06] MEDS: DOCUSATE SODIUM 100 MG CAPSULE PO SCH (09:00)
[2022-12-06] MEDS: NYSTATIN POWDER BOTTLE 15GM TOPICAL SCH ×3 (09:02→21:16)
[2022-12-06 09:15] LABS: WBC 10.2 K/mcL (4.5-11.0)
--- NOTE | 2022-12-06 09:58 | Internal Med Progress Note ---
SUBJECTIVE Subjective Patient information: Note initiated : 12/06/22 at 9:51 am Service Date, if different from initiated Date: [] Patient: Angela Sultana 42 y/o F admitted on 11/29/22 for HI BG. Chief Complaint: [] Principal diagnosis: Diabetic ketoacidosis; acute septicemia; upper GI bleeding Additional PMFSH (Level 3 Only): Patient is a 42 years old female with history of diabetes mellitus 2, hypertension presented with altered mental status, she was quite obtunded. Reportedly patient had been ill for the past couple days, she had been receiving antibiotic for cellulitis in the right groin area. In ED patient was found to be in severe DKA with pH of 7.18, acute kidney injury with creatinine 1.5, bicarbonate 12, lactate 2.0. Patient was also in sepsis with tachycardia. She has been hypotensive in the ED. patient was given aggressive IV fluid resuscitation and started on DKA protocol with insulin drip. Patient had pseudohyponatremia and mild hypokalemia which was addressed. Patient was noted to had episode of emesis with coffee-ground vomitus. She was started on Protonix gtt. and general surgery was consulted. Patient required vasopressors. She was quite acidotic and required several amps of bicarb and albumin with improvement in her blood pressure and decreasing need for Levophed. Patient was noted to have melanotic stools. Right groin/lower quadrant open wound was noted draining purulent material. CT pelvis was obtained and patient was started on empiric antibiotics. Patient started responding. Insulin gtt. was transitioned to subcutaneous long-acting insulin. Her blood pressure improved and she was weaned off vasopressors. Her mentation also started to improve. CT scan pelvis showed possible colitis and suspected pancreatitis. Lipase obtained was 572. Patient was started on vancomycin and cefepime. Patient bandemia worsened and cefepime was changed to meropenem. 12/05 Patient is doing well. She is back to normal mental status and communicates well. She denies nausea or vomiting. She tolerates diet without difficulty. Bowel movements are normal without any evidence of melena. Most recent hemoglobin 8.7. WBC 8.0. Renal function stable. Potassium 3.1. Leavitt catheter draining clear urine. She is on Lantus 50 units and tolerating it well. She is also on a statin swish. She remains on IV Protonix. Surgery is recommending to continue with antibiotics and with antifungal. Patient previously received vancomycin and meropenem. Patient has hoarseness of voice likely secondary to esophageal candidiasis. 12/06 no acute events overnight. Vitals stable. Labs reviewed. Hemoglobin 8.2 down from 8.7. Patient reports no hematemesis melena, no evidence of GI bleed. Her hoarseness of voice is slowly improving. Patient reports that she lives with her brother and mother and they both are disabled. She has been ambulating with physical therapy and getting stronger however she is not sure she will be safe at home. Case management will discuss disposition with her today. Review of Systems: Constitutional Constitutional: No fever, chills, getting her strength back EENT Eyes: Absent change in vision Nose, mouth and throat: Absent sore throat Cardiovascular Cardiovascular: Absent chest pain, dyspnea or palpatations Respiratory Respiratory: Reports some cough and clear sputum Gastrointestinal Gastrointestinal: Absent abdominal pain; Absent nausea Genitourinary Genitourinary: No flank pain Musculoskeletal Musculoskeletal: Denies any muscle or joint pain Integumentary Integumentary: Groin rash is improving Neurological Neurological: Absent headache, focal weakness Physical examination Alert and awake, sitting up in bedside chair, smiling appropriately Head Head exam: Present atraumatic, normal inspection and normocephalic Eye Eye exam: Present EOMI and PERRL ENT ENT exam: Present mucous membranes moist and normal oropharynx Neck Neck exam: Present full ROM and normal inspection; Absent tenderness Respiratory Respiratory exam: Present normal respiratory exam and CTAB; Absent rales, rhonchi or wheezes Additional comments: Cardiovascular Cardiovascular exam: Present normal rate and rhythm, RRR, +S1, +S2 and tachycardia ( heart rate 110min) GI/Abdominal GI/Abdominal exam: Present normal bowel sounds, nondistended, no tenderness, o bese abdomen Extremities Exam Extremities exam: Present full ROM, normal inspection and neurovascular intact; Absent calf tenderness Psychiatric Psychiatric exam: Present mood is stable Skin Additional comments: Groin area cellulitis is resolving, no drainage noted. Assessment and plan Upper GI bleeding. EGD on 12/03/[address] Han revealed oral thrush with severe monilial esophagitis extending from cricopharyngeus to the GE junction. Multiple areas of healing in the mid esophagus with blood beneath fresh eschar acute erosion and inflammation at GE junction without active bleeding. Acute duodenitis without ulceration was noted. No active bleeding in duodenum. Surgery signed off. PPI bid Acute blood loss anemia, secondary to GI bleed, hemoglobin slowly drifted to 8.2, no indication for transfusion Esophageal candidiasis/severe candidal esophagitis, continue oral fluconazole 2 to 3 weeks, and nystatin swish. Oropharyngeal dysphagia, secondary to above Severe monilial esophagitis, on antifungal and PPI Candidiasis, intertrigo erythema, continue antifungal and antibiotic treatment per surgery, appreciate surgery recommendations. Diabetic ketoacidosis. Poorly controlled diabetes mellitus A1c 12.9. DKA resolved. *severe Metabolic/Lactic acidosis: lactic acidosis resolved, metabolic acidosis improved *Hypovolemic/Septic shock: resolved *R groin cellulitis/superficial draining abscess: seen by surgeon, no need for I&D. much improved. Continue antibiotic and antifungal *Encephalopathy septic versus metabolic: multifactorial 2/2 above, continues to improve. UDS negative *acute Pancreatitis: improved *KERI, concern initially for ATN: 2/2 above initially improved then worsened, improved again. *Severe electrolyte d/o (hypocalcemia/hypokalemia/Hypomagnesemia/Hypophos/ hypernatremia), BNP ordered but was not performed this morning *Thrombocytopenia: Multifactorial, monitor, improved *Atelectasis: IS *Morbid obesity: BMI 43, lifestyle modification, counseled on weight reduction *HLD: Hypertriglyceridemia. *Hypothyroidism: tsh wnl Generalized weakness, increase ambulation DVT prophylaxis, SCDs Subsequent: Total time with patient: 50 - 65 Minutes Portions of this chart may have been created with [employer] voice recognition software. Occasional wrong-word or sound-like substitutions may have occurred due to the inherent limitations of voice recognition software. Please read the chart carefully and recognize, using context, where the substitutions have occurred. Constitutional Vitals: Vital Signs Temp Pulse Resp BP Pulse Ox O2 Del Method O2 Flow Rate 97 F 98 H 16 117/76 98 Room Air 1 12/06/22 08:00 12/06/22 08:00 12/06/22 08:00 12/06/22 08:00 12/06/22 08:00 12/06/22 08:00 12/04/22 02:00 Period Temp Pulse Resp BP Sys/[place] Pulse Ox O2 Del Method O2 Flow Rate Last 24 Hr 97 F-97.9 F 88-102 16-26 90-132/68-104 96-99 Room Air-Room Air Intake and Output 12/05/22 12/06/22 12/06/22 19:59 03:59 11:59 Intake Total 480 120 597 Output Total 560 550 350 Balance -80 -430 247 Weight 117.118 kg Intake & Output: Intake & Output 12/05/22 12/06/22 12/06/22 19:59 03:59 11:59 Intake Total 480 120 597 Output Total 560 550 350 Balance -80 -430 247 Weight 117.118 kg Intake: Oral 480 120 597 Output: Urine Catheter Amount 560 Void Amount 100 Urine/Stool Mix 550 Stool 250 Other: Meal Lunch Breakfast Percent of Meal Consumed 100% 100% Feeding Ability Independent Independent Urine Appearance Clear Small Blood Clots Uretheral ([place]av[place]) Clear Urine Color Yellow Medium Red Uretheral (Leavitt) Yellow Stool Size Moderate Large Small Stool Color Brown Brown Brown Stool Consistency Loose Loose Loose # Voids 1 # Bowel Movements 1 1 OBJ DATA Labs 12/06/22 07:13 12/06/22 07:13 Labs: Abnormal Lab Results 12/06/22 12/06/22 12/05/22 07:13 07:13 05:39 RBC 2.97 L Hgb 8.2 L Hct 26.7 L MCHC 30.7 L RDW 17.2 H Plt Count Immature Gran % (Auto) 0.8 H [place] % (Auto) [place] # (Auto) Immature Gran # 0.08 H Sodium 146 H Potassium 3.1 L Chloride 115 H 114 H Carbon Dioxide 20 L Glucose 204 H 156 H Calcium 8.2 L 8.0 L Phosphorus Alkaline Phosphatase 212 H 209 H Lactate Dehydrogenase 703 H 560 H Total Protein 5.2 L 5.2 L Albumin 2.2 L 2.2 L Albumin/Globulin Ratio 0.7 L 0.7 L Triglycerides 238 H 380 H 12/04/22 12/04/22 12/04/22 17:40 05:39 05:39 RBC 3.10 L Hgb 8.7 L Hct 26.8 L MCHC RDW 17.2 H Plt Count Immature Gran % (Auto) 1.3 H [place] % (Auto) 16.5 H [place] # (Auto) 1.31 H Immature Gran # 0.10 H Sodium 147 H Potassium 3.1 L 2.5 L* Chloride 111 H 113 H Carbon Dioxide 21 L Glucose 253 H 142 H Calcium 7.1 L 6.6 L Phosphorus 2.1 L Alkaline Phosphatase Lactate Dehydrogenase 432 H Total Protein 4.7 L Albumin 2.1 L Albumin/Globulin Ratio 0.8 L Triglycerides 489 H 12/03/22 05:50 RBC Hgb Hct MCHC RDW Plt Count 118 L Immature Gran % (Auto) [place] % (Auto) [place] # (Auto) Immature Gran # Sodium Potassium Chloride Carbon Dioxide Glucose Calcium Phosphorus Alkaline Phosphatase Lactate Dehydrogenase Total Protein Albumin Albumin/Globulin Ratio Triglycerides Meds: Medications Acetaminophen (Acetaminophen 325 Mg Tablet) 650 mg PO Q6HP PRN; Protocol PRN Reason: Per Pain Protocol/Fever > 101 Last Admin: 12/02/22 16:50 Dose: 650 mg Albuterol/Ipratropium (Ipratropium/Albuterol 3 Ml Ampul.Neb) 3 ml NEB Q4HP PRN PRN Reason: Shortness Of Breath Atorvastatin Calcium (Atorvastatin 40 Mg Tablet) 40 mg PO HS [facility] Last Admin: 12/05/22 21:22 Dose: 40 mg Cephalexin HCl (Cephalexin 500 Mg Capsule) 500 mg PO QID [facility]; Protocol Stop: 12/10/22 16:59 Last Admin: 12/06/22 08:59 Dose: 500 mg Dextrose (Dextrose 50% 50 Ml Vial) 0 ml IV UD PRN PRN Reason: Per Sliding Scale Diagnostic Test (Pha) (Accu-Chek 1 Each Strip) 1 each FS ACHS [facility] Last Admin: 12/06/22 07:35 Dose: 1 each Docusate Sodium (Docusate Sodium 100 Mg Capsule) 100 mg PO BID [facility] Last Admin: 12/06/22 09:00 Dose: Not Given Fluconazole (Fluconazole 100 Mg Tablet) 400 mg PO DAILY [facility]; Protocol Stop: 12/12/22 09:01 Last Admin: 12/06/22 09:00 Dose: 400 mg Glucose (Dextrose 31 Gm Oral.Susp) 15 gm PO PRN PRN PRN Reason: Hypoglycemia Potassium Chloride 40 meq/ (Dextrose) 520 mls @ 130 mls/hr IV UD PRN PRN Reason: Potassium < 3 Last Infusion: 12/04/22 17:35 Dose: Infused Magnesium Sulfate (Magnesium Sulfate) 2 gm in 50 mls @ 50 mls/hr IV UD PRN PRN Reason: Magnesium </= 1.6 Vasopressin 20 unit/ Dextrose 100 mls @ 12 mls/hr IV Q8HP PRN; Protocol PRN Reason: Hypotension Norepinephrine Bitartrate 8 mg (/ Sodium Chloride) 250 mls @ 18.75 mls/hr IV Q12HP PRN; Protocol PRN Reason: Hypotension Dexmedetomidine HCl 400 mcg/ (Premix) 100 mls @ 5.396 mls/hr IV .[id number] PRN; Protocol PRN Reason: Sedation Insulin Human Regular 50 unit/ (Sodium Chloride) 100 mls @ 20 mls/hr IV DUR [facility]; Protocol Last Titration: 12/01/22 21:34 Dose: Infused Insulin Glargine (Insulin Glargine, Human 1 Unit/0.01 Ml) 50 unit SQ BID [facility] Last Admin: 12/06/22 09:00 Dose: 50 units Insulin Human Lispro (Insulin Lispro 1 Unit/0.01 Ml Unit) 0 unit SQ ACHS [facility]; Protocol Last Admin: 12/06/22 07:35 Dose: 6 units Levothyroxine Sodium (Levothyroxine 25 Mcg Tablet) 25 mcg PO QAMAC [facility] Last Admin: 12/06/22 07:36 Dose: 25 mcg Metoclopramide HCl (Metoclopramide 10 Mg/2 Ml Vial) 10 mg IV Q6HP PRN PRN Reason: Nausea And Vomiting Last Admin: 11/30/22 10:35 Dose: 10 mg Nystatin (Nystatin Powder Bottle 15gm) 1 dose TOPICAL TID [facility] Last Admin: 12/06/22 09:02 Dose: 1 dose Nystatin (Nystatin 500,000 Units/5 Ml Oral.Susp) 500,000 units SSW QID [facility] Last Admin: 12/06/22 08:59 Dose: 500,000 units Ondansetron HCl (Ondansetron 4 Mg/2 Ml Vial) 4 mg IV Q4HP PRN PRN Reason: Nausea And Vomiting Last Admin: 12/05/22 00:56 Dose: 4 mg Pantoprazole Sodium (Pantoprazole 40 Mg Tablet) 40 mg PO BIDAC [facility] Last Admin: 12/06/22 07:36 Dose: 40 mg Polyethylene Glycol (Polyethylene Glycol 3350 17 Gm Packet) 17 gm PO DAILYP PRN PRN Reason: Constipation Potassium Chloride (Potassium Chloride 20 Meq Tablet) 40 meq PO UD PRN PRN Reason: Potssium is 3-3.5 Last Admin: 12/06/22 08:59 Dose: 40 meq Potassium Chloride (Potassium Chloride 20 Meq Tablet) 40 meq PO UD PRN PRN Reason: Potassium < 3 Last Admin: 12/04/22 08:48 Dose: 40 meq Senna (Sennosides 1 Tablet) 2 tab PO DAILYP PRN PRN Reason: Constipation Sodium Chloride (0.9 % Sodium Chloride 10 Ml Syringe) 10 ml IV Q8 DEX Last Admin: 12/06/22 05:54 Dose: 10 ml Sodium Chloride (0.9 % Sodium Chloride 10 Ml Syringe) 10 ml IV UD PRN PRN Reason: between meds Last Admin: 11/30/22 00:07 Dose: 10 ml ABG Interpretation ABG results: 11/30/22 05:21 ABG Methemoglobin 0.3 L VBG pH 7.18 L* VBG pCO2 30.0 L VBG pO2 58.7 H VBG HCO3 11.0 L VBG Total CO2 12.0 L VBG O2 Saturation 85.9 H VBG Base Excess -16 L A/P Time Spent With Patient Time: Total time spent is greater than 50% in coordination of care (as documented) at patient's floor/unit and/or counseling patient: Critical Care Time: Yes Total Critical Care Time: 55 QUALITY Stroke Symptom Onset Unknown: No VTE Deep Vein Thrombosis/Pulmonary Embolism Present on Admission: No Restraints Restraint In Place: No
[2022-12-06] MEDS: ATORVASTATIN 40 MG TABLET PO SCH (21:16)
[2022-12-07] MEDS: 0.9 % SODIUM CHLORIDE 10 ML SYRINGE IV SCH (05:11)
[2022-12-07] MEDS: PANTOPRAZOLE 40 MG TABLET PO SCH (07:12)
[2022-12-07] MEDS: LEVOTHYROXINE 25 MCG TABLET PO SCH (07:12)
[2022-12-07] MEDS: INSULIN LISPRO 1 UNIT/0.01 ML UNIT SQ SCH ×2 (07:52→11:53)
[2022-12-07] MEDS: CEPHALEXIN 500 MG CAPSULE PO SCH ×2 (08:23→13:06)
[2022-12-07] MEDS: NYSTATIN 500,000 UNITS/5 ML ORAL.SUSP SSW SCH ×2 (08:23→13:06)
[2022-12-07] MEDS: FLUCONAZOLE 100 MG TABLET PO SCH (08:23)
[2022-12-07] MEDS: INSULIN GLARGINE, HUMAN 1 UNIT/0.01 ML SQ SCH (08:24)
[2022-12-07] MEDS: NYSTATIN POWDER BOTTLE 15GM TOPICAL SCH (08:32)
[2022-12-07 08:53] LABS: Basophils # (Auto) 0.03 K/mcL (0.00-0.30); Basophils % (Auto) 0.3 % (0.0-2.0); Eosinophils # (Auto) 0.08 K/mcL (0.00-0.70); Eosinophils % (Auto) 0.7 % (0.0-7.0); Hematocrit 27.2 % (34.1-44.9); Hemoglobin 8.2 g/dL (11.2-15.7); Lymphocytes # (Auto) 1.94 K/mcL (1.50-4.80); Lymphocytes % (Auto) 17.6 % (15.5-49.0); Mean Cell Volume 91.9 fL (80.0-100.0); Mean Corpuscular HGB Conc 30.1 g/dL (31.0-36.0); Mean Platelet Volume 10.4 fL (8.8-12.5); Monocytes # (Auto) 0.87 K/mcL (0.10-0.90); Monocytes % (Auto) 7.9 % (1.0-12.0); Platelet Count 391 K/mcL (140-440); RBC 2.96 M/mcL (3.59-5.38); Red Cell Distribution Width 16.6 % (11.5-14.5)
[2022-12-07 09:13] LABS: ALT/SGPT 7 U/L (<40); AST/SGOT 12 U/L (<32); Albumin/Globulin Ratio 0.6 (1.0-2.3); Alkaline Phosphatase 163 U/L (39-117); Bilirubin,Total 0.2 mg/dL (0.1-1.0); Blood Urea Nitrogen 6 mg/dL (6-20); Calcium 8.5 mg/dL (8.6-10.4); Carbon Dioxide 19 mmol/L (22-30); Chloride 109 mmol/L (96-108); Globulin 3.1 gm/dL (2.2-3.7); Glomerular Filtration Rate 114; Glucose 211 mg/dL (70-105)
[2022-12-07] MEDS: POTASSIUM CHLORIDE 20 MEQ TABLET PO PRN (09:35)
--- NOTE | 2022-12-07 12:06 | Discharge Summary ---
Discharge Provider Provider IMPORTANT FOLLOW-UP INFORMATION FOR PCP: Patient information: Note initiated : 12/07/22 at 11:54 am Service Date, if different from initiated Date: [] Patient: Angela Sultana 42 y/o F admitted on 11/29/22 for HI BG. Chief Complaint: [] Date of admission: 11/29/22 19:02 Discharge date: 12/07/22 Primary care physician: Farhana Lamar DO Consults: 11/29/22 Consult to Physician [CONS] Stat Comment: Consulting Provider: Keanu Stover Reason For Exam: Physician to Consult 11/29/22 21:17 Consult to Physician [CONS] Routine Comment: upper gi bleed Consulting Provider: Martha Han Reason For Exam: Physician to Consult COURSE Hospital Course Hospital course: Patient is a 42 years old female with history of diabetes mellitus 2, hyp ertension presented with altered mental status, she was quite obtunded on presentation. Reportedly patient had been ill for the past couple days, she had been receiving antibiotic for cellulitis in the right groin area. In ED patient was found to be in severe DKA with pH of 7.18, acute kidney injury with creatinine 1.5, bicarbonate 12, lactate 2.0. Patient was also in sepsis with tachycardia. She has been hypotensive in the ED. patient was given aggressive IV fluid resuscitation and started on DKA protocol with insulin drip. Patient had pseudohyponatremia and mild hypokalemia which was addressed. Patient was noted to have episode of emesis with coffee-ground vomitus. She was started on Protonix gtt. and general surgery was consulted. Patient required vasopressors for hemodynamic support. She was quite acidotic and required several amps of bicarb and albumin with improvement in her blood pressure and decreasing need for Levophed. Patient was noted to have melanotic stools. Right groin/lower quadrant open wound was noted draining purulent material. Patient was started on vancomycin and cefepime. Patient started responding. Insulin gtt was transitioned to subcutaneous long-acting insulin. Her blood pressure improved and she was weaned off vasopressors. Her mentation also started to improve. CT scan pelvis showed possible colitis and suspected pancreatitis. Lipase obtained was 572. Patient bandemia worsened and cefepime was changed to meropenem. Surgery saw patient in consultation. EGD on 12/03/[address] Han revealed oral thrush with severe monilial esophagitis extending from cricopharyngeus to the GE junction. Multiple areas of healing in the mid esophagus with blood beneath fresh eschar acute erosion and inflammation at GE junction without active bleeding. Acute duodenitis without ulceration was noted. No active bleeding in duodenum. Patient initially on IV PPI transition to oral PPI. Thereafter patient hemoglobin remained stable, no evidence of further melena, hematochezia or hematemesis. Patient esophageal candidiasis is improving. Surgery recommended continue with antibiotic and antifungal. Patient hoarseness of voice which is likely secondary to esophageal candidiasis is now resolving. Physical examination Alert and awake, sitting up in bedside chair, in no acute distress Head Head exam: Present atraumatic, normal inspection and normocephalic Eye Eye exam: Present EOMI and PERRL ENT ENT exam: Present mucous membranes moist and normal oropharynx Neck Neck exam: Present full ROM and normal inspection; Absent tenderness Respiratory Respiratory exam: Present normal respiratory exam and CTAB; Absent rales, rhonchi or wheezes Additional comments: Cardiovascular Cardiovascular exam: Present normal rate and rhythm, RRR, +S1, +S2 and tachycardia ( heart rate 110min) GI/Abdominal GI/Abdominal exam: Present normal bowel sounds, nondistended, no tenderness, obese abdomen Extremities Exam Extremities exam: Present full ROM, normal inspection and neurovascular intact; Absent calf tenderness Psychiatric Psychiatric exam: Present mood is stable Skin Additional comments: Groin area cellulitis is resolving, no drainage noted. Assessment and plan Upper GI bleeding. EGD on 12/03/[address] Han revealed oral thrush with severe monilial esophagitis extending from cricopharyngeus to the GE junction. Multiple areas of healing in the mid esophagus with blood beneath fresh eschar acute erosion and inflammation at GE junction without active bleeding. Acute duodenitis without ulceration was noted. No active bleeding in duodenum. Surgery signed off. PPI bid Acute blood loss anemia, secondary to GI bleed, hemoglobin stable around 8.2, no indication for transfusion. Follow-up as an outpatient Esophageal candidiasis/severe candidal esophagitis, continue oral fluconazole 2 to 3 weeks, and nystatin swish. Oropharyngeal dysphagia, secondary to above, improving Candidiasis, intertrigo erythema, on antifungal and antibiotic treatment. Surgery seen patient in consultation Diabetic ketoacidosis. Poorly controlled diabetes mellitus A1c 12.9. DKA resolved. *severe Metabolic/Lactic acidosis: lactic acidosis resolved, metabolic acidosis improved *Hypovolemic/Septic shock: resolved *R groin cellulitis/superficial draining abscess: seen by surgeon, no need for I&D. Improving on antibiotic and antifungal. Wound culture from right groin showed no pathogen growth. HTN. Hydrochlorothiazide discontinued due to severe hypokalemia on admission. Blood pressure remains stable. *Encephalopathy septic versus metabolic: multifactorial 2/2 above, continues to improve. UDS negative *acute Pancreatitis: improved *KERI, concern initially for ATN: 2/2 above, resolved *Severe electrolyte d/o (hypocalcemia/hypokalemia/Hypomagnesemia/Hypophos/hypernatremia), improved *Thrombocytopenia: Multifactorial, resolved *Morbid obesity: BMI 43, lifestyle modification, counseled on weight reduction *HLD: Hypertriglyceridemia. On fenofibrate and atorvastatin *Hypothyroidism: tsh wnl. Continue home dose levothyroxine Generalized weakness, received physical therapy in house, discharged with outpatient PT DVT prophylaxis, SCDs Subsequent: Total time with patient: 50 - 65 Minutes Portions of this chart may have been created with [employer] voice recognition software. Occasional wrong-word or sound-like substitutions may have occurred due to the inherent limitations of voice recognition software. Please read the chart carefully and recognize, using context, where the substitutions have occurred. Discharge diagnosis: DKA, candidal esophagitis, upper GI bleed, encephalopathy, KERI Time Spent with Patient Time attestation: Total time spent providing and/or coordinating discharge services: Time spent: Greater than 30 minutes EXAM Constitutional Vitals: Temp Pulse Resp BP Pulse Ox O2 Del Method O2 Flow Rate 98.8 F 95 H 14 139/74 100 Room Air 1 12/07/22 08:00 12/07/22 08:00 12/07/22 08:00 12/07/22 08:00 12/07/22 08:00 12/07/22 08:00 12/04/22 02:00 Discharge Data Data Completed and Pending Labs on day of discharge: Labs from last 24 hours 12/07/22 12/07/22 07:52 07:52 WBC 11.0 RBC 2.96 L Hgb 8.2 L Hct 27.2 L MCV 91.9 MCH 27.7 MCHC 30.1 L RDW 16.6 H Plt Count 391 MPV 10.4 Immature Gran % (Auto) 0.5 Neut % (Auto) 73.0 Lymph % (Auto) 17.6 [place] % (Auto) 7.9 Eos % (Auto) 0.7 Baso % (Auto) 0.3 Lymph # (Auto) 1.94 [place] # (Auto) 0.87 Eos # (Auto) 0.08 Baso # (Auto) 0.03 Immature Gran # 0.06 H Absolute Neutrophils 8.04 H Sodium 140 Potassium 3.3 Chloride 109 H Carbon Dioxide 19 L Anion Gap 12.0 BUN 6 Creatinine 0.6 GFR Calculation 114 Glucose 211 H Calcium 8.5 L Total Bilirubin 0.2 AST 12 ALT 7 Alkaline Phosphatase 163 H Total Protein 5.1 L Albumin 2.0 L Globulin 3.1 Albumin/Globulin Ratio 0.6 L Preliminary micro results at discharge 12/03/22 08:13 Blood Culture - Preliminary Blood 12/03/22 08:08 Blood Culture - Preliminary Blood 11/30/22 12:29 Gram Stain - Preliminary Groin - Right Anaerobic Culture - Preliminary Discharge Plan Patient/Caregiver Discharge Instructions Activity: as per physical therapy Diet: Consistent Carbohydrate Instructions: Diabetes Mellitus Type 2 in Adults, Physician Office Secretary (GEN) Prescriptions: New atorvastatin 40 mg Tablet 40 mg PO HS 30 Days Qty: 30 0RF cephalexin 500 mg Capsule 500 mg PO QID Qty: 12 0RF fluconazole 100 mg Tablet 400 mg PO DAILY Qty: 12 0RF pantoprazole 40 mg Tablet,Delayed Release (Dr/Ec) 40 mg PO QDAY Qty: 60 0RF Continued levothyroxine 25 mcg tablet 25 mcg PO QDAY Qty: 90 1RF fenofibrate 54 mg tablet 108 mg PO QDAY Qty: 180 1RF metformin 1,000 mg tablet See Rx Instructions .ROUTE .COMPLEX Qty: 180 0RF Dose Instruction: Take 1 tablet by mouth twice daily Rx Instructions: Take 1 tablet by mouth twice daily insulin lispro [Humalog KwikPen Insulin] 100 unit/mL insulin pen 8 unit SUB-Q TID Qty: 15 3RF insulin glargine 100 unit/mL solution 30 unit SUB-Q HS Qty: 100 1RF norgestimate-ethinyl estradiol [Tri-Sprintec (28)] 0.18/0.215/0.25 mg-35 mcg (28) tablet 1 tab PO QDAY Qty: 84 1RF nystatin 100,000 unit/gram powder 1 applic topical TID Qty: 60 0RF Discontinued hydrochlorothiazide 12.5 mg tablet 12.5 mg tablet 12.5 mg PO QAM Qty: 90 1RF cephalexin 500 mg capsule 500 mg PO TID 10 Days Qty: 30 0RF Other Ambulatory Orders: Physical Therapy at Discharge - General (Routine) Location: None Selected Ordered By: Maikol Joaquin Follow Up Plan Follow up with: Farhana Lamar DO [Primary Care Provider] - Patient Disposition: Home, Self-Care Discharge Orders: Discharge Order (Routine); Ordered 12/07/22 Ordered By: Maikol Joaquin QUALITY VTE Deep Vein Thrombosis/Pulmonary Embolism Present on Admission: No
--- NOTE | 2023-01-26 08:51 | Operative Note ---
DATE OF OPERATION: 12/03/2022 DATE OF PROCEDURE: 12/03/2022 PREOPERATIVE DIAGNOSES: Upper gastrointestinal bleeding, acute blood loss anemia, ketoacidosis. POSTOPERATIVE DIAGNOSES: Severe monilial esophagitis with healing erosions of the distal esophagus and GE junction, gastroparesis. No active bleeding. PROCEDURE: Esophagogastroduodenoscopy. SURGEON: Martha Han M.D. FINDINGS: Severe oral thrush with severe monilial esophagitis extending from the cricopharyngeus down to the GE junction. There were multiple areas of healing in the mid esophagus with old blood beneath fresh eschar. There were acute erosions and inflammation at the GE junction without active bleeding. There was a large volume of retained gastric and bilious secretions in the stomach. There was minimal peristalsis of the stomach. The pylorus appeared to be normal and opened appropriately. There was acute inflammation of the duodenum without ulceration. There was no active bleeding. DESCRIPTION OF PROCEDURE: Under general anesthesia, the patient turned to the left lateral decubitus position. Bite block was placed. A scope was introduced through the bite block into the retropharynx. Oral thrush was very severe and the mouth was dry. The findings during the exams are as noted above. The patient tolerated the procedure well. All of the retained gastric juice was suctioned and irrigated. There was no evidence of bleeding and there was no old blood extending out to the third portion of the duodenum. Air was suctioned from the stomach and the scope was removed. The patient tolerated the procedure well. She was awakened and monitored in the endoscopy suite prior to being transferred back to the ICU for further care. LCS:alondra Job ID: [id number] Doc ID: [id number] Martha Han M.D.
== END 2022-12-07 14:10 | disposition home or self-care (01) | DRG 637 ==
LOC: ED 15:36 → ICU 19:02 → MEDSUR 12-06 15:30
PROVIDERS: ADMIT Internal Medicine; ATTEND Internal Medicine

== ENCOUNTER 2023-01-22 14:05 | Inpatient (IN) ==
[2023-01-22] MEDS ORDERED: IOPAMIDOL 100 ML BOTTLE IV ONE (14:06)
--- NOTE | 2023-01-22 14:17 | Emergency Department Note ---
HPI General Chief complaint: Extremity Injury, Lower Stated complaint: L leg infection Time Seen by Provider: 01/22/23 14:10 Source: patient Mode of arrival: ambulatory Limitations: no limitations History of Present Illness HPI Narrative: Narrative: Patient is a 42-year-old female with a history of type 2 diabetes, DKA, hypertension, and hypertriglyceridemia who presents to the emergency department due to concern for worsening of cellulitis. She states that she was seen yesterday and found to have concern for cellulitis, but has had significant worsening since yesterday. She states that she was given a dose of antibiotics in the emergency department yesterday, and has taken 1 dose of prescribed antibiotics. She states that she has had significant worsening in the pain in her leg, and this is the reason she came in. Initially she stated she was unsure if the redness has been spreading, but after examining the leg she did state that the redness had spread significantly. She denies any other symptoms. Related Data Previous Rx's Medication Instructions Recorded levothyroxine 25 mcg tablet 25 mcg PO QDAY #90 tabs 08/18/22 fenofibrate 54 mg tablet 108 mg PO QDAY #180 tabs 09/16/22 metformin 1,000 mg tablet See Rx Instructions .Route 11/03/22 .COMPLEX #180 tabs nystatin 100,000 unit/gram topical 1 applic topical TID #60 grams 11/26/22 powder pantoprazole 40 mg tablet,delayed 40 mg PO QDAY #60 tabs 12/07/22 release insulin glargine 100 unit/mL 10 unit (0.1 mL) subcut BID #100 mL 12/12/22 subcutaneous solution insulin lispro 100 unit/mL 10 unit (0.1 mL) subcut TID #15 mL 12/12/22 subcutaneous pen (Humalog Tempo Pen (U-100) Insulin) nystatin 100,000 unit/mL oral 6 ml PO QID 14 days #336 mL 12/12/22 suspension pen needle, diabetic 31 gauge x #100 ea 12/26/22 5/16" (Easy Comfort Pen [place]) glucagon 1 mg/0.2 mL subcutaneous 1 mg (0.2 mL) subcut ONCE #0.4 mL 12/30/22 auto-injector cephalexin 500 mg capsule 500 mg PO TID 10 days #30 caps 01/21/23 Allergies Allergy/AdvReac Type Severity Reaction Status Date / Time amoxicillin [Amoxicillin] Allergy Mild Hives Verified 01/21/23 08:41 Review of Systems ROS ROS Narrative: Narrative: Constitutional: Denies fever or weakness Eyes: Denies eye pain or vision change ENT ED: Denies throat pain or rhinorrhea Cardiovascular: Denies chest pain or edema Respiratory: Denies shortness of breath or cough Gastrointestinal: Denies abdominal pain, nausea, vomiting, diarrhea or constipation Musculoskeletal: Denies back pain or myalgia Integumentary: Reports change in color (Redness of most of the lower leg on the left); Denies rash or lesions Neurological: Denies headache or weakness PFSH Narrative Patient History Narrative: Narrative: Medical/Surgical/Family History All Active Problems (Updated 01/22/23 @ 17:43 by Lukasz Sen MD) Cellulitis of left leg (Acute) Bilateral leg edema (Acute) Type 2 diabetes mellitus with hypoglycemia (Acute) Hypoglycemia (Acute) Encephalopathy (Acute) Morbid obesity with BMI of 45.0-49.9, adult (Acute) KERI (acute kidney injury) (Acute) Thrush of mouth and esophagus (Acute) Monilial esophagitis (Acute) Candidiasis, intertrigo (Acute) GI bleeding (Acute) DKA, type 2 (Acute) Cellulitis (Acute) Skin yeast infection (Acute) DKA (diabetic ketoacidosis) (Acute) Hypothyroidism (Acute) Cellulitis of left foot (Acute) Immunization, tetanus-diphtheria (Acute) Cellulitis of left leg (Acute) Abscess of skin or subcutaneous tissue (Acute) Diabetic peripheral neuropathy (Acute) Morbid obesity (Acute) HTN (hypertension), benign (Acute) High triglycerides (Chronic) Elevated BP without diagnosis of hypertension (Acute) DM2 (diabetes mellitus, type 2) (Chronic) Cellulitis of external ear (Acute) Medical History KERI (acute kidney injury) Amputated great toe of left foot 12/2017 Cellulitis and abscess of foot IV antibiotics, estimated 50% chance of healing to toe given status during surgery. Daily dressing changes and as needed given drainage Cellulitis of external ear Cellulitis of right foot Cellulitis of toe of left foot Cellulitis of toe of right foot Diabetes mellitus (~12/29/17) Diabetes type 2, uncontrolled Diabetic peripheral neuropathy mostly left toes 07/10/2020. DM2 (diabetes mellitus, type 2) metformin + insulin using onset before 07/10/2020 Elevated BP without diagnosis of hypertension High triglycerides HTN (hypertension), benign Hypothyroidism Morbid obesity Morbid obesity with BMI of 45.0-49.9, adult Thrush of mouth and esophagus Type 2 diabetes mellitus with foot ulcer Type 2 diabetes mellitus with hypoglycemia Surgical History History of amputation of great toe Family History Brother Diabetes Hypertension, essential Thyroid disorder Mother Diabetes Arthritis Seizure Thyroid disorder Father , of IHD, complications of diabetes Diabetes Hypertension, essential Heart attack Stroke Sister Migraine Social History Smoking Status: Never smoker Alcohol Intake Frequency: does not drink Substance Use: does not use Exam Narrative Narrative: Narrative: General Limitations: no limitations General appearance: Present alert and in no apparent distress; Absent anxious, appears intoxicated or sleepy Head Head: Present atraumatic and normocephalic Eye Eye: Present EOMI; Absent scleral icterus or nystagmus ENT ENT: Present mucous membranes moist; Absent nasal congestion Neck Neck: Present full ROM and trachea midline Chest Chest: Present normal inspection and symmetric chest wall rise Respiratory Respiratory: Present normal lung sounds bilaterally; Absent respiratory distress, rales/crackles, wheezes, stridor or accessory muscle use Cardiovascular Cardiovascular: Present regular rate, normal rhythm and normal heart sounds Adbominal Abdominal: Present soft; Absent distention Extremities Extremities: Present normal inspection, full ROM and tenderness Back Back: Present normal inspection and full ROM Neurological Neurological: Present alert and oriented X3; Absent motor sensory deficit Psychiatric Psychiatric: Present normal affect and normal mood Skin Skin: Present warm (WNL), dry, normal color and erythema (Most of left lower leg and foot) Course Vital Signs Vital signs: Vital Signs Temperature 98.0 F 01/22/23 14:11 Pulse Rate 84 01/22/23 14:11 Respiratory Rate 17 01/22/23 14:11 Blood Pressure 118/76 01/22/23 14:11 Pulse Oximetry (%) 92 01/22/23 14:11 Oxygen Delivery Method Room Air 01/22/23 14:11 Temperature 98.0 F 01/22/23 14:11 Pulse Rate 84 01/22/23 14:11 Respiratory Rate 17 01/22/23 14:11 Blood Pressure 118/76 01/22/23 14:11 Pulse Oximetry (%) 92 01/22/23 14:11 Oxygen Delivery Method Room Air 01/22/23 14:11 MDM MDM Narrative Medical decision making narrative: Narrative: Patient is a 42-year-old female who presents to the emergency department due to concern for worsening cellulitis. Patient significant spread of erythema. Because of her pain seems to be out of proportion to exam labs and CT scan have been ordered. CT scan is reassuring and shows only cellulitis. Labs are significant only for leukopenia. I have spoken to Dr. Joaquin and he has agreed to see and evaluate patient for admission. Lab Data 01/22/23 15:10 Labs: Lab Results 01/22/23 01/22/23 01/22/23 Range/Units 15:10 15:10 15:16 WBC 1.7 L (4.5-11.0) K/mcL RBC 3.65 (3.59-5.38) M/mcL Hgb 9.5 L (11.2-15.7) g/dL Hct 31.5 L (34.1-44.9) % POC Hct 29.0 L (36-48) MCV 86.3 (80.0-100.0) fL MCH 26.0 (26.0-34.0) pg MCHC 30.2 L (31.0-36.0) g/dL RDW 16.9 H (11.5-14.5) % Plt Count 107 L (140-440) K/mcL MPV 12.2 (8.8-12.5) fL Immature Gran % (Auto) 0.6 H (0.0-0.5) % Neut % (Auto) 41.6 (38.0-78.0) % Lymph % (Auto) 52.4 H (15.5-49.0) % Shannon % (Auto) 5.4 (1.0-12.0) % Eos % (Auto) 0 (0.0-7.0) % Baso % (Auto) 0 (0.0-2.0) % Lymph # (Auto) 0.87 L (1.50-4.80) K/mcL Shannon # (Auto) 0.09 L (0.10-0.90) K/mcL Eos # (Auto) 0 (0.00-0.70) K/mcL Baso # (Auto) 0 (0.00-0.30) K/mcL Immature Gran # 0.01 (0.00-0.05) K/mcl Absolute Neutrophils 0.69 L* (1.80-8.00) K/mcL ESR 11 (0-20) mm/hr POC Sodium 140 (133-145) POC Potassium 3.9 (3.3-5.1) POC Chloride 99 (96-108) POC Total CO2 29.0 (22-30) POC BUN 6 (6-20) POC Creatinine 0.4 L (0.6-1.2) POC Glucose 139 H (70-105) POC WB Ioniz Calcium 1.06 L (1.16-1.32) C-Reactive Protein 3.80 H (0.03-0.80) mg/dL Discharge Plan Patient/Caregiver Discharge Instructions Pt seen by SENIOR USER EXPERIENCE ARCHITECT/PA only: No Clinical Impression: Cellulitis of left leg Patient Disposition: Xfer As Outpt/Obs ([facility]) Follow up with: No,PCP [Primary Care Provider] - Prescriptions: No Action levothyroxine 25 mcg tablet 25 mcg PO QDAY Qty: 90 1RF fenofibrate 54 mg tablet 108 mg PO QDAY Qty: 180 1RF metformin 1,000 mg tablet See Rx Instructions .ROUTE .COMPLEX Qty: 180 0RF Dose Instruction: Take 1 tablet by mouth twice daily Rx Instructions: Take 1 tablet by mouth twice daily (DME) pen needle, diabetic [Easy Comfort Pen [place]] 31 gauge x 5/16" needle See Rx Instructions .Route Qty: 100 0RF Rx Instructions: As directed glucagon 1 mg/0.2 mL auto-injector 1 mg subcut ONCE Qty: 0.4 2RF Rx Instructions: as a single dose; may repeat once after 15 minutes if no response nystatin 100,000 unit/mL suspension 6 ml PO QID 14 Days Qty: 336 1RF Rx Instructions: swish and swallow insulin glargine 100 unit/mL solution 10 unit subcut BID Qty: 100 6RF Rx Instructions: Take 20 units in the morning and 30 units at bedtime insulin lispro [Humalog Tempo Pen(U-100)Insuln] 100 unit/mL insulin pen 10 unit subcut TID Qty: 15 3RF nystatin 100,000 unit/gram powder 1 applic topical TID Qty: 60 0RF pantoprazole 40 mg Tablet,Delayed Release (Dr/Ec) 40 mg PO QDAY Qty: 60 0RF cephalexin 500 mg capsule 500 mg PO TID 10 Days Qty: 30 0RF
[2023-01-22] MEDS ORDERED: VANCOMYCIN 2,000 MG in 0.9 % SODIUM CHLORIDE 500 ML IV ONE (14:56)
[2023-01-22] MEDS ORDERED: CEFEPIME 1 GM VIAL IV ONE (14:56)
[2023-01-22 15:21] LABS: POC Calcium, Ionized 1.06 (1.16-1.32); POC Creatinine 0.4 (0.6-1.2); POC Potassium 3.9 (3.3-5.1)
--- NOTE | 2023-01-22 16:20 | Cat Scan Report ---
CLINICAL INFORMATION: Erythema and swelling COMPARISON: None. TECHNIQUE: 80 cc of Isovue-370 were injected intravenously and 25 seconds later, 0.625 mm helical slices were obtained from the distal one third of the femur through the tibia and fibula ankle and foot.. Following reconstruction, 2.5 mm sagittal and coronal reformations were processed. The exam was reviewed at bone and soft tissue windows . The exam was performed using radiation dose optimization techniques including, but not limited to, automated exposure control, adjustment of the mA and/or kV according to patient size and use of iterative reconstruction technique. FINDINGS: Moderate cellulitis confined to the subcutaneous fat is seen throughout the distal thigh calf, ankle and foot. The muscle and deep fascial planes are unremarkable-no evidence of abscess or myositis. Bone windows show no evidence of osteomyelitis. First ray amputation at the base of the proximal phalanx appreciated. The stump appears normal with edema in the overlying soft tissues. Joint spaces are all normal with alignment without arthritic change or degeneration. Slight lateral patellar subluxation noted IMPRESSION: Moderate cellulitis confined to the subcutaneous fat throughout the calf and ankle. There is no evidence of abscess, osteomyelitis, myositis or other complication. Amputation changes first ray at the first proximal phalangeal base-typical postoperative appearance Mild lateral subluxation of the patella suggesting patellar mistracking Interpreted and Authenticated by: Martin Lopez 01/22/23
[2023-01-22 16:26] LABS: Erythrocyte Sedimentation Rate 11 mm/hr (0-20)
[2023-01-22 16:49] LABS: Basophils # (Auto) 0 K/mcL (0.00-0.30); Basophils % (Auto) 0 % (0.0-2.0); Eosinophils # (Auto) 0 K/mcL (0.00-0.70); Eosinophils % (Auto) 0 % (0.0-7.0); Hematocrit 31.5 % (34.1-44.9); Hemoglobin 9.5 g/dL (11.2-15.7); Lymphocytes # (Auto) 0.87 K/mcL (1.50-4.80); Lymphocytes % (Auto) 52.4 % (15.5-49.0); Mean Cell Volume 86.3 fL (80.0-100.0); Mean Corpuscular HGB Conc 30.2 g/dL (31.0-36.0); Mean Platelet Volume 12.2 fL (8.8-12.5); Monocytes # (Auto) 0.09 K/mcL (0.10-0.90); Monocytes % (Auto) 5.4 % (1.0-12.0); Neutrophils % (Auto) 41.6 % (38.0-78.0); Platelet Count 107 K/mcL (140-440); RBC 3.65 M/mcL (3.59-5.38); Red Cell Distribution Width 16.9 % (11.5-14.5); WBC 1.7 K/mcL (4.5-11.0)
--- NOTE | 2023-01-22 17:12 | Internal Med History&Physical ---
HPI History of Present Illness Patient information: Note initiated : 01/22/23 at 5:08 pm Service Date, if different from initiated Date: [] Patient: Angela Sultana 42 y/o F admitted on for L leg infection. Chief Complaint: [] History of present illness: Patient is a 42-year-old morbidly obese female with a history of diabetes mellitus 2, DKA, hypertension, and hypertriglyceridemia, hypothyroidism, cellulitis was last hospitalized for septic shock secondary to groin abscess and DKA requiring vasopressor support in November 2022 now presents with 3-day history of left lower extremity redness, erythema. Patient reported she injured her left foot toes about a week ago. She came to ER yesterday and was given a dose of ceftriaxone and went home. However over the past 24 hours the area of erythema which was initially in the left lower leg about 6 to 7 cm has now spread very fast involving the whole anterior and some medial calf area just below the left knee. Patient report it hurts badly, she had some chills but no fever. She could not take it anymore and presented to ER. In ER patient vitals were stable. Lab work showed WBC 1.7, hemoglobin 9.5, she has chronic anemia, CRP was elevated at 3.8, liver functions, renal functions we re stable. CT scan left lower extremity showed moderate cellulitis to the subcutaneous fat throughout the calf and ankle. There was no evidence of abscess, osteomyelitis, myositis. Admission was requested Review of system Constitutional: Denies fever or weakness Eyes: Denies eye pain or vision change ENT ED: Denies throat pain, hearing loss or rhinorrhea Cardiovascular: Denies chest pain, dyspnea on exertion, orthopnea or edema Respiratory: Denies shortness of breath or cough Gastrointestinal: Denies abdominal pain, nausea, vomiting, diarrhea, constipation, hematochezia or melena Musculoskeletal: Denies back pain or myalgia Integumentary: Erythema, redness, pain to left lower extremity Neurological: Denies headache, weakness, numbness, confusion, abnormal gait or dizziness Psychiatric: Denies anxiety, suicidal thoughts or homicidal thoughts Endocrine: Denies fatigue or polyuria Hematological/Lymphatic: Denies easy bleeding or easy bruising Physical examination General Limitations: no limitations General appearance: Present alert and in no apparent distress; Absent anxious, appears intoxicated or sleepy Head Head: Present normocephalic; Absent atraumatic Eye Eye: Present PERRL, EOMI and visual watson intact; Absent scleral icterus or nystagmus ENT ENT: Present mucous membranes moist; Absent nasal congestion Neck Neck: Present full ROM; Absent tenderness Chest Chest: Present normal inspection, symmetric chest wall rise and tenderness Respiratory Respiratory: Present normal lung sounds bilaterally; Absent respiratory distress or accessory muscle use Cardiovascular Cardiovascular: Present regular rate, normal rhythm and normal heart sounds Adbominal Abdominal: Present soft and normal bowel sounds; Absent distention or tenderness Extremities Extremities: Present normal inspection and full ROM; Absent tenderness Back Back: Present normal inspection and full ROM; Absent tenderness Neurological Neurological: Present alert, oriented X3, CN II-XII intact, normal gait and reflexes normal; Absent motor sensory deficit Psychiatric Psychiatric: Present normal affect and normal mood Skin Skin: Present left lower extremity has erythema involving left foot extending up to just below left knee involving anterior and lateral area of calf, skin is dry but no open wounds. Assessment and plan Left lower extremity cellulitis, rapidly spreading. Patient failed to respond t o IM ceftriaxone and now presenting with worsening erythema. We will start clindamycin 900 mg every 8 hours, cefepime twice daily and vancomycin per pharmacy. Pain control with Tylenol and oxycodone Diabetes mellitus 2 poorly controlled, last A1c 12.9. Continue home dose Lantus, metformin and sliding scale Hypertension, blood pressure stable Hypertriglyceridemia Continue fenofibrate Morbid obesity Complicating all aspects of care Weight reduction advised Hypothyroidism Continue home dose Synthroid DVT prophylaxis SCDs CODE STATUS Full code Total time taken 55 minutes [facility] All Active Problems (Updated 01/22/23 @ 17:43 by Lukasz Sen MD) Cellulitis of left leg (Acute) Bilateral leg edema (Acute) Type 2 diabetes mellitus with hypoglycemia (Acute) Hypoglycemia (Acute) Encephalopathy (Acute) Morbid obesity with BMI of 45.0-49.9, adult (Acute) KERI (acute kidney injury) (Acute) Thrush of mouth and esophagus (Acute) Monilial esophagitis (Acute) Candidiasis, intertrigo (Acute) GI bleeding (Acute) DKA, type 2 (Acute) Cellulitis (Acute) Skin yeast infection (Acute) DKA (diabetic ketoacidosis) (Acute) Hypothyroidism (Acute) Cellulitis of left foot (Acute) Immunization, tetanus-diphtheria (Acute) Cellulitis of left leg (Acute) Abscess of skin or subcutaneous tissue (Acute) Diabetic peripheral neuropathy (Acute) Morbid obesity (Acute) HTN (hypertension), benign (Acute) High triglycerides (Chronic) Elevated BP without diagnosis of hypertension (Acute) DM2 (diabetes mellitus, type 2) (Chronic) Cellulitis of external ear (Acute) Medical History KERI (acute kidney injury) Amputated great toe of left foot 12/2017 Cellulitis and abscess of foot IV antibiotics, estimated 50% chance of healing to toe given status during surgery. Daily dressing changes and as needed given drainage Cellulitis of external ear Cellulitis of right foot Cellulitis of toe of left foot Cellulitis of toe of right foot Diabetes mellitus (~12/29/17) Diabetes type 2, uncontrolled Diabetic peripheral neuropathy mostly left toes 07/10/2020. DM2 (diabetes mellitus, type 2) metformin + insulin using onset before 07/10/2020 Elevated BP without diagnosis of hypertension High triglycerides HTN (hypertension), benign Hypothyroidism Morbid obesity Morbid obesity with BMI of 45.0-49.9, adult Thrush of mouth and esophagus Type 2 diabetes mellitus with foot ulcer Type 2 diabetes mellitus with hypoglycemia Surgical History History of amputation of great toe Family History Brother Diabetes Hypertension, essential Thyroid disorder Mother Diabetes Arthritis Seizure Thyroid disorder Father , of IHD, complications of diabetes Diabetes Hypertension, essential Heart attack Stroke Sister Migraine Social History marital status: single smoking status: Never smoker alcohol intake frequency: does not drink substance use type: does not use MEDS/ALLERGIES Home Medications and Allergies Home Medications Medication Instructions Recorded Confirmed Type levothyroxine 25 mcg tablet 25 mcg PO QDAY #90 tabs 08/18/22 12/30/22 Rx fenofibrate 54 mg tablet 108 mg PO QDAY #180 tabs 09/16/22 12/30/22 Rx metformin 1,000 mg tablet See Rx Instructions .Route 11/03/22 12/30/22 Rx .COMPLEX #180 tabs nystatin 100,000 unit/gram topical 1 applic topical TID #60 grams 11/26/22 12/30/22 Rx powder pantoprazole 40 mg tablet,delayed 40 mg PO QDAY #60 tabs 12/07/22 12/30/22 Rx release insulin glargine 100 unit/mL 10 unit (0.1 mL) subcut BID #100 mL 12/12/22 12/30/22 Rx subcutaneous solution insulin lispro 100 unit/mL 10 unit (0.1 mL) subcut TID #15 mL 12/12/22 12/30/22 Rx subcutaneous pen (Humalog Tempo Pen (U-100) Insulin) nystatin 100,000 unit/mL oral 6 ml PO QID 14 days #336 mL 12/12/22 12/30/22 Rx suspension pen needle, diabetic 31 gauge x #100 ea 12/26/22 12/30/22 Rx 5/16" (Easy Comfort Pen [place]) glucagon 1 mg/0.2 mL subcutaneous 1 mg (0.2 mL) subcut ONCE #0.4 mL 12/30/22 12/30/22 Rx auto-injector cephalexin 500 mg capsule 500 mg PO TID 10 days #30 caps 01/21/23 Rx Allergies Allergy/AdvReac Type Severity Reaction Status Date / Time amoxicillin [Amoxicillin] Allergy Mild Hives Verified 01/21/23 08:41 EXAM Constitutional Vitals: Temp Pulse Resp BP Pulse Ox O2 Del Method 98.0 F 84 17 118/76 92 Room Air 01/22/23 14:11 01/22/23 14:11 01/22/23 14:11 01/22/23 14:11 01/22/23 14:11 01/22/23 14:11 DATA Data Completed and Pending Labs: Labs from last 24 hours 01/22/23 01/22/23 01/22/23 15:16 15:10 15:10 WBC 1.7 L RBC 3.65 Hgb 9.5 L Hct 31.5 L POC Hct 29.0 L MCV 86.3 MCH 26.0 MCHC 30.2 L RDW 16.9 H Plt Count 107 L MPV 12.2 Immature Gran % (Auto) 0.6 H Neut % (Auto) 41.6 Lymph % (Auto) 52.4 H Dewitt % (Auto) 5.4 Eos % (Auto) 0 Baso % (Auto) 0 Lymph # (Auto) 0.87 L Dewitt # (Auto) 0.09 L Eos # (Auto) 0 Baso # (Auto) 0 Immature Gran # 0.01 Absolute Neutrophils 0.69 L* ESR 11 POC Sodium 140 POC Potassium 3.9 POC Chloride 99 POC Total CO2 29.0 POC BUN 6 POC Creatinine 0.4 L POC Glucose 139 H POC WB Ioniz Calcium 1.06 L C-Reactive Protein 3.80 H A/P Assessment and plan (1) Type 2 diabetes mellitus with hypoglycemia: Status: Acute Time Spent With Patient Time: Total time spent is greater than 50% in coordination of care (as documented) at patient's floor/unit and/or counseling patient:
[2023-01-22] MEDS ORDERED: GLUCAGON SUB-Q SCH (19:37)
[2023-01-22] MEDS ORDERED: [UNRECOGNIZED DRUG - OTHER] SUB-Q SCH (19:37)
[2023-01-22] MEDS: DOCUSATE SODIUM 100 MG CAPSULE PO SCH (20:16)
[2023-01-22] MEDS: oxyCODONE IR 5 MG TABLET PO PRN (20:42)
[2023-01-22] MEDS: ACETAMINOPHEN 325 MG TABLET PO PRN (20:43)
[2023-01-22] MEDS: INSULIN GLARGINE, HUMAN 1 UNIT/0.01 ML SQ SCH (20:43)
[2023-01-22] MEDS: CEFEPIME 2 GM VIAL IV SCH (20:44)
[2023-01-22] MEDS: SENNOSIDES 1 TABLET PO SCH (20:47)
[2023-01-22] MEDS: NYSTATIN 500,000 UNITS/5 ML ORAL.SUSP SSW SCH (20:52)
[2023-01-22] MEDS: 0.9 % SODIUM CHLORIDE 10 ML SYRINGE IV SCH ×2 (22:28→22:29)
[2023-01-22] MEDS: CLINDAMYCIN IN 0.9 % SOD CHLOR 900 MG/50 ML BAG IV SCH (22:28)
[2023-01-22] MEDS: IBUPROFEN 600 MG TABLET PO PRN (23:04)
[2023-01-23] MEDS: oxyCODONE IR 5 MG TABLET PO PRN ×3 (05:25→21:26)
[2023-01-23] MEDS: ACETAMINOPHEN 325 MG TABLET PO PRN ×3 (05:25→21:25)
[2023-01-23] MEDS: CLINDAMYCIN IN 0.9 % SOD CHLOR 900 MG/50 ML BAG IV SCH ×3 (05:25→21:25)
[2023-01-23] MEDS: 0.9 % SODIUM CHLORIDE 10 ML SYRINGE IV SCH ×5 (05:26→20:47)
[2023-01-23 06:53] LABS: ALT/SGPT 6 U/L (<40); AST/SGOT 31 U/L (<32); Albumin 2.3 gm/dL (3.2-5.2); Alkaline Phosphatase 51 U/L (39-117); Bilirubin,Total 0.3 mg/dL (0.1-1.0); Blood Urea Nitrogen 7 mg/dL (6-20); Calcium 7.8 mg/dL (8.6-10.4); Carbon Dioxide 28 mmol/L (22-30); Chloride 104 mmol/L (96-108); Globulin 2.4 gm/dL (2.2-3.7); Glomerular Filtration Rate 121; Glucose 125 mg/dL (70-105)
[2023-01-23 06:54] LABS: Basophils # (Auto) 0 K/mcL (0.00-0.30); Basophils % (Auto) 0 % (0.0-2.0); Eosinophils # (Auto) 0.06 K/mcL (0.00-0.70); Eosinophils % (Auto) 4.2 % (0.0-7.0); Hematocrit 31.5 % (34.1-44.9); Hemoglobin 9.4 g/dL (11.2-15.7); Lymphocytes # (Auto) 0.69 K/mcL (1.50-4.80); Lymphocytes % (Auto) 48.6 % (15.5-49.0); Mean Cell Volume 87.7 fL (80.0-100.0); Mean Corpuscular HGB Conc 29.8 g/dL (31.0-36.0); Mean Platelet Volume 10.1 fL (8.8-12.5); Monocytes # (Auto) 0.09 K/mcL (0.10-0.90); Monocytes % (Auto) 6.3 % (1.0-12.0); Neutrophils % (Auto) 40.2 % (38.0-78.0); Platelet Count 92 K/mcL (140-440)
[2023-01-23] MEDS: INSULIN LISPRO 1 UNIT/0.01 ML UNIT SQ SCH ×5 (07:16→20:49)
[2023-01-23] MEDS: POTASSIUM CHLORIDE 20 MEQ TABLET PO SCH ×2 (07:52→13:07)
[2023-01-23 08:09] LABS: RBC 3.59 M/mcL (3.59-5.38)
[2023-01-23 08:10] LABS: WBC 1.4 K/mcL (4.5-11.0)
[2023-01-23] MEDS: NYSTATIN 500,000 UNITS/5 ML ORAL.SUSP SSW SCH ×4 (08:12→20:48)
[2023-01-23] MEDS: FENOFIBRATE 43 MG CAPSULE PO SCH (08:12)
[2023-01-23] MEDS: IBUPROFEN 600 MG TABLET PO PRN ×2 (08:12→18:21)
[2023-01-23] MEDS: metFORMIN 500 MG TABLET PO SCH ×2 (08:12→17:36)
[2023-01-23] MEDS: LEVOTHYROXINE 25 MCG TABLET PO SCH (08:13)
[2023-01-23] MEDS: ENOXAPARIN 40 MG/0.4 ML SYRINGE SQ SCH (08:13)
[2023-01-23] MEDS: CEFEPIME 2 GM VIAL IV SCH ×2 (08:13→20:48)
[2023-01-23] MEDS: INSULIN GLARGINE, HUMAN 1 UNIT/0.01 ML SQ SCH ×2 (08:13→20:49)
[2023-01-23] MEDS ORDERED: VANCOMYCIN PER PHARMACY IV SCH (09:00)
[2023-01-23] MEDS: VANCOMYCIN 1,500 MG in 0.9 % SODIUM CHLORIDE 500 ML IV SCH (10:29)
[2023-01-23] MEDS: DOCUSATE SODIUM 100 MG CAPSULE PO SCH ×2 (11:26→20:39)
[2023-01-23] MEDS ORDERED: POTASSIUM CHLORIDE 20 MEQ TABLET PO ONE (13:08)
--- NOTE | 2023-01-23 18:04 | Internal Med Progress Note ---
SUBJECTIVE Subjective Patient information: Note initiated : 01/23/23 at 6:02 pm Service Date, if different from initiated Date: [] Patient: Angela Sultana 42 y/o F admitted on 01/22/23 for L leg infection-Left Lower Extremity Cellulitis. Chief Complaint: [] Additional PMFSH (Level 3 Only): History of present illness: Patient is a 42-year-old morbidly obese female with a history of diabetes mellitus 2, DKA, hypertension, and hypertriglyceridemia, hypothyroidism, cellulitis was last hospitalized for septic shock secondary to groin abscess and DKA requiring vasopressor support in November 2022 now presents with 3-day history of left lower extremity redness, erythema. Patient reported she injured her left foot toes about a week ago. She came to ER yesterday and was given a dose of ceftriaxone and went home. However over the past 24 hours the area of erythema which was initially in the left lower leg about 6 to 7 cm has now spread very fast involving the whole anterior and some medial calf area just below the left knee. Patient report it hurts badly, she had some chills but no fever. She could not take it anymore and presented to ER. In ER patient vitals were stable. Lab work showed WBC 1.7, hemoglobin 9.5, she has chronic anemia, CRP was elevated at 3.8, liver functions, renal functions were stable. CT scan left lower extremity showed moderate cellulitis to the subcutaneous fat throughout the calf and ankle. There was no evidence of abscess, osteomyelitis, myositis. Admission was requested. 01/23. Seen and examined. Afebrile overnight. Reported redness is still there however has not spread beyond the margins which were marked yesterday. Later on she reported to other areas of redness on bilateral inner thighs close to knees. Her potassium is low at 2.9 which will be replaced. Review of system Constitutional: Denies fever or weakness Eyes: Denies eye pain or vision change ENT ED: Denies throat pain, hearing loss or rhinorrhea Cardiovascular: Denies chest pain, dyspnea on exertion, orthopnea or edema Respiratory: Denies shortness of breath or cough Gastrointestinal: Denies abdominal pain, nausea, vomiting, diarrhea, constipation, hematochezia or melena Musculoskeletal: Denies back pain or myalgia Integumentary: Erythema, redness, pain to left lower extremity Neurological: Denies headache, weakness, numbness, confusion, abnormal gait or dizziness Psychiatric: Denies anxiety, suicidal thoughts or homicidal thoughts Endocrine: Denies fatigue or polyuria Hematological/Lymphatic: Denies easy bleeding or easy bruising Physical examination General Limitations: no limitations General appearance: Present alert and awake, sitting up at the edge of the bed, in no acute distress Head Head: Present normocephalic; Absent atraumatic Eye Eye: Present PERRL, EOMI and visual watson intact; Absent scleral icterus or nystagmus ENT ENT: Present mucous membranes moist; Absent nasal congestion Neck Neck: Present full ROM; Absent tenderness Chest Chest: Present normal inspection, symmetric chest wall rise and tenderness Respiratory Respiratory: Present normal lung sounds bilaterally; Absent respiratory distress or accessory muscle use Cardiovascular Cardiovascular: Present regular rate, normal rhythm and normal heart sounds Adbominal Abdominal: Present soft and normal bowel sounds; Absent distention or tenderness Extremities Extremities: Present normal inspection and full ROM; Absent tenderness Back Back: Present normal inspection and full ROM; Absent tenderness Neurological Neurological: Present alert, oriented X3, CN II-XII intact, normal gait and reflexes normal; Absent motor sensory deficit Psychiatric Psychiatric: Present normal affect and normal mood Skin Skin: Present left lower extremity has erythema involving left foot extending up to just below left knee involving anterior and lateral area of calf, the area is marked. It looks improved. No calf tenderness Assessment and plan Left lower extremity cellulitis, rapidly spreading. Patient failed to respond to IM ceftriaxone and now presenting with worsening erythema. Continue IV clindamycin 900 mg every 8 hours, cefepime twice daily.. Pain control with Tylenol and oxycodone Diabetes mellitus 2 poorly controlled, last A1c 12.9. Continue home dose Lantus, metformin and sliding scale Hypokalemia Potassium 2.9. Will replace Hypertension, blood pressure stable Hypertriglyceridemia Continue fenofibrate Morbid obesity Complicating all aspects of care Weight reduction advised Hypothyroidism Continue home dose Synthroid DVT prophylaxis SCDs CODE STATUS Full code Total time taken 45 minutes Constitutional Vitals: Vital Signs Temp Pulse Resp BP Pulse Ox O2 Del Method O2 Flow Rate 97.3 F 72 20 91/56 97 Room Air 3 01/23/23 16:00 01/23/23 16:00 01/23/23 03:40 01/23/23 16:00 01/23/23 16:00 01/23/23 16:00 01/23/23 03:40 Period Temp Pulse Resp BP Sys/Escalante Pulse Ox O2 Del Method O2 Flow Rate Last 24 Hr 97.3 F-99.7 F 68-82 16-20 91-120/56-73 92-100 Nasal Cannula- Room Air 2-3 Intake and Output 01/23/23 01/23/23 01/23/23 03:59 11:59 19:59 Intake Total 675 750 790 Output Total 425 Balance 250 750 790 Weight 130.816 kg 130.816 kg Patient Weight 01/24/23 03:59 Weight 130.816 kg Intake & Output: Intake & Output 01/23/23 01/23/23 01/23/23 03:59 11:59 19:59 Intake Total 675 750 790 Output Total 425 Balance 250 750 790 Weight 130.816 kg 130.816 kg Intake: IV 50 50 550 Vancomycin 1,500 mg In Sodium 500 Chloride 0.9% 500 ml @ 333.3 mls/hr IV Q24H [facility] Rx#: [id number] Oral 625 700 240 Output: Void Amount 425 Other: Meal Tuna salad & 2x cheese sticks Breakfast Dinner Percent of Meal Consumed 100% 100% 10% Feeding Ability Independent Independent Urine Appearance Clear Clear Clear Urine Color Dark Yellow Yellow Brown Yellow Urine Odor Normal Stool Size Large Moderate Stool Color Brown Brown Yellow Stool Consistency Soft Soft # Voids 1 1 # Bowel Movements 1 OBJ DATA Labs 01/23/23 05:10 01/23/23 05:09 Labs: Abnormal Lab Results 01/23/23 01/23/23 01/22/23 05:10 05:09 15:16 WBC 1.4 L Hgb 9.4 L Hct 31.5 L POC Hct 29.0 L MCHC 29.8 L RDW 17.0 H Plt Count 92 L Immature Gran % (Auto) 0.7 H Lymph % (Auto) Lymph # (Auto) 0.69 L [place] # (Auto) 0.09 L Absolute Neutrophils 0.57 L* Potassium 2.9 L* Creatinine 0.5 L POC Creatinine 0.4 L Glucose 125 H POC Glucose 139 H Calcium 7.8 L POC WB Ioniz Calcium 1.06 L C-Reactive Protein Total Protein 4.7 L Albumin 2.3 L 01/22/23 01/22/23 15:10 15:10 WBC 1.7 L Hgb 9.5 L Hct 31.5 L POC Hct MCHC 30.2 L RDW 16.9 H Plt Count 107 L Immature Gran % (Auto) 0.6 H Lymph % (Auto) 52.4 H Lymph # (Auto) 0.87 L [place] # (Auto) 0.09 L Absolute Neutrophils 0.69 L* Potassium Creatinine POC Creatinine Glucose POC Glucose Calcium POC WB Ioniz Calcium C-Reactive Protein 3.80 H Total Protein Albumin Meds: Medications Acetaminophen (Acetaminophen 325 Mg Tablet) 650 mg PO Q6HP PRN; Protocol PRN Reason: Per Pain Protocol/Fever > 101 Last Admin: 01/23/23 15:10 Dose: 650 mg Cefepime HCl (Cefepime 2 Gm Vial) 2 gm IV Q12H [facility]; Protocol Last Admin: 01/23/23 08:13 Dose: 2 gm Diagnostic Test (Pha) (Accu-Chek 1 Each Strip) 1 each FS ACHS [facility] Last Admin: 01/23/23 17:18 Dose: 1 each Docusate Sodium (Docusate Sodium 100 Mg Capsule) 100 mg PO BID [facility] Last Admin: 01/23/23 11:26 Dose: Not Given Enoxaparin Sodium (Enoxaparin 40 Mg/0.4 Ml Syringe) 40 mg SQ DAILY [facility] Last Admin: 01/23/23 08:13 Dose: 40 mg Fenofibrate (Fenofibrate 43 Mg Capsule) 86 mg PO DAILY [facility] Last Admin: 01/23/23 08:12 Dose: 86 mg CLINDAMYCIN IN 0.9 % SOD CHLOR (Clindamycin 900 Mg/50 Ml-Ns) 900 mg in 50 mls @ 100 mls/hr IV Q8H [facility] Last Infusion: 01/23/23 15:34 Dose: Infused Vancomycin HCl 1,500 mg/ (Sodium Chloride) 500 mls @ 333.3 mls/hr IV Q24H [facility] Last Infusion: 01/23/23 14:03 Dose: Infused Ibuprofen (Ibuprofen 600 Mg Tablet) 600 mg PO QIDP PRN; Protocol PRN Reason: Per Pain Protocol/Fever > 101 Last Admin: 01/23/23 08:12 Dose: 600 mg Insulin Glargine (Insulin Glargine, Human 1 Unit/0.01 Ml) 10 unit SQ BID [facility] Last Admin: 01/23/23 08:13 Dose: 10 units Insulin Human Lispro (Insulin Lispro 1 Unit/0.01 Ml Unit) 0 unit SQ ACHS [facility]; Protocol Last Admin: 01/23/23 17:17 Dose: 1 unit Levothyroxine Sodium (Levothyroxine 25 Mcg Tablet) 25 mcg PO QDAY [facility] Last Admin: 01/23/23 08:13 Dose: 25 mcg Metformin HCl (Metformin 500 Mg Tablet) 1,000 mg PO BIDCC [facility] Last Admin: 01/23/23 17:36 Dose: 1,000 mg Nystatin (Nystatin 500,000 Units/5 Ml Oral.Susp) 500,000 units SSW QID [facility] Last Admin: 01/23/23 17:17 Dose: 500,000 units Nystatin (Nystatin Powder Bottle 15gm) dose TOPICAL TID [facility] Ondansetron HCl (Ondansetron 4 Mg/2 Ml Vial) 4 mg IV Q6HP PRN PRN Reason: Nausea And Vomiting Oxycodone HCl (Oxycodone Ir 5 Mg Tablet) 5 mg PO Q4HP PRN; Protocol PRN Reason: Per Pain Protocol Last Admin: 01/23/23 15:10 Dose: 5 mg Pantoprazole Sodium (Pantoprazole 40 Mg Tablet) 40 mg PO QDAY [facility] Senna (Sennosides 1 Tablet) 2 tab PO HS [facility] Last Admin: 01/22/23 20:47 Dose: Not Given Sodium Chloride (0.9 % Sodium Chloride 10 Ml Syringe) 10 ml IV Q8 [facility] Last Admin: 01/23/23 14:02 Dose: 10 ml Sodium Chloride (0.9 % Sodium Chloride 10 Ml Syringe) 10 ml IV Q8 [facility] Last Admin: 01/23/23 14:03 Dose: Not Given Vancomycin HCl (Vancomycin Per Pharmacy) 1 order IV [facility] [place]; Protocol A/P Time Spent With Patient Time: Total time spent is greater than 50% in coordination of care (as documented) at patient's floor/unit and/or counseling patient: QUALITY VTE Deep Vein Thrombosis/Pulmonary Embolism Present on Admission: No
[2023-01-23] MEDS: NYSTATIN POWDER BOTTLE 15GM TOPICAL SCH (20:39)
[2023-01-23] MEDS: SENNOSIDES 1 TABLET PO SCH (20:39)
[2023-01-24] MEDS: IBUPROFEN 600 MG TABLET PO PRN ×4 (00:42→23:36)
[2023-01-24] MEDS: ACETAMINOPHEN 325 MG TABLET PO PRN ×3 (03:42→20:40)
[2023-01-24] MEDS: oxyCODONE IR 5 MG TABLET PO PRN ×3 (03:42→20:42)
[2023-01-24] MEDS: 0.9 % SODIUM CHLORIDE 10 ML SYRINGE IV SCH ×3 (05:25→20:42)
[2023-01-24] MEDS: CLINDAMYCIN IN 0.9 % SOD CHLOR 900 MG/50 ML BAG IV SCH ×3 (05:25→21:40)
[2023-01-24] MEDS: metFORMIN 500 MG TABLET PO SCH ×2 (07:04→17:20)
[2023-01-24 07:14] LABS: Basophils # (Auto) 0.01 K/mcL (0.00-0.30); Basophils % (Auto) 0.7 % (0.0-2.0); Eosinophils # (Auto) 0.08 K/mcL (0.00-0.70); Eosinophils % (Auto) 5.8 % (0.0-7.0); Hemoglobin 9.4 g/dL (11.2-15.7); Lymphocytes # (Auto) 0.55 K/mcL (1.50-4.80); Lymphocytes % (Auto) 39.9 % (15.5-49.0); Mean Cell Volume 87.4 fL (80.0-100.0); Mean Corpuscular HGB Conc 29.4 g/dL (31.0-36.0); Mean Platelet Volume 12.1 fL (8.8-12.5); Monocytes % (Auto) 7.2 % (1.0-12.0); Neutrophils % (Auto) 46.4 % (38.0-78.0); Platelet Count 86 K/mcL (140-440); Red Cell Distribution Width 17.1 % (11.5-14.5)
[2023-01-24] MEDS ORDERED: FUROSEMIDE 20 MG/2 ML VIAL IV ONE (07:19)
[2023-01-24 07:35] LABS: ALT/SGPT 5 U/L (<40); AST/SGOT 21 U/L (<32); Albumin 2.3 gm/dL (3.2-5.2); Albumin/Globulin Ratio 1.1 (1.0-2.3); Alkaline Phosphatase 51 U/L (39-117); Bilirubin,Total 0.3 mg/dL (0.1-1.0); Blood Urea Nitrogen 9 mg/dL (6-20); Calcium 7.6 mg/dL (8.6-10.4); Carbon Dioxide 28 mmol/L (22-30); Chloride 107 mmol/L (96-108); Glomerular Filtration Rate 121; Glucose 86 mg/dL (70-105)
[2023-01-24] MEDS: INSULIN LISPRO 1 UNIT/0.01 ML UNIT SQ SCH ×4 (07:37→20:41)
[2023-01-24 07:57] LABS: RBC 3.66 M/mcL (3.59-5.38); WBC 1.4 K/mcL (4.5-11.0)
[2023-01-24] MEDS: CEFEPIME 2 GM VIAL IV SCH (08:18)
[2023-01-24] MEDS: NYSTATIN 500,000 UNITS/5 ML ORAL.SUSP SSW SCH ×4 (08:18→20:42)
[2023-01-24] MEDS: FENOFIBRATE 43 MG CAPSULE PO SCH (08:19)
[2023-01-24] MEDS: LEVOTHYROXINE 25 MCG TABLET PO SCH (08:19)
[2023-01-24] MEDS: ENOXAPARIN 40 MG/0.4 ML SYRINGE SQ SCH (08:19)
[2023-01-24] MEDS: INSULIN GLARGINE, HUMAN 1 UNIT/0.01 ML SQ SCH ×2 (08:19→20:42)
[2023-01-24] MEDS: PANTOPRAZOLE 40 MG TABLET PO SCH (08:19)
[2023-01-24] MEDS ORDERED: POTASSIUM CHLORIDE 20 MEQ TABLET PO ONE (10:03)
[2023-01-24] MEDS: DOCUSATE SODIUM 100 MG CAPSULE PO SCH ×2 (10:03→20:40)
--- NOTE | 2023-01-24 10:03 | Internal Med Progress Note ---
SUBJECTIVE Subjective Patient information: Note initiated : 01/24/23 at 9:49 am Service Date, if different from initiated Date: [] Patient: Angela Sultana 42 y/o F admitted on 01/22/23 for L leg infection-Left Lower Extremity Cellulitis. Chief Complaint: [] Additional PMFSH (Level 3 Only): History of present illness: Patient is a 42-year-old morbidly obese female with a history of diabetes mellitus 2, DKA, hypertension, and hypertriglyceridemia, hypothyroidism, cellulitis was last hospitalized for septic shock secondary to groin abscess and DKA requiring vasopressor support in November 2022 now presents with 3-day history of left lower extremity redness, erythema. Patient reported she injured her left foot toes about a week ago. She came to ER yesterday and was given a dose of ceftriaxone and went home. However over the past 24 hours the area of erythema which was initially in the left lower leg about 6 to 7 cm has now spread very fast involving the whole anterior and some medial calf area just below the left knee. Patient report it hurts badly, she had some chills but no fever. She could not take it anymore and presented to ER. In ER patient vitals were stable. Lab work showed WBC 1.7, hemoglobin 9.5, she has chronic anemia, CRP was elevated at 3.8, liver functions, renal functions were stable. CT scan left lower extremity showed moderate cellulitis to the subcutaneous fat throughout the calf and ankle. There was no evidence of abscess, osteomyelitis, myositis. Admission was requested. 01/23. Seen and examined. Afebrile overnight. Reported redness is still there however has not spread beyond the margins which were marked yesterday. Later on she reported to other areas of redness on bilateral inner thighs close to knees. Her potassium is low at 2.9 which will be replaced. 01/24. Vitals stable. No fever or chills. Redness intensity is less but it has not regressed so far. Patient has WBC 1.4 and platelets down to 86L, ANC 0.64 suspect secondary to cefepime which will be discontinued. ESR 11. K 3.3 improved from 2.9. Will replace with KCl. Vanco trough 7.1 Review of system Constitutional: Denies fever or weakness Eyes: Denies eye pain or vision change ENT ED: Denies throat pain, hearing loss or rhinorrhea Cardiovascular: Denies chest pain, dyspnea on exertion, orthopnea or edema Respiratory: Denies shortness of breath or cough Gastrointestinal: Denies abdominal pain, nausea, vomiting, diarrhea, constipation, hematochezia or melena Musculoskeletal: Denies back pain or myalgia Integumentary: Left lower extremity erythema less intense Neurological: Denies headache, weakness, numbness, confusion, abnormal gait or dizziness Psychiatric: Denies anxiety, suicidal thoughts or homicidal thoughts Endocrine: Denies fatigue or polyuria Hematological/Lymphatic: Denies easy bleeding or easy bruising Physical examination General Limitations: no limitations General appearance: Present alert and awake, sitting up at the edge of the bed, in no acute distress Head Head: Present normocephalic; Absent atraumatic Eye Eye: Present PERRL, EOMI and visual watson intact; Absent scleral icterus or nystagmus ENT ENT: Present mucous membranes moist; Absent nasal congestion Neck Neck: Present full ROM; Absent tenderness Chest Chest: Present normal inspection, symmetric chest wall rise and tenderness Respiratory Respiratory: Present normal lung sounds bilaterally; Absent respiratory distress or accessory muscle use Cardiovascular Cardiovascular: Present regular rate, normal rhythm and normal heart sounds Adbominal Abdominal: Present soft and normal bowel sounds; Absent distention or tenderness Extremities Extremities: Present normal inspection and full ROM; Absent tenderness Back Back: Present normal inspection and full ROM; Absent tenderness Neurological Neurological: Present alert, oriented X3, CN II-XII intact, normal gait and reflexes normal; Absent motor sensory deficit Psychiatric Psychiatric: Present normal affect and normal mood Skin Skin: Present left lower extremity has erythema involving left foot extending up to just below left knee involving anterior and lateral area of calf less red less but have not regressed yet Assessment and plan Left lower extremity cellulitis, rapidly spreading. Patient failed to respond to IM ceftriaxone and now presenting with worsening erythema. Discontinue cefepime due to concern for thrombocytopenia and leukopenia. Continue clindamycin IV 900 mg every 8 hours and vancomycin per pharmacy. Vanco trough low at 7. Pharmacy to dose. Continue pain control. Give IV Lasix 20 mg x 1 for lymphedema. Diabetes mellitus 2 poorly controlled, last A1c 12.9. Continue home dose Lantus, metformin and sliding scale Hypokalemia Potassium 3.3. Will replace Hypertension BP stable Hypertriglyceridemia Continue fenofibrate Morbid obesity Complicating all aspects of care Weight reduction advised Hypothyroidism Continue home dose Synthroid DVT prophylaxis SCDs CODE STATUS Full code Total time taken 45 minutes Constitutional Vitals: Vital Signs Temp Pulse Resp BP Pulse Ox O2 Del Method O2 Flow Rate 97.9 F 76 16 92/58 100 Room Air 3 01/24/23 07:22 01/24/23 07:22 01/24/23 04:00 01/24/23 07:22 01/24/23 07:22 01/24/23 07:22 01/24/23 04:00 Period Temp Pulse Resp BP Sys/Escalante Pulse Ox O2 Del Method O2 Flow Rate Last 24 Hr 97.3 F-98.4 F 72-81 16-16 90-103/53-70 97-100 Nasal Cannula- Room Air 2-3 Intake and Output 01/23/23 01/24/23 01/24/23 19:59 03:59 11:59 Intake Total 790 1450 370 Output Total 225 Balance 790 1225 370 Weight 130.816 kg 133.175 kg Intake & Output: Intake & Output 01/23/23 01/24/23 01/24/23 19:59 03:59 11:59 Intake Total 790 1450 370 Output Total 225 Balance 790 1225 370 Weight 130.816 kg 133.175 kg Intake: IV 550 50 50 Vancomycin 1,500 mg In Sodium 500 Chloride 0.9% 500 ml @ 333.3 mls/hr IV Q24H [facility] Rx#: [id number] Oral 240 1400 320 Output: Void Amount 225 Other: Meal Dinner Breakfast Percent of Meal Consumed 10% 75% Feeding Ability Independent Independent Urine Appearance Clear Clear Urine Color Yellow Light Jessie Dark Yellow Urine Odor Normal Stool Size Moderate Stool Color Brown Yellow Stool Consistency Soft # Voids 1 1 OBJ DATA Labs 01/24/23 05:35 01/24/23 05:35 Labs: Abnormal Lab Results 01/24/23 01/24/23 01/23/23 05:35 05:35 05:10 WBC 1.4 L 1.4 L Hgb 9.4 L 9.4 L Hct 32.0 L 31.5 L POC Hct MCH 25.7 L MCHC 29.4 L 29.8 L RDW 17.1 H 17.0 H Plt Count 86 L 92 L Immature Gran % (Auto) 0.7 H Lymph % (Auto) Lymph # (Auto) 0.55 L 0.69 L [place] # (Auto) 0.09 L Absolute Neutrophils 0.64 L* 0.57 L* Potassium Anion Gap 6.0 L Creatinine 0.5 L POC Creatinine Glucose POC Glucose Calcium 7.6 L POC WB Ioniz Calcium C-Reactive Protein Total Protein 4.3 L Albumin 2.3 L Globulin 2.0 L 01/23/23 01/22/23 01/22/23 05:09 15:16 15:10 WBC Hgb Hct POC Hct 29.0 L MCH MCHC RDW Plt Count Immature Gran % (Auto) Lymph % (Auto) Lymph # (Auto) [place] # (Auto) Absolute Neutrophils Potassium 2.9 L* Anion Gap Creatinine 0.5 L POC Creatinine 0.4 L Glucose 125 H POC Glucose 139 H Calcium 7.8 L POC WB Ioniz Calcium 1.06 L C-Reactive Protein 3.80 H Total Protein 4.7 L Albumin 2.3 L Globulin 01/22/23 15:10 WBC 1.7 L Hgb 9.5 L Hct 31.5 L POC Hct MCH MCHC 30.2 L RDW 16.9 H Plt Count 107 L Immature Gran % (Auto) 0.6 H Lymph % (Auto) 52.4 H Lymph # (Auto) 0.87 L [place] # (Auto) 0.09 L Absolute Neutrophils 0.69 L* Potassium Anion Gap Creatinine POC Creatinine Glucose POC Glucose Calcium POC WB Ioniz Calcium C-Reactive Protein Total Protein Albumin Globulin Meds: Medications Acetaminophen (Acetaminophen 325 Mg Tablet) 650 mg PO Q6HP PRN; Protocol PRN Reason: Per Pain Protocol/Fever > 101 Last Admin: 01/24/23 03:42 Dose: 650 mg Diagnostic Test (Pha) (Accu-Chek 1 Each Strip) 1 each FS ACHS [facility] Last Admin: 01/24/23 07:05 Dose: 1 each Docusate Sodium (Docusate Sodium 100 Mg Capsule) 100 mg PO BID [facility] Last Admin: 01/23/23 20:39 Dose: Not Given Enoxaparin Sodium (Enoxaparin 40 Mg/0.4 Ml Syringe) 40 mg SQ DAILY [facility] Last Admin: 01/24/23 08:19 Dose: 40 mg Fenofibrate (Fenofibrate 43 Mg Capsule) 86 mg PO DAILY [facility] Last Admin: 01/24/23 08:19 Dose: 86 mg CLINDAMYCIN IN 0.9 % SOD CHLOR (Clindamycin 900 Mg/50 Ml-Ns) 900 mg in 50 mls @ 100 mls/hr IV Q8H [facility] Last Infusion: 01/24/23 06:00 Dose: Infused Vancomycin HCl 1,500 mg/ (Sodium Chloride) 500 mls @ 333.3 mls/hr IV Q24H [facility] Last Infusion: 01/23/23 14:03 Dose: Infused Ibuprofen (Ibuprofen 600 Mg Tablet) 600 mg PO QIDP PRN; Protocol PRN Reason: Per Pain Protocol/Fever > 101 Last Admin: 01/24/23 07:05 Dose: 600 mg Insulin Glargine (Insulin Glargine, Human 1 Unit/0.01 Ml) 10 unit SQ BID [facility] Last Admin: 01/24/23 08:19 Dose: 10 units Insulin Human Lispro (Insulin Lispro 1 Unit/0.01 Ml Unit) 0 unit SQ ACHS [facility]; Protocol Last Admin: 01/24/23 07:37 Dose: Not Given Levothyroxine Sodium (Levothyroxine 25 Mcg Tablet) 25 mcg PO QDAY [facility] Last Admin: 01/24/23 08:19 Dose: 25 mcg Metformin HCl (Metformin 500 Mg Tablet) 1,000 mg PO BIDCC [facility] Last Admin: 01/24/23 07:04 Dose: 1,000 mg Nystatin (Nystatin 500,000 Units/5 Ml Oral.Susp) 500,000 units SSW QID [facility] Last Admin: 01/24/23 08:18 Dose: 500,000 units Nystatin (Nystatin Powder Bottle 15gm) 1 dose TOPICAL TID [facility] Last Admin: 01/23/23 20:39 Dose: Not Given Ondansetron HCl (Ondansetron 4 Mg/2 Ml Vial) 4 mg IV Q6HP PRN PRN Reason: Nausea And Vomiting Oxycodone HCl (Oxycodone Ir 5 Mg Tablet) 5 mg PO Q4HP PRN; Protocol PRN Reason: Per Pain Protocol Last Admin: 01/24/23 03:42 Dose: 5 mg Pantoprazole Sodium (Pantoprazole 40 Mg Tablet) 40 mg PO QDAY [facility] Last Admin: 01/24/23 08:19 Dose: 40 mg Senna (Sennosides 1 Tablet) 2 tab PO HS [facility] Last Admin: 01/23/23 20:39 Dose: Not Given Sodium Chloride (0.9 % Sodium Chloride 10 Ml Syringe) 10 ml IV Q8 [facility] Last Admin: 01/24/23 05:25 Dose: 10 ml Vancomycin HCl (Vancomycin Per Pharmacy) 1 order IV UD [facility]; Protocol A/P Time Spent With Patient Time: Total time spent is greater than 50% in coordination of care (as documented) at patient's floor/unit and/or counseling patient: QUALITY VTE Deep Vein Thrombosis/Pulmonary Embolism Present on Admission: No
[2023-01-24] MEDS: VANCOMYCIN 1,500 MG in 0.9 % SODIUM CHLORIDE 500 ML IV SCH (10:06)
[2023-01-24] MEDS: NYSTATIN POWDER BOTTLE 15GM TOPICAL SCH ×5 (14:03→20:46)
[2023-01-24] MEDS: SENNOSIDES 1 TABLET PO SCH (20:43)
[2023-01-25] MEDS: ACETAMINOPHEN 325 MG TABLET PO PRN (03:31)
[2023-01-25] MEDS: oxyCODONE IR 5 MG TABLET PO PRN (03:32)
[2023-01-25] MEDS: CLINDAMYCIN IN 0.9 % SOD CHLOR 900 MG/50 ML BAG IV SCH ×3 (05:25→21:44)
[2023-01-25] MEDS: IBUPROFEN 600 MG TABLET PO PRN (05:26)
[2023-01-25] MEDS: 0.9 % SODIUM CHLORIDE 10 ML SYRINGE IV SCH ×4 (05:29→21:44)
[2023-01-25 06:32] LABS: Basophils # (Auto) 0.01 K/mcL (0.00-0.30); Basophils % (Auto) 0.5 % (0.0-2.0); Eosinophils # (Auto) 0.08 K/mcL (0.00-0.70); Eosinophils % (Auto) 4.4 % (0.0-7.0); Hematocrit 31.6 % (34.1-44.9); Hemoglobin 9.9 g/dL (11.2-15.7); Lymphocytes # (Auto) 0.51 K/mcL (1.50-4.80); Mean Cell Volume 82.7 fL (80.0-100.0); Mean Corpuscular HGB Conc 31.3 g/dL (31.0-36.0); Monocytes # (Auto) 0.08 K/mcL (0.10-0.90); Monocytes % (Auto) 4.4 % (1.0-12.0); Neutrophils % (Auto) 61.6 % (38.0-78.0); Platelet Count 113 K/mcL (140-440); Red Cell Distribution Width 16.9 % (11.5-14.5)
[2023-01-25 06:48] LABS: ALT/SGPT < 5 U/L (<40); AST/SGOT 23 U/L (<32); Albumin 1.9 gm/dL (3.2-5.2); Albumin/Globulin Ratio 0.9 (1.0-2.3); Alkaline Phosphatase 51 U/L (39-117); Bilirubin,Total 0.3 mg/dL (0.1-1.0); Blood Urea Nitrogen 12 mg/dL (6-20); Calcium 7.7 mg/dL (8.6-10.4); Carbon Dioxide 26 mmol/L (22-30); Chloride 109 mmol/L (96-108); Glomerular Filtration Rate 113; Glucose 74 mg/dL (70-105)
[2023-01-25 07:36] LABS: RBC 3.82 M/mcL (3.59-5.38); WBC 1.8 K/mcL (4.5-11.0)
[2023-01-25] MEDS: NYSTATIN 500,000 UNITS/5 ML ORAL.SUSP SSW SCH ×4 (08:38→21:46)
[2023-01-25] MEDS: FENOFIBRATE 43 MG CAPSULE PO SCH (08:39)
[2023-01-25] MEDS: metFORMIN 500 MG TABLET PO SCH ×2 (08:39→17:03)
[2023-01-25] MEDS: INSULIN LISPRO 1 UNIT/0.01 ML UNIT SQ SCH ×4 (08:39→21:45)
[2023-01-25] MEDS: LEVOTHYROXINE 25 MCG TABLET PO SCH (08:40)
[2023-01-25] MEDS: PANTOPRAZOLE 40 MG TABLET PO SCH (08:40)
[2023-01-25] MEDS: ENOXAPARIN 40 MG/0.4 ML SYRINGE SQ SCH (08:41)
[2023-01-25] MEDS: NYSTATIN POWDER BOTTLE 15GM TOPICAL SCH ×3 (08:41→21:46)
[2023-01-25] MEDS: DOCUSATE SODIUM 100 MG CAPSULE PO SCH ×2 (08:41→21:45)
[2023-01-25] MEDS: INSULIN GLARGINE, HUMAN 1 UNIT/0.01 ML SQ SCH ×2 (08:42→21:46)
[2023-01-25] MEDS: ONDANSETRON 4 MG/2 ML VIAL IV PRN ×2 (15:50→22:40)
[2023-01-25] MEDS: FUROSEMIDE 40 MG/4 ML VIAL IV SCH (15:50)
[2023-01-25] MEDS ORDERED: PROMETHAZINE 25 MG/ML VIAL ONE (19:01)
[2023-01-25] MEDS: PROMETHAZINE 25 MG/ML VIAL IV PRN (19:04)
--- NOTE | 2023-01-25 19:55 | Internal Med Progress Note ---
SUBJECTIVE Subjective Patient information: Note initiated : 01/25/23 at 7:52 pm Service Date, if different from initiated Date: [] Patient: Angela Sultana 42 y/o F admitted on 01/22/23 for L leg infection-Left Lower Extremity Cellulitis. Chief Complaint: [] Additional PMFSH (Level 3 Only): History of present illness: Patient is a 42-year-old morbidly obese female with a history of diabetes mellitus 2, DKA, hypertension, and hypertriglyceridemia, hypothyroidism, cellulitis was last hospitalized for septic shock secondary to groin abscess and DKA requiring vasopressor support in November 2022 now presents with 3-day history of left lower extremity redness, erythema. Patient reported she injured her left foot toes about a week ago. She came to ER yesterday and was given a dose of ceftriaxone and went home. However over the past 24 hours the area of erythema which was initially in the left lower leg about 6 to 7 cm has now spread very fast involving the whole anterior and some medial calf area just below the left knee. Patient report it hurts badly, she had some chills but no fever. She could not take it anymore and presented to ER. In ER patient vitals were stable. Lab work showed WBC 1.7, hemoglobin 9.5, she has chronic anemia, CRP was elevated at 3.8, liver functions, renal functions were stable. CT scan left lower extremity showed moderate cellulitis to the subcutaneous fat throughout the calf and ankle. There was no evidence of abscess, osteomyelitis, myositis. Admission was requested. 01/23. Seen and examined. Afebrile overnight. Reported redness is still there however has not spread beyond the margins which were marked yesterday. Later on she reported to other areas of redness on bilateral inner thighs close to knees. Her potassium is low at 2.9 which will be replaced. 01/24. Vitals stable. No fever or chills. Redness intensity is less but it has not regressed so far. Patient has WBC 1.4 and platelets down to 86L, ANC 0.64 suspect secondary to cefepime which will be discontinued. ESR 11. K 3.3 improved from 2.9. Will replace with KCl. Vanco trough 7.1 01/25. No fever or chills, left lower extremity erythema only slightly improved. Patient reports had small emesis this morning. ANC ,WBC and platelets improving after discontinuation of cefepime. Will give Phenergan for nausea as needed Review of system Constitutional: Denies fever or weakness Eyes: Denies eye pain or vision change ENT ED: Denies throat pain, hearing loss or rhinorrhea Cardiovascular: Denies chest pain, dyspnea on exertion, orthopnea or edema Respiratory: Denies shortness of breath or cough Gastrointestinal: Reports some nausea and emesis bilious type, no abdominal pain Musculoskeletal: Denies back pain or myalgia Integumentary: Left lower extremity erythema less intense Neurological: Denies headache, weakness, numbness, confusion, abnormal gait or dizziness Psychiatric: Denies anxiety, suicidal thoughts or homicidal thoughts Endocrine: Denies fatigue or polyuria Hematological/Lymphatic: Denies easy bleeding or easy bruising Physical examination General Limitations: no limitations General appearance: Present alert resting in bed comfortably Head Head: Present normocephalic; Absent atraumatic Eye Eye: Present PERRL, EOMI and visual watson intact; Absent scleral icterus or nystagmus ENT ENT: Present mucous membranes moist; Absent nasal congestion Neck Neck: Present full ROM; Absent tenderness Chest Chest: Present normal inspection, symmetric chest wall rise and tenderness Respiratory Respiratory: Present normal lung sounds bilaterally; Absent respiratory distress or accessory muscle use Cardiovascular Cardiovascular: Present regular rate, normal rhythm and normal heart sounds Adbominal Abdominal: Present soft and normal bowel sounds; Absent distention or tenderness Extremities Extremities: Present normal inspection and full ROM; Absent tenderness Back Back: Present normal inspection and full ROM; Absent tenderness Neurological Neurological: Present alert, oriented X3, CN II-XII intact, normal gait and reflexes normal; Absent motor sensory deficit Psychiatric Psychiatric: Present normal affect and normal mood Skin Skin: Present left lower extremity erythema slightly improved from before, some pitting edema noted Assessment and plan Left lower extremity cellulitis, rapidly spreading. Patient failed to respond to IM ceftriaxone and now presenting with worsening erythema. ANC, WBC and thrombocytopenia improved after discontinuation of cefepime. Continue clindam ycin IV 900 mg every 8 hours. Continue pain control. IV Lasix 40 mg daily for lymphedema Diabetes mellitus 2 poorly controlled, last A1c 12.9. Continue home dose Lantus, metformin and sliding scale Hypokalemia Corrected Hypertension BP stable Hypertriglyceridemia Continue fenofibrate Morbid obesity Complicating all aspects of care Weight reduction advised Hypothyroidism Continue home dose Synthroid DVT prophylaxis SCDs CODE STATUS Full code Total time taken 45 minutes Constitutional Vitals: Vital Signs Temp Pulse Resp BP Pulse Ox O2 Del Method O2 Flow Rate 98.3 F 68 16 92/64 96 Room Air 1 01/25/23 16:00 01/25/23 16:00 01/25/23 16:00 01/25/23 16:00 01/25/23 16:00 01/25/23 16:00 01/25/23 12:00 Period Temp Pulse Resp BP Sys/Escalante Pulse Ox O2 Del Method O2 Flow Rate Last 24 Hr 97.2 F-98.3 F 68-82 16-16 87-110/52-82 95-98 Nasal Cannula- Room Air 1-2 Intake and Output 01/25/23 01/25/23 01/25/23 03:59 11:59 19:59 Intake Total 790 290 500 Output Total 679 014 6556 Balance 640 140 -500 Intake & Output: Intake & Output 01/25/23 01/25/23 01/25/23 03:59 11:59 19:59 Intake Total 790 290 500 Output Total 210 346 9205 Balance 640 140 -500 Intake: IV 50 50 50 Oral 740 240 450 Output: Urine Catheter Amount 75 Void Amount 75 150 1000 Other: Meal cranberry juice & cheese stick Breakfast Lunch Percent of Meal Consumed 100% 25% 50% Feeding Ability Independent Independent Independent Urine Appearance Clear Clear Clear Urine Color Light Jessie Yellow Yellow Urine Odor Normal Normal Stool Size Small Smear Small Stool Color Brown Brown Stool Consistency Loose Soft Soft # Voids 1 # Bowel Movements 1 # of times incontinent of 1 Bowels OBJ DATA Labs 01/25/23 05:33 01/25/23 05:33 Labs: Abnormal Lab Results 01/25/23 01/25/23 01/24/23 05:33 05:33 05:35 WBC 1.8 L Hgb 9.9 L Hct 31.6 L MCH 25.9 L MCHC RDW 16.9 H Plt Count 113 L MPV 13.0 H Immature Gran % (Auto) 1.1 H Lymph # (Auto) 0.51 L [place] # (Auto) 0.08 L Absolute Neutrophils 1.12 L Potassium Chloride 109 H Anion Gap 6.0 L Creatinine 0.5 L Glucose Calcium 7.7 L 7.6 L Total Protein 3.9 L 4.3 L Albumin 1.9 L 2.3 L Globulin 2.0 L 2.0 L Albumin/Globulin Ratio 0.9 L 01/24/23 01/23/23 01/23/23 05:35 05:10 05:09 WBC 1.4 L 1.4 L Hgb 9.4 L 9.4 L Hct 32.0 L 31.5 L MCH 25.7 L MCHC 29.4 L 29.8 L RDW 17.1 H 17.0 H Plt Count 86 L 92 L MPV Immature Gran % (Auto) 0.7 H Lymph # (Auto) 0.55 L 0.69 L [place] # (Auto) 0.09 L Absolute Neutrophils 0.64 L* 0.57 L* Potassium 2.9 L* Chloride Anion Gap Creatinine 0.5 L Glucose 125 H Calcium 7.8 L Total Protein 4.7 L Albumin 2.3 L Globulin Albumin/Globulin Ratio Meds: Medications Acetaminophen (Acetaminophen 325 Mg Tablet) 650 mg PO Q6HP PRN; Protocol PRN Reason: Per Pain Protocol/Fever > 101 Last Admin: 01/25/23 03:31 Dose: 650 mg Diagnostic Test (Pha) (Accu-Chek 1 Each Strip) 1 each FS ACHS [facility] Last Admin: 01/25/23 17:04 Dose: 1 each Docusate Sodium (Docusate Sodium 100 Mg Capsule) 100 mg PO BID [facility] Last Admin: 01/25/23 08:41 Dose: Not Given Enoxaparin Sodium (Enoxaparin 40 Mg/0.4 Ml Syringe) 40 mg SQ DAILY [facility] Last Admin: 01/25/23 08:41 Dose: 40 mg Fenofibrate (Fenofibrate 43 Mg Capsule) 86 mg PO DAILY [facility] Last Admin: 01/25/23 08:39 Dose: 86 mg Furosemide (Furosemide 40 Mg/4 Ml Vial) 40 mg IV DAILY [facility] Last Admin: 01/25/23 15:50 Dose: 40 mg CLINDAMYCIN IN 0.9 % SOD CHLOR (Clindamycin 900 Mg/50 Ml-Ns) 900 mg in 50 mls @ 100 mls/hr IV Q8H [facility] Last Infusion: 01/25/23 14:05 Dose: Infused Ibuprofen (Ibuprofen 600 Mg Tablet) 600 mg PO QIDP PRN; Protocol PRN Reason: Per Pain Protocol/Fever > 101 Last Admin: 01/25/23 05:26 Dose: 600 mg Insulin Glargine (Insulin Glargine, Human 1 Unit/0.01 Ml) 10 unit SQ BID [facility] Last Admin: 01/25/23 08:42 Dose: 10 units Insulin Human Lispro (Insulin Lispro 1 Unit/0.01 Ml Unit) 0 unit SQ ACHS [facility]; Protocol Last Admin: 01/25/23 17:04 Dose: Not Given Levothyroxine Sodium (Levothyroxine 25 Mcg Tablet) 25 mcg PO QDAY [facility] Last Admin: 01/25/23 08:40 Dose: 25 mcg Metformin HCl (Metformin 500 Mg Tablet) 1,000 mg PO BIDCC [facility] Last Admin: 01/25/23 17:03 Dose: 1,000 mg Nystatin (Nystatin 500,000 Units/5 Ml Oral.Susp) 500,000 units SSW QID [facility] Last Admin: 01/25/23 17:03 Dose: 500,000 units Nystatin (Nystatin Powder Bottle 15gm) 1 dose TOPICAL TID [facility] Last Admin: 01/25/23 13:36 Dose: 1 dose Ondansetron HCl (Ondansetron 4 Mg/2 Ml Vial) 4 mg IV Q6HP PRN PRN Reason: Nausea And Vomiting Last Admin: 01/25/23 15:50 Dose: 4 mg Oxycodone HCl (Oxycodone Ir 5 Mg Tablet) 5 mg PO Q4HP PRN; Protocol PRN Reason: Per Pain Protocol Last Admin: 01/25/23 03:32 Dose: 5 mg Pantoprazole Sodium (Pantoprazole 40 Mg Tablet) 40 mg PO QDAY [facility] Last Admin: 01/25/23 08:40 Dose: 40 mg Promethazine HCl (Promethazine 25 Mg/Ml Vial) 12.5 mg IV Q6HP PRN PRN Reason: Nausea And Vomiting Last Admin: 01/25/23 19:04 Dose: 12.5 mg Senna (Sennosides 1 Tablet) 2 tab PO HS [facility] Last Admin: 01/24/23 20:43 Dose: 2 tab Sodium Chloride (0.9 % Sodium Chloride 10 Ml Syringe) 10 ml IV Q8 [facility] Last Admin: 01/25/23 19:04 Dose: 10 ml A/P Time Spent With Patient Time: Total time spent is greater than 50% in coordination of care (as documented) at patient's floor/unit and/or counseling patient: QUALITY VTE Deep Vein Thrombosis/Pulmonary Embolism Present on Admission: No
[2023-01-25] MEDS: SENNOSIDES 1 TABLET PO SCH (21:45)
[2023-01-26] MEDS: PROMETHAZINE 25 MG/ML VIAL IV PRN (03:34)
[2023-01-26] MEDS: ACETAMINOPHEN 325 MG TABLET PO PRN (03:43)
[2023-01-26] MEDS: oxyCODONE IR 5 MG TABLET PO PRN ×2 (03:43→10:01)
[2023-01-26] MEDS: CLINDAMYCIN IN 0.9 % SOD CHLOR 900 MG/50 ML BAG IV SCH ×3 (05:27→21:33)
[2023-01-26] MEDS: 0.9 % SODIUM CHLORIDE 10 ML SYRINGE IV SCH ×3 (05:28→21:34)
[2023-01-26 06:43] LABS: Basophils # (Auto) 0.02 K/mcL (0.00-0.30); Basophils % (Auto) 0.8 % (0.0-2.0); Eosinophils # (Auto) 0.03 K/mcL (0.00-0.70); Eosinophils % (Auto) 1.1 % (0.0-7.0); Hematocrit 32.3 % (34.1-44.9); Hemoglobin 10.4 g/dL (11.2-15.7); Lymphocytes # (Auto) 0.62 K/mcL (1.50-4.80); Lymphocytes % (Auto) 23.8 % (15.5-49.0); Mean Cell Volume 80.1 fL (80.0-100.0); Mean Corpuscular HGB Conc 32.2 g/dL (31.0-36.0); Monocytes # (Auto) 0.12 K/mcL (0.10-0.90); Monocytes % (Auto) 4.6 % (1.0-12.0); Platelet Count 122 K/mcL (140-440); Red Cell Distribution Width 16.7 % (11.5-14.5); WBC 2.6 K/mcL (4.5-11.0)
[2023-01-26 07:24] LABS: ALT/SGPT 6 U/L (<40); AST/SGOT 22 U/L (<32); Albumin 1.8 gm/dL (3.2-5.2); Albumin/Globulin Ratio 0.9 (1.0-2.3); Alkaline Phosphatase 56 U/L (39-117); Bilirubin,Total 0.3 mg/dL (0.1-1.0); Blood Urea Nitrogen 15 mg/dL (6-20); Calcium 7.7 mg/dL (8.6-10.4); Carbon Dioxide 25 mmol/L (22-30); Chloride 109 mmol/L (96-108); Globulin 2.1 gm/dL (2.2-3.7); Glomerular Filtration Rate 113; Glucose 95 mg/dL (70-105)
[2023-01-26] MEDS: INSULIN LISPRO 1 UNIT/0.01 ML UNIT SQ SCH ×4 (08:10→20:05)
[2023-01-26] MEDS: PANTOPRAZOLE 40 MG TABLET PO SCH (08:17)
[2023-01-26] MEDS: FUROSEMIDE 40 MG/4 ML VIAL IV SCH (08:17)
[2023-01-26] MEDS: NYSTATIN 500,000 UNITS/5 ML ORAL.SUSP SSW SCH ×4 (08:17→20:02)
[2023-01-26] MEDS: LEVOTHYROXINE 25 MCG TABLET PO SCH (08:17)
[2023-01-26] MEDS: metFORMIN 500 MG TABLET PO SCH ×2 (08:17→16:38)
[2023-01-26] MEDS: FENOFIBRATE 43 MG CAPSULE PO SCH (08:18)
[2023-01-26] MEDS: ENOXAPARIN 40 MG/0.4 ML SYRINGE SQ SCH (08:18)
[2023-01-26] MEDS: DOCUSATE SODIUM 100 MG CAPSULE PO SCH ×2 (08:37→20:05)
[2023-01-26] MEDS: NYSTATIN POWDER BOTTLE 15GM TOPICAL SCH ×3 (08:38→20:06)
[2023-01-26] MEDS: INSULIN GLARGINE, HUMAN 1 UNIT/0.01 ML SQ SCH ×2 (08:38→20:14)
[2023-01-26] MEDS: cefTRIAXone 2 GM in DEXTROSE 5% IN WATER 50 ML IV SCH (08:48)
--- NOTE | 2023-01-26 09:18 | Internal Med Progress Note ---
SUBJECTIVE Subjective Patient information: Note initiated : 01/26/23 at 9:16 am Service Date, if different from initiated Date: [] Patient: Angela Sultana 42 y/o F admitted on 01/22/23 for L leg infection-Left Lower Extremity Cellulitis. Chief Complaint: [] Additional PMFSH (Level 3 Only): History of present illness: Patient is a 42-year-old morbidly obese female with a history of diabetes mellitus 2, DKA, hypertension, and hypertriglyceridemia, hypothyroidism, cellulitis was last hospitalized for septic shock secondary to groin abscess and DKA requiring vasopressor support in November 2022 now presents with 3-day history of left lower extremity redness, erythema. Patient reported she injured her left foot toes about a week ago. She came to ER yesterday and was given a dose of ceftriaxone and went home. However over the past 24 hours the area of erythema which was initially in the left lower leg about 6 to 7 cm has now spread very fast involving the whole anterior and some medial calf area just below the left knee. Patient report it hurts badly, she had some chills but no fever. She could not take it anymore and presented to ER. In ER patient vitals were stable. Lab work showed WBC 1.7, hemoglobin 9.5, she has chronic anemia, CRP was elevated at 3.8, liver functions, renal functions were stable. CT scan left lower extremity showed moderate cellulitis to the subcutaneous fat throughout the calf and ankle. There was no evidence of abscess, osteomyelitis, myositis. Admission was requested. 01/23. Seen and examined. Afebrile overnight. Reported redness is still there however has not spread beyond the margins which were marked yesterday. Later on she reported to other areas of redness on bilateral inner thighs close to knees. Her potassium is low at 2.9 which will be replaced. 01/24. Vitals stable. No fever or chills. Redness intensity is less but it has not regressed so far. Patient has WBC 1.4 and platelets down to 86L, ANC 0.64 suspect secondary to cefepime which will be discontinued. ESR 11. K 3.3 improved from 2.9. Will replace with KCl. Vanco trough 7.1 01/25. No fever or chills, left lower extremity erythema only slightly improved. Patient reports had small emesis this morning. ANC ,WBC and platelets improving after discontinuation of cefepime. Will give Phenergan for nausea as needed 01/26. Patient reported her nausea and vomiting has resolved, she is making frequent trips to the restroom since she is on IV Lasix. Erythema left lower extremities slowly improving Review of system Constitutional: Denies fever or weakness Eyes: Denies eye pain or vision change ENT ED: Denies throat pain, hearing loss or rhinorrhea Cardiovascular: Denies chest pain, dyspnea on exertion, orthopnea or edema Respiratory: Denies shortness of breath or cough Gastrointestinal: Reports some nausea and emesis bilious type, no abdominal pain Musculoskeletal: Denies back pain or myalgia Integumentary: Left lower extremity erythema less intense Neurological: Denies headache, weakness, numbness, confusion, abnormal gait or dizziness Psychiatric: Denies anxiety, suicidal thoughts or homicidal thoughts Endocrine: Denies fatigue or polyuria Hematological/Lymphatic: Denies easy bleeding or easy bruising Physical examination General Limitations: no limitations General appearance: Present alert resting in bed comfortably Head Head: Present normocephalic; Absent atraumatic Eye Eye: Present PERRL, EOMI and visual watson intact; Absent scleral icterus or nystagmus ENT ENT: Present mucous membranes moist; Absent nasal congestion Neck Neck: Present full ROM; Absent tenderness Chest Chest: Present normal inspection, symmetric chest wall rise and tenderness Respiratory Respiratory: Present normal lung sounds bilaterally; Absent respiratory distress or accessory muscle use Cardiovascular Cardiovascular: Present regular rate, normal rhythm and normal heart sounds Adbominal Abdominal: Present soft and normal bowel sounds; Absent distention or tenderness Extremities Extremities: Present normal inspection and full ROM; Absent tenderness Back Back: Present normal inspection and full ROM; Absent tenderness Neurological Neurological: Present alert, oriented X3, CN II-XII intact, normal gait and reflexes normal; Absent motor sensory deficit Psychiatric Psychiatric: Present normal affect and normal mood Skin Skin: Present left leg erythema improving, Ted wrap was removed Assessment and plan Left lower extremity cellulitis, rapidly spreading. Patient failed to respond to IM ceftriaxone and now presenting with worsening erythema. ANC, WBC and thrombocytopenia improved after discontinuation of cefepime. Continue clindamycin IV 900 mg every 8 hours. Add ceftriaxone 2 g every 24 hours. Continue pain control. IV Lasix 40 mg daily for lymphedema Diabetes mellitus 2 poorly controlled, last A1c 12.9. Continue home dose Lantus, metformin and sliding scale Hypokalemia Corrected Hypertension BP stable Hypertriglyceridemia Continue fenofibrate Morbid obesity Complicating all aspects of care Weight reduction advised Hypothyroidism Continue home dose Synthroid DVT prophylaxis SCDs CODE STATUS Full code Total time taken 40 minutes Constitutional Vitals: Vital Signs Temp Pulse Resp BP Pulse Ox O2 Del Method O2 Flow Rate 99.1 F H 85 20 95/54 97 Nasal Cannula 2 01/26/23 08:00 01/26/23 08:00 01/26/23 08:00 01/26/23 08:00 01/26/23 08:00 01/26/23 08:00 01/26/23 08:00 Period Temp Pulse Resp BP Sys/Escalante Pulse Ox O2 Del Method O2 Flow Rate Last 24 Hr 97.2 F-100.6 F 68-100 16-20 92-110/54-82 92-98 Nasal Cannula- Room Air 1-2 Intake and Output 01/25/23 01/26/23 01/26/23 19:59 03:59 11:59 Intake Total 500 50 50 Output Total 1150 475 Balance -650 -425 50 Weight 133.538 kg Intake & Output: Intake & Output 01/25/23 01/26/23 01/26/23 19:59 03:59 11:59 Intake Total 500 50 50 Output Total 1150 475 Balance -650 -425 50 Weight 133.538 kg Intake: IV 50 50 50 Oral 450 0 Output: Void Amount 1000 400 Emesis 150 75 Other: Meal Lunch Percent of Meal Consumed 50% Feeding Ability Independent Urine Appearance Clear Clear Urine Color Yellow Light Jessie Urine Odor Normal Stool Size Small Stool Consistency Soft # Voids 1 # Bowel Movements 1 OBJ DATA Labs 01/26/23 05:10 01/26/23 05:10 Labs: Abnormal Lab Results 01/26/23 01/26/23 01/25/23 05:10 05:10 05:33 WBC 2.6 L Hgb 10.4 L Hct 32.3 L MCH 25.8 L MCHC RDW 16.7 H Plt Count 122 L MPV Immature Gran % (Auto) Lymph # (Auto) 0.62 L [place] # (Auto) Absolute Neutrophils Chloride 109 H 109 H Anion Gap 7.0 L Creatinine Calcium 7.7 L 7.7 L Total Protein 3.9 L 3.9 L Albumin 1.8 L 1.9 L Globulin 2.1 L 2.0 L Albumin/Globulin Ratio 0.9 L 0.9 L 01/25/23 01/24/23 01/24/23 05:33 05:35 05:35 WBC 1.8 L 1.4 L Hgb 9.9 L 9.4 L Hct 31.6 L 32.0 L MCH 25.9 L 25.7 L MCHC 29.4 L RDW 16.9 H 17.1 H Plt Count 113 L 86 L MPV 13.0 H Immature Gran % (Auto) 1.1 H Lymph # (Auto) 0.51 L 0.55 L [place] # (Auto) 0.08 L Absolute Neutrophils 1.12 L 0.64 L* Chloride Anion Gap 6.0 L Creatinine 0.5 L Calcium 7.6 L Total Protein 4.3 L Albumin 2.3 L Globulin 2.0 L Albumin/Globulin Ratio Meds: Medications Acetaminophen (Acetaminophen 325 Mg Tablet) 650 mg PO Q6HP PRN; Protocol PRN Reason: Per Pain Protocol/Fever > 101 Last Admin: 01/26/23 03:43 Dose: 650 mg Diagnostic Test (Pha) (Accu-Chek 1 Each Strip) 1 each FS ACHS [facility] Last Admin: 01/26/23 07:11 Dose: 1 each Docusate Sodium (Docusate Sodium 100 Mg Capsule) 100 mg PO BID [facility] Last Admin: 01/26/23 08:37 Dose: Not Given Enoxaparin Sodium (Enoxaparin 40 Mg/0.4 Ml Syringe) 40 mg SQ DAILY [facility] Last Admin: 01/26/23 08:18 Dose: 40 mg Fenofibrate (Fenofibrate 43 Mg Capsule) 86 mg PO DAILY [facility] Last Admin: 01/26/23 08:18 Dose: 86 mg Furosemide (Furosemide 40 Mg/4 Ml Vial) 40 mg IV DAILY [facility] Last Admin: 01/26/23 08:17 Dose: 40 mg CLINDAMYCIN IN 0.9 % SOD CHLOR (Clindamycin 900 Mg/50 Ml-Ns) 900 mg in 50 mls @ 100 mls/hr IV Q8H [facility] Last Infusion: 01/26/23 06:03 Dose: Infused Ceftriaxone Sodium 2 gm/ (Dextrose) 50 mls @ 100 mls/hr IV Q24H [facility]; Protocol Last Admin: 01/26/23 08:48 Dose: 100 mls/hr Ibuprofen (Ibuprofen 600 Mg Tablet) 600 mg PO QIDP PRN; Protocol PRN Reason: Per Pain Protocol/Fever > 101 Last Admin: 01/25/23 05:26 Dose: 600 mg Insulin Glargine (Insulin Glargine, Human 1 Unit/0.01 Ml) 10 unit SQ BID [facility] Last Admin: 01/26/23 08:38 Dose: Not Given Insulin Human Lispro (Insulin Lispro 1 Unit/0.01 Ml Unit) 0 unit SQ ACHS [facility]; Protocol Last Admin: 01/26/23 08:10 Dose: Not Given Levothyroxine Sodium (Levothyroxine 25 Mcg Tablet) 25 mcg PO QDAY [facility] Last Admin: 01/26/23 08:17 Dose: 25 mcg Metformin HCl (Metformin 500 Mg Tablet) 1,000 mg PO BIDCC [facility] Last Admin: 01/26/23 08:17 Dose: 1,000 mg Nystatin (Nystatin 500,000 Units/5 Ml Oral.Susp) 500,000 units SSW QID [facility] Last Admin: 01/26/23 08:17 Dose: 500,000 units Nystatin (Nystatin Powder Bottle 15gm) 1 dose TOPICAL TID [facility] Last Admin: 01/26/23 08:38 Dose: Not Given Ondansetron HCl (Ondansetron 4 Mg/2 Ml Vial) 4 mg IV Q6HP PRN PRN Reason: Nausea And Vomiting Last Admin: 01/25/23 22:40 Dose: 4 mg Oxycodone HCl (Oxycodone Ir 5 Mg Tablet) 5 mg PO Q4HP PRN; Protocol PRN Reason: Per Pain Protocol Last Admin: 01/26/23 03:43 Dose: 5 mg Pantoprazole Sodium (Pantoprazole 40 Mg Tablet) 40 mg PO QDAY [facility] Last Admin: 01/26/23 08:17 Dose: 40 mg Promethazine HCl (Promethazine 25 Mg/Ml Vial) 12.5 mg IV Q6HP PRN PRN Reason: Nausea And Vomiting Last Admin: 01/26/23 03:34 Dose: 12.5 mg Senna (Sennosides 1 Tablet) 2 tab PO HS [facility] Last Admin: 01/25/23 21:45 Dose: Not Given Sodium Chloride (0.9 % Sodium Chloride 10 Ml Syringe) 10 ml IV Q8 [facility] Last Admin: 01/26/23 05:28 Dose: 10 ml A/P Time Spent With Patient Time: Total time spent is greater than 50% in coordination of care (as documented) at patient's floor/unit and/or counseling patient: QUALITY VTE Deep Vein Thrombosis/Pulmonary Embolism Present on Admission: No
[2023-01-26 12:10] LABS: Neutrophils % (Auto) 69.3 % (38.0-78.0); RBC 4.03 M/mcL (3.59-5.38)
[2023-01-26] MEDS: IBUPROFEN 600 MG TABLET PO PRN (15:12)
[2023-01-26] MEDS: SENNOSIDES 1 TABLET PO SCH (20:06)
[2023-01-27] MEDS: CLINDAMYCIN IN 0.9 % SOD CHLOR 900 MG/50 ML BAG IV SCH ×3 (05:23→14:30)
[2023-01-27] MEDS: 0.9 % SODIUM CHLORIDE 10 ML SYRINGE IV SCH ×2 (05:23→15:20)
[2023-01-27 06:59] LABS: Basophils # (Auto) 0.01 K/mcL (0.00-0.30); Basophils % (Auto) 0.3 % (0.0-2.0); Eosinophils # (Auto) 0.09 K/mcL (0.00-0.70); Eosinophils % (Auto) 2.8 % (0.0-7.0); Hematocrit 32.5 % (34.1-44.9); Lymphocytes # (Auto) 1.14 K/mcL (1.50-4.80); Mean Corpuscular HGB Conc 30.8 g/dL (31.0-36.0); Mean Platelet Volume 11.8 fL (8.8-12.5); Monocytes # (Auto) 0.24 K/mcL (0.10-0.90); Monocytes % (Auto) 7.6 % (1.0-12.0); Platelet Count 154 K/mcL (140-440); RBC 3.87 M/mcL (3.59-5.38); Red Cell Distribution Width 17.4 % (11.5-14.5); WBC 3.2 K/mcL (4.5-11.0)
[2023-01-27 07:15] LABS: ALT/SGPT 6 U/L (<40); AST/SGOT 28 U/L (<32); Albumin 1.8 gm/dL (3.2-5.2); Albumin/Globulin Ratio 0.9 (1.0-2.3); Alkaline Phosphatase 61 U/L (39-117); Bilirubin,Total 0.3 mg/dL (0.1-1.0); Blood Urea Nitrogen 21 mg/dL (6-20); Calcium 7.2 mg/dL (8.6-10.4); Carbon Dioxide 27 mmol/L (22-30); Chloride 110 mmol/L (96-108); Glomerular Filtration Rate 108; Glucose 88 mg/dL (70-105)
[2023-01-27] MEDS: FUROSEMIDE 40 MG/4 ML VIAL IV SCH (09:12)
[2023-01-27] MEDS: ENOXAPARIN 40 MG/0.4 ML SYRINGE SQ SCH (09:12)
[2023-01-27] MEDS: metFORMIN 500 MG TABLET PO SCH (09:13)
[2023-01-27] MEDS: cefTRIAXone 2 GM in DEXTROSE 5% IN WATER 50 ML IV SCH (09:13)
[2023-01-27] MEDS: PANTOPRAZOLE 40 MG TABLET PO SCH (09:14)
[2023-01-27] MEDS: FENOFIBRATE 43 MG CAPSULE PO SCH (09:14)
[2023-01-27] MEDS: INSULIN LISPRO 1 UNIT/0.01 ML UNIT SQ SCH ×2 (09:14→11:40)
[2023-01-27] MEDS: LEVOTHYROXINE 25 MCG TABLET PO SCH (09:14)
[2023-01-27] MEDS: NYSTATIN 500,000 UNITS/5 ML ORAL.SUSP SSW SCH (09:14)
[2023-01-27] MEDS: INSULIN GLARGINE, HUMAN 1 UNIT/0.01 ML SQ SCH (11:09)
[2023-01-27] MEDS: DOCUSATE SODIUM 100 MG CAPSULE PO SCH (11:09)
[2023-01-27] MEDS: NYSTATIN POWDER BOTTLE 15GM TOPICAL SCH ×2 (11:10→15:20)
--- NOTE | 2023-01-27 12:41 | Discharge Summary ---
Discharge Provider Provider IMPORTANT FOLLOW-UP INFORMATION FOR PCP: Patient information: See above Date of admission: 01/22/23 19:25 Discharge date: 01/27/23 Primary care physician: PCP No Consults: 01/22/23 Consult to Physician [CONS] Stat Comment: Consulting Provider: Maikol Joaquin Reason For Exam: Physician to Consult COURSE Hospital Course Hospital course: History of present illness: Patient is a 42-year-old morbidly obese female with a history of diabetes mellitus 2, DKA, hypertension, and hypertriglyceridemia, hypothyroidism, cellulitis was last hospitalized for septic shock secondary to groin abscess and DKA requiring vasopressor support in November 2022 now presents with 3-day history of left lower extremity redness, erythema. Patient reported she injured her left foot toes about a week ago. She came to ER yesterday and was given a dose of ceftriaxone and went home. However over the past 24 hours the area of erythema which was initially in the left lower leg about 6 to 7 cm has now spread very fast involving the whole anterior and some medial calf area just below the left knee. Patient report it hurts badly, she had some chills but no fever. She could not take it anymore and presented to ER. In ER patient vitals were stable. Lab work showed WBC 1.7, hemoglobin 9.5, she has chronic anemia, CRP was elevated at 3.8, liver functions, renal functions were stable. CT scan left lower extremity showed moderate cellulitis to the subcutaneous fat throughout the calf and ankle. There was no evidence of abscess, osteomyelitis, myositis. Admission was requested. 01/23. Seen and examined. Afebrile overnight. Reported redness is still there however has not spread beyond the margins which were marked yesterday. Later on she reported to other areas of redness on bilateral inner thighs close to knees. Her potassium is low at 2.9 which will be replaced. 01/24. Vitals stable. No fever or chills. Redness intensity is less but it has not regressed so far. Patient has WBC 1.4 and platelets down to 86L, ANC 0.64 suspect secondary to cefepime which will be discontinued. ESR 11. K 3.3 improved from 2.9. Will replace with KCl. Vanco trough 7.1 01/25. No fever or chills, left lower extremity erythema only slightly improved. Patient reports had small emesis this morning. ANC ,WBC and platelets improving after discontinuation of cefepime. Will give Phenergan for nausea as needed 01/26. Patient reported her nausea and vomiting has resolved, she is making frequent trips to the restroom since she is on IV Lasix. Erythema left lower extremities slowly improving 01/27 patient is followed by wound care nurse.. Her erythema left lower extremity continues to improve, no fever or chills. With Lasix her lymphedema is improving. Patient is now close to her baseline. She remains afebrile. Leukocytosis is absent. She will be discharged on oral cefdinir and clindamycin. Lasix every 48 hours for lymphedema. Discharge diagnoses Left lower extremity cellulitis, rapidly spreading. No evidence of DVT. Patient failed to respond to IM ceftriaxone and presented with worsening erythema. Received vancomycin, cefepime and clindamycin. Cefepime discontinued due to myelosuppression. Patient received ceftriaxone and clindamycin and improving well Also received IV Lasix for lymphedema Patient is afebrile, leukocytosis absent. Transition to p.o. clindamycin and cefdinir to complete her 2-week course. Diabetes mellitus 2 poorly controlled, last A1c 12.9. Continue home dose Lantus, metformin and sliding scale Chronic lymphedema Lasix 20 mg every other day. Follow-up with PCP Hypokalemia Corrected Hypertension BP stable Hypertriglyceridemia Continue fenofibrate Morbid obesity Complicating all aspects of care Weight reduction advised Hypothyroidism Continue home dose Synthroid DVT prophylaxis SCDs CODE STATUS Full code Physical examination General Limitations: no limitations General appearance: Present alert resting in bed comfortably Head Head: Present normocephalic; Absent atraumatic Eye Eye: Present PERRL, EOMI and visual watson intact; Absent scleral icterus or nystagmus ENT ENT: Present mucous membranes moist; Absent nasal congestion Neck Neck: Present full ROM; Absent tenderness Chest Chest: Present normal inspection, symmetric chest wall rise and tenderness Respiratory Respiratory: Present normal lung sounds bilaterally; Absent respiratory distress or accessory muscle use Cardiovascular Cardiovascular: Present regular rate, normal rhythm and normal heart sounds Adbominal Abdominal: Present soft and normal bowel sounds; Absent distention or tenderness Extremities Extremities: Present normal inspection and full ROM; Absent tenderness Back Back: Present normal inspection and full ROM; Absent tenderness Neurological Neurological: Present alert, oriented X3, CN II-XII intact, normal gait and reflexes normal; Absent motor sensory deficit Psychiatric Psychiatric: Present normal affect and normal mood Skin Skin: Present left lower extremity erythema, redness and swelling improving Total time taken 40 minutes Discharge diagnosis: Left lower extremity cellulitis Time Spent with Patient Time attestation: Total time spent providing and/or coordinating discharge services: Time spent: Greater than 30 minutes EXAM Constitutional Vitals: Temp Pulse Resp BP Pulse Ox O2 Del Method O2 Flow Rate 97.5 F 93 H 18 114/76 94 Room Air 1 01/27/23 12:00 01/27/23 12:00 01/27/23 03:50 01/27/23 12:00 01/27/23 12:00 01/27/23 12:00 01/27/23 06:28 Discharge Data Data Completed and Pending Labs on day of discharge: Labs from last 24 hours 01/27/23 01/27/23 05:15 05:15 WBC 3.2 L RBC 3.87 Hgb 10.0 L Hct 32.5 L MCV 84.0 MCH 25.8 L MCHC 30.8 L RDW 17.4 H Plt Count 154 MPV 11.8 Immature Gran % (Auto) 0.3 Neut % (Auto) 53.0 Lymph % (Auto) 36.0 [place] % (Auto) 7.6 Eos % (Auto) 2.8 Baso % (Auto) 0.3 Lymph # (Auto) 1.14 L [place] # (Auto) 0.24 Eos # (Auto) 0.09 Baso # (Auto) 0.01 Immature Gran # 0.01 Absolute Neutrophils 1.68 L Sodium 144 Potassium 3.7 Chloride 110 H Carbon Dioxide 27 Anion Gap 7.0 L BUN 21 H Creatinine 0.7 GFR Calculation 108 Glucose 88 Calcium 7.2 L Total Bilirubin 0.3 AST 28 ALT 6 Alkaline Phosphatase 61 Total Protein 3.8 L Albumin 1.8 L Globulin 2.0 L Albumin/Globulin Ratio 0.9 L Discharge Plan Patient/Caregiver Discharge Instructions Activity: increase activity as tolerated Diet: Consistent Carbohydrate Instructions: Cellulitis (GEN) Activity Restrictions/Additional Instructions: Resume diabetic diet as tolerated. Increase activity as tolerated. You may shower. Apply lotion to affected leg daily. Take all medication as directed. You have antibiotic prescriptions to pick up driver at [facility]. Continue home dose of Lantus, metformin and Humalog. Take prescriptions, photo ID, and insurance cards to pick up driver your medications. Return to ER for sustained fever and chills not relieved by medications, uncontrolled pain, inability to urinate or have a bowel movement, nausea and/or vomiting, swelling, redness, signs of infection, shortness of breath, chest pain, return of symptoms, or other acute symptom. Prescriptions: New clindamycin HCl 300 mg capsule 600 mg PO Q8H Qty: 18 0RF cefdinir 300 mg capsule 300 mg PO BID Qty: 20 0RF furosemide [Lasix] 20 mg tablet 20 mg PO Q48H Qty: 30 0RF Continued levothyroxine 25 mcg tablet 25 mcg PO QDAY Qty: 90 1RF fenofibrate 54 mg tablet 108 mg PO QDAY Qty: 180 1RF metformin 1,000 mg tablet See Rx Instructions .ROUTE .COMPLEX Qty: 180 0RF Dose Instruction: Take 1 tablet by mouth twice daily Rx Instructions: Take 1 tablet by mouth twice daily (DME) pen needle, diabetic [Easy Comfort Pen Ben Bolt] 31 gauge x 5/16" needle See Rx Instructions .Route Qty: 100 0RF Rx Instructions: As directed glucagon 1 mg/0.2 mL auto-injector 1 mg subcut ONCE Qty: 0.4 2RF Rx Instructions: as a single dose; may repeat once after 15 minutes if no response nystatin 100,000 unit/mL suspension 6 ml PO QID 14 Days Qty: 336 1RF Rx Instructions: swish and swallow insulin glargine 100 unit/mL solution 10 unit subcut BID Qty: 100 6RF Rx Instructions: Take 20 units in the morning and 30 units at bedtime insulin lispro [Humalog Tempo Pen(U-100)Insuln] 100 unit/mL insulin pen 10 unit subcut TID Qty: 15 3RF nystatin 100,000 unit/gram powder 1 applic topical TID Qty: 60 0RF pantoprazole 40 mg Tablet,Delayed Release (Dr/Ec) 40 mg PO QDAY Qty: 60 0RF Discontinued cephalexin 500 mg capsule 500 mg PO TID 10 Days Qty: 30 0RF Follow Up Plan Follow up with: Lillian Davenport MD [Physician] - 02/02/23 9:30 am (Please arrive for your appointment 15 minutes early.) Patient Disposition: Home, Self-Care Overall status at discharge: patient is progressing back to baseline Discharge Orders: Discharge Order (Routine); Ordered 01/27/23 Ordered By: Maikol ANDERSON VTE Deep Vein Thrombosis/Pulmonary Embolism Present on Admission: No
--- NOTE | 2023-01-27 14:03 | Ultrasound Report ---
History: Left leg infection, cellulitis, diabetic, evaluate for deep venous thrombosis FINDINGS: Patient was technically difficult to examine due to large body habitus and peripheral edema. Normal flow is present in the common femoral, proximal and mid superficial femoral, profunda and popliteal arteries. There are segments of the distal superficial femoral which are incompletely visualized. The visualized calf veins appear normal. The peroneal vein was. Poorly visualized. Visualized veins have normal compressibility and augmentation. There is a reactive lymph node in the groin which measures 1.3 x 3.2 x 3.5 cm. It has an echogenic fatty hilum. This may be secondary to the cellulitis. No abnormal fluid collection is seen in the leg. No abscess is detected. IMPRESSION: No evidence of deep venous thrombosis from the groin through the popliteal fossa. The calf is incompletely visualized but the visualized veins are nonthrombosed. Interpreted and Authenticated by: Best Newell 01/27/23
== END 2023-01-27 16:35 | disposition home or self-care (01) | DRG 603 ==
LOC: ED 14:05 → MEDSUR 19:25
PROVIDERS: ADMIT Internal Medicine; ATTEND Internal Medicine